=== PATIENT | female | born 1985 | race Caucasian/White ===

== ENCOUNTER 2020-10-16 11:25 | Emergency (ER) | payer SELFPAY ==
[2020-10-16 11:37] VITALS: BP 108/71; BP 92/76; PULSE 75; RESP 16; TEMP 36.1; O2SAT 99; BMI 52.4
--- NOTE | 2020-10-16 11:55 | ED_ITS ---
HPI - General Adult General Chief complaint: General Medical Stated complaint: ?DEHYDRATION Time Seen by Provider: 10/16/20 11:49 Source: patient, EMS and RN notes reviewed Mode of arrival: ambulatory Limitations: no limitations History of Present Illness HPI narrative: 34-year-old female with history of insulin-dependent diabetes here today after sustaining syncopal episode when doing her laundry. Patient reports that she was doing laundry with her mother and her son, while she started feeling very hot. Patient was going to get some water because she was thirsty and she reports that she passed out. Patient reports that she has not been drinking much fluids and has been very hot. She does not have a central air were she lives. Patient also reports that she took her insulin this morning and did not have anything to eat. Patient denies CP, PND, SOB with or without exertion. Reports to be feeling little lightheaded at this moment. 1 L of normal saline given by EMS. Blood sugar was checked by EMS and was 130. Related Data Allergies Allergy/AdvReac Type Severity Reaction Status Date / Time No Known Allergies Allergy Unverified 02/11/20 16:00 [No Known Allergies*] Review of Systems Review of Systems: Constitutional : No Weight loss, No Fever, No Chills, No Night Sweats, No Fatigue, No Malaise ENT/Mouth : No Hearing loss, No Ear Pain, No Nasal Congestion, No Sinus Pain, No Hoarseness, No sore throat, No Rhinorrhea, No Swallowing Difficulty Eyes: No Eye Pain, No Swelling, No Redness, No Foreign Body, No Discharge, No Vision Changes Cardiovascular : No Chest Pain, No SOB, No Dyspnea on Exertion, No Orthopnea, No Edema, No Palpitations Respiratory : No Cough, No Sputum, No Wheezing, No Smoke Exposure, No Dyspnea Gastrointestinal : No Nausea, No Vomiting, No Diarrhea, No Constipation, No abdominal Pain, No Hematochezia, No Melena Genitourinary : no irregular bleeding, No Dysuria, No Urinary Frequency, No Hematuria, No Urinary Incontinence, No Urgency, No Flank Pain, No Urinary Flow Changes, No Hesitancy Musculoskeletal : No joint pain, No Myalgias, No Joint Swelling Skin : No Skin Lesions, No rash Neuro : Weakness, No Numbness, No Paresthesias, No Loss of Consciousness, No Dizziness, No Headache Psych : No Anxiety/Panic, No Depression, No SI/HI/AH/VH, No Social Issues, Heme/Lymph: No Bruising, No Bleeding,No Lymphadenopathy Endocrine : No Polyuria, No Polydipsia, No Temperature Intolerance Yes all other systems are reviewed and are negative PMFSH Social History Social History Advance Directives: No Advance Directives Information Provided: Yes Patient : No Physical Exam Vital Signs: Vital Signs: Last Vital Signs Temp 96.9 F 10/16/20 11:37 Pulse 81 10/16/20 16:52 Resp 18 10/16/20 14:07 BP 101/72 10/16/20 16:52 Pulse Ox 99 10/16/20 14:07 Body Mass Index 52.4 Const: General: healthy appearing, no acute distress and well developed Nutritional Appearance: well nourished Orientation/consciousness: patient oriented x3 Neck: Neck: Yes normal visual inspection, Yes full ROM and Yes trachea midline Thyroid: Thyroid normal Resp: Auscultation: clear to auscultation bilaterally Cardio: Rate: regular rate Rhythm: regular rhythm GI: Inspection: Yes normal to inspection and No distended Palpation (GI): No hepatosplenomegaly present Auscultation: normal bowel sounds Skin: General skin exam: elasticity normal, turgor normal and dry skin Neuro: General: patient oriented x3 Course Course Course Narrative: 34-year-old female here today after syncopal episode at the [facility]. Patient was there with her mother and son. States that she has not been drinking fluids in the last couple days. Patient is diabetic. Took her insulin this morning and did not eat anything get. While doing laundry patient of thirsty and was try to go and get some water however she had a syncopal ep isode. Denies hitting head. Feeling lightheaded, blood sugar done by EMS and was 130. Will repeat POC here. I will order BMP, CBC to make sure that she is not anemic, EKG, orthostatics. Reevaluation(s) Reevaluation #1: Patient's blood sugar 28, dextrose 50 grams ordered IV. Spoke with an RN for patient to receive lunch. Patient is feeling better. Will continue to monitor for another couple hours and recheck her blood sugar. Reevaluation #2: Patient's blood sugar 171. Patient reports that she is feeling much better. I will discharge her home with instructions to monitor her blood sugar fair fluid home. Avoid administering insulin without eating her food. Follow-up with her PCP and possibly Endocrinology. Patient needs to drink plenty fluids and spoke to patient about keeping her apartment cool. She verbalizes understanding of instruction is agreeable to plan of care. She was given the opportunity to ask questions and all questions answered Time: 15:58 Medical Decision Making Lab Data Result diagrams: 10/16/20 13:22 10/16/20 13:22 Labs: Lab Results 10/16/20 10/16/20 10/16/20 Range/Units 13:09 13:22 13:22 WBC 6.9 (4.8-10.8) X10*3/uL RBC 3.94 L (4.20-5.50) X10*6/uL Hgb 11.6 L (12.0-16.0) g/dl Hct 34.2 L (37-47) % MCV 86.8 (80-98) fL MCH 29.4 (27.0-33.0) pg MCHC 33.9 (31.0-35.0) g/dl RDW 11.5 (11.0-16.0) % Plt Count 250 (160-400) X10*3/uL MPV 10.6 (9.4-12.3) fL Immature Gran % (Auto) 0.1 (0.0-0.4) % Neut % (Auto) 49.8 (45-73) % Lymph % (Auto) 41.6 H (20-40) % [place] % (Auto) 6.0 (2-11) % Eos % (Auto) 1.9 (0-4) % Baso % (Auto) 0.6 (0-2) % Lymph # (Auto) 2.9 (1.2-4.9) X10*3/uL [place] # (Auto) 0.4 (0.1-1.2) X10*3/uL Eos # (Auto) 0.1 (0.0-0.4) X10*3/uL Baso # (Auto) 0.0 (0.0-0.2) X10*3/uL Abs Immat Gran (auto) 0.01 (0.00-0.03) X10*3/uL Absolute Neuts (auto) 3.4 (2.0-8.3) X10*3/uL Absolute Nucleated RBC 0.000 (0.0-0.012) X10*3/uL Nucleated RBC % (auto) 0.0 (0.0-0.2) /100WBC Sodium 139 (135-145) mmol/L Potassium 3.2 L (3.3-5.1) mmol/L Chloride 104 (96-108) mmol/L Carbon Dioxide 27 (22-29) mmol/L Anion Gap 11 L (12-20) BUN 12 (9-16) mg/dL Creatinine 0.76 (0.5-1.4) mg/dL Estim Creat Clear Calc 136.3 Estimated GFR > 60 POC Glucose 28 L* (60-115) mg/dL Random Glucose 214 H (60-115) mg/dL Calcium 9.0 (8.4-10.2) mg/dL Urine Color Urine Appearance Urine pH (5.0-8.0) Ur Specific [place] (1.005-1.025) Urine Protein (NEG-TRACE) MG/DL Urine Glucose (UA) (NEG) MG/DL Urine Ketones (NEG) MG/DL Urine Blood (NEG) Urine Nitrite (NEG) Ur Leukocyte Esterase (NEG) Urine RBC (0) /HPF Urine WBC (0-4) /HPF Ur Squamous Epith Cells /LPF Urine Bacteria /LPF Urine Test (NEGATIVE) 10/16/20 10/16/20 10/16/20 Range/Units 13:35 14:04 14:04 WBC (4.8-10.8) X10*3/uL RBC (4.20-5.50) X10*6/uL Hgb (12.0-16.0) g/dl Hct (37-47) % MCV (80-98) fL MCH (27.0-33.0) pg MCHC (31.0-35.0) g/dl RDW (11.0-16.0) % Plt Count (160-400) X10*3/uL MPV (9.4-12.3) fL Immature Gran % (Auto) (0.0-0.4) % Neut % (Auto) (45-73) % Lymph % (Auto) (20-40) % [place] % (Auto) (2-11) % Eos % (Auto) (0-4) % Baso % (Auto) (0-2) % Lymph # (Auto) (1.2-4.9) X10*3/uL [place] # (Auto) (0.1-1.2) X10*3/uL Eos # (Auto) (0.0-0.4) X10*3/uL Baso # (Auto) (0.0-0.2) X10*3/uL Abs Immat Gran (auto) (0.00-0.03) X10*3/uL Absolute Neuts (auto) (2.0-8.3) X10*3/uL Absolute Nucleated RBC (0.0-0.012) X10*3/uL Nucleated RBC % (auto) (0.0-0.2) /100WBC Sodium (135-145) mmol/L Potassium (3.3-5.1) mmol/L Chloride (96-108) mmol/L Carbon Dioxide (22-29) mmol/L Anion Gap (12-20) BUN (9-16) mg/dL Creatinine (0.5-1.4) mg/dL Estim Creat Clear Calc Estimated GFR POC Glucose 163 H (60-115) mg/dL Random Glucose (60-115) mg/dL Calcium (8.4-10.2) mg/dL Urine Color YELLOW Urine Appearance HAZY Urine pH 6.0 (5.0-8.0) Ur Specific [place] 1.025 (1.005-1.025) Urine Protein NEG (NEG-TRACE) MG/DL Urine Glucose (UA) >=1000 H (NEG) MG/DL Urine Ketones 5 (NEG) MG/DL Urine Blood NEG (NEG) Urine Nitrite NEG (NEG) Ur Leukocyte Esterase NEG (NEG) Urine RBC 0 (0) /HPF Urine WBC 0-2 (0-4) /HPF Ur Squamous Epith Cells 3+ /LPF Urine Bacteria TRACE /LPF Urine Test NEGATIVE (NEGATIVE) 10/16/20 Range/Units 15:48 WBC (4.8-10.8) X10*3/uL RBC (4.20-5.50) X10*6/uL Hgb (12.0-16.0) g/dl Hct (37-47) % MCV (80-98) fL MCH (27.0-33.0) pg MCHC (31.0-35.0) g/dl RDW (11.0-16.0) % Plt Count (160-400) X10*3/uL MPV (9.4-12.3) fL Immature Gran % (Auto) (0.0-0.4) % Neut % (Auto) (45-73) % Lymph % (Auto) (20-40) % [place] % (Auto) (2-11) % Eos % (Auto) (0-4) % Baso % (Auto) (0-2) % Lymph # (Auto) (1.2-4.9) X10*3/uL [place] # (Auto) (0.1-1.2) X10*3/uL Eos # (Auto) (0.0-0.4) X10*3/uL Baso # (Auto) (0.0-0.2) X10*3/uL Abs Immat Gran (auto) (0.00-0.03) X10*3/uL Absolute Neuts (auto) (2.0-8.3) X10*3/uL Absolute Nucleated RBC (0.0-0.012) X10*3/uL Nucleated RBC % (auto) (0.0-0.2) /100WBC Sodium (135-145) mmol/L Potassium (3.3-5.1) mmol/L Chloride (96-108) mmol/L Carbon Dioxide (22-29) mmol/L Anion Gap (12-20) BUN (9-16) mg/dL Creatinine (0.5-1.4) mg/dL Estim Creat Clear Calc Estimated GFR POC Glucose 171 H (60-115) mg/dL Random Glucose (60-115) mg/dL Calcium (8.4-10.2) mg/dL Urine Color Urine Appearance Urine pH (5.0-8.0) Ur Specific [place] (1.005-1.025) Urine Protein (NEG-TRACE) MG/DL Urine Glucose (UA) (NEG) MG/DL Urine Ketones (NEG) MG/DL Urine Blood (NEG) Urine Nitrite (NEG) Ur Leukocyte Esterase (NEG) Urine RBC (0) /HPF Urine WBC (0-4) /HPF Ur Squamous Epith Cells /LPF Urine Bacteria /LPF Urine Test (NEGATIVE) Discharge Plan Discharge Clinical Impression: Hypoglycemia Patient Disposition: Home, Self-Care Instructions: Heat Exhaustion (ED), Hypoglycemia in a Person with Diabetes (ED), What to Do if Your Blood Sugar is Low (ED) Additional Instructions: You were seen here today after passing out. Your blood sugar was normal when you came to the emergency department however your blood sugar dropped as you administer insulin this morning without having any breakfast. Please make sure that when you take insulin you eat breakfast with that. Make sure that you drink plenty fluids and stay hydrated. Make sure that your apartment is cooled, avoid heat exhaustion. Please follow-up with your PCP in 2-3 days. Please return to emergency department if your symptoms get worse or if you will experience any other concerning symptoms. Stand Alone Forms: Work/School Release Interventions: ED Discharge Assessment Last Done: 10/16/20 16:51 Discharge Date/Time: 10/16/20 16:53
--- NOTE | 2020-10-16 12:08 | ECG_ITS ---
Test Reason : DIZZYNESS Blood Pressure : / mmHG Vent. Rate : 072 BPM Atrial Rate : 072 BPM P-R Int : 136 ms QRS Dur : 090 ms QT Int : 420 ms P-R-T Axes : 021 040 032 degrees QTc Int : 459 ms Normal sinus rhythm Nonspecific ST and T wave abnormality Abnormal ECG When compared with ECG of 04-DEC-2019 07:12, No significant changes seen Referred By: Justina Bolden Electronically Signed By:MILTON MCKEE
[2020-10-16] MEDS: Dextrose 25 % 2.5 GM/10 ML SYRINGE IV (13:20)
[2020-10-16 13:27] LABS: MANUAL DIFF FLAG NO
[2020-10-16] MEDS: 0.9 % Sodium Chloride 1,000 ML 999 ML IV (13:27)
--- NOTE | 2020-10-16 13:27 | PC.NURSE ---
POC 28. Pt given amp of D50. Meal tray ordered and pt is currently eating. Low BP. IVF infusing. Pt feeling much better after the D50%
[2020-10-16 13:30] VITALS: BP 94/56; PULSE 87; RESP 17; O2SAT 100
[2020-10-16 13:37] LABS: Basophils Percent Auto 0.6 % (0-2); Eosinophils Absolute Auto 0.1 X10*3/uL (0.0-0.4); Eosinophils Percent Auto 1.9 % (0-4); Hematocrit 34.2 % (37-47); Hemoglobin 11.6 g/dl (12.0-16.0); Imm Gran Abs Auto 0.01 X10*3/uL (0.00-0.03); Imm Gran Pct Auto 0.1 % (0.0-0.4); Lymphocytes Absolute Auto 2.9 X10*3/uL (1.2-4.9); Lymphocytes Percent Auto 41.6 % (20-40); Mean Corpuscular HGB Conc 33.9 g/dl (31.0-35.0); Mean Corpuscular Hemoglobin 29.4 pg (27.0-33.0); Mean Corpuscular Volume 86.8 fL (80-98); Mean Platelet Volume 10.6 fL (9.4-12.3); Monocytes Absolute Auto 0.4 X10*3/uL (0.1-1.2); Neutrophils Absolute Auto 3.4 X10*3/uL (2.0-8.3); Neutrophils Percent Auto 49.8 % (45-73); Platelet Count 250 X10*3/uL (160-400); Red Blood Count 3.94 X10*6/uL (4.20-5.50); Red Cell Distribution Width 11.5 % (11.0-16.0); White Blood Count 6.9 X10*3/uL (4.8-10.8)
[2020-10-16 13:40] LABS: Glucose, Whole Blood 163 mg/dL (60-115)
[2020-10-16 13:40] LABS: Glucose, Whole Blood 28 mg/dL (60-115)
[2020-10-16 13:53] LABS: Anion Gap 11 (12-20); Blood Urea Nitrogen 12 mg/dL (9-16); Carbon Dioxide 27 mmol/L (22-29); Chloride 104 mmol/L (96-108); Creatinine Clr Calc Pharmacy 136.3; Estimated Glomerular Filt Rate > 60; Glucose Random 214 mg/dL (60-115); Potassium 3.2 mmol/L (3.3-5.1); Sodium 139 mmol/L (135-145)
[2020-10-16 14:05] VITALS: BP 102/70; BP 104/76; PULSE 73; PULSE 78
[2020-10-16 14:06] VITALS: BP 101/69; PULSE 76
[2020-10-16 14:07] VITALS: BP 104/76; PULSE 85; RESP 18; O2SAT 99
[2020-10-16 14:16] LABS: Glucose Urine UA >=1000 MG/DL (NEG); Leukocyte Esterase Urine NEG (NEG); Nitrite Urine NEG (NEG); Specific Gravity - Urine 1.025 (1.005-1.025); Urine Blood NEG (NEG); Urine Ketones 5 MG/DL (NEG); Urine Protein NEG (NEG-TRACE)
[2020-10-16 14:21] LABS: Appearance Urine HAZY; Color Urine YELLOW; UPreg QC Valid YES; Urine Pregnancy NEGATIVE (NEGATIVE)
[2020-10-16 14:26] LABS: Bacteria Urine TRACE /LPF; RBC Urine 0 /HPF (0); Squamous Epithelial Cell Urine 3+ /LPF; WBC Urine 0-2 /HPF (0-4)
[2020-10-16 15:53] LABS: Glucose, Whole Blood 171 mg/dL (60-115)
[2020-10-16 16:52] VITALS: BP 101/72; PULSE 81
== END 2020-10-16 16:53 | disposition home or self-care (01) ==
PROVIDERS: Nurse Practitioner Family; Emergency Provider Emergency Medicine
DX: R55 Syncope and collapse (principal); E86.0 Dehydration; E11.649 Type 2 diabetes mellitus with hypoglycemia without coma; Z79.4 Long term (current) use of insulin; Z79.899 Other long term (current) drug therapy
CPT/HCPCS: 36415; 80048; 81001; 81025; 82947; 85025; 93005; 96365; 99284

== ENCOUNTER 2021-03-01 12:12 | Emergency (ER) | payer MEDICAID, SELFPAY ==
--- NOTE | 2021-03-01 | ECG_ITS ---
Test Reason : TACHYCARDIA Blood Pressure : / mmHG Vent. Rate : 105 BPM Atrial Rate : 105 BPM P-R Int : 132 ms QRS Dur : 074 ms QT Int : 320 ms P-R-T Axes : 066 039 027 degrees QTc Int : 422 ms Sinus tachycardia Nonspecific ST and T wave abnormality Abnormal ECG When compared with ECG of 16-OCT-2020 13:11, Heart rate has increased Referred By: Generic ED Physician Electronically Signed By:PAUL CORDOVA
[2021-03-01 13:16] LABS: MANUAL DIFF FLAG NO
[2021-03-01 13:20] LABS: Basophils Percent Auto 0.4 % (0-2); Eosinophils Percent Auto 0.4 % (0-4); Hematocrit 42.2 % (37-47); Hemoglobin 14.5 g/dl (12.0-16.0); Imm Gran Abs Auto 0.03 X10*3/uL (0.00-0.03); Imm Gran Pct Auto 0.4 % (0.0-0.4); Lymphocytes Absolute Auto 1.6 X10*3/uL (1.2-4.9); Lymphocytes Percent Auto 20.7 % (20-40); Mean Corpuscular HGB Conc 34.4 g/dl (31.0-35.0); Mean Corpuscular Hemoglobin 29.2 pg (27.0-33.0); Mean Corpuscular Volume 84.9 fL (80-98); Mean Platelet Volume 10.9 fL (9.4-12.3); Monocytes Absolute Auto 0.3 X10*3/uL (0.1-1.2); Monocytes Percent Auto 3.8 % (2-11); Neutrophils Absolute Auto 5.7 X10*3/uL (2.0-8.3); Neutrophils Percent Auto 74.3 % (45-73); Platelet Count 378 X10*3/uL (160-400); Red Blood Count 4.97 X10*6/uL (4.20-5.50); Red Cell Distribution Width 11.9 % (11.0-16.0); White Blood Count 7.7 X10*3/uL (4.8-10.8)
[2021-03-01 13:36] LABS: Anion Gap 26 (12-20); Blood Urea Nitrogen 17 mg/dL (9-16); Calcium 10.7 mg/dL (8.4-10.2); Carbon Dioxide 15 mmol/L (22-29); Chloride 99 mmol/L (96-108); Estimated Glomerular Filt Rate 38; Glucose Random 176 mg/dL (60-115); Potassium 4.2 mmol/L (3.3-5.1); Sodium 136 mmol/L (135-145); Troponin-I High Sensitivity < 3.5 ng/L (<3.5-17.0)
[2021-03-01 14:59] VITALS: BP 115/82; PULSE 112; RESP 18; TEMP 36.3; O2SAT 100; BMI 24.8
[2021-03-01 17:15] VITALS: BP 101/67; PULSE 80; RESP 17
--- NOTE | 2021-03-01 17:15 | ED_ITS ---
HPI - Chest Pain General Chief Complaint: Chest Pain Stated Complaint: rapid heartbeat Time Seen by Provider: 03/01/21 17:15 Source: patient Mode of arrival: ambulatory Limitations: no limitations History of Present Illness HPI narrative: Patient with history of diabetes type 1 on insulin 10 units daily with history of DKA in the past since today morning was not feeling good nausea is nauseated and vomiting for 5 times blood sugar last night was 120 patient did not check her blood sugar today patient started feeling palpitation also feeling weak and tired Related Data Previous Rx's Medication Instructions Recorded ondansetron 4 mg disintegrating 4 mg PO Q6-8H PRN #7 tab 03/01/21 tablet Allergies Allergy/AdvReac Type Severity Reaction Status Date / Time No Known Allergies Allergy Unverified 02/11/20 16:00 [No Known Allergies*] Review of Systems Review of Systems: Yes all other systems are reviewed and are negative [facility] Past Medical History Medical History (Updated 03/02/21 @ 00:03 by Background Daemon) Diabetes Social History Social History Smoked in Last 30 Days: No Use of substances other than those prescribed or required for medical reasons: No Advance Directives: No Advance Directives Information Provided: No Physical Exam Vital Signs: Vital Signs: Last Vital Signs Temp 98.3 F 03/01/21 19:42 Pulse 83 03/01/21 19:42 Resp 16 03/01/21 19:42 BP 95/63 03/01/21 19:42 Pulse Ox 100 03/01/21 19:42 Body Mass Index 24.8 Appearance: Alert. Oriented X3. No acute distress. Eyes: No pallor or icterus ENT: Pharynx normal. Oral Mucosa moist Neck: Normal inspection. Neck supple. CVS: Normal heart rate and rhythm. Pulses normal. Respiratory: No respiratory distress. Equal air entry bilateral, no wheezing/rales/rhonchi Abdomen: Soft and nontender. Bowel sounds are present, no mass palpable, no CVA tenderness Skin: Skin warm and dry. Normal skin color. Normal skin turgor. Extremities: No lower extremity edema. No calf tenderness Neuro: Oriented X 3. MDM - Chest Pain MDM Narrative Medical decision making narrative: Patient's metabolic acidosis without ketones secondary to vomiting and dehydration improved after IV fluids 2 L given and gap closed patient feeling much better now will discharge patient home Lab Data Attestation: I reviewed the patient's lab results. Result diagrams: 03/01/21 13:10 03/01/21 20:16 Labs: Lab Results 03/01/21 03/01/21 03/01/21 Range/Units 13:10 13:10 13:10 WBC 7.7 (4.8-10.8) X10*3/uL RBC 4.97 D (4.20-5.50) X10*6/uL Hgb 14.5 D (12.0-16.0) g/dl Hct 42.2 D (37-47) % MCV 84.9 (80-98) fL MCH 29.2 (27.0-33.0) pg MCHC 34.4 (31.0-35.0) g/dl RDW 11.9 (11.0-16.0) % Plt Count 378 D (160-400) X10*3/uL MPV 10.9 (9.4-12.3) fL Immature Gran % (Auto) 0.4 (0.0-0.4) % Neut % (Auto) 74.3 H (45-73) % Lymph % (Auto) 20.7 (20-40) % [place] % (Auto) 3.8 (2-11) % Eos % (Auto) 0.4 (0-4) % Baso % (Auto) 0.4 (0-2) % Lymph # (Auto) 1.6 (1.2-4.9) X10*3/uL [place] # (Auto) 0.3 (0.1-1.2) X10*3/uL Eos # (Auto) 0.0 (0.0-0.4) X10*3/uL Baso # (Auto) 0.0 (0.0-0.2) X10*3/uL Abs Immat Gran (auto) 0.03 (0.00-0.03) X10*3/uL Absolute Neuts (auto) 5.7 (2.0-8.3) X10*3/uL Absolute Nucleated RBC 0.000 (0.0-0.012) X10*3/uL Nucleated RBC % (auto) 0.0 (0.0-0.2) /100WBC VBG pH (7.32-7.43) VBG pCO2 mmHg VBG pO2 mmHg VBG HCO3 (22-26) mmol/L VBG O2 Saturation % VBG Base Excess mmol/L Sodium 136 (135-145) mmol/L Potassium 4.2 D (3.3-5.1) mmol/L Chloride 99 (96-108) mmol/L Carbon Dioxide 15 L (22-29) mmol/L Anion Gap 26 H (12-20) BUN 17 H (9-16) mg/dL Creatinine 1.55 H (0.5-1.4) mg/dL Estim Creat Clear Calc TNP Estimated GFR 38 Random Glucose 176 H (60-115) mg/dL Calcium 10.7 H D (8.4-10.2) mg/dL Troponin I High Sens < 3.5 (<3.5-17.0) ng/L Urine Color Urine Appearance Urine pH (5.0-8.0) Ur Specific [place] (1.005-1.025) Urine Protein (NEG-TRACE) MG/DL Urine Glucose (UA) (NEG) MG/DL Urine Ketones (NEG) MG/DL Urine Blood (NEG) Urine Nitrite (NEG) Ur Leukocyte Esterase (NEG) Urine RBC (0) /HPF Urine WBC (0-4) /HPF Ur Squamous Epith Cells /LPF Urine Bacteria /LPF Hyaline Casts /LPF Urine Mucus /LPF Acetone, Qual (Negative) 03/01/21 03/01/21 03/01/21 Range/Units 17:35 17:39 19:36 WBC (4.8-10.8) X10*3/uL RBC (4.20-5.50) X10*6/uL Hgb (12.0-16.0) g/dl Hct (37-47) % MCV (80-98) fL MCH (27.0-33.0) pg MCHC (31.0-35.0) g/dl RDW (11.0-16.0) % Plt Count (160-400) X10*3/uL MPV (9.4-12.3) fL Immature Gran % (Auto) (0.0-0.4) % Neut % (Auto) (45-73) % Lymph % (Auto) (20-40) % [place] % (Auto) (2-11) % Eos % (Auto) (0-4) % Baso % (Auto) (0-2) % Lymph # (Auto) (1.2-4.9) X10*3/uL [place] # (Auto) (0.1-1.2) X10*3/uL Eos # (Auto) (0.0-0.4) X10*3/uL Baso # (Auto) (0.0-0.2) X10*3/uL Abs Immat Gran (auto) (0.00-0.03) X10*3/uL Absolute Neuts (auto) (2.0-8.3) X10*3/uL Absolute Nucleated RBC (0.0-0.012) X10*3/uL Nucleated RBC % (auto) (0.0-0.2) /100WBC VBG pH 7.35 (7.32-7.43) VBG pCO2 33 mmHg VBG pO2 44 mmHg VBG HCO3 19 L (22-26) mmol/L VBG O2 Saturation 70.0 % VBG Base Excess -5.2 mmol/L Sodium (135-145) mmol/L Potassium (3.3-5.1) mmol/L Chloride (96-108) mmol/L Carbon Dioxide (22-29) mmol/L Anion Gap (12-20) BUN (9-16) mg/dL Creatinine (0.5-1.4) mg/dL Estim Creat Clear Calc Estimated GFR Random Glucose (60-115) mg/dL Calcium (8.4-10.2) mg/dL Troponin I High Sens (<3.5-17.0) ng/L Urine Color YELLOW Urine Appearance HAZY Urine pH 6.0 (5.0-8.0) Ur Specific [place] >= 1.030 H (1.005-1.025) Urine Protein 2+ H (NEG-TRACE) MG/DL Urine Glucose (UA) NEG (NEG) MG/DL Urine Ketones >=80 (NEG) MG/DL Urine Blood NEG (NEG) Urine Nitrite NEG (NEG) Ur Leukocyte Esterase NEG (NEG) Urine RBC 0 (0) /HPF Urine WBC 0 (0-4) /HPF Ur Squamous Epith Cells 3+ /LPF Urine Bacteria TRACE /LPF Hyaline Casts 0-2 /LPF Urine Mucus 2+ /LPF Acetone, Qual Negative (Negative) 03/01/21 Range/Units 20:16 WBC (4.8-10.8) X10*3/uL RBC (4.20-5.50) X10*6/uL Hgb (12.0-16.0) g/dl Hct (37-47) % MCV (80-98) fL MCH (27.0-33.0) pg MCHC (31.0-35.0) g/dl RDW (11.0-16.0) % Plt Count (160-400) X10*3/uL MPV (9.4-12.3) fL Immature Gran % (Auto) (0.0-0.4) % Neut % (Auto) (45-73) % Lymph % (Auto) (20-40) % [place] % (Auto) (2-11) % Eos % (Auto) (0-4) % Baso % (Auto) (0-2) % Lymph # (Auto) (1.2-4.9) X10*3/uL [place] # (Auto) (0.1-1.2) X10*3/uL Eos # (Auto) (0.0-0.4) X10*3/uL Baso # (Auto) (0.0-0.2) X10*3/uL Abs Immat Gran (auto) (0.00-0.03) X10*3/uL Absolute Neuts (auto) (2.0-8.3) X10*3/uL Absolute Nucleated RBC (0.0-0.012) X10*3/uL Nucleated RBC % (auto) (0.0-0.2) /100WBC VBG pH (7.32-7.43) VBG pCO2 mmHg VBG pO2 mmHg VBG HCO3 (22-26) mmol/L VBG O2 Saturation % VBG Base Excess mmol/L Sodium 139 (135-145) mmol/L Potassium 3.6 (3.3-5.1) mmol/L Chloride 109 H (96-108) mmol/L Carbon Dioxide 24 (22-29) mmol/L Anion Gap 10 L (12-20) BUN 14 (9-16) mg/dL Creatinine 0.86 (0.5-1.4) mg/dL Estim Creat Clear Calc 79.6 Estimated GFR > 60 Random Glucose 84 (60-115) mg/dL Calcium 8.4 D (8.4-10.2) mg/dL Troponin I High Sens (<3.5-17.0) ng/L Urine Color Urine Appearance Urine pH (5.0-8.0) Ur Specific [place] (1.005-1.025) Urine Protein (NEG-TRACE) MG/DL Urine Glucose (UA) (NEG) MG/DL Urine Ketones (NEG) MG/DL Urine Blood (NEG) Urine Nitrite (NEG) Ur Leukocyte Esterase (NEG) Urine RBC (0) /HPF Urine WBC (0-4) /HPF Ur Squamous Epith Cells /LPF Urine Bacteria /LPF Hyaline Casts /LPF Urine Mucus /LPF Acetone, Qual (Negative) Discharge Plan Discharge Clinical Impression: Acute gastroenteritis Patient Disposition: Home, Self-Care Instructions: Acute Nausea and Vomiting (ED) Additional Instructions: Drink plenty of fluids Medication for nausea as advised Take your insulin on time Prescriptions: New ondansetron 4 mg tablet,disintegrating 4 mg PO Q6-8H PRN (Reason: nausea and vomiting) Qty: 7 RF: 0 Interventions: ED Discharge Assessment Last Done: 03/01/21 21:15 Discharge Date/Time: 03/01/21 21:16
[2021-03-01] MEDS: ondansetron HCL 4 MG/2 ML VIAL IVPUSH (17:37)
[2021-03-01] MEDS: 0.9 % Sodium Chloride 1,000 ML 999 ML IVCONT ×2 (17:37)
[2021-03-01 17:47] LABS: VBG Base Excess -5.2 mmol/L; VBG HCO3 19 mmol/L (22-26); VBG pCO2 33 mmHg; VBG pH 7.35 (7.32-7.43); VBG pO2 44 mmHg
[2021-03-01 17:49] LABS: Venous Blood Gas Refer to POC result
[2021-03-01 17:49] LABS: Acetone, serum QL Negative (Negative)
[2021-03-01 19:33] VITALS: BP 102/70; PULSE 89; RESP 19; O2SAT 98
[2021-03-01 19:41] LABS: Appearance Urine HAZY; Color Urine YELLOW; Glucose Urine UA NEG (NEG); Leukocyte Esterase Urine NEG (NEG); Nitrite Urine NEG (NEG); Specific Gravity - Urine >= 1.030 (1.005-1.025); UACC Culture Trigger NO; Urine Blood NEG (NEG); Urine Ketones >=80 MG/DL (NEG); Urine Protein 2+ MG/DL (NEG-TRACE)
[2021-03-01 19:42] VITALS: BP 95/63; PULSE 83; RESP 16; TEMP 36.8; O2SAT 100
[2021-03-01 19:49] LABS: Bacteria Urine TRACE /LPF; Hyaline Casts Urine 0-2 /LPF; Mucus Urine 2+ /LPF; Squamous Epithelial Cell Urine 3+ /LPF
[2021-03-01 19:50] LABS: RBC Urine 0 /HPF (0); WBC Urine 0 /HPF (0-4)
[2021-03-01 20:40] LABS: Anion Gap 10 (12-20); Blood Urea Nitrogen 14 mg/dL (9-16); Calcium 8.4 mg/dL (8.4-10.2); Carbon Dioxide 24 mmol/L (22-29); Chloride 109 mmol/L (96-108); Creatinine Clr Calc Pharmacy 79.6; Estimated Glomerular Filt Rate > 60; Glucose Random 84 mg/dL (60-115); Potassium 3.6 mmol/L (3.3-5.1); Sodium 139 mmol/L (135-145)
== END 2021-03-01 21:16 | disposition home or self-care (01) ==
PROVIDERS: Emergency Medicine; Emergency Provider Internal Medicine
DX: K52.9 Noninfective gastroenteritis and colitis, unspecified (principal); E10.9 Type 1 diabetes mellitus without complications
CPT/HCPCS: 36415; 80048; 81001; 82009; 82803; 84484; 85025; 93005; 96361; 96374; 99284; 99285; J2405

== ENCOUNTER 2021-06-17 14:28 | Emergency (ER) | payer MEDICAID, SELFPAY ==
--- NOTE | 2021-06-17 | ECG_ITS ---
Test Reason : CHEST PAIN Blood Pressure : / mmHG Vent. Rate : 073 BPM Atrial Rate : 073 BPM P-R Int : 128 ms QRS Dur : 074 ms QT Int : 384 ms P-R-T Axes : 049 042 036 degrees QTc Int : 423 ms Normal sinus rhythm with sinus arrhythmia Normal ECG When compared with ECG of 01-MAR-2021 13:06, Nonspecific T wave abnormality no longer evident in Lateral leads Referred By: Generic ED Physician Electronically Signed By:Quan Rajan
--- NOTE | ~2021-06-17 | CT_ITS ---
EXAMINATION: CT ABDOMEN AND PELVIS WITH CONTRAST CLINICAL INFORMATION: Umbilical and right lower quadrant pain. Evaluate for appendicitis. COMPARISON: No similar priors. TECHNIQUE: Multidetector volumetric images were obtained from the superior aspect of the liver through the pubic symphysis following administration 85 mL of Omnipaque 350 intravenous contrast. Sagittal and coronal reformatted images were obtained on the technologist's workstation. Oral contrast: No This CT examination was performed using dose optimization techniques as appropriate, variously including the following: *Automated exposure control *Adjustment of mA and/or kV according to patient size (this includes techniques or standardized protocols for targeted exams where dose is matched to indication/reason for exam; i.e. extremities or head) *Use of iterative reconstruction technique DLP: 520 mGy-cm FINDINGS: LUNG BASES: No focal airspace opacities or pleural effusions. LIVER, GALLBLADDER, AND BILIARY TREE: The liver measures up to 17.5 cm in maximum craniocaudal dimension. Otherwise, it is normal in shape and density without focal abnormalities. There is no biliary duct dilatation. The gallbladder is unremarkable with no evidence of radiopaque gallstones, gallbladder wall thickening, or obvious pericholecystic inflammatory changes. PANCREAS: Unremarkable. SPLEEN: The spleen measures up to 12.2 cm in maximum craniocaudal dimension without focal abnormalities. ADRENAL GLANDS: Unremarkable. KIDNEYS AND URETERS: The kidneys are normal in size, shape, and attenuation. No hydronephrosis, hydroureter, or calculi seen. No perinephric stranding. BLADDER: Unremarkable. GASTROINTESTINAL TRACT: The stomach and the small bowel are nondilated. No pericolic inflammatory changes. Normal appendix. ABDOMINAL WALL: Indeterminate fat stranding of the umbilicus (7:53) without evidence of hernia. LYMPH NODES: No lymphadenopathy by size criteria. VASCULAR: Unremarkable. PELVIC VISCERA: Small volume of free fluid which is likely physiologic. Normal CT appearance of the uterus and adnexa. OSSEOUS STRUCTURES: No acute or aggressive osseous abnormalities. CT/CT abdomen pelvis w con IMPRESSION: Mild indeterminate fat stranding in the umbilicus. Correlate clinically for infection. Indeterminate mild hepatosplenomegaly. Otherwise, unremarkable examination.
[2021-06-17 15:16] VITALS: BP 122/72; PULSE 89; RESP 18; TEMP 36.9; O2SAT 100; BMI 27.3
[2021-06-17 15:46] LABS: MANUAL DIFF FLAG NO
[2021-06-17 15:51] LABS: Basophils Percent Auto 0.5 % (0-2); Eosinophils Absolute Auto 0.1 X10*3/uL (0.0-0.4); Eosinophils Percent Auto 1.2 % (0-4); Hematocrit 35.3 % (37.0-47.0); Hemoglobin 11.6 g/dl (12.0-16.0); Imm Gran Abs Auto 0.01 X10*3/uL (0.00-0.03); Imm Gran Pct Auto 0.2 % (0.0-0.4); Lymphocytes Absolute Auto 1.6 X10*3/uL (1.2-4.9); Mean Corpuscular HGB Conc 32.9 g/dl (31.0-35.0); Mean Corpuscular Hemoglobin 29.1 pg (27.0-33.0); Mean Corpuscular Volume 88.7 fL (80.0-98.0); Mean Platelet Volume 11.2 fL (9.4-12.3); Monocytes Absolute Auto 0.2 X10*3/uL (0.1-1.2); Monocytes Percent Auto 3.5 % (2-11); Neutrophils Absolute Auto 3.9 x10*3/uL (2.0-8.3); Neutrophils Percent Auto 67.6 % (45-73); Platelet Count 212 X10*3/uL (160-400); Red Blood Count 3.98 X10*6/uL (4.20-5.50); Red Cell Distribution Width 11.7 % (11.0-16.0); White Blood Count 5.8 X10*3/uL (4.8-10.8)
[2021-06-17 16:07] LABS: Anion Gap 17 (12-20); Blood Urea Nitrogen 12 mg/dL (9-16); Calcium 9.6 mg/dL (8.4-10.2); Carbon Dioxide 23 mmol/L (22-29); Chloride 98 mmol/L (96-108); Creatinine Clr Calc Pharmacy 72.3; Estimated Glomerular Filt Rate > 60; Glucose Random 592 mg/dL (60-115); Lipase 16 U/L (8-78); Potassium 5.1 mmol/L (3.3-5.1); Sodium 133 mmol/L (135-145); Troponin-I High Sensitivity < 3.5 ng/L (<3.5-17.0)
[2021-06-17 17:03] VITALS: BP 118/67; PULSE 72; RESP 16; TEMP 36.8; O2SAT 100
[2021-06-17] MEDS: 0.9 % Sodium Chloride 1,000 ML 999 ML IV ×2 (17:53→21:02)
[2021-06-17 17:57] LABS: Acetone, serum QL Negative (Negative)
[2021-06-17] MEDS: Insulin Regular, Human 100 UNIT/ML 3 ML VIAL 10 UNIT IVPUSH (18:00)
[2021-06-17 18:02] LABS: HCG Quantitative < 2 mIU/mL
[2021-06-17] MEDS: iohexoL 350 MG/ML 100 ML INFUS..BTL IV (18:27)
--- NOTE | 2021-06-17 18:37 | ED.ABDPAIN ---
HPI - Abdominal Pain General Chief Complaint: Abdominal Pain Stated Complaint: abd pain Time Seen by Provider: 06/17/21 17:34 Source: patient Mode of arrival: ambulatory Limitations: no limitations History of Present Illness HPI narrative: 35-year-old female presents to ED for umbilical that came on suddenly. Patient denies any dysuria, hematuria, flank pain, nausea, vomiting. Patient states no fever or chills. Patient denies any vaginal discharge or vaginal bleeding. Patient states she is a type 1 diabetic has been compliant with her meds. Related Data Previous Rx's Medication Instructions Recorded ondansetron 4 mg disintegrating 4 mg PO Q6-8H PRN #7 tab 03/01/21 tablet cephalexin 500 mg capsule 500 mg PO QID 7 Days #28 cap 06/17/21 naproxen 500 mg tablet 500 mg PO BID PRN 10 Days #20 tab 06/17/21 Allergies Allergy/AdvReac Type Severity Reaction Status Date / Time No Known Allergies Allergy Verified 06/17/21 15:22 [No Known Allergies*] Review of Systems Review of Systems Umbilical pain. Yes all other systems are reviewed and are negative Physical Exam Vital Signs: Vital Signs: Last Vital Signs Temp 97.8 F 06/17/21 22:13 Pulse 69 06/17/21 22:13 Resp 18 06/17/21 22:13 BP 104/74 06/17/21 22:13 Pulse Ox 98 06/17/21 22:13 BMI result Body Mass Index 27.3 Const: General: in distress mild Orientation/consciousness: patient oriented x3 HENMT: Head: Yes normal to inspection, Yes No palpable skull fracture present, Yes normocephalic, Yes atraumatic and No abrasion Eyes: General: appearance normal, both eyes and all related structures Neck: Neck: Yes normal visual inspection, Yes full ROM, Yes no lymphadenopathy, Yes no meningeal signs, Yes trachea midline, Yes supple, No anterior neck swelling and No tender Chest: Chest palpation & inspection: normal inspection of the chest and normal palpation of entire chest wall Resp: Effort & Inspection: normal respiratory effort and able to speak in complete sentences Auscultation: clear to auscultation bilaterally Cardio: Jugular venous distension: no JVD Heart sounds: S1 normal heart sound present and S2 normal heart sound present GI: Inspection: Yes normal to inspection and No abdominal wall ecchymosis Palpation (GI): Soft to palpation, not firm, Tenderness to palpation present (GI) (umbilical) in the RLQ, no guarding and not rigid : General: No CVA tenderness and Yes no CVA tenderness Back/Spine/Pelvis: Back: no CVA tenderness, No CVA tenderness and No back tenderness Skin: General skin exam: no rashes or lesions noted and elasticity normal Neuro: General: patient oriented x3, gait normal, no meningeal signs and CN's II-XI intact bilaterally Cranial nerves: Yes CN's II-XII intact bilaterally Extrem: General: Yes normal to inspection and Yes full ROM Psych: Appearance: grossly normal, well kempt and not disheveled Course Course Course Narrative: Patient had a rapid medical screening done by nurse which includes labs. Reevaluation(s) Reevaluation #1: Patient fingerstick 592 but not in DKA. Will give IV insulin and fluids. Patient will have CT scan of abdomen drawn due to significant tenderness of right lower quadrant and umbilical area. negative. Toradol ordered Time: 18:48 Reevaluation #2: Patient labs negative for elevated white blood cell count. Fingerstick improved. CT scan negative for appendicitis, hernia obstruction, or any other medical/surgical emergency. CT scan shows fat stranding in umblicus but no hernia or abscess. Due to patient being diabetic will just discharged with antibiotics to prevent infection. Dr. Muse agree with plan. UA negative for UTI. Fingerstick improved Time: 22:26 MDM - Abdominal Pain MDM Narrative Medical decision making narrative: Umbilical abdominal pain Lab Data Result diagrams: 06/17/21 15:41 06/17/21 15:41 Labs: Lab Results 06/17/21 06/17/21 06/17/21 Range/Units 15:41 15:41 15:41 WBC 5.8 (4.8-10.8) X10*3/uL RBC 3.98 L (4.20-5.50) X10*6/uL Hgb 11.6 L (12.0-16.0) g/dl Hct 35.3 L (37.0-47.0) % MCV 88.7 (80.0-98.0) fL MCH 29.1 (27.0-33.0) pg MCHC 32.9 (31.0-35.0) g/dl RDW 11.7 (11.0-16.0) % Plt Count 212 (160-400) X10*3/uL MPV 11.2 (9.4-12.3) fL Immature Gran % (Auto) 0.2 (0.0-0.4) % Neut % (Auto) 67.6 (45-73) % Lymph % (Auto) 27.0 (20-40) % [place] % (Auto) 3.5 (2-11) % Eos % (Auto) 1.2 (0-4) % Baso % (Auto) 0.5 (0-2) % Lymph # (Auto) 1.6 (1.2-4.9) X10*3/uL [place] # (Auto) 0.2 (0.1-1.2) X10*3/uL Eos # (Auto) 0.1 (0.0-0.4) X10*3/uL Baso # (Auto) 0.0 (0.0-0.2) X10*3/uL Abs Immat Gran (auto) 0.01 (0.00-0.03) X10*3/uL Absolute Neuts (auto) 3.9 (2.0-8.3) x10*3/uL Absolute Nucleated RBC 0.000 (0.0-0.012) X10*3/uL Nucleated RBC % (auto) 0.0 (0.0-0.2) /100WBC Sodium 133 L (135-145) mmol/L Potassium 5.1 D (3.3-5.1) mmol/L Chloride 98 (96-108) mmol/L Carbon Dioxide 23 (22-29) mmol/L Anion Gap 17 (12-20) BUN 12 (9-16) mg/dL Creatinine 0.99 (0.5-1.4) mg/dL Estim Creat Clear Calc 72.3 Estimated GFR > 60 POC Glucose (60-115) mg/dL Random Glucose 592 H* D (60-115) mg/dL Calcium 9.6 D (8.4-10.2) mg/dL Troponin I High Sens < 3.5 (<3.5-17.0) ng/L Lipase 16 (8-78) U/L Beta HCG, Quant < 2 mIU/mL Urine Color Urine Appearance Urine pH (5.0-8.0) Ur Specific [place] (1.005-1.025) Urine Protein (NEG-TRACE) MG/DL Urine Glucose (UA) (NEG) MG/DL Urine Ketones (NEG) MG/DL Urine Blood (NEG) Urine Nitrite (NEG) Ur Leukocyte Esterase (NEG) Urine RBC (0) /HPF Urine WBC (0-4) /HPF Ur Squamous Epith Cells /LPF Urine Bacteria /LPF Urine Mucus /LPF Acetone, Qual Negative (Negative) 06/17/21 06/17/21 06/17/21 Range/Units 19:38 19:44 21:48 WBC (4.8-10.8) X10*3/uL RBC (4.20-5.50) X10*6/uL Hgb (12.0-16.0) g/dl Hct (37.0-47.0) % MCV (80.0-98.0) fL MCH (27.0-33.0) pg MCHC (31.0-35.0) g/dl RDW (11.0-16.0) % Plt Count (160-400) X10*3/uL MPV (9.4-12.3) fL Immature Gran % (Auto) (0.0-0.4) % Neut % (Auto) (45-73) % Lymph % (Auto) (20-40) % [place] % (Auto) (2-11) % Eos % (Auto) (0-4) % Baso % (Auto) (0-2) % Lymph # (Auto) (1.2-4.9) X10*3/uL [place] # (Auto) (0.1-1.2) X10*3/uL Eos # (Auto) (0.0-0.4) X10*3/uL Baso # (Auto) (0.0-0.2) X10*3/uL Abs Immat Gran (auto) (0.00-0.03) X10*3/uL Absolute Neuts (auto) (2.0-8.3) x10*3/uL Absolute Nucleated RBC (0.0-0.012) X10*3/uL Nucleated RBC % (auto) (0.0-0.2) /100WBC Sodium (135-145) mmol/L Potassium (3.3-5.1) mmol/L Chloride (96-108) mmol/L Carbon Dioxide (22-29) mmol/L Anion Gap (12-20) BUN (9-16) mg/dL Creatinine (0.5-1.4) mg/dL Estim Creat Clear Calc Estimated GFR POC Glucose 339 H 307 H (60-115) mg/dL Random Glucose (60-115) mg/dL Calcium (8.4-10.2) mg/dL Troponin I High Sens (<3.5-17.0) ng/L Lipase (8-78) U/L Beta HCG, Quant mIU/mL Urine Color STRAW Urine Appearance HAZY Urine pH 5.5 (5.0-8.0) Ur Specific [place] <= 1.005 (1.005-1.025) Urine Protein NEG (NEG-TRACE) MG/DL Urine Glucose (UA) >=1000 H (NEG) MG/DL Urine Ketones 40 (NEG) MG/DL Urine Blood TRACE (NEG) Urine Nitrite NEG (NEG) Ur Leukocyte Esterase NEG (NEG) Urine RBC 0-2 (0) /HPF Urine WBC 1-4 (0-4) /HPF Ur Squamous Epith Cells 1+ /LPF Urine Bacteria 1+ /LPF Urine Mucus TRACE /LPF Acetone, Qual (Negative) Discharge Plan Discharge Clinical Impression: Abdominal pain Patient Disposition: Home, Self-Care Instructions: Abdominal Pain (ED) Additional Instructions: Your blood work in urine came back normal. Your abdominal CT scan did not show any medical/surgical emergency. CT scan shows fat stranding at the umbilicus which presently is not infected. Due to history of diabetes will discharge with antibiotics to prevent any infection. Return to the ED immediately for any redness, pus discharge, foul odor, fever, chills, or any other concerning symptoms. Please follow-up with primary care provider Prescriptions: New naproxen 500 mg tablet 500 mg PO BID PRN (Reason: pain) 10 Days Qty: 20 RF: 0 cephalexin 500 mg capsule 500 mg PO QID 7 Days Qty: 28 RF: 0 No Action ondansetron 4 mg tablet,disintegrating 4 mg PO Q6-8H PRN (Reason: nausea and vomiting) Qty: 7 RF: 0 Stand Alone Forms: Work/School Release Interventions: ED Discharge Assessment Last Done: 06/17/21 22:43 Discharge Date/Time: 06/17/21 22:46 Print Language: [place] [facility], [facility] Past Medical History Medical History (Updated 06/18/21 @ 00:00 by Background Daemon) Diabetes Social History Social History Advance Directives: No Advance Directives Information Provided: No Patient : No
[2021-06-17] MEDS: Ketorolac Tromethamine 30 MG/ML VIAL IVPUSH (19:32)
[2021-06-17 19:45] LABS: Appearance Urine HAZY; Color Urine STRAW; Glucose Urine UA >=1000 MG/DL (NEG); Leukocyte Esterase Urine NEG (NEG); Nitrite Urine NEG (NEG); PH 5.5 (5.0-8.0); Specific Gravity - Urine <= 1.005 (1.005-1.025); UACC Culture Trigger NO; Urine Blood TRACE (NEG); Urine Ketones 40 MG/DL (NEG); Urine Protein NEG (NEG-TRACE)
[2021-06-17 19:47] LABS: Glucose, Whole Blood 339 mg/dL (60-115)
[2021-06-17 19:52] LABS: Bacteria Urine 1+ /LPF; Mucus Urine TRACE /LPF; RBC Urine 0-2 /HPF (0); Squamous Epithelial Cell Urine 1+ /LPF
[2021-06-17 20:25] VITALS: BP 110/52; PULSE 67; RESP 18; TEMP 36.7; O2SAT 99
[2021-06-17 21:57] LABS: Glucose, Whole Blood 307 mg/dL (60-115)
[2021-06-17 22:13] VITALS: BP 104/74; PULSE 69; RESP 18; TEMP 36.6; O2SAT 98
== END 2021-06-17 22:46 | disposition home or self-care (01) ==
PROVIDERS: Physician Assistant; Emergency Provider Emergency Medicine Emergency Medical Services
DX: R10.9 Unspecified abdominal pain (principal); E10.9 Type 1 diabetes mellitus without complications; Z79.4 Long term (current) use of insulin
CPT/HCPCS: 36415; 74177; 80048; 81001; 82009; 82947; 83690; 84484; 84702; 85025; 93005; 96361; 96374; 96375; 99284; J1885; Q9967

== ENCOUNTER 2021-07-05 06:24 | Emergency (ER) | payer MEDICAID, SELFPAY ==
[2021-07-05 06:34] VITALS: BP 119/87; PULSE 80; RESP 16; O2SAT 100; BMI 23.1
[2021-07-05 06:46] LABS: Glucose, Whole Blood 108 mg/dL (60-115)
--- NOTE | 2021-07-05 07:56 | ED.GENADULT ---
HPI - General Adult General Chief complaint: General Medical Stated complaint: LOW BS 59,DRANK OJ 84 PER EMS Time Seen by Provider: 07/05/21 07:55 Source: patient Mode of arrival: EMS Limitations: no limitations History of Present Illness HPI narrative: Patient is a 35-year-old female with a past medical history of insulin-dependent diabetes. Reports that she had gestational diabetes and has been taking insulin since then. Currently she is only taking a long-acting insulin in the evening, Levimir 25 units. She is here with her mother today he reports that the patient has a long was going off for hours this morning. When she entered the patient's room she seemed ?out of it? she was responding to questions appropriately she was concerned that she felt cool to touch. She called EMS and on arrival patient was found to have a low blood sugar at 59. She was provided orange juice in her blood sugar improved to 84. She states that she last ate around 730 yesterday evening at which time she had a single hot dog. She does not check her blood sugar levels at home, though she does report that she have a meter, lancets, and test strips and is aware of how to use it. She has no primary care provider nor is she following with any fisheries technician. She states that she was 1st prescribed insulin while ?in the hospital before? and since then she has been purchasing it from [employer]. Mother currently reports that she appears to be acting her normal self, and patient has no current complaints. She denies fevers, chills, cold-like symptoms, dizziness, lightheadedness, chest pain, palpitations, shortness of breath, dyspnea on exertion, edema abdominal pain, nausea, vomiting, diarrhea. Related Data Previous Rx's Medication Instructions Recorded ondansetron 4 mg disintegrating 4 mg PO Q6-8H PRN #7 tab 03/01/21 tablet cephalexin 500 mg capsule 500 mg PO QID 7 Days #28 cap 06/17/21 naproxen 500 mg tablet 500 mg PO BID PRN 10 Days #20 tab 06/17/21 Allergies Allergy/AdvReac Type Severity Reaction Status Date / Time No Known Allergies Allergy Verified 06/17/21 15:22 [No Known Allergies*] Review of Systems Review of Systems: Constitutional: No weight loss, fever, chills, weakness or fatigue. HEENT: No visual loss, blurred vision, double vision or yellow sclera. No hearing loss, sneezing, congestion, runny nose or sore throat. Skin: No rash or itching. Cardiovascular: No chest pain, chest pressure or chest discomfort. No palpitations or pedal edema. Respiratory: No shortness of breath, cough or sputum production. Gastrointestinal: No anorexia, nausea, vomiting or diarrhea. No abdominal pain or blood in stool. Genitourinary: No burning micturition. No urinary frequency or incontinence. Neurologic: No headache, dizziness, syncope, unilateral weakness, ataxia, numbness or tingling in the extremities. Musculoskeletal: No muscle pain, back pain, joint pain or stiffness. Hematologic: No bleeding or bruising. Lymphatics: No enlarged lymph nodes. Psychiatric:No depression or anxiety. Endocrine: No reports of sweating. No cold or heat intolerance. No polyuria or polydipsia. [facility] Past Medical History Attestation statement: The following information was validated with the patient. Source: old records reviewed Medical History Diabetes Social History Social History Advance Directives: Yes Advance Directives Information Provided: Yes Advance Directives on File: No Patient : No Physical Exam Vital Signs: Vital Signs: Last Vital Signs Temp 98.7 F 07/05/21 10:20 Pulse 80 07/05/21 06:34 Resp 16 07/05/21 06:34 BP 119/87 07/05/21 06:34 Pulse Ox 100 07/05/21 06:34 BMI result Body Mass Index 23.1 Vital signs have been reviewed as normal and appeared to be correct. Blood pressure normal.? Heart rate normal.? Respiration rate normal. Temperature normal.? Oxygen saturation normal. Appearance: Alert.?Oriented to person, place and time. No acute distress.?Normal affect. Eyes: Pupils equal, round and reactive to light.? ENT: Pharynx normal.?? Neck: Normal inspection.? Neck supple.?? CVS: Heart sounds normal. Normal heart rate and rhythm.? Pulses normal.?? Respiratory: No respiratory distress.? Lung sounds clear to auscultation bilaterally?? Abdomen: Soft and non-tender. Normoactive bowel sounds. ? Skin: Skin warm and dry.? Normal skin color.? Normal skin turgor.?? Extremities: No lower extremity edema.? Neuro: Moves all extremities spontaneously. Sensation intact bilaterally. No focal neuro deficits. Ambulates with normal steady gait. Course Course Course Narrative: Patient is 35-year-old female with past medical history of diabetes who presents to emergency department for evaluation of hypoglycemia. Patient is insulin-dependent diabetic, who does not check her blood sugar levels. She is not following primary care provider nor an fisheries technician to be managing her diabetes. Upon arrival to emergency department her blood sugar was 108 with follow up 2 hours later at 266. Based on her history, it is not clear that any provider is prescribing her insulin, and is not available on her external medication history, but she is adamant that she is taking it nightly. She has no symptoms concerning for infection, denies any alcohol consumption that may be contributing to hypoglycemia. Her history and symptoms are consistent with her episode of hypoglycemia. Discussed management of hypoglycemia to include 3 glucose tablets, 15 g glucose gel, or 4-8 oz of fruit juice followed by a snack/ meal. Advised that she should be checked, her blood glucose levels 4 times daily; this includes before meals and before bedtime, discussed the importance of having a snack with insulin administration at night. Reviewed signs and symptoms of hypoglycemia and hyperglycemia. We discussed the complications of diabetes over time. Reviewed the importance of establishing care with a new primary care provider and following up with endocrinology. She and her mother both report feeling confident in using the glucose meter that she has at home and advises that she has also supplies to do so. Patient will be discharged home, we reviewed reasons to return to the emergency department, answered all questions, patient is agreeable with plan of care. Medical Decision Making Lab Data Labs: Lab Results 07/05/21 07/05/21 Range/Units 06:40 08:33 POC Glucose 108 266 H (60-115) mg/dL Discharge Plan Discharge Clinical Impression: Hypoglycemia, Diabetes Patient Disposition: Home, Self-Care Additional Instructions: As we discussed, it is important that you are checking your blood sugars 4 times daily, before breakfast lunch and dinner and before bed. It is important that you establish care with a primary care provider, as we discussed diabetes can cause complications with all parts of your body if not well managed. In addition, your insulin requirements can blade changer time. You should be having a snack in the evening when you are taking your long-acting insulin. Your having symptoms of your blood sugar being low your level should be checked and can drink orange juice or have candies followed by a meal/snack. Additionally, glucose gel or tablets can be purchased over the counter at the pharmacy. We have also given you contact information to establish care with an fisheries technician: This is a industrial safety and health specialist. Please return to the emergency department with any new or worsening symptoms or concerns. Prescriptions: No Action ondansetron 4 mg tablet,disintegrating 4 mg PO Q6-8H PRN (Reason: nausea and vomiting) Qty: 7 0RF naproxen 500 mg tablet 500 mg PO BID PRN (Reason: pain) 10 Days Qty: 20 0RF cephalexin 500 mg capsule 500 mg PO QID 7 Days Qty: 28 0RF Referrals: Dunia Fuentes DO [Physician] - 1 day (diabetes on insulin with recurrent hypoglycemia) Interventions: ED Discharge Assessment Last Done: 07/05/21 09:15 Discharge Date/Time: 07/05/21 09:16
[2021-07-05 08:36] LABS: Glucose, Whole Blood 266 mg/dL (60-115)
[2021-07-05 10:20] VITALS: TEMP 37.1
== END 2021-07-05 09:16 | disposition home or self-care (01) ==
PROVIDERS: Emergency Provider Emergency Medicine
DX: E11.649 Type 2 diabetes mellitus with hypoglycemia without coma (principal); Z79.4 Long term (current) use of insulin
CPT/HCPCS: 82947; 99283

== ENCOUNTER 2022-07-14 03:49 | Inpatient (IN) | payer MEDICAID, SELFPAY ==
[2022-07-14] VITALS (20 sets, daily range): BP systolic 90–136; BP diastolic 57–80; PULSE 84–122; RESP 16–30; TEMP 36.3–37.1; O2SAT 97–100; BMI 31.1; BMI 30.6; BMI 30.2
--- NOTE | 2022-07-14 03:53 | ECG_ITS ---
Test Reason : epi gastric pain Blood Pressure : / mmHG Vent. Rate : 120 BPM Atrial Rate : 120 BPM P-R Int : 132 ms QRS Dur : 076 ms QT Int : 316 ms P-R-T Axes : 069 040 048 degrees QTc Int : 446 ms Sinus tachycardia Otherwise normal ECG When compared with ECG of 17-JUN-2021 15:25, Vent. rate has increased BY 47 BPM Referred By: Generic ED Physician Electronically Signed By:Quan Rajan
--- NOTE | 2022-07-14 04:19 | MHC.EDTECH ---
PATIENT POC WAS TAKEN TWICE ,BOTH TIMES IT READ HI ,QC WAS TAKEN POC REPEATED .
[2022-07-14 04:26] LABS: Glucose, Whole Blood > 600 mg/dL (60-115)
[2022-07-14 04:26] LABS: Glucose, Whole Blood > 600 mg/dL (60-115)
--- NOTE | 2022-07-14 04:32 | ED.GENADULT ---
HPI - General Adult General Chief complaint: General Medical Stated complaint: Diabetic Time Seen by Provider: 07/14/22 04:32 Source: patient Mode of arrival: ambulatory Limitations: no limitations History of Present Illness HPI narrative: Patient diabetic type 1 on Lantus insulin no sliding scale used to be on 10 units every night for last 1 week decreased to 5 units every night as patient was getting hypoglycemic episodes since the dose was decreased patient blood sugar been in 400 range patient increased her story since last night patient been vomiting not feeling good and feeling weak blood sugar reading high on arrival patient POC was more than 600 no abdominal pain no fever no chills no urinary complaints patient feeling is thirsty and urinating a lot for last 1 week patient does take only Lantus insulin no sliding scale of insulin Related Data Allergies Allergy/AdvReac Type Severity Reaction Status Date / Time No Known Allergies Allergy Verified 06/17/21 15:22 [No Known Allergies*] Review of Systems Review of Systems: Yes all other systems are reviewed and are negative [facility] Past Medical History Medical History Diabetes Social History Social History Patient Tobacco Use Status: Never used Tobacco Smoked in Last 30 Days: No Use of substances other than those prescribed or required for medical reasons: No Advance Directives: No Nutrition Risks: No Nutritional Risk and Diabetes new onset/Uncontrolled Patient : No Physical Exam ED Vital Signs: Vital Signs - 24 hr 07/14/22 04:10 07/14/22 05:45 Temperature 97.4 F 97.9 F Pulse Rate 122 H 105 H Respiratory Rate 16 22 H Blood Pressure 125/73 118/73 Pulse Oximetry 98 99 Oxygen Delivery Method Room Air Room Air BMI result Body Mass Index 31.1 Appearance: Alert. Oriented X3. Sick looking Eyes: No pallor/icterus ENT: Pharynx normal. Oral Mucosa dry Neck: Normal inspection. Neck supple. CVS: Normal heart rate and rhythm. Pulses normal. Respiratory: No respiratory distress. Equal air entry bilateral, no wheezing/rales/rhonchi Abdomen: Soft and nontender. Bowel sounds are present, no mass palpable, no CVA tenderness Skin: Skin warm and dry. Normal skin color. Normal skin turgor. Extremities: No lower extremity edema. No calf tenderness Neuro: Oriented X 3. No motor deficit. No sensory deficit.No cerebellar signs , cranial nerves II-XII intact Medications Administered Generic Name Dose Route Start Last Admin Trade Name Freq PRN Reason Stop Dose Admin Insulin Human Regular 100 unit in 100 mls @ 0 mls/hr 07/14/22 05:00 07/14/22 06:27 Myxredlin IVCONT 4 unit/hr .Q0M SHANNAN 4 mls/hr Titration Protocol Per Protocol Lactated Ringer's 1,000 mls @ 150 mls/hr 07/14/22 06:00 07/14/22 06:59 Lr IVCONT 150 mls/hr .Q6H40M SHANNAN Administration Discontinued Medications Generic Name Dose Route Start Last Admin Trade Name Freq PRN Reason Stop Dose Admin Sodium Chloride 1,000 mls @ 999 mls/hr 07/14/22 04:39 07/14/22 06:40 Ns IV 07/14/22 05:39 Infused .Q1H1M ONE Infusion Sodium Chloride 1,000 mls @ 999 mls/hr 07/14/22 04:58 07/14/22 06:40 Ns IV 07/14/22 05:58 Infused .Q1H1M ONE Infusion Insulin Human Regular 10 unit 07/14/22 04:39 07/14/22 04:51 Insulin Regular, Human 100 Unit/Ml 3 Ml Vial IVPUSH 07/14/22 04:40 10 unit ONCE ONE Administration Medical Decision Making Medical Decision Making [facility] Narrative: 510 am Patient with POC of 809 ketones positive pH 7.18 and bicarb 9 with anion gap of 34 IV fluids started start insulin drip admit to ICU case discussed with Dr. Awan Differential Diagnosis DKA Consult Healthcare Provider Management of the patient was discussed with: Hospitalist Lab Data [facility] Lab Attestation statement: I reviewed the patient's lab results. 07/14/22 04:33 07/14/22 04:33 Labs: Lab Results 07/14/22 07/14/22 07/14/22 Range/Units 04:01 04:12 04:33 WBC 7.6 (4.8-10.8) X10*3/uL RBC 4.86 D (4.20-5.50) X10*6/uL Hgb 13.1 (12.0-16.0) g/dl Hct 43.0 D (37.0-47.0) % MCV 88.5 (80.0-98.0) fL MCH 27.0 (27.0-33.0) pg MCHC 30.5 L (31.0-35.0) g/dl RDW 12.9 (11.0-16.0) % Plt Count 344 D (160-400) X10*3/uL MPV 11.1 (9.4-12.3) fL Immature Gran % (Auto) 0.3 (0.0-0.4) % Neut % (Auto) 73.2 H (45-73) % Lymph % (Auto) 22.0 (20-40) % [place] % (Auto) 3.6 (2-11) % Eos % (Auto) 0.4 (0-4) % Baso % (Auto) 0.5 (0-2) % Lymph # (Auto) 1.7 (1.2-4.9) X10*3/uL [place] # (Auto) 0.3 (0.1-1.2) X10*3/uL Eos # (Auto) 0.0 (0.0-0.4) X10*3/uL Baso # (Auto) 0.0 (0.0-0.2) X10*3/uL Abs Immat Gran (auto) 0.02 (0.00-0.03) X10*3/uL Absolute Neuts (auto) 5.5 (2.0-8.3) x10*3/uL Absolute Nucleated RBC 0.000 (0.0-0.012) X10*3/uL Nucleated RBC % (auto) 0.0 (0.0-0.2) /100WBC VBG pH (7.32-7.43) VBG pCO2 mmHg VBG pO2 mmHg VBG HCO3 (22-26) mmol/L VBG O2 Saturation % VBG Base Excess mmol/L Sodium (135-145) mmol/L Potassium (3.3-5.1) mmol/L Chloride (96-108) mmol/L Carbon Dioxide (22-29) mmol/L Anion Gap (12-20) BUN (9-16) mg/dL Creatinine (0.5-1.4) mg/dL Estim Creat Clear Calc Estimated GFR POC Glucose > 600 H* > 600 H* (60-115) mg/dL Random Glucose (60-115) mg/dL Calcium (8.4-10.2) mg/dL Total Bilirubin (0.0-1.0) mg/dL AST (5-31) U/L ALT (0-31) U/L Alkaline Phosphatase (39-117) U/L Ammonia (13-55) umol/L Total Protein (6.5-8.0) g/dL Albumin (3.5-5.0) g/dL Urine Color Urine Appearance Urine pH (5.0-9.0) Ur Specific [place] (1.005-1.025) Urine Protein (Neg-Trace) mg/dL Urine Glucose (UA) (Negative) mg/dL Urine Ketones (Negative) mg/dL Urine Blood (Negative) Urine Nitrite (Negative) Ur Leukocyte Esterase (Negative) Urine RBC (0-2) /HPF Urine WBC (0-5) /HPF Ur Squamous Epith Cells (0-2) /HPF Urine Bacteria (None Seen) Hyaline Casts (0-2) /LPF Acetone, Qual (Negative) COVID-19 (JAREN) (Negative) COVID-19 Clin Com 07/14/22 07/14/22 07/14/22 Range/Units 04:33 04:33 04:33 WBC (4.8-10.8) X10*3/uL RBC (4.20-5.50) X10*6/uL Hgb (12.0-16.0) g/dl Hct (37.0-47.0) % MCV (80.0-98.0) fL MCH (27.0-33.0) pg MCHC (31.0-35.0) g/dl RDW (11.0-16.0) % Plt Count (160-400) X10*3/uL MPV (9.4-12.3) fL Immature Gran % (Auto) (0.0-0.4) % Neut % (Auto) (45-73) % Lymph % (Auto) (20-40) % [place] % (Auto) (2-11) % Eos % (Auto) (0-4) % Baso % (Auto) (0-2) % Lymph # (Auto) (1.2-4.9) X10*3/uL [place] # (Auto) (0.1-1.2) X10*3/uL Eos # (Auto) (0.0-0.4) X10*3/uL Baso # (Auto) (0.0-0.2) X10*3/uL Abs Immat Gran (auto) (0.00-0.03) X10*3/uL Absolute Neuts (auto) (2.0-8.3) x10*3/uL Absolute Nucleated RBC (0.0-0.012) X10*3/uL Nucleated RBC % (auto) (0.0-0.2) /100WBC VBG pH (7.32-7.43) VBG pCO2 mmHg VBG pO2 mmHg VBG HCO3 (22-26) mmol/L VBG O2 Saturation % VBG Base Excess mmol/L Sodium 131 L (135-145) mmol/L Potassium 5.3 H (3.3-5.1) mmol/L Chloride 95 L (96-108) mmol/L Carbon Dioxide 9 L* D (22-29) mmol/L Anion Gap 32 H (12-20) BUN 21 H (9-16) mg/dL Creatinine 1.57 H (0.5-1.4) mg/dL Estim Creat Clear Calc 48.0 Estimated GFR 37 POC Glucose (60-115) mg/dL Random Glucose 809 H* (60-115) mg/dL Calcium 9.8 (8.4-10.2) mg/dL Total Bilirubin 0.9 (0.0-1.0) mg/dL AST 16 (5-31) U/L ALT 24 (0-31) U/L Alkaline Phosphatase 133 H (39-117) U/L Ammonia 25 (13-55) umol/L Total Protein 8.5 H (6.5-8.0) g/dL Albumin 4.4 (3.5-5.0) g/dL Urine Color Urine Appearance Urine pH (5.0-9.0) Ur Specific [place] (1.005-1.025) Urine Protein (Neg-Trace) mg/dL Urine Glucose (UA) (Negative) mg/dL Urine Ketones (Negative) mg/dL Urine Blood (Negative) Urine Nitrite (Negative) Ur Leukocyte Esterase (Negative) Urine RBC (0-2) /HPF Urine WBC (0-5) /HPF Ur Squamous Epith Cells (0-2) /HPF Urine Bacteria (None Seen) Hyaline Casts (0-2) /LPF Acetone, Qual Small H (Negative) COVID-19 (JAREN) (Negative) COVID-19 Clin Com 07/14/22 07/14/22 07/14/22 Range/Units 04:51 04:54 05:32 WBC (4.8-10.8) X10*3/uL RBC (4.20-5.50) X10*6/uL Hgb (12.0-16.0) g/dl Hct (37.0-47.0) % MCV (80.0-98.0) fL MCH (27.0-33.0) pg MCHC (31.0-35.0) g/dl RDW (11.0-16.0) % Plt Count (160-400) X10*3/uL MPV (9.4-12.3) fL Immature Gran % (Auto) (0.0-0.4) % Neut % (Auto) (45-73) % Lymph % (Auto) (20-40) % [place] % (Auto) (2-11) % Eos % (Auto) (0-4) % Baso % (Auto) (0-2) % Lymph # (Auto) (1.2-4.9) X10*3/uL [place] # (Auto) (0.1-1.2) X10*3/uL Eos # (Auto) (0.0-0.4) X10*3/uL Baso # (Auto) (0.0-0.2) X10*3/uL Abs Immat Gran (auto) (0.00-0.03) X10*3/uL Absolute Neuts (auto) (2.0-8.3) x10*3/uL Absolute Nucleated RBC (0.0-0.012) X10*3/uL Nucleated RBC % (auto) (0.0-0.2) /100WBC VBG pH 7.13 L* (7.32-7.43) VBG pCO2 30 mmHg VBG pO2 44 mmHg VBG HCO3 10 L (22-26) mmol/L VBG O2 Saturation 53.0 % VBG Base Excess -17.4 mmol/L Sodium (135-145) mmol/L Potassium (3.3-5.1) mmol/L Chloride (96-108) mmol/L Carbon Dioxide (22-29) mmol/L Anion Gap (12-20) BUN (9-16) mg/dL Creatinine (0.5-1.4) mg/dL Estim Creat Clear Calc Estimated GFR POC Glucose (60-115) mg/dL Random Glucose (60-115) mg/dL Calcium (8.4-10.2) mg/dL Total Bilirubin (0.0-1.0) mg/dL AST (5-31) U/L ALT (0-31) U/L Alkaline Phosphatase (39-117) U/L Ammonia (13-55) umol/L Total Protein (6.5-8.0) g/dL Albumin (3.5-5.0) g/dL Urine Color Yellow Urine Appearance Clear Urine pH 5.0 (5.0-9.0) Ur Specific [place] >= 1.030 H (1.005-1.025) Urine Protein Trace (Neg-Trace) mg/dL Urine Glucose (UA) >=1000 H (Negative) mg/dL Urine Ketones >=160 (Negative) mg/dL Urine Blood Large (3+) H (Negative) Urine Nitrite Negative (Negative) Ur Leukocyte Esterase Negative (Negative) Urine RBC >20 H (0-2) /HPF Urine WBC 0-5 (0-5) /HPF Ur Squamous Epith Cells 0-2 (0-2) /HPF Urine Bacteria None Seen (None Seen) Hyaline Casts 0-2 (0-2) /LPF Acetone, Qual (Negative) COVID-19 (JAREN) Negative (Negative) COVID-19 Clin Com See Note Critical Care Time Critical Care Time Critical Care Time: Yes Total Critical Care Time: 45 Attestation: The patient was critically ill with a high probability of imminent or life threatening deterioration. I spent greater than 50 minutes of discontinuous time evaluating the patient,delivering critical care at the bedside, discussing and evaluating pertinent data with consultants. Critical care time does not include time spent performing separately billable procedures or teaching. Total time spent performing critical care was 45 minutes. Discharge Plan Discharge Clinical Impression: Diabetic ketoacidosis Patient Disposition: Admitted As Inpatient
[2022-07-14 04:38] LABS: MANUAL DIFF FLAG NO
[2022-07-14 04:40] LABS: Basophils Percent Auto 0.5 % (0-2); Eosinophils Percent Auto 0.4 % (0-4); Hemoglobin 13.1 g/dl (12.0-16.0); Imm Gran Abs Auto 0.02 X10*3/uL (0.00-0.03); Imm Gran Pct Auto 0.3 % (0.0-0.4); Lymphocytes Absolute Auto 1.7 X10*3/uL (1.2-4.9); Mean Corpuscular HGB Conc 30.5 g/dl (31.0-35.0); Mean Corpuscular Volume 88.5 fL (80.0-98.0); Mean Platelet Volume 11.1 fL (9.4-12.3); Monocytes Absolute Auto 0.3 X10*3/uL (0.1-1.2); Monocytes Percent Auto 3.6 % (2-11); Neutrophils Absolute Auto 5.5 x10*3/uL (2.0-8.3); Neutrophils Percent Auto 73.2 % (45-73); Platelet Count 344 X10*3/uL (160-400); Red Blood Count 4.86 X10*6/uL (4.20-5.50); Red Cell Distribution Width 12.9 % (11.0-16.0); White Blood Count 7.6 X10*3/uL (4.8-10.8)
[2022-07-14] MEDS: 0.9 % Sodium Chloride 1,000 ML 999 ML IV ×2 (04:43→05:10)
[2022-07-14 04:44] LABS: Ammonia 25 umol/L (13-55)
[2022-07-14 04:46] LABS: Acetone, serum QL Small (Negative)
[2022-07-14] MEDS: Insulin Regular, Human 100 UNIT/ML 3 ML VIAL 10 UNIT IVPUSH (04:51)
--- NOTE | 2022-07-14 04:57 | PC.NURSE ---
Pt aox3. Reports unable to obtain insulin at the pharmacy and beliefs BS levels are elevated. BS levels >600. 20G IV line established on R AC. Insulin administered as ordered. 1L fluids started. Labs drawn and sent. at bedside.
[2022-07-14 04:58] LABS: Appearance Urine Clear; Color Urine Yellow; Glucose Urine UA >=1000 mg/dL (Negative); Leukocyte Esterase Urine Negative (Negative); Nitrite Urine Negative (Negative); Specific Gravity - Urine >= 1.030 (1.005-1.025); UMIC TRIGGER UACC YES; Urine Blood Large (3+) (Negative); Urine Ketones >=160 mg/dL (Negative); Urine Protein Trace mg/dL (Neg-Trace)
[2022-07-14 04:59] LABS: Alanine Aminotransferase 24 U/L (0-31); Albumin Level 4.4 g/dL (3.5-5.0); Alkaline Phosphatase 133 U/L (39-117); Anion Gap 32 (12-20); Aspartate Amino Transferase 16 U/L (5-31); Bilirubin Total 0.9 mg/dL (0.0-1.0); Blood Urea Nitrogen 21 mg/dL (9-16); Calcium 9.8 mg/dL (8.4-10.2); Carbon Dioxide 9 mmol/L (22-29); Chloride 95 mmol/L (96-108); Estimated Glomerular Filt Rate 37; Glucose Random 809 mg/dL (60-115); Potassium 5.3 mmol/L (3.3-5.1); Sodium 131 mmol/L (135-145); Total Protein 8.5 g/dL (6.5-8.0)
[2022-07-14 05:02] LABS: Venous Blood Gas Refer to POC result
[2022-07-14 05:03] LABS: VBG Base Excess -17.4 mmol/L; VBG HCO3 10 mmol/L (22-26); VBG pCO2 30 mmHg; VBG pH 7.13 (7.32-7.43); VBG pO2 44 mmHg
[2022-07-14] MEDS: Insulin Regular/NS 100 UNIT/100 ML PLAST..BAG IVCONT (05:19)
--- NOTE | 2022-07-14 05:22 | PC.NURSE ---
20G IV line established on L AC with Insulin drip started @ 5u/hr per protocol @ 0520. BS checks to be done hourly. Pt aware of plan of care.
[2022-07-14 05:49] LABS: Bacteria Urine None Seen (None Seen); Hyaline Casts Urine 0-2 /LPF (0-2); RBC Urine >20 /HPF (0-2); Squamous Epithelial Cell Urine 0-2 /HPF (0-2); WBC Urine 0-5 /HPF (0-5)
[2022-07-14 05:54] LABS: COVID-19 Test Negative (Negative); IDNOW Serial# BCCEAD1C
--- NOTE | 2022-07-14 06:17 | MHC.EDTECH ---
PT given pericare. Pt setup on [employer] system. Pt given warm blankets/ call so in reach
[2022-07-14 06:25] LABS: Glucose, Whole Blood 418 mg/dL (60-115)
--- NOTE | 2022-07-14 06:26 | PC.NURSE ---
POC BG 418. Insulin drip reduced to 4u/hr as per protocol. Will recheck POC @ 0730. Pt aware of plan of care.
[2022-07-14] MEDS: Lactated Ringers 1,000 ML 150 ML IVCONT (06:59)
--- NOTE | 2022-07-14 07:10 | PC.NURSE ---
report taken from rachana foley pt here for s/s r/t dka, pt has not been taking sliding scale insulin d/t insurance issues. pt was hyperglycemic >600 on arrival w poc glucose >800 on whole blood labs. pt started on insulin drip, titration to glucose readings reflected in emar. maintanence fluids infusing at this time, pt has patent bl 20g ivs in ac. pt is in no pain on first contact, denies any physical complaints at this time. awaiting inpt bed assignment.
[2022-07-14 07:28] LABS: Glucose, Whole Blood 257 mg/dL (60-115)
[2022-07-14] MEDS: ondansetron HCL 4 MG/2 ML VIAL IVPUSH (07:32)
--- NOTE | 2022-07-14 08:30 | PHA.MEDREC ---
Pharmacy Consult ? Medication Reconciliation Pharmacy has completed the medication reconciliation. Patient purchases insulin otc from [email or web address] due to lack of insurance.
[2022-07-14 08:33] LABS: Glucose, Whole Blood 189 mg/dL (60-115)
[2022-07-14 09:10] LABS: Venous Blood Gas Refer to POC result
[2022-07-14 09:10] LABS: VBG HCO3 14 mmol/L (22-26); VBG pCO2 27 mmHg; VBG pH 7.32 (7.32-7.43); VBG pO2 115 mmHg
--- NOTE | 2022-07-14 09:20 | PC.NURSE ---
given verbal order from admitting air cargo specialist supervisor to provide pt with po intake to offset administered insulin. insulin gtt titrated per emar. pt experiencing some esophageal pressure, ?gastropoeresis, verbal order via telephone for iv pepcid one time dose. pt continues to tolerate po w/o n/v. has pending recheck on blood labs. nad.
[2022-07-14] MEDS: Famotidine/PF 20 MG/2 ML VIAL IVPUSH (09:26)
[2022-07-14 09:30] LABS: Anion Gap 20 (12-20); Blood Urea Nitrogen 15 mg/dL (9-16); Calcium 8.6 mg/dL (8.4-10.2); Carbon Dioxide 14 mmol/L (22-29); Chloride 112 mmol/L (96-108); Creatinine Clr Calc Pharmacy 89.2; Estimated Glomerular Filt Rate > 60; Glucose Random 204 mg/dL (60-115); Potassium 4.6 mmol/L (3.3-5.1); Sodium 141 mmol/L (135-145)
[2022-07-14 09:40] LABS: Glucose, Whole Blood 219 mg/dL (60-115)
[2022-07-14 10:49] LABS: Glucose, Whole Blood 265 mg/dL (60-115)
[2022-07-14] MEDS: KCl 20 mEq in 0.45% Sod 20 MEQ/1,000 ML IV.SOLN 125 MEQ IVCONT ×2 (10:50→18:23)
[2022-07-14 11:11] LABS: Glucose, Whole Blood 304 mg/dL (60-115)
[2022-07-14 12:06] LABS: Glucose, Whole Blood 308 mg/dL (60-115)
[2022-07-14 12:09] LABS: Venous Blood Gas Refer to POC result
[2022-07-14 12:11] LABS: VBG Base Excess -10.8 mmol/L; VBG HCO3 14 mmol/L (22-26); VBG pCO2 29 mmHg; VBG pH 7.28 (7.32-7.43); VBG pO2 64 mmHg
[2022-07-14 12:23] LABS: Anion Gap 20 (12-20); Blood Urea Nitrogen 12 mg/dL (9-16); Calcium 8.6 mg/dL (8.4-10.2); Carbon Dioxide 15 mmol/L (22-29); Chloride 109 mmol/L (96-108); Creatinine Clr Calc Pharmacy 81.9; Estimated Glomerular Filt Rate > 60; Glucose Random 324 mg/dL (60-115); Magnesium 1.9 mg/dL (1.6-2.6); Phosphorus 2.8 mg/dL (2.7-4.5); Potassium 4.9 mmol/L (3.3-5.1); Sodium 139 mmol/L (135-145)
[2022-07-14 13:14] LABS: Glucose, Whole Blood 333 mg/dL (60-115)
--- NOTE | 2022-07-14 13:28 | P.HPCC_ITS ---
History of Present Illness Date of Service: 07/14/22 Attending physician on admission: Belinda Mitchell Chief Complaint: Nausea and vomiting and weakness and increased thirst 36-year-old female developed type 1 diabetes mellitus supposedly on Lantus only but has taken it on reliably presented with increased thirst and urinary frequency weakness with nausea and vomiting presumably based on history of gastroparesis found to be hyperglycemic greater than 800 glucose significant ketonuria and a positive anion gap metabolic acidosis with pH of 7.17 and afebrile with no other specific complaints on review of systems Normal EKG Review of Systems Review of Systems: Yes all other systems are reviewed and are negative PMFSH Past Medical History Medical History Diabetes Social History Social History Household Members: Family and Children Housing: Apartment Do you presently have visiting nurse or other home services: No Patient Tobacco Use Status: Never used Tobacco Smoked in Last 30 Days: No e-Cigarette/Vaping Use: Never Used Patient Interested in Nicotine Replacement: No (N/A) Use of substances other than those prescribed or required for medical reasons: No Currently Displaying Signs/Symptoms of Drug Intoxication Withdrawal: No Any prior treatment program specific to substance use: No Have you been hit, kicked, punched, or otherwise hurt by someone within the past year? If so, by whom?: No Do you feel safe in your current relationship?: Yes Is there a partner from a previous relationship who is making you feel unsafe now?: No Are you made to feel afraid or neglected: No Y[employer] Healthcare Practices: none Advance Directives: No Advance Directives Information Provided: Yes (declined) Advance Directives on File: No Do you have thoughts of harming others: None Do you have a plan to hurt others: No Plan Recently lost weight without trying: Yes How much weight loss: Unsure Nutrition Risks: Difficulty swallowing Patient : No : No Poor oral hygiene: No Meds Allergies Allergy/AdvReac Type Severity Reaction Status Date / Time No Known Allergies Allergy Verified 06/17/21 15:22 [No Known Allergies*] Active Medications: Current Medications Insulin Human Regular (Myxredlin) 100 unit in 100 mls @ 0 mls/hr IVCONT .Q0M SHANNAN; Protocol Last Titration: 07/14/22 12:20 Dose: 1.5 unit/hr, 1.5 mls/hr Potassium Chloride/Sodium Chloride (Kcl 20 Meq In 0.45% Sod) 20 meq in 1,000 mls @ 125 mls/hr IVCONT .Q8H [facility] Last Admin: 07/14/22 10:50 Dose: 125 mls/hr Home Medications Medication Instructions Recorded Confirmed Last Taken Type insulin regular human 100 unit/mL 5 unit subcut DAILY 07/14/22 07/14/22 07/12/22 History injection solution (Novolin R Regular U-100 Insulin) Physical Exam Vital Signs: Vital Signs: Last Vital Signs Temp 98.5 F 07/14/22 11:00 Pulse 91 07/14/22 13:00 Resp 23 H 07/14/22 13:00 BP 108/72 07/14/22 13:00 Pulse Ox 99 07/14/22 13:00 O2 Del Method 07/14/22 13:00 BMI result Body Mass Index 30.2 Awake alert and nonfocal neurologically Good bilateral carotid upstrokes and neck veins flat no gallops no murmurs Chest with no adventitious sounds no accessory muscle or diaphragmatic effort Abdomen soft with no organomegaly positive bowel sounds Results Labs 07/14/22 04:33 07/14/22 12:03 Labs: Laboratory Results - last 24 hr 07/14/22 07/14/22 07/14/22 04:01 04:12 04:33 MCV 88.5 MCH 27.0 MCHC 30.5 L RDW 12.9 Plt Count 344 D MPV 11.1 Immature Gran % (Auto) 0.3 Neut % (Auto) 73.2 H Lymph % (Auto) 22.0 [place] % (Auto) 3.6 Eos % (Auto) 0.4 Baso % (Auto) 0.5 Lymph # (Auto) 1.7 [place] # (Auto) 0.3 Eos # (Auto) 0.0 Baso # (Auto) 0.0 Abs Immat Gran (auto) 0.02 Absolute Neuts (auto) 5.5 Absolute Nucleated RBC 0.000 Nucleated RBC % (auto) 0.0 VBG pH VBG pCO2 VBG pO2 VBG HCO3 VBG O2 Saturation VBG Base Excess Anion Gap Estim Creat Clear Calc Estimated GFR POC Glucose > 600 H* > 600 H* Random Glucose Calcium Phosphorus Magnesium Total Bilirubin AST ALT Alkaline Phosphatase Ammonia Total Protein Albumin Urine Color Urine Appearance Urine pH Ur Specific [place] Urine Protein Urine Glucose (UA) Urine Ketones Urine Blood Urine Nitrite Ur Leukocyte Esterase Urine RBC Urine WBC Ur Squamous Epith Cells Urine Bacteria Hyaline Casts Acetone, Qual COVID-19 (JAREN) COVID-19 Clin Com 07/14/22 07/14/22 07/14/22 04:33 04:33 04:33 MCV MCH MCHC RDW Plt Count MPV Immature Gran % (Auto) Neut % (Auto) Lymph % (Auto) [place] % (Auto) Eos % (Auto) Baso % (Auto) Lymph # (Auto) [place] # (Auto) Eos # (Auto) Baso # (Auto) Abs Immat Gran (auto) Absolute Neuts (auto) Absolute Nucleated RBC Nucleated RBC % (auto) VBG pH VBG pCO2 VBG pO2 VBG HCO3 VBG O2 Saturation VBG Base Excess Anion Gap 32 H Estim Creat Clear Calc 48.0 Estimated GFR 37 POC Glucose Random Glucose 809 H* Calcium 9.8 Phosphorus Magnesium Total Bilirubin 0.9 AST 16 ALT 24 Alkaline Phosphatase 133 H Ammonia 25 Total Protein 8.5 H Albumin 4.4 Urine Color Urine Appearance Urine pH Ur Specific [place] Urine Protein Urine Glucose (UA) Urine Ketones Urine Blood Urine Nitrite Ur Leukocyte Esterase Urine RBC Urine WBC Ur Squamous Epith Cells Urine Bacteria Hyaline Casts Acetone, Qual Small H COVID-19 (JAREN) COVID-19 Clin Com 07/14/22 07/14/22 07/14/22 04:51 04:54 05:32 MCV MCH MCHC RDW Plt Count MPV Immature Gran % (Auto) Neut % (Auto) Lymph % (Auto) [place] % (Auto) Eos % (Auto) Baso % (Auto) Lymph # (Auto) [place] # (Auto) Eos # (Auto) Baso # (Auto) Abs Immat Gran (auto) Absolute Neuts (auto) Absolute Nucleated RBC Nucleated RBC % (auto) VBG pH 7.13 L* VBG pCO2 30 VBG pO2 44 VBG HCO3 10 L VBG O2 Saturation 53.0 VBG Base Excess -17.4 Anion Gap Estim Creat Clear Calc Estimated GFR POC Glucose Random Glucose Calcium Phosphorus Magnesium Total Bilirubin AST ALT Alkaline Phosphatase Ammonia Total Protein Albumin Urine Color Yellow Urine Appearance Clear Urine pH 5.0 Ur Specific [place] >= 1.030 H Urine Protein Trace Urine Glucose (UA) >=1000 H Urine Ketones >=160 Urine Blood Large (3+) H Urine Nitrite Negative Ur Leukocyte Esterase Negative Urine RBC >20 H Urine WBC 0-5 Ur Squamous Epith Cells 0-2 Urine Bacteria None Seen Hyaline Casts 0-2 Acetone, Qual COVID-19 (JAREN) Negative COVID-19 Clin Com See Note 07/14/22 07/14/22 07/14/22 06:20 07:24 08:29 MCV MCH MCHC RDW Plt Count MPV Immature Gran % (Auto) Neut % (Auto) Lymph % (Auto) [place] % (Auto) Eos % (Auto) Baso % (Auto) Lymph # (Auto) [place] # (Auto) Eos # (Auto) Baso # (Auto) Abs Immat Gran (auto) Absolute Neuts (auto) Absolute Nucleated RBC Nucleated RBC % (auto) VBG pH VBG pCO2 VBG pO2 VBG HCO3 VBG O2 Saturation VBG Base Excess Anion Gap Estim Creat Clear Calc Estimated GFR POC Glucose 418 H* 257 H 189 H Random Glucose Calcium Phosphorus Magnesium Total Bilirubin AST ALT Alkaline Phosphatase Ammonia Total Protein Albumin Urine Color Urine Appearance Urine pH Ur Specific [place] Urine Protein Urine Glucose (UA) Urine Ketones Urine Blood Urine Nitrite Ur Leukocyte Esterase Urine RBC Urine WBC Ur Squamous Epith Cells Urine Bacteria Hyaline Casts Acetone, Qual COVID-19 (JAREN) COVID-19 Clin Com 07/14/22 07/14/22 07/14/22 09:03 09:04 09:34 MCV MCH MCHC RDW Plt Count MPV Immature Gran % (Auto) Neut % (Auto) Lymph % (Auto) [place] % (Auto) Eos % (Auto) Baso % (Auto) Lymph # (Auto) [place] # (Auto) Eos # (Auto) Baso # (Auto) Abs Immat Gran (auto) Absolute Neuts (auto) Absolute Nucleated RBC Nucleated RBC % (auto) VBG pH 7.32 VBG pCO2 27 VBG pO2 115 VBG HCO3 14 L VBG O2 Saturation 99.0 VBG Base Excess -10.0 Anion Gap 20 Estim Creat Clear Calc 89.2 Estimated GFR > 60 POC Glucose 219 H Random Glucose 204 H Calcium 8.6 D Phosphorus Magnesium Total Bilirubin AST ALT Alkaline Phosphatase Ammonia Total Protein Albumin Urine Color Urine Appearance Urine pH Ur Specific [place] Urine Protein Urine Glucose (UA) Urine Ketones Urine Blood Urine Nitrite Ur Leukocyte Esterase Urine RBC Urine WBC Ur Squamous Epith Cells Urine Bacteria Hyaline Casts Acetone, Qual COVID-19 (JAREN) COVID-19 [facility] 07/14/22 07/14/22 07/14/22 10:41 11:08 12:02 MCV MCH MCHC RDW Plt Count MPV Immature Gran % (Auto) Neut % (Auto) Lymph % (Auto) [place] % (Auto) Eos % (Auto) Baso % (Auto) Lymph # (Auto) [place] # (Auto) Eos # (Auto) Baso # (Auto) Abs Immat Gran (auto) Absolute Neuts (auto) Absolute Nucleated RBC Nucleated RBC % (auto) VBG pH VBG pCO2 VBG pO2 VBG HCO3 VBG O2 Saturation VBG Base Excess Anion Gap Estim Creat Clear Calc Estimated GFR POC Glucose 265 H 304 H 308 H Random Glucose Calcium Phosphorus Magnesium Total Bilirubin AST ALT Alkaline Phosphatase Ammonia Total Protein Albumin Urine Color Urine Appearance Urine pH Ur Specific [place] Urine Protein Urine Glucose (UA) Urine Ketones Urine Blood Urine Nitrite Ur Leukocyte Esterase Urine RBC Urine WBC Ur Squamous Epith Cells Urine Bacteria Hyaline Casts Acetone, Qual COVID-19 (JAREN) [email or web address] 07/14/22 07/14/22 07/14/22 12:03 12:06 13:10 MCV MCH MCHC RDW Plt Count MPV Immature Gran % (Auto) Neut % (Auto) Lymph % (Auto) [place] % (Auto) Eos % (Auto) Baso % (Auto) Lymph # (Auto) [place] # (Auto) Eos # (Auto) Baso # (Auto) Abs Immat Gran (auto) Absolute Neuts (auto) Absolute Nucleated RBC Nucleated RBC % (auto) VBG pH 7.28 L VBG pCO2 29 VBG pO2 64 VBG HCO3 14 L VBG O2 Saturation 90.0 VBG Base Excess -10.8 Anion Gap 20 Estim Creat Clear Calc 81.9 Estimated GFR > 60 POC Glucose 333 H Random Glucose 324 H Calcium 8.6 Phosphorus 2.8 Magnesium 1.9 Total Bilirubin AST ALT Alkaline Phosphatase Ammonia Total Protein Albumin Urine Color Urine Appearance Urine pH Ur Specific [place] Urine Protein Urine Glucose (UA) Urine Ketones Urine Blood Urine Nitrite Ur Leukocyte Esterase Urine RBC Urine WBC Ur Squamous Epith Cells Urine Bacteria Hyaline Casts Acetone, Qual COVID-19 (JAREN) [email or web address]-[email or web address] Clin Com Assessment and Plan (1) Diabetic ketoacidosis: Status: Acute (2) Dehydration with hyponatremia: Status: Acute Plan IV insulin drip and initially in normal saline and will start to decrease the chloride concentration as she becomes hyperchloremic and at this point again introduce a diet Time Spent With Patient Time: Total time managing care of this patient today 45____ minutes.
--- NOTE | 2022-07-14 13:46 | MHC.CM.PN ---
Addendum entered by Rach Funk 07/15/22 13:18: PT WILL BE DISCHARGED HOME TODAY WITH NO SERVICES PT WILL BE DISCHARGED ON LANTUS AND METFORMIN CM CALLED [id number]MIN IS READY FOR FRUIT I [employer]ARM[employer] LANTUS WILL BE READY TOMORROW PTS COPAY WILL BE $1 PHARMACIST ALSO CONFIRMED PT HAS THE RIGHT TO WAIVE COPAYS IF SHE CANNOT AFFORD HER MEDS PT INFORMED MOTHER WILL TRANSPORT Original Note: PATIENT LIVES WITH HER MOTHER AND 8-YEAR-OLD SON. SHE IS FULLY INDEPENDENT WITH HER ADLS. NO DME OR VNA SERVICES IN THE HOME. SHE DOES NOT HAVE A PCP AND IS EXPERIENCING DIFFICULT SECURING ONE THAT TAKES HER INSURANCE. SHE IS ALSO CONCERNED OVER THE COST OF HER INSULIN, SHE CURRENTLY PAYS $25/DAY OUT OF POCKET FOR IT. CONTACT INFORMATION FOR [facility] TO BE PLACED IN PATIENT DC INSTRUCTIONS. PATIENT HOPES TO DC TOMORROW, SHE NEEDS TO BE WITH HER SON ON SATURDAY (HOLIDAY FROM SCHOOL) CASE MANAGEMENT FOLLOWING FOR ANY DC NEEDS.
[2022-07-14 14:12] LABS: Glucose, Whole Blood 303 mg/dL (60-115)
[2022-07-14 15:10] LABS: VBG Base Excess -4.8 mmol/L; VBG HCO3 19 mmol/L (22-26); VBG pCO2 32 mmHg; VBG pH 7.37 (7.32-7.43); VBG pO2 49 mmHg
[2022-07-14 15:18] LABS: Glucose, Whole Blood 211 mg/dL (60-115)
[2022-07-14 15:22] LABS: Anion Gap 14 (12-20); Blood Urea Nitrogen 11 mg/dL (9-16); Calcium 8.8 mg/dL (8.4-10.2); Carbon Dioxide 18 mmol/L (22-29); Chloride 110 mmol/L (96-108); Creatinine Clr Calc Pharmacy 82.7; Estimated Glomerular Filt Rate > 60; Glucose Random 238 mg/dL (60-115); Potassium 4.4 mmol/L (3.3-5.1); Sodium 138 mmol/L (135-145)
[2022-07-14 16:04] LABS: Glucose, Whole Blood 202 mg/dL (60-115)
[2022-07-14 17:14] LABS: Glucose, Whole Blood 178 mg/dL (60-115)
[2022-07-14 18:21] LABS: Glucose, Whole Blood 205 mg/dL (60-115)
[2022-07-14 19:26] LABS: Glucose, Whole Blood 187 mg/dL (60-115)
[2022-07-14 20:10] LABS: VBG Base Excess -3.2 mmol/L; VBG HCO3 20 mmol/L (22-26); VBG pCO2 32 mmHg; VBG pO2 48 mmHg
[2022-07-14 20:11] LABS: Glucose, Whole Blood 123 mg/dL (60-115)
[2022-07-14 20:12] LABS: Venous Blood Gas Refer to POC result
[2022-07-14 20:27] LABS: Anion Gap 14 (12-20); Blood Urea Nitrogen 12 mg/dL (9-16); Calcium 8.7 mg/dL (8.4-10.2); Carbon Dioxide 20 mmol/L (22-29); Chloride 109 mmol/L (96-108); Creatinine Clr Calc Pharmacy 85.6; Estimated Glomerular Filt Rate > 60; Glucose Random 136 mg/dL (60-115); Potassium 4.1 mmol/L (3.3-5.1); Sodium 139 mmol/L (135-145)
[2022-07-14] MEDS: KCl 20 mEq in 5% Dex/0.45% Sod 20 MEQ/1,000 ML IV.SOLN 125 MEQ IVCONT (20:44)
[2022-07-14 21:06] LABS: Glucose, Whole Blood 130 mg/dL (60-115)
[2022-07-14 22:13] LABS: Glucose, Whole Blood 210 mg/dL (60-115)
[2022-07-14 23:17] LABS: Glucose, Whole Blood 189 mg/dL (60-115)
[2022-07-15] VITALS (9 sets, daily range): BP systolic 93–126; BP diastolic 51–76; PULSE 72–87; RESP 15–18; TEMP 36.6; O2SAT 97–100
[2022-07-15 00:13] LABS: Glucose, Whole Blood 168 mg/dL (60-115)
[2022-07-15 00:19] LABS: VBG Base Excess -3.6 mmol/L; VBG HCO3 20 mmol/L (22-26); VBG pCO2 33 mmHg; VBG pH 7.38 (7.32-7.43); VBG pO2 61 mmHg
[2022-07-15 00:36] LABS: Anion Gap 14 (12-20); Blood Urea Nitrogen 13 mg/dL (9-16); Calcium 8.3 mg/dL (8.4-10.2); Carbon Dioxide 18 mmol/L (22-29); Chloride 110 mmol/L (96-108); Creatinine Clr Calc Pharmacy 95.5; Estimated Glomerular Filt Rate > 60; Glucose Random 167 mg/dL (60-115); Potassium 3.8 mmol/L (3.3-5.1); Sodium 138 mmol/L (135-145)
[2022-07-15 00:50] LABS: Venous Blood Gas Refer to POC result
[2022-07-15 02:27] LABS: Glucose, Whole Blood 187 mg/dL (60-115)
[2022-07-15] MEDS: Sodium Bicarbonate 8.4% 50 MEQ/50 ML VIAL IVPUSH (02:37)
[2022-07-15] MEDS: Insulin Regular/NS 100 UNIT/100 ML PLAST..BAG IVCONT (03:12)
[2022-07-15 03:17] LABS: Glucose, Whole Blood 178 mg/dL (60-115)
[2022-07-15] MEDS: KCl 20 mEq in 5% Dex/0.45% Sod 20 MEQ/1,000 ML IV.SOLN 125 MEQ IVCONT (03:44)
[2022-07-15 04:22] LABS: Glucose, Whole Blood 224 mg/dL (60-115)
[2022-07-15 04:46] LABS: VBG Base Excess -0.2 mmol/L; VBG HCO3 24 mmol/L (22-26); VBG pCO2 37 mmHg; VBG pH 7.41 (7.32-7.43); VBG pO2 54 mmHg
[2022-07-15 04:48] LABS: Venous Blood Gas Refer to POC result
[2022-07-15 05:06] LABS: MANUAL DIFF FLAG NO
[2022-07-15 05:10] LABS: Basophils Percent Auto 0.2 % (0-2); Eosinophils Absolute Auto 0.1 X10*3/uL (0.0-0.4); Eosinophils Percent Auto 1.9 % (0-4); Hematocrit 33.2 % (37.0-47.0); Hemoglobin 10.5 g/dl (12.0-16.0); Imm Gran Abs Auto 0.01 X10*3/uL (0.00-0.03); Imm Gran Pct Auto 0.2 % (0.0-0.4); Lymphocytes Absolute Auto 2.1 X10*3/uL (1.2-4.9); Lymphocytes Percent Auto 41.3 % (20-40); Mean Corpuscular HGB Conc 31.6 g/dl (31.0-35.0); Mean Corpuscular Hemoglobin 26.8 pg (27.0-33.0); Mean Corpuscular Volume 84.7 fL (80.0-98.0); Mean Platelet Volume 10.8 fL (9.4-12.3); Monocytes Absolute Auto 0.2 X10*3/uL (0.1-1.2); Monocytes Percent Auto 4.2 % (2-11); Neutrophils Absolute Auto 2.7 x10*3/uL (2.0-8.3); Neutrophils Percent Auto 52.2 % (45-73); Platelet Count 247 X10*3/uL (160-400); Red Blood Count 3.92 X10*6/uL (4.20-5.50); Red Cell Distribution Width 13.2 % (11.0-16.0); White Blood Count 5.2 X10*3/uL (4.8-10.8)
[2022-07-15 05:42] LABS: Anion Gap 14 (12-20); Blood Urea Nitrogen 11 mg/dL (9-16); Calcium 8.2 mg/dL (8.4-10.2); Carbon Dioxide 21 mmol/L (22-29); Chloride 109 mmol/L (96-108); Creatinine Clr Calc Pharmacy 104.9; Estimated Glomerular Filt Rate > 60; Glucose Random 230 mg/dL (60-115); Magnesium 1.7 mg/dL (1.6-2.6); Phosphorus 2.2 mg/dL (2.7-4.5); Sodium 140 mmol/L (135-145)
[2022-07-15] MEDS: Insulin Glargine,Hum.rec.anlog 100 UNIT/ML 10 ML VIAL SUBCUT ×2 (06:26→08:10)
[2022-07-15] MEDS: Lactated Ringers 500 ML 50 ML IV (06:26)
[2022-07-15 07:36] LABS: Glucose, Whole Blood 249 mg/dL (60-115)
[2022-07-15] MEDS: Insulin Lispro 100 UNIT/ML 3 ML VIAL SUBCUT ×2 (08:11→12:11)
[2022-07-15 08:18] LABS: Estimated Average Glucose 252 mg/dL; Hemoglobin A1c % 10.4 %
[2022-07-15 11:10] LABS: Glucose, Whole Blood 308 mg/dL (60-115)
[2022-07-15] MEDS: metFORMIN HCl 500 MG TABLET PO ×2 (12:10→16:07)
--- NOTE | 2022-07-15 13:01 | P.DS_ITS ---
DS: Providers Provider Date of Service: 07/15/22 Date of admission: 07/14/22 05:51 Primary care physician: Unknown Physician Attending physician on discharge: Omar Tirado Discharging clinician: Yokasta Forrest DS: Diagnosis Discharge Diagnosis (1) Diabetic ketoacidosis: Status: Acute (2) Dehydration with hyponatremia: Status: Acute DS: Summary Hospital Course Hospital Course: History and physical as per admitting provider 36-year-old female developed type 1 diabetes mellitus supposedly on Lantus only but has taken it on reliably presented with increased thirst and urinary frequency weakness with nausea and vomiting presumably based on history of gastroparesis found to be hyperglycemic greater than 800 glucose significant ketonuria and a positive anion gap metabolic acidosis with pH of 7.17 and afebrile with no other specific complaints on review of systems Normal EKG . Treated with IV insulin drip and normal saline in the ICU successfully. Started on diet. Transfer to medical floor. Patient reports that she was diagnosed with gestational diabetes. She has been having issues with Acquiring her insulin due to her insurance and she reported she does not have a primary care provider. she was given a coupon for good Rx and encouraged to find a primary care provider. She was started on metformin 500 mg twice daily and Lantus 5 units at bedtime. Her regular insulin was stopped she was only on 5 units daily. She is encouraged to check her blood sugars before meals and at bedtime and log them to share with her primary care provider. Time Spent with Patient Time attestation: Total time managing care of this patient today ____ minutes. Discharge coordination time: Greater than 30 minutes Quality: Safe Use of Opioids Does Pt have an Active Cancer Diagnosis on the Problem List?: No Quality: Stroke Does the patient have a stroke diagnosis?: No Physical Exam Vital Signs: Vital Signs: Last Vital Signs Temp 97.9 F 07/15/22 12:00 Pulse 73 07/15/22 12:00 Resp 18 07/15/22 12:00 BP 126/74 07/15/22 12:00 Pulse Ox 99 07/15/22 12:00 O2 Del Method 07/15/22 06:00 BMI result Body Mass Index 30.2 Appearing in no acute distress head is normocephalic atraumatic eyes pupils are PERRLA sclera is anicteric mouth throat mucous membranes are intact and moist neck is supple no lymphadenopathy, no JVD noted lung sounds are clear to auscultation heart regular rate rhythm, clear S1, S2 positive bowel sounds, abdomen is soft, nontender neuro patient is alert x3, no focal deficits DS: Data Data Completed and Pending Labs on day of discharge: Laboratory Results - last 24 hr 07/14/22 07/14/22 07/14/22 13:10 14:09 15:02 WBC RBC Hgb Hct MCV MCH MCHC RDW Plt Count MPV Immature Gran % (Auto) Neut % (Auto) Lymph % (Auto) [place] % (Auto) Eos % (Auto) Baso % (Auto) Lymph # (Auto) [place] # (Auto) Eos # (Auto) Baso # (Auto) Abs Immat Gran (auto) Absolute Neuts (auto) Absolute Nucleated RBC Nucleated RBC % (auto) VBG pH VBG pCO2 VBG pO2 VBG HCO3 VBG O2 Saturation VBG Base Excess Sodium 138 Potassium 4.4 Chloride 110 H Carbon Dioxide 18 L Anion Gap 14 BUN 11 Creatinine 0.90 Estim Creat Clear Calc 82.7 Estimated GFR > 60 POC Glucose 333 H 303 H Random Glucose 238 H Estimat Average Glucose Hemoglobin A1c % Calcium 8.8 Phosphorus Magnesium Albumin 07/14/22 07/14/22 07/14/22 15:03 15:13 16:01 WBC RBC Hgb Hct MCV MCH MCHC RDW Plt Count MPV Immature Gran % (Auto) Neut % (Auto) Lymph % (Auto) [place] % (Auto) Eos % (Auto) Baso % (Auto) Lymph # (Auto) [place] # (Auto) Eos # (Auto) Baso # (Auto) Abs Immat Gran (auto) Absolute Neuts (auto) Absolute Nucleated RBC Nucleated RBC % (auto) VBG pH 7.37 VBG pCO2 32 VBG pO2 49 VBG HCO3 19 L VBG O2 Saturation 76.0 VBG Base Excess -4.8 Sodium Potassium Chloride Carbon Dioxide Anion Gap BUN Creatinine Estim Creat Clear Calc Estimated GFR POC Glucose 211 H 202 H Random Glucose Estimat Average Glucose Hemoglobin A1c % Calcium Phosphorus Magnesium Albumin 07/14/22 07/14/22 07/14/22 17:11 18:12 19:22 WBC RBC Hgb Hct MCV MCH MCHC RDW Plt Count MPV Immature Gran % (Auto) Neut % (Auto) Lymph % (Auto) [place] % (Auto) Eos % (Auto) Baso % (Auto) Lymph # (Auto) [place] # (Auto) Eos # (Auto) Baso # (Auto) Abs Immat Gran (auto) Absolute Neuts (auto) Absolute Nucleated RBC Nucleated RBC % (auto) VBG pH VBG pCO2 VBG pO2 VBG HCO3 VBG O2 Saturation VBG Base Excess Sodium Potassium Chloride Carbon Dioxide Anion Gap BUN Creatinine Estim Creat Clear Calc Estimated GFR POC Glucose 178 H 205 H 187 H Random Glucose Estimat Average Glucose Hemoglobin A1c % Calcium Phosphorus Magnesium Albumin 07/14/22 07/14/22 07/14/22 19:57 20:04 20:08 WBC RBC Hgb Hct MCV MCH MCHC RDW Plt Count MPV Immature Gran % (Auto) Neut % (Auto) Lymph % (Auto) [place] % (Auto) Eos % (Auto) Baso % (Auto) Lymph # (Auto) [place] # (Auto) Eos # (Auto) Baso # (Auto) Abs Immat Gran (auto) Absolute Neuts (auto) Absolute Nucleated RBC Nucleated RBC % (auto) VBG pH 7.40 VBG pCO2 32 VBG pO2 48 VBG HCO3 20 L VBG O2 Saturation 79.0 VBG Base Excess -3.2 Sodium 139 Potassium 4.1 Chloride 109 H Carbon Dioxide 20 L Anion Gap 14 BUN 12 Creatinine 0.87 Estim Creat Clear Calc 85.6 Estimated GFR > 60 POC Glucose 123 H Random Glucose 136 H Estimat Average Glucose Hemoglobin A1c % Calcium 8.7 Phosphorus Magnesium Albumin 07/14/22 07/14/22 07/14/22 21:01 22:10 23:11 WBC RBC Hgb Hct MCV MCH MCHC RDW Plt Count MPV Immature Gran % (Auto) Neut % (Auto) Lymph % (Auto) [place] % (Auto) Eos % (Auto) Baso % (Auto) Lymph # (Auto) [place] # (Auto) Eos # (Auto) Baso # (Auto) Abs Immat Gran (auto) Absolute Neuts (auto) Absolute Nucleated RBC Nucleated RBC % (auto) VBG pH VBG pCO2 VBG pO2 VBG HCO3 VBG O2 Saturation VBG Base Excess Sodium Potassium Chloride Carbon Dioxide Anion Gap BUN Creatinine Estim Creat Clear Calc Estimated GFR POC Glucose 130 H 210 H 189 H Random Glucose Estimat Average Glucose Hemoglobin A1c % Calcium Phosphorus Magnesium Albumin 07/15/22 07/15/22 07/15/22 00:10 00:11 00:13 WBC RBC Hgb Hct MCV MCH MCHC RDW Plt Count MPV Immature Gran % (Auto) Neut % (Auto) Lymph % (Auto) [place] % (Auto) Eos % (Auto) Baso % (Auto) Lymph # (Auto) [place] # (Auto) Eos # (Auto) Baso # (Auto) Abs Immat Gran (auto) Absolute Neuts (auto) Absolute Nucleated RBC Nucleated RBC % (auto) VBG pH 7.38 VBG pCO2 33 VBG pO2 61 VBG HCO3 20 L VBG O2 Saturation 87.0 VBG Base Excess -3.6 Sodium 138 Potassium 3.8 Chloride 110 H Carbon Dioxide 18 L Anion Gap 14 BUN 13 Creatinine 0.78 Estim Creat Clear Calc 95.5 Estimated GFR > 60 POC Glucose 168 H Random Glucose 167 H Estimat Average Glucose Hemoglobin A1c % Calcium 8.3 L Phosphorus Magnesium Albumin 07/15/22 07/15/22 07/15/22 02:24 03:11 04:18 WBC RBC Hgb Hct MCV MCH MCHC RDW Plt Count MPV Immature Gran % (Auto) Neut % (Auto) Lymph % (Auto) [place] % (Auto) Eos % (Auto) Baso % (Auto) Lymph # (Auto) [place] # (Auto) Eos # (Auto) Baso # (Auto) Abs Immat Gran (auto) Absolute Neuts (auto) Absolute Nucleated RBC Nucleated RBC % (auto) VBG pH VBG pCO2 VBG pO2 VBG HCO3 VBG O2 Saturation VBG Base Excess Sodium Potassium Chloride Carbon Dioxide Anion Gap BUN Creatinine Estim Creat Clear Calc Estimated GFR POC Glucose 187 H 178 H 224 H Random Glucose Estimat Average Glucose Hemoglobin A1c % Calcium Phosphorus Magnesium Albumin 07/15/22 07/15/22 07/15/22 04:36 04:36 04:39 WBC 5.2 RBC 3.92 L Hgb 10.5 L Hct 33.2 L D MCV 84.7 MCH 26.8 L MCHC 31.6 RDW 13.2 Plt Count 247 D MPV 10.8 Immature Gran % (Auto) 0.2 Neut % (Auto) 52.2 Lymph % (Auto) 41.3 H [place] % (Auto) 4.2 Eos % (Auto) 1.9 Baso % (Auto) 0.2 Lymph # (Auto) 2.1 [place] # (Auto) 0.2 Eos # (Auto) 0.1 Baso # (Auto) 0.0 Abs Immat Gran (auto) 0.01 Absolute Neuts (auto) 2.7 Absolute Nucleated RBC 0.000 Nucleated RBC % (auto) 0.0 VBG pH 7.41 VBG pCO2 37 VBG pO2 54 VBG HCO3 24 VBG O2 Saturation 82.0 VBG Base Excess -0.2 Sodium 140 Potassium 4.0 Chloride 109 H Carbon Dioxide 21 L Anion Gap 14 BUN 11 Creatinine 0.71 Estim Creat Clear Calc 104.9 Estimated GFR > 60 POC Glucose Random Glucose 230 H Estimat Average Glucose Hemoglobin A1c % Calcium 8.2 L Phosphorus 2.2 L Magnesium 1.7 Albumin 3.0 L 07/15/22 07/15/22 07/15/22 04:39 07:29 11:06 WBC RBC Hgb Hct MCV MCH MCHC RDW Plt Count MPV Immature Gran % (Auto) Neut % (Auto) Lymph % (Auto) [place] % (Auto) Eos % (Auto) Baso % (Auto) Lymph # (Auto) [place] # (Auto) Eos # (Auto) Baso # (Auto) Abs Immat Gran (auto) Absolute Neuts (auto) Absolute Nucleated RBC Nucleated RBC % (auto) VBG pH VBG pCO2 VBG pO2 VBG HCO3 VBG O2 Saturation VBG Base Excess Sodium Potassium Chloride Carbon Dioxide Anion Gap BUN Creatinine Estim Creat Clear Calc Estimated GFR POC Glucose 249 H 308 H Random Glucose Estimat Average Glucose 252 Hemoglobin A1c % 10.4 Calcium Phosphorus Magnesium Albumin Discharge Plan Discharge Anticipated Discharge Date/Time: 07/15/22 12:39 Patient Disposition: Home, Self-Care Discharge Diagnosis: DKA Referrals: [facility] [Other] - 1 Week [facility] [Provider Group] - 1 Week ([phone] PLEASE CALL THE ABOVE PHONE NUMBER TO ASK ABOUT BECOMING A NEW PATIENT AT THIS LOCATION. ) Discharge Medications: New metformin 500 mg Tablet 500 mg PO BIDWM Qty: 60 0RF insulin glargine [Lantus U-100 Insulin] 100 unit/mL Solution 5 unit subcut DAILY Qty: 10 0RF Discontinued Novolin R Regular U-100 Insuln 100 unit/mL Solution 5 unit SUBCUT DAILY Discharge Orders: Discharge Order (Routine); Ordered 07/15/22 Ordered By: Yokasta Forrest Diet: Advance to usual diet Activity on Discharge: As tolerated Stand Alone Forms: Patient Portal Discharge page Care Plan Goals: Monitor blood sugars closely, monitor diet and increased protein, increase exercise Health Concerns: DKA Plan of Treatment: Follow-up to schedule an appointment with primary care provider Take all medications as prescribed. You have been started on metformin 500 mg twice daily and Lantus 5 units at bedtime Your insulin regular has been stopped Check blood sugars before taking any medications to avoid low blood sugars May use [facility] for medication coupons and [facility] Assessment: See discharge summary Patient Instructions: Basic Carbohydrate Counting (DC)
== END 2022-07-15 16:05 | disposition home or self-care (01) | DRG 420 ==
LOC: HO.ED 05:24 → HO.EDOVER 05:57 → HO.ICU 10:23 → HO.IMC 07-15 06:14
PROVIDERS: Internal Medicine Cardiovascular Disease; Admitting Provider Nurse Practitioner Family; Emergency Provider Internal Medicine; Visit Provider Nurse Practitioner Acute Care
DX: E10.10 Type 1 diabetes mellitus with ketoacidosis without coma (principal); E10.43 Type 1 diabetes mellitus with diabetic autonomic (poly)neuropathy; K31.84 Gastroparesis; E87.1 Hypo-osmolality and hyponatremia; E86.0 Dehydration; Z20.822 Contact with and (suspected) exposure to COVID-19; Z88.8 Allergy status to other drugs, medicaments and biological substances; Z79.84 Long term (current) use of oral hypoglycemic drugs
CPT/HCPCS: 36415; 80048; 80053; 81001; 81003; 82009; 82040; 82140; 82803; 82947; 83036; 83735; 84100; 85025; 87635; 93005; 99285; J2405

== ENCOUNTER 2022-07-17 15:48 | Inpatient (IN) | payer MEDICAID, SELFPAY ==
--- NOTE | ~2022-07-17 | XR_ITS ---
EXAMINATION: XR CHEST CLINICAL INFORMATION: Diabetic ketoacidosis COMPARISON: 12/04/2019 TECHNIQUE: Frontal view of the chest was obtained. FINDINGS: Lungs are hypoinflated. Allowing for this, no Significant abnormality is noted involving the heart, lungs, mediastinum, bony thorax or soft tissues. XR/XR chest 1V IMPRESSION: No acute intrathoracic disease.
[2022-07-17 08:00] VITALS: BMI 29.7
[2022-07-17 16:00] VITALS: BP 143/80; PULSE 120; RESP 18; TEMP 36.7; O2SAT 100; BMI 27.2
--- NOTE | 2022-07-17 16:00 | ED.ABDPAIN ---
HPI - Abdominal Pain General Chief Complaint: Nausea/Vomiting/Diarrhea <FAZAL Malloy - Last Filed: 07/17/22 16:07> Stated Complaint: Dry mouth/Nausea <FAZAL Malloy - Last Filed: 07/17/22 16:07> Time Seen by Provider: 07/17/22 18:38 <FAZAL Malloy - Last Filed: 07/17/22 16:07> Source: patient <Gamal Galvez MD - Last Filed: 07/17/22 20:22> Mode of arrival: ambulatory <Gaaml Galvez MD - Last Filed: 07/17/22 20:22> Limitations: no limitations <Gamal Galvez MD - Last Filed: 07/17/22 20:22> History of Present Illness HPI narrative: 36-year-old female developed type 1 diabetes mellitus supposedly on Lantus only only 5 units at night time and metformin 500 mg in the morning came in for complain of urinary frequency and feeling thirsty and fast breathing, patient had similar presentation in the past with DKA and ICU admission. Patient confirmed taking her medication home. <Gamal Galvez MD - Last Filed: 07/17/22 20:22> Related Data Home Medications: Previous Rx's Medication Instructions Recorded insulin glargine 100 unit/mL 5 unit (0.05 mL) subcut DAILY #10 07/15/22 subcutaneous solution (Lantus mL U-100 Insulin) metformin 500 mg tablet 500 mg PO BIDWM #60 tabs 07/15/22 <FAZAL Malloy - Last Filed: 07/17/22 16:07> Allergies/Adverse Reactions: Allergies Allergy/AdvReac Type Severity Reaction Status Date / Time No Known Allergies Allergy Verified 06/17/21 15:22 [No Known Allergies*] <FAZAL Malloy - Last Filed: 07/17/22 16:07> Review of Systems Review of Systems All other systems are reviewed and are negative Constitutional: Reports as per HPI and Reports no additional constitutional complaints Eyes: Reports as per HPI and Reports no additional eye complaints Reports system reviewed and no additional complaints, except as documented Cardiovascular: Reports as per HPI and Reports no additional cardiovascular complaints Respiratory: Reports as per HPI and Reports no additional respiratory complaints Gastrointestinal: Reports as per HPI and Reports no additional gastrointestinal complaints Genitourinary: Reports no additional female genitourinary complaints Musculoskeletal: Reports no additional musculoskeletal complaints Skin/Breast: Reports system reviewed and no additional complaints, except as docu Psychiatric: Reports no additional psychiatric complaints Endocrine: Reports no additional endocrine complaints Hematologic/Lymphatic: Reports no additional hematologic/lymphatic complaints Allergic/Immunologic: Reports no additional allergic/immunologic complaints Reports system reviewed and no additional complaints, except as documented and Reports Abnormal speech present <Gamal Galvez MD - Last Filed: 07/17/22 20:22> [facility] Past Medical History Medical History: Medical History Diabetes <FAZAL Malloy - Last Filed: 07/17/22 16:07> Social History Social History: Social History Household Members: Family and Children Housing: Apartment Do you presently have visiting nurse or other home services: No Patient Tobacco Use Status: Never used Tobacco Smoked in Last 30 Days: No e-Cigarette/Vaping Use: Never Used Use of substances other than those prescribed or required for medical reasons: No Advance Directives: No Advance Directives Information Provided: No Patient : No service: No Current occupational status: employed <FAZAL Malloy - Last Filed: 07/17/22 16:07> Physical Exam ED Vital Signs: Vital Signs - 24 hr 07/17/22 16:00 07/17/22 19:04 07/17/22 19:48 Temperature 98.0 F 98.2 F Pulse Rate 120 H 121 H Respiratory Rate 18 16 28 H Blood Pressure 143/80 H 127/73 Pulse Oximetry 100 98 Oxygen Delivery Method Room Air Room Air BMI result Body Mass Index 27.2 <FAZAL Malloy - Last Filed: 07/17/22 16:07> Vital Signs - 24 hr 07/17/22 16:00 07/17/22 19:04 07/17/22 19:48 Temperature 98.0 F 98.2 F Pulse Rate 120 H 121 H Respiratory Rate 18 16 28 H Blood Pressure 143/80 H 127/73 Pulse Oximetry 100 98 Oxygen Delivery Method Room Air Room Air BMI result Body Mass Index 27.2 Vital signs have been reviewed as appeared to be correct. Blood pressure normal. Heart rate elevated. Respiration rate elevated. Temperature normal. Oxygen saturation normal. <Gamal Galvez MD - Last Filed: 07/17/22 20:22> Appearance: Alert. Oriented X3. No acute distress. Head: Normal external exam. Normocephalic. Atraumatic. No Shaw signs noted. No raccoon eyes noted Eyes: PERRLA. EOMI. Conjunctiva and sclera normal. Eyelids normal. ENT: TM's Normal. Pharynx normal. Uvula midline. Dry mucous membranes. No trismus noted. No drooling noted. No muffled voice noted. Neck: Normal inspection. Neck supple. FROM. No adenopathy. Thyroid Normal. No meningeal signs. No neck mass noted. CVS: Normal heart rate and rhythm. Heart sound normal. No murmurs noted. Pulses normal throughout. Respiratory: Kussmaul breathing with tachypnea, No respiratory distress. Painless inspiration. Breath sounds normal. No wheezes/rales/rhonchi noted. Chest nontender. No accessory muscle usage noted or decreased air movement noted. Abdomen: Soft and nontender. Bowel sounds normal in all 4 quadrants. No distention noted. No organomegaly noted. No visible injury noted. Back: No CVA tenderness. Full range of motion noted. Skin: Skin warm and dry. Normal skin color. Normal skin turgor. No rashes/lesions/lacerations noted. Extremities: No lower extremity edema. Extremities exhibit normal range of motion. Extremities nontender. Neuro: Oriented X 3. Cranial nerve exam: II-XII are grossly intact No motor deficit. No sensory deficit. Reflexes normal. <Gamal Galvez MD - Last Filed: 07/17/22 20:22> Course Course Course Narrative: RME--36yo F w/PMHx DM on Lantus and Metformin, recently d/c from our facility on 07/15/22 for DKA/dehydration c/o recurrent polyuria, polydipsia, dry mouth, nausea/vomiting, and decreased PO intake x today. Reports unable to tolerate PO. Admits to taking metformin today, not Lantus. Tachycardic in triage likely from dehydration. POC 462 in triage Low suspicion for severe sepsis at this time Labs including VBG/acetone, 1L LR and UA ordered <FAZAL Malloy - Last Filed: 07/17/22 16:07> Reevaluation(s) Reevaluation #1: A 36-year-old female with history of DM and DKA patient had a recent ICU admission for DKA and was discharged patient return and having DKA patient is receiving IV fluid and insulin at 5 units/hour, will readmit to ICU with DKA protocol. <Gamal Galvez MD - Last Filed: 07/17/22 20:22> Time: 20:20 <Gamal Galvez MD - Last Filed: 07/17/22 20:22> Medical Decision Making Differential Diagnosis Differential Diagnoses: The differential diagnosis associated with the presentation includes (DKA, severe dehydration, electrolyte disturbance, underlying infection.) <Gamal Galvez MD - Last Filed: 07/17/22 20:22> Admission/Observation Consideration of admission/observation: Escalation of care including admission/observation considered <Gamal Galvez MD - Last Filed: 07/17/22 20:22> Consult Healthcare Provider Management of the patient was discussed with: Contract Consultant (Health Nurse Dr. Bernal.) <Gamal Galvez MD - Last Filed: 07/17/22 20:22> Lab Data MDM Lab Attestation statement: I reviewed the patient's lab results. <Gamal Galvez MD - Last Filed: 07/17/22 20:22> Result Diagrams: 07/17/22 17:54 07/17/22 17:54 <FAZAL Malloy - Last Filed: 07/17/22 16:07> Labs: Lab Results 07/17/22 07/17/22 07/17/22 Range/Units 16:03 17:54 17:54 WBC 8.4 (4.8-10.8) X10*3/uL RBC 5.20 D (4.20-5.50) X10*6/uL Hgb 14.2 D (12.0-16.0) g/dl Hct 45.1 D (37.0-47.0) % MCV 86.7 (80.0-98.0) fL MCH 27.3 (27.0-33.0) pg MCHC 31.5 (31.0-35.0) g/dl RDW 13.0 (11.0-16.0) % Plt Count 352 D (160-400) X10*3/uL MPV 11.1 (9.4-12.3) fL Immature Gran % (Auto) 0.5 H (0.0-0.4) % Neut % (Auto) 82.0 H (45-73) % Lymph % (Auto) 15.1 L (20-40) % [place] % (Auto) 2.0 (2-11) % Eos % (Auto) 0.0 (0-4) % Baso % (Auto) 0.4 (0-2) % Lymph # (Auto) 1.3 (1.2-4.9) X10*3/uL [place] # (Auto) 0.2 (0.1-1.2) X10*3/uL Eos # (Auto) 0.0 (0.0-0.4) X10*3/uL Baso # (Auto) 0.0 (0.0-0.2) X10*3/uL Abs Immat Gran (auto) 0.04 H (0.00-0.03) X10*3/uL Absolute Neuts (auto) 6.9 (2.0-8.3) x10*3/uL Absolute Nucleated RBC 0.000 (0.0-0.012) X10*3/uL Nucleated RBC % (auto) 0.0 (0.0-0.2) /100WBC VBG pH (7.32-7.43) VBG pCO2 mmHg VBG pO2 mmHg VBG HCO3 (22-26) mmol/L VBG O2 Saturation % VBG Base Excess mmol/L Sodium 134 L (135-145) mmol/L Potassium 5.4 H D (3.3-5.1) mmol/L Chloride 98 (96-108) mmol/L Carbon Dioxide 8 L* D (22-29) mmol/L Anion Gap 33 H (12-20) BUN 16 (9-16) mg/dL Creatinine 1.37 (0.5-1.4) mg/dL Estim Creat Clear Calc 51.6 Estimated GFR 44 POC Glucose 462 H* (60-115) mg/dL Random Glucose 508 H* (60-115) mg/dL Calcium 9.8 D (8.4-10.2) mg/dL Magnesium 2.2 (1.6-2.6) mg/dL Total Bilirubin 0.7 (0.0-1.0) mg/dL Direct Bilirubin 0.2 (0.0-0.5) mg/dL AST 20 (5-31) U/L ALT 25 (0-31) U/L Alkaline Phosphatase 126 H (39-117) U/L Total Protein 9.4 H (6.5-8.0) g/dL Albumin 4.8 (3.5-5.0) g/dL Lipase 9 (8-78) U/L Urine Color Urine Appearance Urine pH (5.0-9.0) Ur Specific [place] (1.005-1.025) Urine Protein (Neg-Trace) mg/dL Urine Glucose (UA) (Negative) mg/dL Urine Ketones (Negative) mg/dL Urine Blood (Negative) Urine Nitrite (Negative) Ur Leukocyte Esterase (Negative) Urine RBC (0-2) /HPF Urine WBC (0-5) /HPF Ur Squamous Epith Cells (0-2) /HPF Urine Bacteria (None Seen) Hyaline Casts (0-2) /LPF Urine Test (NEGATIVE) Acetone, Qual Small H (Negative) 07/17/22 07/17/22 07/17/22 Range/Units 18:04 19:02 19:13 WBC (4.8-10.8) X10*3/uL RBC (4.20-5.50) X10*6/uL Hgb (12.0-16.0) g/dl Hct (37.0-47.0) % MCV (80.0-98.0) fL MCH (27.0-33.0) pg MCHC (31.0-35.0) g/dl RDW (11.0-16.0) % Plt Count (160-400) X10*3/uL MPV (9.4-12.3) fL Immature Gran % (Auto) (0.0-0.4) % Neut % (Auto) (45-73) % Lymph % (Auto) (20-40) % [place] % (Auto) (2-11) % Eos % (Auto) (0-4) % Baso % (Auto) (0-2) % Lymph # (Auto) (1.2-4.9) X10*3/uL [place] # (Auto) (0.1-1.2) X10*3/uL Eos # (Auto) (0.0-0.4) X10*3/uL Baso # (Auto) (0.0-0.2) X10*3/uL Abs Immat Gran (auto) (0.00-0.03) X10*3/uL Absolute Neuts (auto) (2.0-8.3) x10*3/uL Absolute Nucleated RBC (0.0-0.012) X10*3/uL Nucleated RBC % (auto) (0.0-0.2) /100WBC VBG pH 7.11 L* (7.32-7.43) VBG pCO2 20 mmHg VBG pO2 53 mmHg VBG HCO3 7 L (22-26) mmol/L VBG O2 Saturation 72.0 % VBG Base Excess -20.4 mmol/L Sodium 138 (135-145) mmol/L Potassium 5.2 H (3.3-5.1) mmol/L Chloride 104 (96-108) mmol/L Carbon Dioxide 7 L* (22-29) mmol/L Anion Gap 32 H (12-20) BUN (9-16) mg/dL Creatinine (0.5-1.4) mg/dL Estim Creat Clear Calc Estimated GFR POC Glucose 424 H* (60-115) mg/dL Random Glucose (60-115) mg/dL Calcium (8.4-10.2) mg/dL Magnesium (1.6-2.6) mg/dL Total Bilirubin (0.0-1.0) mg/dL Direct Bilirubin (0.0-0.5) mg/dL AST (5-31) U/L ALT (0-31) U/L Alkaline Phosphatase (39-117) U/L Total Protein (6.5-8.0) g/dL Albumin (3.5-5.0) g/dL Lipase (8-78) U/L Urine Color Urine Appearance Urine pH (5.0-9.0) Ur Specific [place] (1.005-1.025) Urine Protein (Neg-Trace) mg/dL Urine Glucose (UA) (Negative) mg/dL Urine Ketones (Negative) mg/dL Urine Blood (Negative) Urine Nitrite (Negative) Ur Leukocyte Esterase (Negative) Urine RBC (0-2) /HPF Urine WBC (0-5) /HPF Ur Squamous Epith Cells (0-2) /HPF Urine Bacteria (None Seen) Hyaline Casts (0-2) /LPF Urine Test (NEGATIVE) Acetone, Qual (Negative) 07/17/22 07/17/22 Range/Units 19:45 19:45 WBC (4.8-10.8) X10*3/uL RBC (4.20-5.50) X10*6/uL Hgb (12.0-16.0) g/dl Hct (37.0-47.0) % MCV (80.0-98.0) fL MCH (27.0-33.0) pg MCHC (31.0-35.0) g/dl RDW (11.0-16.0) % Plt Count (160-400) X10*3/uL MPV (9.4-12.3) fL Immature Gran % (Auto) (0.0-0.4) % Neut % (Auto) (45-73) % Lymph % (Auto) (20-40) % [place] % (Auto) (2-11) % Eos % (Auto) (0-4) % Baso % (Auto) (0-2) % Lymph # (Auto) (1.2-4.9) X10*3/uL [place] # (Auto) (0.1-1.2) X10*3/uL Eos # (Auto) (0.0-0.4) X10*3/uL Baso # (Auto) (0.0-0.2) X10*3/uL Abs Immat Gran (auto) (0.00-0.03) X10*3/uL Absolute Neuts (auto) (2.0-8.3) x10*3/uL Absolute Nucleated RBC (0.0-0.012) X10*3/uL Nucleated RBC % (auto) (0.0-0.2) /100WBC VBG pH (7.32-7.43) VBG pCO2 mmHg VBG pO2 mmHg VBG HCO3 (22-26) mmol/L VBG O2 Saturation % VBG Base Excess mmol/L Sodium (135-145) mmol/L Potassium (3.3-5.1) mmol/L Chloride (96-108) mmol/L Carbon Dioxide (22-29) mmol/L Anion Gap (12-20) BUN (9-16) mg/dL Creatinine (0.5-1.4) mg/dL Estim Creat Clear Calc Estimated GFR POC Glucose (60-115) mg/dL Random Glucose (60-115) mg/dL Calcium (8.4-10.2) mg/dL Magnesium (1.6-2.6) mg/dL Total Bilirubin (0.0-1.0) mg/dL Direct Bilirubin (0.0-0.5) mg/dL AST (5-31) U/L ALT (0-31) U/L Alkaline Phosphatase (39-117) U/L Total Protein (6.5-8.0) g/dL Albumin (3.5-5.0) g/dL Lipase (8-78) U/L Urine Color Yellow Urine Appearance Clear Urine pH 5.0 (5.0-9.0) Ur Specific [place] 1.025 (1.005-1.025) Urine Protein 30 (1+) H (Neg-Trace) mg/dL Urine Glucose (UA) >=1000 H (Negative) mg/dL Urine Ketones >=160 (Negative) mg/dL Urine Blood Small (1+) H (Negative) Urine Nitrite Negative (Negative) Ur Leukocyte Esterase Negative (Negative) Urine RBC 0-2 (0-2) /HPF Urine WBC 0-5 (0-5) /HPF Ur Squamous Epith Cells 0-2 (0-2) /HPF Urine Bacteria Trace (None Seen) Hyaline Casts 0-2 (0-2) /LPF Urine Test NEGATIVE (NEGATIVE) Acetone, Qual (Negative) <FAZAL Malloy - Last Filed: 07/17/22 16:07> Lab Results 07/17/22 07/17/22 07/17/22 Range/Units 16:03 17:54 17:54 WBC 8.4 (4.8-10.8) X10*3/uL RBC 5.20 D (4.20-5.50) X10*6/uL Hgb 14.2 D (12.0-16.0) g/dl Hct 45.1 D (37.0-47.0) % MCV 86.7 (80.0-98.0) fL MCH 27.3 (27.0-33.0) pg MCHC 31.5 (31.0-35.0) g/dl RDW 13.0 (11.0-16.0) % Plt Count 352 D (160-400) X10*3/uL MPV 11.1 (9.4-12.3) fL Immature Gran % (Auto) 0.5 H (0.0-0.4) % Neut % (Auto) 82.0 H (45-73) % Lymph % (Auto) 15.1 L (20-40) % [place] % (Auto) 2.0 (2-11) % Eos % (Auto) 0.0 (0-4) % Baso % (Auto) 0.4 (0-2) % Lymph # (Auto) 1.3 (1.2-4.9) X10*3/uL [place] # (Auto) 0.2 (0.1-1.2) X10*3/uL Eos # (Auto) 0.0 (0.0-0.4) X10*3/uL Baso # (Auto) 0.0 (0.0-0.2) X10*3/uL Abs Immat Gran (auto) 0.04 H (0.00-0.03) X10*3/uL Absolute Neuts (auto) 6.9 (2.0-8.3) x10*3/uL Absolute Nucleated RBC 0.000 (0.0-0.012) X10*3/uL Nucleated RBC % (auto) 0.0 (0.0-0.2) /100WBC VBG pH (7.32-7.43) VBG pCO2 mmHg VBG pO2 mmHg VBG HCO3 (22-26) mmol/L VBG O2 Saturation % VBG Base Excess mmol/L Sodium 134 L (135-145) mmol/L Potassium 5.4 H D (3.3-5.1) mmol/L Chloride 98 (96-108) mmol/L Carbon Dioxide 8 L* D (22-29) mmol/L Anion Gap 33 H (12-20) BUN 16 (9-16) mg/dL Creatinine 1.37 (0.5-1.4) mg/dL Estim Creat Clear Calc 51.6 Estimated GFR 44 POC Glucose 462 H* (60-115) mg/dL Random Glucose 508 H* (60-115) mg/dL Calcium 9.8 D (8.4-10.2) mg/dL Magnesium 2.2 (1.6-2.6) mg/dL Total Bilirubin 0.7 (0.0-1.0) mg/dL Direct Bilirubin 0.2 (0.0-0.5) mg/dL AST 20 (5-31) U/L ALT 25 (0-31) U/L Alkaline Phosphatase 126 H (39-117) U/L Total Protein 9.4 H (6.5-8.0) g/dL Albumin 4.8 (3.5-5.0) g/dL Lipase 9 (8-78) U/L Urine Color Urine Appearance Urine pH (5.0-9.0) Ur Specific [place] (1.005-1.025) Urine Protein (Neg-Trace) mg/dL Urine Glucose (UA) (Negative) mg/dL Urine Ketones (Negative) mg/dL Urine Blood (Negative) Urine Nitrite (Negative) Ur Leukocyte Esterase (Negative) Urine RBC (0-2) /HPF Urine WBC (0-5) /HPF Ur Squamous Epith Cells (0-2) /HPF Urine Bacteria (None Seen) Hyaline Casts (0-2) /LPF Urine Test (NEGATIVE) Acetone, Qual Small H (Negative) 07/17/22 07/17/22 07/17/22 Range/Units 18:04 19:02 19:13 WBC (4.8-10.8) X10*3/uL RBC (4.20-5.50) X10*6/uL Hgb (12.0-16.0) g/dl Hct (37.0-47.0) % MCV (80.0-98.0) fL MCH (27.0-33.0) pg MCHC (31.0-35.0) g/dl RDW (11.0-16.0) % Plt Count (160-400) X10*3/uL MPV (9.4-12.3) fL Immature Gran % (Auto) (0.0-0.4) % Neut % (Auto) (45-73) % Lymph % (Auto) (20-40) % [place] % (Auto) (2-11) % Eos % (Auto) (0-4) % Baso % (Auto) (0-2) % Lymph # (Auto) (1.2-4.9) X10*3/uL [place] # (Auto) (0.1-1.2) X10*3/uL Eos # (Auto) (0.0-0.4) X10*3/uL Baso # (Auto) (0.0-0.2) X10*3/uL Abs Immat Gran (auto) (0.00-0.03) X10*3/uL Absolute Neuts (auto) (2.0-8.3) x10*3/uL Absolute Nucleated RBC (0.0-0.012) X10*3/uL Nucleated RBC % (auto) (0.0-0.2) /100WBC VBG pH 7.11 L* (7.32-7.43) VBG pCO2 20 mmHg VBG pO2 53 mmHg VBG HCO3 7 L (22-26) mmol/L VBG O2 Saturation 72.0 % VBG Base Excess -20.4 mmol/L Sodium 138 (135-145) mmol/L Potassium 5.2 H (3.3-5.1) mmol/L Chloride 104 (96-108) mmol/L Carbon Dioxide 7 L* (22-29) mmol/L Anion Gap 32 H (12-20) BUN (9-16) mg/dL Creatinine (0.5-1.4) mg/dL Estim Creat Clear Calc Estimated GFR POC Glucose 424 H* (60-115) mg/dL Random Glucose (60-115) mg/dL Calcium (8.4-10.2) mg/dL Magnesium (1.6-2.6) mg/dL Total Bilirubin (0.0-1.0) mg/dL Direct Bilirubin (0.0-0.5) mg/dL AST (5-31) U/L ALT (0-31) U/L Alkaline Phosphatase (39-117) U/L Total Protein (6.5-8.0) g/dL Albumin (3.5-5.0) g/dL Lipase (8-78) U/L Urine Color Urine Appearance Urine pH (5.0-9.0) Ur Specific [place] (1.005-1.025) Urine Protein (Neg-Trace) mg/dL Urine Glucose (UA) (Negative) mg/dL Urine Ketones (Negative) mg/dL Urine Blood (Negative) Urine Nitrite (Negative) Ur Leukocyte Esterase (Negative) Urine RBC (0-2) /HPF Urine WBC (0-5) /HPF Ur Squamous Epith Cells (0-2) /HPF Urine Bacteria (None Seen) Hyaline Casts (0-2) /LPF Urine Test (NEGATIVE) Acetone, Qual (Negative) 07/17/22 07/17/22 Range/Units 19:45 19:45 WBC (4.8-10.8) X10*3/uL RBC (4.20-5.50) X10*6/uL Hgb (12.0-16.0) g/dl Hct (37.0-47.0) % MCV (80.0-98.0) fL MCH (27.0-33.0) pg MCHC (31.0-35.0) g/dl RDW (11.0-16.0) % Plt Count (160-400) X10*3/uL MPV (9.4-12.3) fL Immature Gran % (Auto) (0.0-0.4) % Neut % (Auto) (45-73) % Lymph % (Auto) (20-40) % [place] % (Auto) (2-11) % Eos % (Auto) (0-4) % Baso % (Auto) (0-2) % Lymph # (Auto) (1.2-4.9) X10*3/uL [place] # (Auto) (0.1-1.2) X10*3/uL Eos # (Auto) (0.0-0.4) X10*3/uL Baso # (Auto) (0.0-0.2) X10*3/uL Abs Immat Gran (auto) (0.00-0.03) X10*3/uL Absolute Neuts (auto) (2.0-8.3) x10*3/uL Absolute Nucleated RBC (0.0-0.012) X10*3/uL Nucleated RBC % (auto) (0.0-0.2) /100WBC VBG pH (7.32-7.43) VBG pCO2 mmHg VBG pO2 mmHg VBG HCO3 (22-26) mmol/L VBG O2 Saturation % VBG Base Excess mmol/L Sodium (135-145) mmol/L Potassium (3.3-5.1) mmol/L Chloride (96-108) mmol/L Carbon Dioxide (22-29) mmol/L Anion Gap (12-20) BUN (9-16) mg/dL Creatinine (0.5-1.4) mg/dL Estim Creat Clear Calc Estimated GFR POC Glucose (60-115) mg/dL Random Glucose (60-115) mg/dL Calcium (8.4-10.2) mg/dL Magnesium (1.6-2.6) mg/dL Total Bilirubin (0.0-1.0) mg/dL Direct Bilirubin (0.0-0.5) mg/dL AST (5-31) U/L ALT (0-31) U/L Alkaline Phosphatase (39-117) U/L Total Protein (6.5-8.0) g/dL Albumin (3.5-5.0) g/dL Lipase (8-78) U/L Urine Color Yellow Urine Appearance Clear Urine pH 5.0 (5.0-9.0) Ur Specific [place] 1.025 (1.005-1.025) Urine Protein 30 (1+) H (Neg-Trace) mg/dL Urine Glucose (UA) >=1000 H (Negative) mg/dL Urine Ketones >=160 (Negative) mg/dL Urine Blood Small (1+) H (Negative) Urine Nitrite Negative (Negative) Ur Leukocyte Esterase Negative (Negative) Urine RBC 0-2 (0-2) /HPF Urine WBC 0-5 (0-5) /HPF Ur Squamous Epith Cells 0-2 (0-2) /HPF Urine Bacteria Trace (None Seen) Hyaline Casts 0-2 (0-2) /LPF Urine Test NEGATIVE (NEGATIVE) Acetone, Qual (Negative) <Gamal Galvez MD - Last Filed: 07/17/22 20:22> Independent Interpretation I performed an independent interpretation of an: Plain X-Ray (Chest: No acute intrathoracic pathology.) <Gamal Galvez MD - Last Filed: 07/17/22 20:22> Radiology Impression Discussion of test interpretation with radiology: I have reviewed the radiologist's reading. <Gamal Galvez MD - Last Filed: 07/17/22 20:22> Chronic Conditions Patient?s care impacted by: Diabetes <Gamal Galvez MD - Last Filed: 07/17/22 20:22> Medications Administered Generic Name Dose Route Start Last Admin Trade Name Freq PRN Reason Stop Dose Admin Insulin Human Regular 100 unit in 100 mls @ 0 mls/hr 07/17/22 19:00 07/17/22 19:40 Myxredlin IVCONT 100 unit/hr .Q0M SHANNAN 100 mls/hr Administration Protocol Per Protocol Discontinued Medications Generic Name Dose Route Start Last Admin Trade Name Freq PRN Reason Stop Dose Admin Lactated Ringer's 1,000 mls @ 999 mls/hr 07/17/22 16:15 07/17/22 18:42 Lr IV 07/17/22 17:15 999 mls/hr .Q1H1M SHANNAN Administration Sodium Chloride 1,000 mls @ 999 mls/hr 07/17/22 18:38 07/17/22 19:42 Ns IV 07/17/22 19:38 999 mls/hr .Q1H1M ONE Administration Insulin Human Regular 10 unit 07/17/22 18:38 07/17/22 18:43 Insulin Regular, Human 100 Unit/Ml 3 Ml Vial IVPUSH 07/17/22 18:39 10 unit ONCE ONE Administration <FAZAL Malloy - Last Filed: 07/17/22 16:07> Medications Administered Generic Name Dose Route Start Last Admin Trade Name Freq PRN Reason Stop Dose Admin Insulin Human Regular 100 unit in 100 mls @ 0 mls/hr 07/17/22 19:00 07/17/22 19:40 Myxredlin IVCONT 100 unit/hr .Q0M SHANNAN 100 mls/hr Administration Protocol Per Protocol Discontinued Medications Generic Name Dose Route Start Last Admin Trade Name Freq PRN Reason Stop Dose Admin Lactated Ringer's 1,000 mls @ 999 mls/hr 07/17/22 16:15 07/17/22 18:42 Lr IV 07/17/22 17:15 999 mls/hr .Q1H1M SHANNAN Administration Sodium Chloride 1,000 mls @ 999 mls/hr 07/17/22 18:38 07/17/22 19:42 Ns IV 07/17/22 19:38 999 mls/hr .Q1H1M ONE Administration Insulin Human Regular 10 unit 07/17/22 18:38 07/17/22 18:43 Insulin Regular, Human 100 Unit/Ml 3 Ml Vial IVPUSH 07/17/22 18:39 10 unit ONCE ONE Administration <Gamal Galvez MD - Last Filed: 07/17/22 20:22> Critical Care Time Critical Care Time Critical Care Time: Yes <Gamal Galvez MD - Last Filed: 07/17/22 20:22> Total Critical Care Time: 60 <Gamal Galvez MD - Last Filed: 07/17/22 20:22> Attestation: I spent 60 minutes providing critical care service to the patient, this including time spent at the bedside to evaluate the patient, reassess the patient, monitoring vital signs, review labs, and radiographic studies, counseling the patient/family, discussing the case with consultants, disposition the patient. <Gamal Galvez MD - Last Filed: 07/17/22 20:22> Discharge Plan Discharge Clinical Impression: Diabetic ketoacidosis <FAZAL Malloy - Last Filed: 07/17/22 16:07> Patient Disposition: Admitted As Inpatient <FAZAL Malloy - Last Filed: 07/17/22 16:07> Prescriptions: No Action metformin 500 mg Tablet 500 mg PO BIDWM Qty: 60 0RF insulin glargine [Lantus U-100 Insulin] 100 unit/mL Solution 5 unit subcut DAILY Qty: 10 0RF <FAZAL Malloy - Last Filed: 07/17/22 16:07>
[2022-07-17 16:09] LABS: Glucose, Whole Blood 462 mg/dL (60-115)
[2022-07-17 18:07] LABS: Venous Blood Gas Refer to POC result
[2022-07-17 18:20] LABS: VBG Base Excess -20.4 mmol/L; VBG HCO3 7 mmol/L (22-26); VBG pCO2 20 mmHg; VBG pH 7.11 (7.32-7.43); VBG pO2 53 mmHg
[2022-07-17 18:24] LABS: Basophils Percent Auto 0.4 % (0-2); Imm Gran Abs Auto 0.04 X10*3/uL (0.00-0.03); Imm Gran Pct Auto 0.5 % (0.0-0.4); Mean Corpuscular Volume 86.7 fL (80.0-98.0); PLT CLUMP 1; SCAN SMEAR FLAG 1
[2022-07-17 18:26] LABS: Hematocrit 45.1 % (37.0-47.0); Hemoglobin 14.2 g/dl (12.0-16.0); Lymphocytes Absolute Auto 1.3 X10*3/uL (1.2-4.9); Lymphocytes Percent Auto 15.1 % (20-40); Mean Corpuscular HGB Conc 31.5 g/dl (31.0-35.0); Mean Corpuscular Hemoglobin 27.3 pg (27.0-33.0); Mean Platelet Volume 11.1 fL (9.4-12.3); Monocytes Absolute Auto 0.2 X10*3/uL (0.1-1.2); Neutrophils Absolute Auto 6.9 x10*3/uL (2.0-8.3)
[2022-07-17 18:29] LABS: Platelet Count 352 X10*3/uL (160-400); White Blood Count 8.4 X10*3/uL (4.8-10.8)
[2022-07-17 18:30] LABS: MANUAL DIFF FLAG NO
[2022-07-17] MEDS: Lactated Ringers 1,000 ML 999 ML IV (18:42)
[2022-07-17] MEDS: Insulin Regular, Human 100 UNIT/ML 3 ML VIAL 10 UNIT IVPUSH (18:43)
[2022-07-17 18:55] LABS: Alanine Aminotransferase 25 U/L (0-31); Albumin Level 4.8 g/dL (3.5-5.0); Alkaline Phosphatase 126 U/L (39-117); Anion Gap 33 (12-20); Aspartate Amino Transferase 20 U/L (5-31); Bilirubin Direct 0.2 mg/dL (0.0-0.5); Bilirubin Total 0.7 mg/dL (0.0-1.0); Blood Urea Nitrogen 16 mg/dL (9-16); Calcium 9.8 mg/dL (8.4-10.2); Carbon Dioxide 8 mmol/L (22-29); Chloride 98 mmol/L (96-108); Creatinine Clr Calc Pharmacy 51.6; Estimated Glomerular Filt Rate 44; Glucose Random 508 mg/dL (60-115); Lipase 9 U/L (8-78); Magnesium 2.2 mg/dL (1.6-2.6); Potassium 5.4 mmol/L (3.3-5.1); Sodium 134 mmol/L (135-145); Total Protein 9.4 g/dL (6.5-8.0)
[2022-07-17 19:04] VITALS: BP 127/73; PULSE 121; RESP 16; TEMP 36.8; O2SAT 98
[2022-07-17 19:22] LABS: Glucose, Whole Blood 424 mg/dL (60-115)
[2022-07-17 19:38] LABS: Acetone, serum QL Small (Negative)
[2022-07-17] MEDS: Insulin Regular/NS 100 UNIT/100 ML PLAST..BAG IVCONT (19:40)
[2022-07-17] MEDS: 0.9 % Sodium Chloride 1,000 ML 999 ML IV (19:42)
[2022-07-17 19:48] VITALS: RESP 28
[2022-07-17 19:56] LABS: Anion Gap 32 (12-20); Carbon Dioxide 7 mmol/L (22-29); Chloride 104 mmol/L (96-108); Potassium 5.2 mmol/L (3.3-5.1); Sodium 138 mmol/L (135-145)
--- NOTE | 2022-07-17 19:58 | PC.NURSE ---
This nurse took over at 17:00: Pt's is a/o x4, pt is experiencing excessive thirst, SOB, fatigue, frequent urinations, chills and hyperglycemia. Pt denies any other symptoms. Pt's lung sound are clear throughout bilaterally. Pt is connected to the ekg monitor and it shoes sinus tachy, BP is stable, but hyperventilating with labor breathing. Pt's has IVF running and Insulin Human 5 u/hr as the protocol on the JUL. Pt POC will be monitoring [id number] for one hour then Q2H per protocol.
[2022-07-17 20:01] LABS: Appearance Urine Clear; Color Urine Yellow; Glucose Urine UA >=1000 mg/dL (Negative); Leukocyte Esterase Urine Negative (Negative); Nitrite Urine Negative (Negative); Specific Gravity - Urine 1.025 (1.005-1.025); UMIC TRIGGER UACC YES; Urine Blood Small (1+) (Negative); Urine Ketones >=160 mg/dL (Negative); Urine Protein 30 (1+) mg/dL (Neg-Trace)
[2022-07-17 20:04] LABS: UPreg QC Valid YES; Urine Pregnancy NEGATIVE (NEGATIVE)
[2022-07-17 20:14] LABS: Bacteria Urine Trace (None Seen); Hyaline Casts Urine 0-2 /LPF (0-2); RBC Urine 0-2 /HPF (0-2); Squamous Epithelial Cell Urine 0-2 /HPF (0-2); WBC Urine 0-5 /HPF (0-5)
--- NOTE | 2022-07-17 20:25 | PC.NURSE ---
Preliminary med rec completed.
[2022-07-17 21:00] VITALS: BP 116/69; PULSE 106; RESP 16; TEMP 37.1; O2SAT 98
--- NOTE | 2022-07-17 21:03 | PM.CCHP ---
History of Present Illness Date of Service: 07/17/22 Attending physician on admission: Joshua Bernal Chief Complaint: nausea and vomiting 36-year-old with a past medical history of diabetes mellitus? who recently was admitted? for DKA 07/14/22-07/15/22? presented to the emergency room with nausea and vomiting.? Patient reports? unable to take metformin? this morning to severe nausea.? She also reports urinary frequency,? fast breathing? and increased thirst. Laboratory data was significant for? VBG 7.///7.? Serum sodium 134, potassium 5.4, serum bicarb 8, and anion gap 33, random glucose 508.? ED course:? ?Patient received 2 L of fluids, 10 units IV push insulin and started on insulin drip.? ?Patient will be admitted for further management of? DKA requiring insulin drip Review of Systems Constitutional: Constitutional: Denies chills, Denies fatigue, Denies fever(s), Denies headache(s) and Reports poor appetite Eyes: Eyes: Denies loss of vision ENT: Denies dizziness and Denies headache(s) Cardiovascular: Cardiovascular: Denies chest pain, Denies syncope, Denies lightheadedness and Denies dyspnea Respiratory: Respiratory: Denies cough, Denies dyspnea and Denies wheezing Gastrointestinal: Gastrointestinal: Reports abdominal pain, Denies diarrhea, Reports nausea and Reports vomiting Genitourinary: Genitourinary: Reports urinary urgency Musculoskeletal: Musculoskeletal: Denies muscle weakness Integumentary/Breasts: Skin/Breast: Reports dry skin Neurologic: Denies dizziness, Denies syncope, Denies headache(s) and Denies loss of vision Endocrine: Endocrine: Denies fatigue Allergic/Immunologic: Allergic/Immunologic: Denies wheezing [facility] Past Medical History Medical History (Updated 07/17/22 @ 21:24 by Do Davalos NP) Diabetes Social History Social History Household Members: Family and Children Housing: Apartment Do you presently have visiting nurse or other home services: No Patient Tobacco Use Status: Never used Tobacco Smoked in Last 30 Days: No e-Cigarette/Vaping Use: Never Used Use of substances other than those prescribed or required for medical reasons: No Advance Directives: No Advance Directives Information Provided: No Patient : No service: No Current occupational status: employed Meds Allergies Allergy/AdvReac Type Severity Reaction Status Date / Time No Known Allergies Allergy Verified 06/17/21 15:22 [No Known Allergies*] Active Medications: Current Medications Dextrose (Dextrose 50 % 25 Gm/50 Ml Syringe) 25 gm IVPUSH Q30M PRN PRN Reason: Nursing Actions in Insulin Infusion Protocol Enoxaparin Sodium (Enoxaparin Sodium 40 Mg/0.4 Ml Syringe) 40 mg SUBCUT Q24H SHANNAN Insulin Human Regular (Myxredlin) 100 unit in 100 mls @ 0 mls/hr IVCONT .Q0M SHANNAN; Protocol Last Admin: 07/17/22 19:40 Dose: 100 unit/hr, 100 mls/hr Lactated Ringer's (Lr) 1,000 mls @ 150 mls/hr IVCONT .Q6H40M SHANNAN Ondansetron HCl (Ondansetron Hcl 4 Mg/2 Ml Vial) 4 mg IVPUSH Q8H PRN PRN Reason: Nausea Physical Exam Vital Signs: Vital Signs: Last Vital Signs Temp 98.2 F 07/17/22 19:04 Pulse 121 H 07/17/22 19:04 Resp 28 H 07/17/22 19:48 BP 127/73 07/17/22 19:04 Pulse Ox 98 07/17/22 19:04 O2 Del Method 07/17/22 19:04 BMI result Body Mass Index 27.2 ?General:? Alert oriented x3 no acute distress.? Speaking full sentences.? Speech is well articulated, thought process is coherent.? Following all commands. ?HEENT:? Head is normocephalic, atraumatic, pupils equal round reactive to light accommodation bilaterally.? Extraocular movements appear intact.? Buccal mucosa is very dry, Neck is supple without lymphadenopathy. ?Cardiac:? Clear S1-S2, no murmurs rubs or gallops. ?Pulmonary:? Clear to auscultation, no wheezes, rales or rhonchi. ?Abdomen:? ?Abdomen soft, diffuse tenderness, non-distended. Normal bowel sounds. No pulsatile mass. No hepatosplenomegaly. ?Musculoskeletal:? Moving all 4 extremities upon request a major joints, there is no crepitus or tenderness.? The strength is 5/5 bilaterally and throughout all 4 extremities.? Gait not assessed at this point. ?Neurologic:? cranial nerves 2-12 are grossly intact.? No focal deficits noted.Motor strength as above.?? ?Skin:? Intact, no lesions, edema, erythema, clubbing or cyanosis.? No ulcers. Vascular:? 2+ pulses upper and lower extremities distally.? Results Labs 07/17/22 17:54 07/17/22 19:13 Labs: Laboratory Results - last 24 hr 07/17/22 07/17/22 07/17/22 16:03 17:54 17:54 MCV 86.7 MCH 27.3 MCHC 31.5 RDW 13.0 Plt Count 352 D MPV 11.1 Immature Gran % (Auto) 0.5 H Neut % (Auto) 82.0 H Lymph % (Auto) 15.1 L [place] % (Auto) 2.0 Eos % (Auto) 0.0 Baso % (Auto) 0.4 Lymph # (Auto) 1.3 [place] # (Auto) 0.2 Eos # (Auto) 0.0 Baso # (Auto) 0.0 Abs Immat Gran (auto) 0.04 H Absolute Neuts (auto) 6.9 Absolute Nucleated RBC 0.000 Nucleated RBC % (auto) 0.0 VBG pH VBG pCO2 VBG pO2 VBG HCO3 VBG O2 Saturation VBG Base Excess Anion Gap 33 H Estim Creat Clear Calc 51.6 Estimated GFR 44 POC Glucose 462 H* Random Glucose 508 H* Calcium 9.8 D Magnesium 2.2 Total Bilirubin 0.7 Direct Bilirubin 0.2 AST 20 ALT 25 Alkaline Phosphatase 126 H Total Protein 9.4 H Albumin 4.8 Lipase 9 Urine Color Urine Appearance Urine pH Ur Specific [place] Urine Protein Urine Glucose (UA) Urine Ketones Urine Blood Urine Nitrite Ur Leukocyte Esterase Urine RBC Urine WBC Ur Squamous Epith Cells Urine Bacteria Hyaline Casts Urine Test Acetone, Qual Small H 07/17/22 07/17/22 07/17/22 18:04 19:02 19:13 MCV MCH MCHC RDW Plt Count MPV Immature Gran % (Auto) Neut % (Auto) Lymph % (Auto) [place] % (Auto) Eos % (Auto) Baso % (Auto) Lymph # (Auto) [place] # (Auto) Eos # (Auto) Baso # (Auto) Abs Immat Gran (auto) Absolute Neuts (auto) Absolute Nucleated RBC Nucleated RBC % (auto) VBG pH 7.11 L* VBG pCO2 20 VBG pO2 53 VBG HCO3 7 L VBG O2 Saturation 72.0 VBG Base Excess -20.4 Anion Gap 32 H Estim Creat Clear Calc Estimated GFR POC Glucose 424 H* Random Glucose Calcium Magnesium Total Bilirubin Direct Bilirubin AST ALT Alkaline Phosphatase Total Protein Albumin Lipase Urine Color Urine Appearance Urine pH Ur Specific [place] Urine Protein Urine Glucose (UA) Urine Ketones Urine Blood Urine Nitrite Ur Leukocyte Esterase Urine RBC Urine WBC Ur Squamous Epith Cells Urine Bacteria Hyaline Casts Urine Test Acetone, Qual 07/17/22 07/17/22 19:45 19:45 MCV MCH MCHC RDW Plt Count MPV Immature Gran % (Auto) Neut % (Auto) Lymph % (Auto) [place] % (Auto) Eos % (Auto) Baso % (Auto) Lymph # (Auto) [place] # (Auto) Eos # (Auto) Baso # (Auto) Abs Immat Gran (auto) Absolute Neuts (auto) Absolute Nucleated RBC Nucleated RBC % (auto) VBG pH VBG pCO2 VBG pO2 VBG HCO3 VBG O2 Saturation VBG Base Excess Anion Gap Estim Creat Clear Calc Estimated GFR POC Glucose Random Glucose Calcium Magnesium Total Bilirubin Direct Bilirubin AST ALT Alkaline Phosphatase Total Protein Albumin Lipase Urine Color Yellow Urine Appearance Clear Urine pH 5.0 Ur Specific [place] 1.025 Urine Protein 30 (1+) H Urine Glucose (UA) >=1000 H Urine Ketones >=160 Urine Blood Small (1+) H Urine Nitrite Negative Ur Leukocyte Esterase Negative Urine RBC 0-2 Urine WBC 0-5 Ur Squamous Epith Cells 0-2 Urine Bacteria Trace Hyaline Casts 0-2 Urine Test NEGATIVE Acetone, Qual Imaging Radiologist's Impressions: Impressions Chest X-Ray 07/17/22 20:30 IMPRESSION: No acute intrathoracic disease. Assessment and Plan (1) Diabetic ketoacidosis: Status: Acute (2) MATTHEW (acute kidney injury): Status: Acute (3) Hyperkalemia: Status: Acute (4) Gastroparesis: Status: Acute Plan Plan: Neuro:? no acute issues?? Cardiac:? no acute issues Pulmonary:? no acute issues?? Renal:? MATTHEW- ? most likely related to hypoperfusion, nonoliguric.? Continue IV fluid.? Continue to check renal induces and urine output Hyperkalemia-? most likely related to DKA.? Closely monitor electrolytes GI:?? nausea and vomiting from? gastroparesis. ? Continue Zofran p.r.n.,? Endo:??? Diabetes /diabetic ketoacidosis-? continue insulin drip until her gap is close. Follow DKA protocol? ID: ? no acute issues? Heme/Onc:? No acute issues. Psych:? No acute issues. Miscellaneous:? No acute issues. Prophylaxis: Lovenox? Diet: ? NPO? with sips of water ice chips Critical care time: does not qualify for critical care? 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 Critical Care Time Does not qualify for critical care time
[2022-07-17] MEDS: Enoxaparin Sodium 40 MG/0.4 ML SYRINGE SUBCUT (21:08)
[2022-07-17] MEDS: ondansetron HCL 4 MG/2 ML VIAL IVPUSH (21:08)
--- NOTE | 2022-07-17 21:08 | PC.NURSE ---
ICU notified of POC 219- Per ICU REVENUE SPECIALIST, decrease insulin gtt from 5u/hr to 2.5u/hr. Verbal confimation x 2 via phone. Primary RN at bedside to titrate gtt at this time.
--- NOTE | 2022-07-17 21:09 | PC.NURSE ---
Pt's POC 290, RN called ICU and it was told to decrease the units to 2.5u/hr. Meds were given as order by the provider.
[2022-07-17 21:11] LABS: Glucose, Whole Blood 219 mg/dL (60-115)
--- NOTE | 2022-07-17 21:15 | PC.NURSE ---
This nurse has called ICU for report to RN.
[2022-07-17 21:57] VITALS: BP 117/72; PULSE 111; RESP 23; O2SAT 100
[2022-07-17 22:18] LABS: Glucose, Whole Blood 141 mg/dL (60-115)
[2022-07-17] MEDS: Dextrose 5 % and Lactated Ring 1,000 ML 125 ML IVCONT (22:27)
[2022-07-17 23:00] VITALS: PULSE 114; RESP 24; O2SAT 99
[2022-07-17 23:29] LABS: Glucose, Whole Blood 121 mg/dL (60-115)
[2022-07-18] VITALS (18 sets, daily range): BP systolic 93–118; BP diastolic 52–76; PULSE 72–105; RESP 13–23; TEMP 36.1–37.2; O2SAT 96–100; BMI 29.4
[2022-07-18 00:26] LABS: Glucose, Whole Blood 143 mg/dL (60-115)
[2022-07-18 00:54] LABS: Anion Gap 22 (12-20); Blood Urea Nitrogen 11 mg/dL (9-16); Calcium 8.6 mg/dL (8.4-10.2); Carbon Dioxide 11 mmol/L (22-29); Chloride 113 mmol/L (96-108); Creatinine Clr Calc Pharmacy 72.2; Estimated Glomerular Filt Rate > 60; Glucose Random 158 mg/dL (60-115); Potassium 4.5 mmol/L (3.3-5.1); Sodium 141 mmol/L (135-145)
[2022-07-18 02:15] LABS: Glucose, Whole Blood 161 mg/dL (60-115)
[2022-07-18 04:48] LABS: Glucose, Whole Blood 185 mg/dL (60-115)
[2022-07-18 06:00] LABS: VBG Base Excess -3.9 mmol/L; VBG HCO3 19 mmol/L (22-26); VBG pCO2 32 mmHg; VBG pH 7.39 (7.32-7.43); VBG pO2 84 mmHg
[2022-07-18 06:03] LABS: MANUAL DIFF FLAG NO
[2022-07-18] MEDS: Dextrose 5 % and Lactated Ring 1,000 ML 125 ML IVCONT (06:12)
[2022-07-18 06:18] LABS: Glucose, Whole Blood 193 mg/dL (60-115)
[2022-07-18 06:27] LABS: Albumin Level 3.5 g/dL (3.5-5.0); Anion Gap 13 (12-20); Blood Urea Nitrogen 9 mg/dL (9-16); Calcium 8.5 mg/dL (8.4-10.2); Carbon Dioxide 18 mmol/L (22-29); Chloride 113 mmol/L (96-108); Creatinine Clr Calc Pharmacy 76.1; Estimated Glomerular Filt Rate > 60; Glucose Random 204 mg/dL (60-115); Magnesium 1.8 mg/dL (1.6-2.6); Phosphorus 2.1 mg/dL (2.7-4.5); Potassium 3.7 mmol/L (3.3-5.1); Sodium 140 mmol/L (135-145)
[2022-07-18 06:49] LABS: Basophils Percent Auto 0.6 % (0-2); Eosinophils Absolute Auto 0.1 X10*3/uL (0.0-0.4); Eosinophils Percent Auto 0.7 % (0-4); Hematocrit 33.8 % (37.0-47.0); Imm Gran Abs Auto 0.02 X10*3/uL (0.00-0.03); Imm Gran Pct Auto 0.3 % (0.0-0.4); Lymphocytes Absolute Auto 2.4 X10*3/uL (1.2-4.9); Mean Corpuscular HGB Conc 32.5 g/dl (31.0-35.0); Mean Corpuscular Hemoglobin 27.5 pg (27.0-33.0); Mean Corpuscular Volume 84.5 fL (80.0-98.0); Mean Platelet Volume 10.9 fL (9.4-12.3); Monocytes Absolute Auto 0.5 X10*3/uL (0.1-1.2); Monocytes Percent Auto 6.7 % (2-11); Neutrophils Absolute Auto 3.8 x10*3/uL (2.0-8.3); Neutrophils Percent Auto 55.7 % (45-73); Platelet Count 305 X10*3/uL (160-400); Red Cell Distribution Width 13.1 % (11.0-16.0); White Blood Count 6.7 X10*3/uL (4.8-10.8)
[2022-07-18] MEDS: Potassium Phosphate/NS 15 MMOL/250 ML PLAST..BAG 62.5 MMOL IV (06:55)
[2022-07-18 08:12] LABS: Glucose, Whole Blood 152 mg/dL (60-115)
[2022-07-18 08:49] LABS: Venous Blood Gas Refer to POC result
[2022-07-18 09:20] LABS: Glucose, Whole Blood 141 mg/dL (60-115)
[2022-07-18 10:11] LABS: Glucose, Whole Blood 166 mg/dL (60-115)
--- NOTE | 2022-07-18 10:38 | MHC.CM.PN ---
Addendum entered by Gudelia Dhillon 07/18/22 12:14: NO COVID VAX Original Note: FEMALE 36 DX DKA LIVES W HER MOTHER AND SON. SHE IS INDEPENDENT WITH ALL FUNCTIONAL MOBILITY. A HCP HAS BEEN DOCUMENTED. pATIENT HAS CONTACTED [facility] FOR A NEW PCP. A HCP HAS BEEN DOCUMENTED [facility] SELF CARE MOTHER WILL TRANSPORT HOME.
[2022-07-18 11:09] LABS: Glucose, Whole Blood 205 mg/dL (60-115)
[2022-07-18 12:09] LABS: Glucose, Whole Blood 212 mg/dL (60-115)
[2022-07-18 12:51] LABS: Anion Gap 13 (12-20); Blood Urea Nitrogen 9 mg/dL (9-16); Calcium 8.5 mg/dL (8.4-10.2); Carbon Dioxide 20 mmol/L (22-29); Chloride 111 mmol/L (96-108); Creatinine Clr Calc Pharmacy 83.5; Estimated Glomerular Filt Rate > 60; Glucose Random 229 mg/dL (60-115); Potassium 3.8 mmol/L (3.3-5.1); Sodium 140 mmol/L (135-145)
[2022-07-18 13:05] LABS: Glucose, Whole Blood 204 mg/dL (60-115)
[2022-07-18] MEDS: Insulin Glargine,Hum.rec.anlog 100 UNIT/ML 10 ML VIAL 10 UNIT SUBCUT (13:14)
--- NOTE | 2022-07-18 14:01 | PM.CCPN ---
Subjective Subjective Date of Service: 07/18/22 Interval History: 36-year-old lady with underlying type 2 diabetes mellitus admitted on 07/17/2022 with diabetic ketoacidosis requiring insulin drip. Overnight titrated off insulin drip to subcutaneous insulin. Critical Care Time (minutes): 0 Physical Exam Vital Signs: Vital Signs: Last Vital Signs Temp 97.8 F 07/18/22 13:00 Pulse 104 H 07/18/22 13:00 Resp 16 07/18/22 13:00 BP 93/69 07/18/22 13:00 Pulse Ox 99 07/18/22 13:00 O2 Del Method 07/18/22 13:00 O2 Flow Rate 2 07/18/22 08:00 BMI result Body Mass Index 29.4 Const: General: no acute distress, alert and awake Eyes: Sclerae: sclerae normal EOM: EOMs intact bilaterally Neck: Neck: Yes no lymphadenopathy, Yes trachea midline and Yes supple Resp: Effort & Inspection: normal respiratory effort and no respiratory distress Auscultation: clear to auscultation bilaterally Cardio: Rate: regular rate Rhythm: regular rhythm Heart sounds: no gallops, no murmurs and no rubs GI: Palpation (GI): Soft to palpation and Other GI palpation findings present ( Nontender) Auscultation: normal bowel sounds Extrem: General: Yes no pedal edema, No clubbing and No cyanosis Objective Data Labs 07/18/22 05:54 07/18/22 11:55 Labs: Laboratory Results - last 24 hr 07/17/22 07/17/22 07/17/22 16:03 17:54 17:54 WBC 8.4 RBC 5.20 D Hgb 14.2 D Hct 45.1 D MCV 86.7 MCH 27.3 MCHC 31.5 RDW 13.0 Plt Count 352 D MPV 11.1 Immature Gran % (Auto) 0.5 H Neut % (Auto) 82.0 H Lymph % (Auto) 15.1 L [place] % (Auto) 2.0 Eos % (Auto) 0.0 Baso % (Auto) 0.4 Lymph # (Auto) 1.3 [place] # (Auto) 0.2 Eos # (Auto) 0.0 Baso # (Auto) 0.0 Abs Immat Gran (auto) 0.04 H Absolute Neuts (auto) 6.9 Absolute Nucleated RBC 0.000 Nucleated RBC % (auto) 0.0 VBG pH VBG pCO2 VBG pO2 VBG HCO3 VBG O2 Saturation VBG Base Excess Sodium 134 L Potassium 5.4 H D Chloride 98 Carbon Dioxide 8 L* D Anion Gap 33 H BUN 16 Creatinine 1.37 Estim Creat Clear Calc 51.6 Estimated GFR 44 POC Glucose 462 H* Random Glucose 508 H* Calcium 9.8 D Phosphorus Magnesium 2.2 Total Bilirubin 0.7 Direct Bilirubin 0.2 AST 20 ALT 25 Alkaline Phosphatase 126 H Total Protein 9.4 H Albumin 4.8 Lipase 9 Urine Color Urine Appearance Urine pH Ur Specific [place] Urine Protein Urine Glucose (UA) Urine Ketones Urine Blood Urine Nitrite Ur Leukocyte Esterase Urine RBC Urine WBC Ur Squamous Epith Cells Urine Bacteria Hyaline Casts Urine Test Acetone, Qual Small H 07/17/22 07/17/22 07/17/22 18:04 19:02 19:13 WBC RBC Hgb Hct MCV MCH MCHC RDW Plt Count MPV Immature Gran % (Auto) Neut % (Auto) Lymph % (Auto) [place] % (Auto) Eos % (Auto) Baso % (Auto) Lymph # (Auto) [place] # (Auto) Eos # (Auto) Baso # (Auto) Abs Immat Gran (auto) Absolute Neuts (auto) Absolute Nucleated RBC Nucleated RBC % (auto) VBG pH 7.11 L* VBG pCO2 20 VBG pO2 53 VBG HCO3 7 L VBG O2 Saturation 72.0 VBG Base Excess -20.4 Sodium 138 Potassium 5.2 H Chloride 104 Carbon Dioxide 7 L* Anion Gap 32 H BUN Creatinine Estim Creat Clear Calc Estimated GFR POC Glucose 424 H* Random Glucose Calcium Phosphorus Magnesium Total Bilirubin Direct Bilirubin AST ALT Alkaline Phosphatase Total Protein Albumin Lipase Urine Color Urine Appearance Urine pH Ur Specific [place] Urine Protein Urine Glucose (UA) Urine Ketones Urine Blood Urine Nitrite Ur Leukocyte Esterase Urine RBC Urine WBC Ur Squamous Epith Cells Urine Bacteria Hyaline Casts Urine Test Acetone, Qual 07/17/22 07/17/22 07/17/22 19:45 19:45 21:03 WBC RBC Hgb Hct MCV MCH MCHC RDW Plt Count MPV Immature Gran % (Auto) Neut % (Auto) Lymph % (Auto) [place] % (Auto) Eos % (Auto) Baso % (Auto) Lymph # (Auto) [place] # (Auto) Eos # (Auto) Baso # (Auto) Abs Immat Gran (auto) Absolute Neuts (auto) Absolute Nucleated RBC Nucleated RBC % (auto) VBG pH VBG pCO2 VBG pO2 VBG HCO3 VBG O2 Saturation VBG Base Excess Sodium Potassium Chloride Carbon Dioxide Anion Gap BUN Creatinine Estim Creat Clear Calc Estimated GFR POC Glucose 219 H Random Glucose Calcium Phosphorus Magnesium Total Bilirubin Direct Bilirubin AST ALT Alkaline Phosphatase Total Protein Albumin Lipase Urine Color Yellow Urine Appearance Clear Urine pH 5.0 Ur Specific [place] 1.025 Urine Protein 30 (1+) H Urine Glucose (UA) >=1000 H Urine Ketones >=160 Urine Blood Small (1+) H Urine Nitrite Negative Ur Leukocyte Esterase Negative Urine RBC 0-2 Urine WBC 0-5 Ur Squamous Epith Cells 0-2 Urine Bacteria Trace Hyaline Casts 0-2 Urine Test NEGATIVE Acetone, Qual 07/17/22 07/17/22 07/18/22 22:14 23:21 00:22 WBC RBC Hgb Hct MCV MCH MCHC RDW Plt Count MPV Immature Gran % (Auto) Neut % (Auto) Lymph % (Auto) [place] % (Auto) Eos % (Auto) Baso % (Auto) Lymph # (Auto) [place] # (Auto) Eos # (Auto) Baso # (Auto) Abs Immat Gran (auto) Absolute Neuts (auto) Absolute Nucleated RBC Nucleated RBC % (auto) VBG pH VBG pCO2 VBG pO2 VBG HCO3 VBG O2 Saturation VBG Base Excess Sodium Potassium Chloride Carbon Dioxide Anion Gap BUN Creatinine Estim Creat Clear Calc Estimated GFR POC Glucose 141 H 121 H 143 H Random Glucose Calcium Phosphorus Magnesium Total Bilirubin Direct Bilirubin AST ALT Alkaline Phosphatase Total Protein Albumin Lipase Urine Color Urine Appearance Urine pH Ur Specific [place] Urine Protein Urine Glucose (UA) Urine Ketones Urine Blood Urine Nitrite Ur Leukocyte Esterase Urine RBC Urine WBC Ur Squamous Epith Cells Urine Bacteria Hyaline Casts Urine Test Acetone, Qual 07/18/22 07/18/22 07/18/22 00:27 02:11 04:44 WBC RBC Hgb Hct MCV MCH MCHC RDW Plt Count MPV Immature Gran % (Auto) Neut % (Auto) Lymph % (Auto) [place] % (Auto) Eos % (Auto) Baso % (Auto) Lymph # (Auto) [place] # (Auto) Eos # (Auto) Baso # (Auto) Abs Immat Gran (auto) Absolute Neuts (auto) Absolute Nucleated RBC Nucleated RBC % (auto) VBG pH VBG pCO2 VBG pO2 VBG HCO3 VBG O2 Saturation VBG Base Excess Sodium 141 Potassium 4.5 Chloride 113 H Carbon Dioxide 11 L Anion Gap 22 H BUN 11 Creatinine 0.98 Estim Creat Clear Calc 72.2 Estimated GFR > 60 POC Glucose 161 H 185 H Random Glucose 158 H Calcium 8.6 D Phosphorus Magnesium Total Bilirubin Direct Bilirubin AST ALT Alkaline Phosphatase Total Protein Albumin Lipase Urine Color Urine Appearance Urine pH Ur Specific [place] Urine Protein Urine Glucose (UA) Urine Ketones Urine Blood Urine Nitrite Ur Leukocyte Esterase Urine RBC Urine WBC Ur Squamous Epith Cells Urine Bacteria Hyaline Casts Urine Test Acetone, Qual 07/18/22 07/18/22 07/18/22 05:52 05:54 05:54 WBC 6.7 RBC 4.00 L D Hgb 11.0 L D Hct 33.8 L D MCV 84.5 MCH 27.5 MCHC 32.5 RDW 13.1 Plt Count 305 MPV 10.9 Immature Gran % (Auto) 0.3 Neut % (Auto) 55.7 Lymph % (Auto) 36.0 [place] % (Auto) 6.7 Eos % (Auto) 0.7 Baso % (Auto) 0.6 Lymph # (Auto) 2.4 [place] # (Auto) 0.5 Eos # (Auto) 0.1 Baso # (Auto) 0.0 Abs Immat Gran (auto) 0.02 Absolute Neuts (auto) 3.8 Absolute Nucleated RBC 0.000 Nucleated RBC % (auto) 0.0 VBG pH 7.39 VBG pCO2 32 VBG pO2 84 VBG HCO3 19 L VBG O2 Saturation 97.0 VBG Base Excess -3.9 Sodium 140 Potassium 3.7 Chloride 113 H Carbon Dioxide 18 L Anion Gap 13 BUN 9 Creatinine 0.93 Estim Creat Clear Calc 76.1 Estimated GFR > 60 POC Glucose Random Glucose 204 H Calcium 8.5 Phosphorus 2.1 L Magnesium 1.8 Total Bilirubin Direct Bilirubin AST ALT Alkaline Phosphatase Total Protein Albumin 3.5 Lipase Urine Color Urine Appearance Urine pH Ur Specific [place] Urine Protein Urine Glucose (UA) Urine Ketones Urine Blood Urine Nitrite Ur Leukocyte Esterase Urine RBC Urine WBC Ur Squamous Epith Cells Urine Bacteria Hyaline Casts Urine Test Acetone, Qual 07/18/22 07/18/22 07/18/22 06:15 08:08 09:16 WBC RBC Hgb Hct MCV MCH MCHC RDW Plt Count MPV Immature Gran % (Auto) Neut % (Auto) Lymph % (Auto) [place] % (Auto) Eos % (Auto) Baso % (Auto) Lymph # (Auto) [place] # (Auto) Eos # (Auto) Baso # (Auto) Abs Immat Gran (auto) Absolute Neuts (auto) Absolute Nucleated RBC Nucleated RBC % (auto) VBG pH VBG pCO2 VBG pO2 VBG HCO3 VBG O2 Saturation VBG Base Excess Sodium Potassium Chloride Carbon Dioxide Anion Gap BUN Creatinine Estim Creat Clear Calc Estimated GFR POC Glucose 193 H 152 H 141 H Random Glucose Calcium Phosphorus Magnesium Total Bilirubin Direct Bilirubin AST ALT Alkaline Phosphatase Total Protein Albumin Lipase Urine Color Urine Appearance Urine pH Ur Specific [place] Urine Protein Urine Glucose (UA) Urine Ketones Urine Blood Urine Nitrite Ur Leukocyte Esterase Urine RBC Urine WBC Ur Squamous Epith Cells Urine Bacteria Hyaline Casts Urine Test Acetone, Qual 07/18/22 07/18/22 07/18/22 10:08 11:07 11:55 WBC RBC Hgb Hct MCV MCH MCHC RDW Plt Count MPV Immature Gran % (Auto) Neut % (Auto) Lymph % (Auto) [place] % (Auto) Eos % (Auto) Baso % (Auto) Lymph # (Auto) [place] # (Auto) Eos # (Auto) Baso # (Auto) Abs Immat Gran (auto) Absolute Neuts (auto) Absolute Nucleated RBC Nucleated RBC % (auto) VBG pH VBG pCO2 VBG pO2 VBG HCO3 VBG O2 Saturation VBG Base Excess Sodium 140 Potassium 3.8 Chloride 111 H Carbon Dioxide 20 L Anion Gap 13 BUN 9 Creatinine 0.88 Estim Creat Clear Calc 83.5 Estimated GFR > 60 POC Glucose 166 H 205 H Random Glucose 229 H Calcium 8.5 Phosphorus Magnesium Total Bilirubin Direct Bilirubin AST ALT Alkaline Phosphatase Total Protein Albumin Lipase Urine Color Urine Appearance Urine pH Ur Specific [place] Urine Protein Urine Glucose (UA) Urine Ketones Urine Blood Urine Nitrite Ur Leukocyte Esterase Urine RBC Urine WBC Ur Squamous Epith Cells Urine Bacteria Hyaline Casts Urine Test Acetone, Qual 07/18/22 07/18/22 12:06 13:01 WBC RBC Hgb Hct MCV MCH MCHC RDW Plt Count MPV Immature Gran % (Auto) Neut % (Auto) Lymph % (Auto) [place] % (Auto) Eos % (Auto) Baso % (Auto) Lymph # (Auto) [place] # (Auto) Eos # (Auto) Baso # (Auto) Abs Immat Gran (auto) Absolute Neuts (auto) Absolute Nucleated RBC Nucleated RBC % (auto) VBG pH VBG pCO2 VBG pO2 VBG HCO3 VBG O2 Saturation VBG Base Excess Sodium Potassium Chloride Carbon Dioxide Anion Gap BUN Creatinine Estim Creat Clear Calc Estimated GFR POC Glucose 212 H 204 H Random Glucose Calcium Phosphorus Magnesium Total Bilirubin Direct Bilirubin AST ALT Alkaline Phosphatase Total Protein Albumin Lipase Urine Color Urine Appearance Urine pH Ur Specific [place] Urine Protein Urine Glucose (UA) Urine Ketones Urine Blood Urine Nitrite Ur Leukocyte Esterase Urine RBC Urine WBC Ur Squamous Epith Cells Urine Bacteria Hyaline Casts Urine Test Acetone, Qual Progress Note: A&P Assessment and plan (1) MATTHEW (acute kidney injury): Status: Acute (2) Diabetic ketoacidosis: Status: Acute Plan Assessment: 36-year-old lady admitted with diabetic ketoacidosis requiring insulin drip. Plan: Neuro: No acute issues. Cardiac: No acute issues. Pulmonary: No acute issues. Renal: Acute renal failure secondary to diabetic ketoacidosis, resolved. Non oliguric. Continue to monitor renal indices and urine output. Endo: Diabetic ketoacidosis, titrated off insulin drip. Continue subcutaneous insulin protocol. GI: No acute issues. ID: No acute issues Heme/Onc: No acute issues. Psych: No acute issues. Miscellaneous: No acute issues. Prophylaxis: Lovenox Diet: Diabetic Quality Stroke Does the patient have a stroke diagnosis?: No VTE Prior VTE?: No VTE Risk Level:: Medical - low VTE Device Contraindication: Treatment Not Indicated VTE Drug Contraindication: N/A - Med Ordered
[2022-07-18] MEDS: ondansetron HCL 4 MG/2 ML VIAL IVPUSH (16:03)
[2022-07-18 16:35] LABS: Glucose, Whole Blood 272 mg/dL (60-115)
[2022-07-18] MEDS: Insulin Lispro 100 UNIT/ML 3 ML VIAL SUBCUT ×2 (16:39→19:58)
[2022-07-18 19:50] LABS: Glucose, Whole Blood 303 mg/dL (60-115)
[2022-07-18] MEDS: Enoxaparin Sodium 40 MG/0.4 ML SYRINGE SUBCUT (19:59)
[2022-07-19 04:00] VITALS: BP 94/54; PULSE 75; RESP 20; TEMP 36.2; O2SAT 92
[2022-07-19 07:28] LABS: MANUAL DIFF FLAG NO
[2022-07-19 07:32] LABS: Basophils Percent Auto 0.4 % (0-2); Eosinophils Absolute Auto 0.1 X10*3/uL (0.0-0.4); Eosinophils Percent Auto 1.6 % (0-4); Hematocrit 34.1 % (37.0-47.0); Hemoglobin 11.2 g/dl (12.0-16.0); Imm Gran Abs Auto 0.01 X10*3/uL (0.00-0.03); Imm Gran Pct Auto 0.2 % (0.0-0.4); Lymphocytes Absolute Auto 1.8 X10*3/uL (1.2-4.9); Lymphocytes Percent Auto 41.3 % (20-40); Mean Corpuscular HGB Conc 32.8 g/dl (31.0-35.0); Mean Corpuscular Hemoglobin 27.5 pg (27.0-33.0); Mean Corpuscular Volume 83.6 fL (80.0-98.0); Monocytes Absolute Auto 0.2 X10*3/uL (0.1-1.2); Monocytes Percent Auto 4.5 % (2-11); Neutrophils Absolute Auto 2.3 x10*3/uL (2.0-8.3); Platelet Count 234 X10*3/uL (160-400); Red Blood Count 4.08 X10*6/uL (4.20-5.50); Red Cell Distribution Width 13.2 % (11.0-16.0); White Blood Count 4.5 X10*3/uL (4.8-10.8)
[2022-07-19 07:55] VITALS: BP 105/67; PULSE 76; RESP 19; TEMP 36.5; O2SAT 99
[2022-07-19 07:58] LABS: Albumin Level 3.2 g/dL (3.5-5.0); Anion Gap 13 (12-20); Blood Urea Nitrogen 9 mg/dL (9-16); Calcium 8.9 mg/dL (8.4-10.2); Carbon Dioxide 23 mmol/L (22-29); Chloride 107 mmol/L (96-108); Creatinine Clr Calc Pharmacy 88.5; Estimated Glomerular Filt Rate > 60; Glucose Random 313 mg/dL (60-115); Magnesium 1.7 mg/dL (1.6-2.6); Phosphorus 3.2 mg/dL (2.7-4.5); Potassium 4.1 mmol/L (3.3-5.1); Sodium 139 mmol/L (135-145)
[2022-07-19 08:03] LABS: Glucose, Whole Blood 375 mg/dL (60-115)
[2022-07-19] MEDS: Insulin Glargine,Hum.rec.anlog 100 UNIT/ML 10 ML VIAL 10 UNIT SUBCUT (08:27)
[2022-07-19] MEDS: Insulin Lispro 100 UNIT/ML 3 ML VIAL SUBCUT ×4 (08:27→21:30)
[2022-07-19] MEDS: metFORMIN HCl 500 MG TABLET PO ×2 (10:58→16:52)
[2022-07-19 11:28] LABS: Glucose, Whole Blood 228 mg/dL (60-115)
[2022-07-19 11:35] VITALS: BP 111/72; PULSE 75; RESP 18; TEMP 36.4; O2SAT 100
[2022-07-19 15:36] VITALS: BP 126/75; PULSE 86; RESP 14; TEMP 36.1; O2SAT 100
[2022-07-19 16:31] LABS: Glucose, Whole Blood 281 mg/dL (60-115)
--- NOTE | 2022-07-19 16:54 | P.PNIM_ITS ---
Subjective Subjective Date of Service: 07/19/22 Interval History: states feels better since admission. Tolerating therapies Review of Systems denies chest pain Denies shortness of breath Denies nausea vomiting diarrhea Denies fev Physical Exam Vital Signs: Vital Signs: Last Vital Signs Temp 96.9 F 07/19/22 15:36 Pulse 86 07/19/22 15:36 Resp 14 07/19/22 15:36 BP 126/75 07/19/22 15:36 Pulse Ox 100 07/19/22 15:36 O2 Del Method 07/19/22 15:36 O2 Flow Rate 2 07/18/22 08:00 BMI result Body Mass Index 29.4 Const: Other: awake alert no acute distress Resp: Other: clear to auscultation bilaterally no rales rhonchi wheezes Cardio: Other: no S4; po GI: Other: soft nontende Extrem: Other: no edema bilaterally Objective Data Active Medications Dextrose (Dextrose 50 % 25 Gm/50 Ml Syringe) 25 gm IVPUSH Q30M PRN PRN Reason: Nursing Actions in Insulin Infusion Protocol Enoxaparin Sodium (Enoxaparin Sodium 40 Mg/0.4 Ml Syringe) 40 mg SUBCUT Q24H [facility] Last Admin: 07/18/22 19:59 Dose: 40 mg Documented By: BING Insulin Glargine (Insulin Glargine,Hum.Rec.Anlog 100 Unit/Ml 10 Ml Vial) 10 unit SUBCUT BEDTIME [facility] Insulin Human Lispro (Insulin Lispro 100 Unit/Ml 3 Ml Vial) 0 unit SUBCUT QID [facility]; Protocol Last Admin: 07/19/22 16:52 Dose: 6 unit Documented By: DEMETRIS Metformin HCl (Metformin Hcl 500 Mg Tablet) 500 mg PO BIDWM [facility] Last Admin: 07/19/22 16:52 Dose: 500 mg Documented By: DEMETRIS Ondansetron HCl (Ondansetron Hcl 4 Mg/2 Ml Vial) 4 mg IVPUSH Q8H PRN PRN Reason: Nausea Last Admin: 07/18/22 16:03 Dose: 4 mg Documented By: ELLEN-RIVLA Labs 07/19/22 06:47 07/19/22 06:47 Labs: Laboratory Results - last 24 hr 07/18/22 07/19/22 07/19/22 19:46 06:47 06:47 MCV 83.6 MCH 27.5 MCHC 32.8 RDW 13.2 Plt Count 234 MPV 11.0 Immature Gran % (Auto) 0.2 Neut % (Auto) 52.0 Lymph % (Auto) 41.3 H [place] % (Auto) 4.5 Eos % (Auto) 1.6 Baso % (Auto) 0.4 Lymph # (Auto) 1.8 [place] # (Auto) 0.2 Eos # (Auto) 0.1 Baso # (Auto) 0.0 Abs Immat Gran (auto) 0.01 Absolute Neuts (auto) 2.3 Absolute Nucleated RBC 0.000 Nucleated RBC % (auto) 0.0 Anion Gap 13 Estim Creat Clear Calc 88.5 Estimated GFR > 60 POC Glucose 303 H Random Glucose 313 H Calcium 8.9 Phosphorus 3.2 Magnesium 1.7 Albumin 3.2 L 07/19/22 07/19/22 07/19/22 07:59 11:18 16:16 MCV MCH MCHC RDW Plt Count MPV Immature Gran % (Auto) Neut % (Auto) Lymph % (Auto) [place] % (Auto) Eos % (Auto) Baso % (Auto) Lymph # (Auto) [place] # (Auto) Eos # (Auto) Baso # (Auto) Abs Immat Gran (auto) Absolute Neuts (auto) Absolute Nucleated RBC Nucleated RBC % (auto) Anion Gap Estim Creat Clear Calc Estimated GFR POC Glucose 375 H* 228 H 281 H Random Glucose Calcium Phosphorus Magnesium Albumin Assessment and Plan (1) Diabetic ketoacidosis: Status: Acute (2) MATTHEW (acute kidney injury): Status: Acute (3) Hyperkalemia: Status: Acute (4) Gastroparesis: Status: Acute Plan 36-year-old female with history of diabetes admitted for DKA 218 through 07/15/2022 and sent home on metformin. States she was unable to take metformin secondary to nausea and vomiting. She takes no other med secondary to lack of insurance. She presented to the ER on day of admission with a sugar of 5 await requiring IV fluids and insulin drip. She was transferred to ICU; her gap closed and she was transferred out to the floor. Sugars have been elevated but moderately control 1.DMII - continue metformin 500 b.i.d. and advance as tolerated - 20 units of Lantus at bedtime - follow-up 0.8 POCs -follow renals/divalents ambulating full code requires ongoing hospitalization to stabilize blood sugars Time Spent With Patient Time: Total time managing care of this patient today ____ minutes. Quality Stroke Does the patient have a stroke diagnosis?: No VTE Prior VTE?: No VTE Risk Level:: Medical - low VTE Device Contraindication: Treatment Not Indicated VTE Drug Contraindication: N/A - Med Ordered
[2022-07-19 19:47] VITALS: BP 114/69; PULSE 80; RESP 14; TEMP 36.5; O2SAT 99
[2022-07-19 20:43] LABS: Glucose, Whole Blood 317 mg/dL (60-115)
[2022-07-19] MEDS: Insulin Glargine,Hum.rec.anlog 100 UNIT/ML 10 ML VIAL 20 UNIT SUBCUT (21:28)
[2022-07-19 23:54] VITALS: BP 113/73; PULSE 86; RESP 14; TEMP 37.1; O2SAT 96
[2022-07-20 04:00] VITALS: BP 95/59; PULSE 72; RESP 14; TEMP 36.6; O2SAT 98
[2022-07-20 08:00] VITALS: BP 103/63; PULSE 77; RESP 18; TEMP 36.6; O2SAT 100
[2022-07-20 08:21] LABS: Glucose, Whole Blood 241 mg/dL (60-115)
[2022-07-20 08:45] LABS: MANUAL DIFF FLAG NO
[2022-07-20 08:47] LABS: Basophils Percent Auto 0.5 % (0-2); Eosinophils Absolute Auto 0.1 X10*3/uL (0.0-0.4); Eosinophils Percent Auto 1.5 % (0-4); Hematocrit 36.2 % (37.0-47.0); Hemoglobin 11.7 g/dl (12.0-16.0); Lymphocytes Absolute Auto 1.6 X10*3/uL (1.2-4.9); Mean Corpuscular HGB Conc 32.3 g/dl (31.0-35.0); Mean Corpuscular Hemoglobin 26.9 pg (27.0-33.0); Mean Corpuscular Volume 83.2 fL (80.0-98.0); Mean Platelet Volume 10.6 fL (9.4-12.3); Monocytes Absolute Auto 0.2 X10*3/uL (0.1-1.2); Monocytes Percent Auto 5.6 % (2-11); Neutrophils Percent Auto 51.4 % (45-73); Platelet Count 247 X10*3/uL (160-400); Red Blood Count 4.35 X10*6/uL (4.20-5.50); Red Cell Distribution Width 13.2 % (11.0-16.0); White Blood Count 3.9 X10*3/uL (4.8-10.8)
[2022-07-20] MEDS: Insulin Lispro 100 UNIT/ML 3 ML VIAL SUBCUT ×4 (09:09→21:21)
[2022-07-20] MEDS: metFORMIN HCl 500 MG TABLET PO ×2 (09:09→16:40)
[2022-07-20 09:18] LABS: Alanine Aminotransferase 15 U/L (0-31); Albumin Level 3.4 g/dL (3.5-5.0); Alkaline Phosphatase 98 U/L (39-117); Aspartate Amino Transferase 11 U/L (5-31); Bilirubin Total 0.8 mg/dL (0.0-1.0); Blood Urea Nitrogen 11 mg/dL (9-16); Calcium 9.2 mg/dL (8.4-10.2); Estimated Glomerular Filt Rate > 60; Glucose Fasting 241 mg/dL (60-99); Total Protein 6.8 g/dL (6.5-8.0)
[2022-07-20 09:30] LABS: Anion Gap 16 (12-20); Carbon Dioxide 26 mmol/L (22-29); Chloride 102 mmol/L (96-108); Potassium 3.7 mmol/L (3.3-5.1); Sodium 140 mmol/L (135-145)
[2022-07-20 11:32] LABS: Glucose, Whole Blood 243 mg/dL (60-115)
[2022-07-20 11:58] VITALS: BP 96/68; PULSE 78; RESP 18; TEMP 36.3; O2SAT 100
--- NOTE | 2022-07-20 14:12 | P.PNIM_ITS ---
Subjective Subjective Date of Service: 07/20/22 Interval History: feels better overall. Sugars remain labile Review of Systems denies chest pain Denies shortness of breath Denies nausea vomiting diarrhea Denies fev Physical Exam Vital Signs: Vital Signs: Last Vital Signs Temp 97.4 F 07/20/22 11:58 Pulse 78 07/20/22 11:58 Resp 18 07/20/22 11:58 BP 96/68 07/20/22 11:58 Pulse Ox 100 07/20/22 11:58 O2 Del Method 07/20/22 11:58 O2 Flow Rate 2 07/18/22 08:00 BMI result Body Mass Index 29.4 Const: Other: awake alert no acute distress Resp: Other: clear to auscultation bilaterally no rales rhonchi wheezes Cardio: Other: no S4; po GI: Other: soft nontende Extrem: Other: no edema bilaterally Objective Data Active Medications Dextrose (Dextrose 50 % 25 Gm/50 Ml Syringe) 25 gm IVPUSH Q30M PRN PRN Reason: Nursing Actions in Insulin Infusion Protocol Enoxaparin Sodium (Enoxaparin Sodium 40 Mg/0.4 Ml Syringe) 40 mg SUBCUT Q24H [facility] Last Admin: 07/19/22 21:30 Dose: Not Given Documented By: VIBHA Non-Admin Reason: Patient Refused Insulin Glargine (Insulin Glargine,Hum.Rec.Anlog 100 Unit/Ml 10 Ml Vial) 20 unit SUBCUT BEDTIME [facility] Last Admin: 07/19/22 21:28 Dose: 20 unit Documented By: VIBHA Insulin Glargine (Insulin Glargine,Hum.Rec.Anlog 100 Unit/Ml 10 Ml Vial) 20 unit SUBCUT DAILY [facility] Insulin Human Lispro (Insulin Lispro 100 Unit/Ml 3 Ml Vial) 0 unit SUBCUT QIDAC HS [facility]; Protocol Last Admin: 07/20/22 11:41 Dose: 4 unit Documented By: ELLEN-SOFFA Metformin HCl (Metformin Hcl 500 Mg Tablet) 500 mg PO BIDWM [facility] Last Admin: 07/20/22 09:09 Dose: 500 mg Documented By: ELLEN-SOFFA Ondansetron HCl (Ondansetron Hcl 4 Mg/2 Ml Vial) 4 mg IVPUSH Q8H PRN PRN Reason: Nausea Last Admin: 07/18/22 16:03 Dose: 4 mg Documented By: MERLYN Labs 07/20/22 08:30 07/20/22 08:30 Labs: Laboratory Results - last 24 hr 07/19/22 07/19/22 07/20/22 16:16 20:33 08:09 MCV MCH MCHC RDW Plt Count MPV Immature Gran % (Auto) Neut % (Auto) Lymph % (Auto) [place] % (Auto) Eos % (Auto) Baso % (Auto) Lymph # (Auto) [place] # (Auto) Eos # (Auto) Baso # (Auto) Abs Immat Gran (auto) Absolute Neuts (auto) Absolute Nucleated RBC Nucleated RBC % (auto) Anion Gap Estim Creat Clear Calc Estimated GFR POC Glucose 281 H 317 H 241 H Fasting Glucose Calcium Total Bilirubin AST ALT Alkaline Phosphatase Total Protein Albumin 07/20/22 07/20/22 07/20/22 08:30 08:30 11:19 MCV 83.2 MCH 26.9 L MCHC 32.3 RDW 13.2 Plt Count 247 MPV 10.6 Immature Gran % (Auto) 0.0 Neut % (Auto) 51.4 Lymph % (Auto) 41.0 H [place] % (Auto) 5.6 Eos % (Auto) 1.5 Baso % (Auto) 0.5 Lymph # (Auto) 1.6 [place] # (Auto) 0.2 Eos # (Auto) 0.1 Baso # (Auto) 0.0 Abs Immat Gran (auto) 0.00 Absolute Neuts (auto) 2.0 Absolute Nucleated RBC 0.000 Nucleated RBC % (auto) 0.0 Anion Gap 16 Estim Creat Clear Calc 102.0 Estimated GFR > 60 POC Glucose 243 H Fasting Glucose 241 H Calcium 9.2 Total Bilirubin 0.8 AST 11 ALT 15 Alkaline Phosphatase 98 Total Protein 6.8 Albumin 3.4 L Assessment and Plan (1) Diabetes: Status: Acute Plan 36-year-old female with history of diabetes admitted for DKA 218 through 07/15/2022 and sent home on metformin. States she was unable to take metformin secondary to nausea and vomiting. She takes no other med secondary to lack of insurance. She presented to the ER on day of admission with a sugar of 5 await requiring IV fluids and insulin drip. She was transferred to ICU; her gap closed and she was transferred out to the floor. Sugars have been elevated but moderately control 1.DMII -continue metformin 500 b.i.d. and advance as tolerated -20 units of Lantus twice daily -follow renals/divalents ambulating full code requires ongoing hospitalization to stabilize blood sugars Time Spent With Patient Time: Total time managing care of this patient today ____ minutes. Quality Stroke Does the patient have a stroke diagnosis?: No VTE Prior VTE?: No VTE Risk Level:: Medical - low VTE Device Contraindication: Treatment Not Indicated VTE Drug Contraindication: N/A - Med Ordered
[2022-07-20 15:30] VITALS: BP 108/70; PULSE 77; RESP 18; TEMP 36.3; O2SAT 100
--- NOTE | 2022-07-20 15:50 | MHC.CM.PN ---
per rounds no dc date at this time pt has no pcp
[2022-07-20 16:34] LABS: Glucose, Whole Blood 221 mg/dL (60-115)
[2022-07-20 19:57] VITALS: BP 114/69; PULSE 87; RESP 16; TEMP 36.4; O2SAT 99
[2022-07-20 20:55] LABS: Glucose, Whole Blood 236 mg/dL (60-115)
[2022-07-20] MEDS: Insulin Glargine,Hum.rec.anlog 100 UNIT/ML 10 ML VIAL 20 UNIT SUBCUT (21:21)
[2022-07-21] VITALS: BP 126/75; PULSE 97; RESP 18; TEMP 36.6; O2SAT 98
[2022-07-21 04:00] VITALS: BP 98/60; PULSE 80; RESP 16; TEMP 36.1; O2SAT 98
[2022-07-21 06:01] LABS: MANUAL DIFF FLAG NO
[2022-07-21 06:34] LABS: Basophils Percent Auto 0.2 % (0-2); Eosinophils Absolute Auto 0.1 X10*3/uL (0.0-0.4); Eosinophils Percent Auto 1.8 % (0-4); Hematocrit 34.8 % (37.0-47.0); Hemoglobin 11.3 g/dl (12.0-16.0); Lymphocytes Absolute Auto 1.8 X10*3/uL (1.2-4.9); Lymphocytes Percent Auto 39.7 % (20-40); Mean Corpuscular HGB Conc 32.5 g/dl (31.0-35.0); Mean Corpuscular Hemoglobin 27.4 pg (27.0-33.0); Mean Corpuscular Volume 84.3 fL (80.0-98.0); Mean Platelet Volume 11.3 fL (9.4-12.3); Monocytes Absolute Auto 0.3 X10*3/uL (0.1-1.2); Monocytes Percent Auto 6.8 % (2-11); Neutrophils Absolute Auto 2.4 x10*3/uL (2.0-8.3); Neutrophils Percent Auto 51.5 % (45-73); Platelet Count 245 X10*3/uL (160-400); Red Blood Count 4.13 X10*6/uL (4.20-5.50); Red Cell Distribution Width 13.2 % (11.0-16.0); White Blood Count 4.6 X10*3/uL (4.8-10.8)
[2022-07-21 06:39] LABS: Alanine Aminotransferase 14 U/L (0-31); Albumin Level 3.1 g/dL (3.5-5.0); Alkaline Phosphatase 85 U/L (39-117); Anion Gap 15 (12-20); Aspartate Amino Transferase 12 U/L (5-31); Bilirubin Total 0.4 mg/dL (0.0-1.0); Blood Urea Nitrogen 10 mg/dL (9-16); Calcium 8.7 mg/dL (8.4-10.2); Carbon Dioxide 26 mmol/L (22-29); Chloride 102 mmol/L (96-108); Creatinine Clr Calc Pharmacy 104.9; Estimated Glomerular Filt Rate > 60; Glucose Fasting 239 mg/dL (60-99); Potassium 3.5 mmol/L (3.3-5.1); Sodium 139 mmol/L (135-145); Total Protein 6.2 g/dL (6.5-8.0)
[2022-07-21 07:36] LABS: Glucose, Whole Blood 227 mg/dL (60-115)
[2022-07-21 08:00] VITALS: BP 96/69; PULSE 84; RESP 18; TEMP 35.7; O2SAT 100
[2022-07-21] MEDS: metFORMIN HCl 500 MG TABLET PO (08:01)
[2022-07-21] MEDS: Insulin Glargine,Hum.rec.anlog 100 UNIT/ML 10 ML VIAL 20 UNIT SUBCUT (08:01)
[2022-07-21] MEDS: Insulin Lispro 100 UNIT/ML 3 ML VIAL SUBCUT ×2 (08:01→11:58)
--- NOTE | 2022-07-21 11:22 | P.DS_ITS ---
DS: Providers Provider Date of Service: 07/21/22 Date of admission: 07/17/22 20:24 Date of discharge: 07/21/22 Primary care physician: Unknown Physician DS: Diagnosis Discharge Diagnosis (1) Diabetic ketoacidosis: Status: Acute (2) MATTHEW (acute kidney injury): Status: Acute DS: Summary Hospital Course Hospital Course: 36-year-old with a past medical history of diabetes mellitus? who recently was admitted? for DKA 07/14/22-07/15/22? presented to the emergency room with nausea and vomiting.? Patient reports? unable to take metformin? this morning to severe nausea.? She also reports urinary frequency,? fast breathing? and increased thirst. ultimately admitted to ICU on insulin drip. Subsequently gap closed and she was transitioned to general medical floor. Her sugars remain difficult to control however with 20 Lantus Q12h along with metformin and sliding scale her sugars were under 250. Main issue for this patient is lack of insurance; her [facility] Card is due in the next 24-48 hours. She will be issued a discount card to get 1 month worth of Lantus and I have increased her metformin to 1000 twice a day. She will need to follow up with new PCP and endocrinology as soon as possible. Time Spent with Patient Time attestation: Total time managing care of this patient today ____ minutes. Discharge coordination time: Greater than 30 minutes Quality: Safe Use of Opioids Does Pt have an Active Cancer Diagnosis on the Problem List?: No Quality: Stroke Does the patient have a stroke diagnosis?: No Physical Exam Vital Signs: Vital Signs: Last Vital Signs Temp 96.2 F L 07/21/22 08:00 Pulse 84 07/21/22 08:00 Resp 18 07/21/22 08:00 BP 96/69 07/21/22 08:00 Pulse Ox 100 07/21/22 08:00 O2 Del Method 07/21/22 08:00 O2 Flow Rate 2 07/18/22 08:00 BMI result Body Mass Index 29.4 Const: Other: awake alert no acute distress Resp: Other: clear to auscultation bilaterally no rales rhonchi wheezes Cardio: Other: no S4; po GI: Other: soft nontende Extrem: Other: no edema bilaterally DS: Data Data Completed and Pending Labs on day of discharge: Laboratory Results - last 24 hr 07/20/22 07/20/22 07/20/22 11:19 16:24 20:00 WBC RBC Hgb Hct MCV MCH MCHC RDW Plt Count MPV Immature Gran % (Auto) Neut % (Auto) Lymph % (Auto) [place] % (Auto) Eos % (Auto) Baso % (Auto) Lymph # (Auto) [place] # (Auto) Eos # (Auto) Baso # (Auto) Abs Immat Gran (auto) Absolute Neuts (auto) Absolute Nucleated RBC Nucleated RBC % (auto) Sodium Potassium Chloride Carbon Dioxide Anion Gap BUN Creatinine Estim Creat Clear Calc Estimated GFR POC Glucose 243 H 221 H 236 H Fasting Glucose Calcium Total Bilirubin AST ALT Alkaline Phosphatase Total Protein Albumin 07/21/22 07/21/22 07/21/22 05:39 05:39 07:23 WBC 4.6 L RBC 4.13 L Hgb 11.3 L Hct 34.8 L MCV 84.3 MCH 27.4 MCHC 32.5 RDW 13.2 Plt Count 245 MPV 11.3 Immature Gran % (Auto) 0.0 Neut % (Auto) 51.5 Lymph % (Auto) 39.7 [place] % (Auto) 6.8 Eos % (Auto) 1.8 Baso % (Auto) 0.2 Lymph # (Auto) 1.8 [place] # (Auto) 0.3 Eos # (Auto) 0.1 Baso # (Auto) 0.0 Abs Immat Gran (auto) 0.00 Absolute Neuts (auto) 2.4 Absolute Nucleated RBC 0.000 Nucleated RBC % (auto) 0.0 Sodium 139 Potassium 3.5 Chloride 102 Carbon Dioxide 26 Anion Gap 15 BUN 10 Creatinine 0.70 Estim Creat Clear Calc 104.9 Estimated GFR > 60 POC Glucose 227 H Fasting Glucose 239 H Calcium 8.7 Total Bilirubin 0.4 AST 12 ALT 14 Alkaline Phosphatase 85 Total Protein 6.2 L Albumin 3.1 L Discharge Plan Discharge Anticipated Discharge Date/Time: 07/21/22 11:03 Patient Disposition: Home, Self-Care Discharge Diagnosis: diabetic ketoacidosis Referrals: Physician,Unknown J [Primary Care Provider] - 1 Week Discharge Medications: New insulin lispro [Humalog U-100 Insulin] 100 unit/mL Solution See Protocol subcut QIDACHS Qty: 10 0RF Protocol: Insulin Correction Scale Less than or equal to 110 ---- Give (units): 0 111 to 150 Give (units): 0 151 to 200 Give (units): 2 201 to 250 Give (units): 4 251 to 300 Give (units): 6 301 to 350 Give (units): 8 Greater than 350 Give (units): 10 Call MD if Blood Glucose > : 350 insulin glargine [Lantus U-100 Insulin] 100 unit/mL solution 20 unit subcut BID 30 Days Qty: 12 2RF metformin 1,000 mg tablet 1,000 mg PO BID Qty: 60 2RF Discontinued metformin 500 mg Tablet 500 mg PO BIDWM Qty: 60 0RF insulin glargine [Lantus U-100 Insulin] 100 unit/mL Solution 5 unit subcut DAILY Qty: 10 0RF Discharge Orders: Discharge Order (Routine); Ordered 07/21/22 Ordered By: Eros Celeste Diet: Advance to usual diet Activity on Discharge: As tolerated Stand Alone Forms: Patient Portal Discharge page Care Plan Goals: As soon as you receive your [facility] Card to book an appointment for a new PCP as soon as possible. Health Concerns: Utilize Lantus at 20 mg twice daily along with metformin 1000 mg twice daily. Record your sugars at least 2 times a day; once before each Lantus dose. Plan of Treatment: ultimate plan is PCP and complaint investigator Assessment: see discharge summary
[2022-07-21 11:27] LABS: Glucose, Whole Blood 156 mg/dL (60-115)
--- NOTE | 2022-07-21 11:27 | MHC.CM.PN ---
Patient has been medically cleared for dc to home today, self care.
--- NOTE | 2022-07-21 14:14 | MHC.CM.PN ---
PT WAS DISCHARGED TODAY WITH THREE SCRIPTS SHE EXPRESSED CONCERN THAT SHE MAY NOT BE ABLE TO GET THEM BECAUSE SHE IS IN THE PROCESS OF CHANGING INS CARRIERS FROM [facility] TO A MANAGED PRODUCT SCRIPTS WERE SENT TO [facility] [phone] CM CALLED AND CONFIRMED THEY WERE COVERED BY INSURANCE THEY DID INDICATE THEY WERE UNABLE TO FILL THE LANTUS HOWEVER SO IT WAS SENT TO A SISTER PHARMACY IN [place] CM CALLED PHARMACY AGAIN AND CONFIRMED THE MEDS HAD BEEN PICKED UP
== END 2022-07-21 13:35 | disposition home or self-care (01) | DRG 420 ==
LOC: HO.ED 20:22 → HO.EDOVER 20:29 → HO.ICU 20:31 → HO.IMC 07-18 15:26
PROVIDERS: Internal Medicine Pulmonary Disease; Physician Assistant; Admitting Provider Registered Nurse Community Health; Emergency Provider Emergency Medicine; Visit Provider Hospitalist
DX: E11.10 Type 2 diabetes mellitus with ketoacidosis without coma (principal); N17.9 Acute kidney failure, unspecified; K31.84 Gastroparesis; E86.0 Dehydration; E11.43 Type 2 diabetes mellitus with diabetic autonomic (poly)neuropathy; E87.5 Hyperkalemia; O94 Sequelae of complication of pregnancy, childbirth, and the puerperium; Z79.4 Long term (current) use of insulin; Z79.84 Long term (current) use of oral hypoglycemic drugs
CPT/HCPCS: 36415; 71045; 80048; 80051; 80053; 80076; 81001; 81003; 81025; 82009; 82040; 82803; 82947; 83690; 83735; 84100; 85025; 99285; J1650; J2405

== ENCOUNTER 2022-07-30 13:21 | Emergency (ER) | payer OTHER, SELFPAY ==
--- NOTE | ~2022-07-30 | CT_ITS ---
EXAMINATION: CT ABDOMEN AND PELVIS WITHOUT CONTRAST CLINICAL INFORMATION: Left-sided flank pain. COMPARISON: CT scan of the abdomen and pelvis dated 06/17/2021 TECHNIQUE: Multidetector volumetric imaging was performed from the superior aspect of the liver through the pubic symphysis. Sagittal and coronal reformatted images were obtained on the technologist's workstation. Lack of intravenous and oral contrast limits visceral evaluation. This CT examination was performed using dose optimization techniques as appropriate, variously including the following: *Automated exposure control *Adjustment of mA and/or kV according to patient size (this includes techniques or standardized protocols for targeted exams where dose is matched to indication/reason for exam; i.e. extremities or head) *Use of iterative reconstruction technique DLP: 578 mGy-cm FINDINGS: LUNG BASES: The visualized lung bases are unremarkable. LIVER, GALLBLADDER, AND BILIARY TREE: Unremarkable. PANCREAS: Unremarkable. SPLEEN: Unremarkable. ADRENAL GLANDS: Unremarkable. KIDNEYS AND URETERS: The right kidney is mildly rotated without associated abnormality. No nephrolithiasis or hydroureteronephrosis. BLADDER: Unremarkable. GASTROINTESTINAL TRACT: The stomach, small bowel and appendix are unremarkable. The colon and rectum are unremarkable. ABDOMINAL WALL: No significant hernia is appreciated. LYMPH NODES: No lymphadenopathy. VASCULAR: Unremarkable. PELVIC VISCERA: Mildly retroflexed uterus with mild free fluid in the cul-de-sac. No adnexal abnormality. OSSEOUS STRUCTURES: Unremarkable. CT/CT abdomen pelvis wo IV con IMPRESSION: 1. No acute intra-abdominal/pelvic abnormality to explain the patient's pain. No nephrolithiasis or hydroureteronephrosis. 2. Mild free fluid in the cul-de-sac is likely physiologic.
--- NOTE | 2022-07-30 13:24 | ED_ITS ---
HPI - Abdominal Pain General Chief Complaint: Back Pain/Injury <FAZAL Julian - Last Filed: 07/30/22 13:28> Stated Complaint: L flank pain <FAZAL Julian - Last Filed: 07/30/22 13:28> Time Seen by Provider: 07/30/22 19:17 <FAZAL Julian - Last Filed: 07/30/22 13:28> Source: patient <Stephen Park MD - Last Filed: 07/30/22 19:58> Mode of arrival: ambulatory <Stephen Park MD - Last Filed: 07/30/22 19:58> Limitations: no limitations <Stephen Park MD - Last Filed: 07/30/22 19:58> History of Present Illness HPI narrative: Patient diabetic with significant back problems noticed in the left flank area for last 24 hours without any significant injury no urinary symptoms no fever no chills pain get worse on movements no radiation pain to the abdomen no nausea no vomiting <Stephen Park MD - Last Filed: 07/30/22 19:58> Related Data Home Medications: Previous Rx's Medication Instructions Recorded insulin glargine 100 unit/mL 20 unit (0.2 mL) subcut BID 30 07/21/22 subcutaneous solution (Lantus days #12 mL U-100 Insulin) insulin lispro 100 unit/mL See Protocol subcut QIDACHS #10 mL 07/21/22 subcutaneous solution (Humalog U-100 Insulin) metformin 1,000 mg tablet 1,000 mg PO BID #60 tabs 07/21/22 cefuroxime axetil 250 mg tablet 250 mg PO BID 5 days #10 tabs 07/30/22 cyclobenzaprine 10 mg tablet 10 mg PO Q8H #20 tabs 07/30/22 tramadol 50 mg tablet 50 mg PO Q6H PRN pain #20 tabs 07/30/22 <FAZAL Julian - Last Filed: 07/30/22 13:28> Allergies/Adverse Reactions: Allergies Allergy/AdvReac Type Severity Reaction Status Date / Time No Known Allergies Allergy Verified 06/17/21 15:22 [No Known Allergies*] <FAZAL Julian - Last Filed: 07/30/22 13:28> Review of Systems Review of Systems Yes all other systems are reviewed and are negative <Stephen Park MD - Last Filed: 07/30/22 19:58> [facility] Past Medical History Medical History: Medical History Diabetes <FAZAL Julian - Last Filed: 07/30/22 13:28> Social History Social History: Social History Household Members: Family Housing: Apartment Do you presently have visiting nurse or other home services: No Patient Tobacco Use Status: Never used Tobacco e-Cigarette/Vaping Use: Never Used Advance Directives: No Advance Directives Information Provided: No service: No Current occupational status: employed <FAZAL Julian - Last Filed: 07/30/22 13:28> Physical Exam ED Vital Signs: Vital Signs - 24 hr 07/30/22 13:25 07/30/22 16:27 07/30/22 19:00 Temperature 98.4 F 97.6 F 97.4 F Pulse Rate 98 78 76 Respiratory Rate 20 16 16 Blood Pressure 144/80 H 111/73 114/67 Pulse Oximetry 100 98 100 Oxygen Delivery Method Room Air Room Air BMI result Body Mass Index 31.1 <FAZAL Julian - Last Filed: 07/30/22 13:28> Vital Signs - 24 hr 07/30/22 13:25 07/30/22 16:27 07/30/22 19:00 Temperature 98.4 F 97.6 F 97.4 F Pulse Rate 98 78 76 Respiratory Rate 20 16 16 Blood Pressure 144/80 H 111/73 114/67 Pulse Oximetry 100 98 100 Oxygen Delivery Method Room Air Room Air BMI result Body Mass Index 31.1 <Stephen Park MD - Last Filed: 07/30/22 19:58> Appearance: Alert. Oriented X3. No acute distress. ENT: Pharynx normal. Oral Mucosa moist Neck: Normal inspection. Neck supple. CVS: Normal heart rate and rhythm. Pulses normal. Respiratory: No respiratory distress. Equal air entry bilateral, no wheezing/rales/rhonchi Abdomen: Soft and nontender. Bowel sounds are present, no mass palpable, mild left CVA tenderness Skin: Skin warm and dry. Normal skin color. Normal skin turgor. Extremities: No lower extremity edema. No calf tenderness Neuro: Oriented X 3. No motor deficit. No sensory deficit.No cerebellar signs , cranial nerves II-XII intact <Stephen Park MD - Last Filed: 07/30/22 19:58> Course Course Course Narrative: RME - 36 y/o female with history of DM, history of recurrent (and recent DKA) who presents to the ER for evaluation of worsening left sided flank pain that started yesterday and got acutely worse today when she was at work. No other symptoms - no N/V/D, urinary symptoms or fevers. Plan: labs and CT scan for further evaluation. <FAZAL Julian - Last Filed: 07/30/22 13:28> Medical Decision Making Medical Decision Making [facility] Narrative: Patient left flank pain likely musculoskeletal CT scan negative for kidney stone with initially WBCs 1+ bacteria patient denies any urinary symptoms but as she is diabetic will give a course of antibiotics pain medication muscle relaxer advised to follow-up with PCP <Stephen Park MD - Last Filed: 07/30/22 19:58> Differential Diagnosis Kidney stone/UTI/pyelonephritis/musculoskeletal <Stephen Park MD - Last Filed: 07/30/22 19:58> Lab Data [facility] Lab Attestation statement: I reviewed the patient's lab results. <Stephen Park MD - Last Filed: 07/30/22 19:58> Result Diagrams: 07/30/22 16:24 07/30/22 16:24 <FAZAL Julian - Last Filed: 07/30/22 13:28> Labs: Lab Results 07/30/22 07/30/22 07/30/22 Range/Units 16:24 16:24 16:24 WBC 6.6 (4.8-10.8) X10*3/uL RBC 4.32 (4.20-5.50) X10*6/uL Hgb 11.7 L (12.0-16.0) g/dl Hct 37.2 (37.0-47.0) % MCV 86.1 (80.0-98.0) fL MCH 27.1 (27.0-33.0) pg MCHC 31.5 (31.0-35.0) g/dl RDW 13.3 (11.0-16.0) % Plt Count 266 (160-400) X10*3/uL MPV 11.0 (9.4-12.3) fL Immature Gran % (Auto) 0.3 (0.0-0.4) % Neut % (Auto) 57.7 (45-73) % Lymph % (Auto) 34.5 (20-40) % [place] % (Auto) 5.9 (2-11) % Eos % (Auto) 1.1 (0-4) % Baso % (Auto) 0.5 (0-2) % Lymph # (Auto) 2.3 (1.2-4.9) X10*3/uL [place] # (Auto) 0.4 (0.1-1.2) X10*3/uL Eos # (Auto) 0.1 (0.0-0.4) X10*3/uL Baso # (Auto) 0.0 (0.0-0.2) X10*3/uL Abs Immat Gran (auto) 0.02 (0.00-0.03) X10*3/uL Absolute Neuts (auto) 3.8 (2.0-8.3) x10*3/uL Absolute Nucleated RBC 0.000 (0.0-0.012) X10*3/uL Nucleated RBC % (auto) 0.0 (0.0-0.2) /100WBC Sodium 141 (135-145) mmol/L Potassium 4.1 (3.3-5.1) mmol/L Chloride 107 (96-108) mmol/L Carbon Dioxide 25 (22-29) mmol/L Anion Gap 13 (12-20) BUN 15 (9-16) mg/dL Creatinine 0.63 (0.5-1.4) mg/dL Estim Creat Clear Calc 119.8 Estimated GFR > 60 Random Glucose 70 (60-115) mg/dL Calcium 9.2 (8.4-10.2) mg/dL Magnesium 1.9 (1.6-2.6) mg/dL Total Bilirubin 0.3 (0.0-1.0) mg/dL Direct Bilirubin < 0.2 (0.0-0.5) mg/dL AST 14 (5-31) U/L ALT 14 (0-31) U/L Alkaline Phosphatase 74 (39-117) U/L Total Protein 6.9 (6.5-8.0) g/dL Albumin 3.6 (3.5-5.0) g/dL Beta HCG, Quant < 2 mIU/mL Urine Color Urine Appearance Urine pH (5.0-9.0) Ur Specific Victor (1.005-1.025) Urine Protein (Neg-Trace) mg/dL Urine Glucose (UA) (Negative) mg/dL Urine Ketones (Negative) mg/dL Urine Blood (Negative) Urine Nitrite (Negative) Ur Leukocyte Esterase (Negative) Urine RBC (0-2) /HPF Urine WBC (0-5) /HPF Ur Squamous Epith Cells (0-2) /HPF Urine Bacteria (None Seen) Hyaline Casts (0-2) /LPF 07/30/22 Range/Units 16:24 WBC (4.8-10.8) X10*3/uL RBC (4.20-5.50) X10*6/uL Hgb (12.0-16.0) g/dl Hct (37.0-47.0) % MCV (80.0-98.0) fL MCH (27.0-33.0) pg MCHC (31.0-35.0) g/dl RDW (11.0-16.0) % Plt Count (160-400) X10*3/uL MPV (9.4-12.3) fL Immature Gran % (Auto) (0.0-0.4) % Neut % (Auto) (45-73) % Lymph % (Auto) (20-40) % [place] % (Auto) (2-11) % Eos % (Auto) (0-4) % Baso % (Auto) (0-2) % Lymph # (Auto) (1.2-4.9) X10*3/uL [place] # (Auto) (0.1-1.2) X10*3/uL Eos # (Auto) (0.0-0.4) X10*3/uL Baso # (Auto) (0.0-0.2) X10*3/uL Abs Immat Gran (auto) (0.00-0.03) X10*3/uL Absolute Neuts (auto) (2.0-8.3) x10*3/uL Absolute Nucleated RBC (0.0-0.012) X10*3/uL Nucleated RBC % (auto) (0.0-0.2) /100WBC Sodium (135-145) mmol/L Potassium (3.3-5.1) mmol/L Chloride (96-108) mmol/L Carbon Dioxide (22-29) mmol/L Anion Gap (12-20) BUN (9-16) mg/dL Creatinine (0.5-1.4) mg/dL Estim Creat Clear Calc Estimated GFR Random Glucose (60-115) mg/dL Calcium (8.4-10.2) mg/dL Magnesium (1.6-2.6) mg/dL Total Bilirubin (0.0-1.0) mg/dL Direct Bilirubin (0.0-0.5) mg/dL AST (5-31) U/L ALT (0-31) U/L Alkaline Phosphatase (39-117) U/L Total Protein (6.5-8.0) g/dL Albumin (3.5-5.0) g/dL Beta HCG, Quant mIU/mL Urine Color Yellow Urine Appearance Clear Urine pH >= 9.0 (5.0-9.0) Ur Specific Victor >= 1.030 H (1.005-1.025) Urine Protein 30 (1+) H (Neg-Trace) mg/dL Urine Glucose (UA) 100 H (Negative) mg/dL Urine Ketones Trace (Negative) mg/dL Urine Blood Negative (Negative) Urine Nitrite Negative (Negative) Ur Leukocyte Esterase Trace H (Negative) Urine RBC 0-2 (0-2) /HPF Urine WBC 6-10 H (0-5) /HPF Ur Squamous Epith Cells 6-10 (0-2) /HPF Urine Bacteria 1+ (None Seen) Hyaline Casts 0-2 (0-2) /LPF <FAZAL Julian - Last Filed: 07/30/22 13:28> Lab Results 07/30/22 07/30/22 07/30/22 Range/Units 16:24 16:24 16:24 WBC 6.6 (4.8-10.8) X10*3/uL RBC 4.32 (4.20-5.50) X10*6/uL Hgb 11.7 L (12.0-16.0) g/dl Hct 37.2 (37.0-47.0) % MCV 86.1 (80.0-98.0) fL MCH 27.1 (27.0-33.0) pg MCHC 31.5 (31.0-35.0) g/dl RDW 13.3 (11.0-16.0) % Plt Count 266 (160-400) X10*3/uL MPV 11.0 (9.4-12.3) fL Immature Gran % (Auto) 0.3 (0.0-0.4) % Neut % (Auto) 57.7 (45-73) % Lymph % (Auto) 34.5 (20-40) % [place] % (Auto) 5.9 (2-11) % Eos % (Auto) 1.1 (0-4) % Baso % (Auto) 0.5 (0-2) % Lymph # (Auto) 2.3 (1.2-4.9) X10*3/uL [place] # (Auto) 0.4 (0.1-1.2) X10*3/uL Eos # (Auto) 0.1 (0.0-0.4) X10*3/uL Baso # (Auto) 0.0 (0.0-0.2) X10*3/uL Abs Immat Gran (auto) 0.02 (0.00-0.03) X10*3/uL Absolute Neuts (auto) 3.8 (2.0-8.3) x10*3/uL Absolute Nucleated RBC 0.000 (0.0-0.012) X10*3/uL Nucleated RBC % (auto) 0.0 (0.0-0.2) /100WBC Sodium 141 (135-145) mmol/L Potassium 4.1 (3.3-5.1) mmol/L Chloride 107 (96-108) mmol/L Carbon Dioxide 25 (22-29) mmol/L Anion Gap 13 (12-20) BUN 15 (9-16) mg/dL Creatinine 0.63 (0.5-1.4) mg/dL Estim Creat Clear Calc 119.8 Estimated GFR > 60 Random Glucose 70 (60-115) mg/dL Calcium 9.2 (8.4-10.2) mg/dL Magnesium 1.9 (1.6-2.6) mg/dL Total Bilirubin 0.3 (0.0-1.0) mg/dL Direct Bilirubin < 0.2 (0.0-0.5) mg/dL AST 14 (5-31) U/L ALT 14 (0-31) U/L Alkaline Phosphatase 74 (39-117) U/L Total Protein 6.9 (6.5-8.0) g/dL Albumin 3.6 (3.5-5.0) g/dL Beta HCG, Quant < 2 mIU/mL Urine Color Urine Appearance Urine pH (5.0-9.0) Ur Specific Victor (1.005-1.025) Urine Protein (Neg-Trace) mg/dL Urine Glucose (UA) (Negative) mg/dL Urine Ketones (Negative) mg/dL Urine Blood (Negative) Urine Nitrite (Negative) Ur Leukocyte Esterase (Negative) Urine RBC (0-2) /HPF Urine WBC (0-5) /HPF Ur Squamous Epith Cells (0-2) /HPF Urine Bacteria (None Seen) Hyaline Casts (0-2) /LPF 07/30/22 Range/Units 16:24 WBC (4.8-10.8) X10*3/uL RBC (4.20-5.50) X10*6/uL Hgb (12.0-16.0) g/dl Hct (37.0-47.0) % MCV (80.0-98.0) fL MCH (27.0-33.0) pg MCHC (31.0-35.0) g/dl RDW (11.0-16.0) % Plt Count (160-400) X10*3/uL MPV (9.4-12.3) fL Immature Gran % (Auto) (0.0-0.4) % Neut % (Auto) (45-73) % Lymph % (Auto) (20-40) % [place] % (Auto) (2-11) % Eos % (Auto) (0-4) % Baso % (Auto) (0-2) % Lymph # (Auto) (1.2-4.9) X10*3/uL [place] # (Auto) (0.1-1.2) X10*3/uL Eos # (Auto) (0.0-0.4) X10*3/uL Baso # (Auto) (0.0-0.2) X10*3/uL Abs Immat Gran (auto) (0.00-0.03) X10*3/uL Absolute Neuts (auto) (2.0-8.3) x10*3/uL Absolute Nucleated RBC (0.0-0.012) X10*3/uL Nucleated RBC % (auto) (0.0-0.2) /100WBC Sodium (135-145) mmol/L Potassium (3.3-5.1) mmol/L Chloride (96-108) mmol/L Carbon Dioxide (22-29) mmol/L Anion Gap (12-20) BUN (9-16) mg/dL Creatinine (0.5-1.4) mg/dL Estim Creat Clear Calc Estimated GFR Random Glucose (60-115) mg/dL Calcium (8.4-10.2) mg/dL Magnesium (1.6-2.6) mg/dL Total Bilirubin (0.0-1.0) mg/dL Direct Bilirubin (0.0-0.5) mg/dL AST (5-31) U/L ALT (0-31) U/L Alkaline Phosphatase (39-117) U/L Total Protein (6.5-8.0) g/dL Albumin (3.5-5.0) g/dL Beta HCG, Quant mIU/mL Urine Color Yellow Urine Appearance Clear Urine pH >= 9.0 (5.0-9.0) Ur Specific Victor >= 1.030 H (1.005-1.025) Urine Protein 30 (1+) H (Neg-Trace) mg/dL Urine Glucose (UA) 100 H (Negative) mg/dL Urine Ketones Trace (Negative) mg/dL Urine Blood Negative (Negative) Urine Nitrite Negative (Negative) Ur Leukocyte Esterase Trace H (Negative) Urine RBC 0-2 (0-2) /HPF Urine WBC 6-10 H (0-5) /HPF Ur Squamous Epith Cells 6-10 (0-2) /HPF Urine Bacteria 1+ (None Seen) Hyaline Casts 0-2 (0-2) /LPF <Stephen Park MD - Last Filed: 07/30/22 19:58> Discharge Plan Discharge Clinical Impression: Strain of lumbar region, UTI (urinary tract infection) <FAZAL Julian - Last Filed: 07/30/22 13:28> Patient Disposition: Home, Self-Care <FAZAL Julian - Last Filed: 07/30/22 13:28> Instructions: Urinary Tract Infection in Women (ED), Low Back Strain (ED) <FAZAL Julian - Last Filed: 07/30/22 13:28> Additional Instructions: Drink plenty of fluids Pain medication and antibiotic as prescribed Follow with PCP if not better <FAZAL Julian - Last Filed: 07/30/22 13:28> Prescriptions: New tramadol 50 mg tablet 50 mg PO Q6H PRN (Reason: pain) Qty: 20 0RF cefuroxime axetil 250 mg tablet 250 mg PO BID 5 Days Qty: 10 0RF cyclobenzaprine 10 mg tablet 10 mg PO Q8H Qty: 20 0RF No Action insulin lispro [Humalog U-100 Insulin] 100 unit/mL Solution See Protocol subcut QIDACHS Qty: 10 0RF Protocol: Insulin Correction Scale Less than or equal to 110 ---- Give (units): 0 111 to 150 Give (units): 0 151 to 200 Give (units): 2 201 to 250 Give (units): 4 251 to 300 Give (units): 6 301 to 350 Give (units): 8 Greater than 350 Give (units): 10 Call if Blood Glucose > : 350 insulin glargine [Lantus U-100 Insulin] 100 unit/mL solution 20 unit subcut BID 30 Days Qty: 12 2RF metformin 1,000 mg tablet 1,000 mg PO BID Qty: 60 2RF <FAZAL Julian - Last Filed: 07/30/22 13:28> Stand Alone Forms: Work/School Release <FAZAL Julian - Last Filed: 07/30/22 13:28>
[2022-07-30 13:25] VITALS: BP 144/80; PULSE 98; RESP 20; TEMP 36.9; O2SAT 100; BMI 31.1
[2022-07-30 16:27] VITALS: BP 111/73; PULSE 78; RESP 16; TEMP 36.4; O2SAT 98
[2022-07-30 16:28] LABS: MANUAL DIFF FLAG NO
--- NOTE | 2022-07-30 16:28 | MHC.EDTECH ---
pt was called by to triage to draw labs and collect urine sample ,also vitals sign taken .
[2022-07-30 16:29] LABS: Basophils Percent Auto 0.5 % (0-2); Eosinophils Absolute Auto 0.1 X10*3/uL (0.0-0.4); Eosinophils Percent Auto 1.1 % (0-4); Hematocrit 37.2 % (37.0-47.0); Hemoglobin 11.7 g/dl (12.0-16.0); Imm Gran Abs Auto 0.02 X10*3/uL (0.00-0.03); Imm Gran Pct Auto 0.3 % (0.0-0.4); Lymphocytes Absolute Auto 2.3 X10*3/uL (1.2-4.9); Lymphocytes Percent Auto 34.5 % (20-40); Mean Corpuscular HGB Conc 31.5 g/dl (31.0-35.0); Mean Corpuscular Hemoglobin 27.1 pg (27.0-33.0); Mean Corpuscular Volume 86.1 fL (80.0-98.0); Monocytes Absolute Auto 0.4 X10*3/uL (0.1-1.2); Monocytes Percent Auto 5.9 % (2-11); Neutrophils Absolute Auto 3.8 x10*3/uL (2.0-8.3); Neutrophils Percent Auto 57.7 % (45-73); Platelet Count 266 X10*3/uL (160-400); Red Blood Count 4.32 X10*6/uL (4.20-5.50); Red Cell Distribution Width 13.3 % (11.0-16.0); White Blood Count 6.6 X10*3/uL (4.8-10.8)
[2022-07-30 16:38] LABS: Appearance Urine Clear; Color Urine Yellow; Glucose Urine UA 100 mg/dL (Negative); Leukocyte Esterase Urine Trace (Negative); Nitrite Urine Negative (Negative); PH >= 9.0 (5.0-9.0); Specific Gravity - Urine >= 1.030 (1.005-1.025); UMIC TRIGGER UACC YES; Urine Blood Negative (Negative); Urine Ketones Trace mg/dL (Negative); Urine Protein 30 (1+) mg/dL (Neg-Trace)
[2022-07-30 16:43] LABS: Bacteria Urine 1+ (None Seen); Hyaline Casts Urine 0-2 /LPF (0-2); RBC Urine 0-2 /HPF (0-2); UACC Culture Trigger YES
[2022-07-30 16:45] LABS: Alanine Aminotransferase 14 U/L (0-31); Albumin Level 3.6 g/dL (3.5-5.0); Alkaline Phosphatase 74 U/L (39-117); Anion Gap 13 (12-20); Aspartate Amino Transferase 14 U/L (5-31); Bilirubin Direct < 0.2 mg/dL (0.0-0.5); Bilirubin Total 0.3 mg/dL (0.0-1.0); Blood Urea Nitrogen 15 mg/dL (9-16); Calcium 9.2 mg/dL (8.4-10.2); Carbon Dioxide 25 mmol/L (22-29); Chloride 107 mmol/L (96-108); Creatinine Clr Calc Pharmacy 119.8; Estimated Glomerular Filt Rate > 60; Glucose Random 70 mg/dL (60-115); Magnesium 1.9 mg/dL (1.6-2.6); Potassium 4.1 mmol/L (3.3-5.1); Sodium 141 mmol/L (135-145); Total Protein 6.9 g/dL (6.5-8.0)
[2022-07-30 16:51] LABS: HCG Quantitative < 2 mIU/mL
[2022-07-30 19:00] VITALS: BP 114/67; PULSE 76; RESP 16; TEMP 36.3; O2SAT 100
[2022-07-30] MEDS: traMADoL HCL 50 MG TABLET PO (19:57)
[2022-07-30] MEDS: Cyclobenzaprine HCl 10 MG TABLET PO (19:58)
== END 2022-07-30 20:02 | disposition home or self-care (01) ==
PROVIDERS: Physician Assistant; Emergency Provider Internal Medicine; PCP Internal Medicine
DX: N39.0 Urinary tract infection, site not specified (principal); S39.012A Strain of muscle, fascia and tendon of lower back, initial encounter; X58.XXXA Exposure to other specified factors, initial encounter; E11.9 Type 2 diabetes mellitus without complications; Z79.4 Long term (current) use of insulin; Y93.9 Activity, unspecified; Y92.9 Unspecified place or not applicable; Y99.9 Unspecified external cause status
CPT/HCPCS: 36415; 74176; 80048; 80076; 81001; 83735; 84702; 85025; 87086; 99283; 99284

== ENCOUNTER 2022-10-06 08:20 | Outpatient (REF) | payer OTHER, SELFPAY ==
[2022-10-06 08:55] LABS: MANUAL DIFF FLAG NO
[2022-10-06 10:34] LABS: Basophils Percent Auto 0.4 % (0-2); Eosinophils Percent Auto 0.7 % (0-4); Hemoglobin 11.7 g/dl (12.0-16.0); Imm Gran Abs Auto 0.01 X10*3/uL (0.00-0.03); Imm Gran Pct Auto 0.2 % (0.0-0.4); Lymphocytes Absolute Auto 1.1 X10*3/uL (1.2-4.9); Mean Corpuscular HGB Conc 31.6 g/dl (31.0-35.0); Mean Corpuscular Hemoglobin 26.4 pg (27.0-33.0); Mean Corpuscular Volume 83.5 fL (80.0-98.0); Mean Platelet Volume 11.3 fL (9.4-12.3); Monocytes Absolute Auto 0.2 X10*3/uL (0.1-1.2); Monocytes Percent Auto 3.7 % (2-11); Neutrophils Absolute Auto 3.3 x10*3/uL (2.0-8.3); Platelet Count 275 X10*3/uL (160-400); Red Blood Count 4.43 X10*6/uL (4.20-5.50); Red Cell Distribution Width 12.5 % (11.0-16.0); White Blood Count 4.6 X10*3/uL (4.8-10.8)
[2022-10-06 10:40] LABS: Estimated Average Glucose 260 mg/dL; Hemoglobin A1c % 10.7 %
[2022-10-06 11:11] LABS: Alanine Aminotransferase 14 U/L (0-31); Albumin Level 3.5 g/dL (3.5-5.0); Alkaline Phosphatase 76 U/L (39-117); Anion Gap 13 (12-20); Aspartate Amino Transferase 15 U/L (5-31); Bilirubin Total 0.3 mg/dL (0.0-1.0); Blood Urea Nitrogen 9 mg/dL (9-16); Calcium 8.9 mg/dL (8.4-10.2); Carbon Dioxide 26 mmol/L (22-29); Chloride 107 mmol/L (96-108); Cholesterol 231 mg/dL; Estimated Glomerular Filt Rate > 60; Glucose Fasting 119 mg/dL (60-99); HDL Cholesterol 64 mg/dL; LDL Cholesterol Calculated 152 mg/dl; Potassium 3.8 mmol/L (3.3-5.1); Sodium 142 mmol/L (135-145); Total Protein 6.7 g/dL (6.5-8.0); Triglycerides 76 mg/dL
[2022-10-06 11:43] LABS: Folate 13.6 ng/mL (> or = 4.0); TSH reflex Free T4 1.44 uIU/mL (0.32-4.0); Vitamin B12 394 pg/mL (200-900); Vitamin D 25-OH Total 17.2 ng/mL (>30)
== END 2022-10-06 08:21 | disposition home or self-care (01) ==
LOC: HO.LAB 08:20
PROVIDERS: PCP Nurse Practitioner Family; Visit Provider Nurse Practitioner Family
DX: E11.9 Type 2 diabetes mellitus without complications (principal); Z76.89 Persons encountering health services in other specified circumstances
CPT/HCPCS: 36415; 80053; 80061; 82306; 82607; 82746; 83036; 84443; 85025

== ENCOUNTER 2022-10-09 15:48 | Outpatient (REF) | payer OTHER, SELFPAY ==
[2022-10-09 18:58] LABS: Creatinine Urine 72.04 mg/dL; Microalbumin Urine < 5.0 mg/L
== END 2022-10-09 15:49 | disposition home or self-care (01) ==
LOC: HO.LAB 15:48
PROVIDERS: PCP Nurse Practitioner Family; Visit Provider Nurse Practitioner Family
DX: E11.9 Type 2 diabetes mellitus without complications (principal)
CPT/HCPCS: 82043

== ENCOUNTER 2022-12-14 15:46 | Outpatient (AMB) | payer OTHER, SELFPAY ==
[2022-12-14 15:48] VITALS: BP 110/70; PULSE 62; O2SAT 99; BMI 28.9
--- NOTE | 2022-12-14 15:48 | A.OFFPC_ITS ---
Vital Signs 12/14/22 15:48 Height 5 ft 2 in Weight 158 lb BMI 28.9 BP 110/70 Blood Pressure Location Lt brachial Position Sitting Pulse 62 Pulse Source Pulse Oximeter Temp Source Skin Pulse Oximetry (%) 99 Oxygen Delivery Method Room Air Intake Visit Reasons: Vaginal Swab Allergies No Known Allergies [No Known Allergies*] Allergy (Verified 12/14/22 15:59) Medication List - Last Reconciled 12/14/22 by ANGIE Acosta cholecalciferol (vitamin D3) 50 mcg PO DAILY fluconazole (Diflucan) 150 mg PO Q3D 2 doses insulin glargine (Lantus U-100 Insulin) 20 units (0.2 mL) subcut BID 30 days insulin lispro (Humalog U-100 Insulin) See Protocol units subcut QIDACHS metformin 1,000 mg PO BID Tobacco use date assessed: 12/14/22 HPI Vaginal Swab HPI Details Patient is a 37-year-old female who presents today for a vaginal swab. Medical history significant for diabetes, hyperlipidemia, low vitamin-D level. Patient reports white vaginal discharge with fishy odor and intermittent itching for the past 2 months since being diagnosed with diabetes. Patient denies STI exposure, no UTI symptoms. She has an upcoming appointment with gynecology in January of 2023. Patient did use Diflucan PO and [id number] yeast vaginal suppositories with no improvement. [facility] Medical History MATTHEW (acute kidney injury) Diabetes Diabetic ketoacidosis Encounter to establish care Gastroparesis Surgical History No pertinent past surgical history Family History Mother No known problems Father Diabetes Social History Household Members: Family Housing: Apartment Do you presently have visiting nurse or other home services: No Patient Tobacco Use Status: Never used Tobacco e-Cigarette/Vaping Use: Never Used service: No Current occupational status: employed Cognitive needs: No Hearing needs: No Vision needs: No Questionnaire Thrive Questionnaire Date Thrive assessed: 11/29/22 AUDIT C Alcohol Use Questionnaire (AUDIT-C) 1. How often do you have a drink containing alcohol?: Never 3. How often do you have six or more drinks on one occasion?: Never Total Score: 0 Score Reviewed/Action Taken: No AROLDO-7 AMB Questionnaire AROLDO-7 Date AROLDO - 7 assessed: 11/29/22 Source: Developed by Drs. Yoav Cali, Claudine Ley, Anoop Ca and colleagues, with an educational sung from [employer]. Review of Systems Const Denies body aches, Denies chills, Denies fever(s) and Denies headache(s) ENT Denies dizziness, Denies otalgia, Denies headache(s), Denies nasal discharge, Denies sinus pain and Denies sore throat Card Denies chest pain, Denies edema, Denies lightheadedness and Denies dyspnea Resp Denies cough and Denies dyspnea GI Denies constipation, Denies diarrhea, Denies nausea and Denies vomiting Reports as per HPI and Denies dysuria Musc Denies myalgias Skin/Breast Denies lesions and Denies rash Neuro Denies dizziness and Denies headache(s) Physical exam (Primary Care) Vital Signs: Last Vital Signs Pulse 62 12/14/22 15:48 BP 110/70 12/14/22 15:48 Pulse Ox 99 12/14/22 15:48 Oxygen Delivery Method Room Air 12/14/22 15:48 BMI result Body Mass Index 28.9 Tobacco/Smoking Status: Tobacco use Status Tobacco use date assessed 12/14/22 12/14/22 15:49 Patient Tobacco Use Status Never used Tobacco 12/14/22 15:49 e-Cigarette/Vaping Use Never Used 12/14/22 15:49 Thrive Assessment: Date of Thrive Assessment Date Thrive assessed 11/29/22 12/14/22 15:49 Const General: cooperative and no acute distress Orientation/consciousness: patient oriented x3 HENMT Head: Yes normocephalic and Yes atraumatic Mouth: oropharynx normal and moist mucous membranes Throat: Yes posterior oropharynx normal Eyes General: appearance normal, both eyes and all related structures Neck Neck: Yes normal visual inspection and Yes full ROM Resp Effort & Inspection: normal respiratory effort and able to speak in complete sentences Auscultation: clear to auscultation bilaterally, no crackles, no rales, no rhonchi and no wheezes Cardio Rate: regular rate Rhythm: regular rhythm Heart sounds: S1 normal heart sound present and S2 normal heart sound present GI Auscultation: normal bowel sounds External Female Exam: normal external appearance and other (Scant vaginal white discharge noted) Skin General skin exam: no rashes or lesions noted Neuro General: patient oriented x3 Gait exam (Neuro): Normal gait present Extrem General: Yes full ROM Assessment and Plan Assessment & Plan (1) Vaginal discharge: Code(s): N89.8 - Other specified noninflammatory disorders of vagina Plan: Vaginal swab obtained for BV panel, will notify of the results. Patient agreed with the plan. Orders: Orders Bacterial Vaginosis Panel Today N89.8 - Other specified noninflammatory disorders of vagina Coding Level of Care Code Est Pt Level 3 (27494) Diagnoses Vaginal discharge N89.8
== END 2022-12-14 16:09 | disposition home or self-care (01) ==
PROVIDERS: PCP Nurse Practitioner Family; Visit Provider Nurse Practitioner Family
DX: N89.8 Other specified noninflammatory disorders of vagina (principal)
CPT/HCPCS: 99213

== ENCOUNTER 2022-12-14 16:09 | Outpatient (REF) | payer OTHER, SELFPAY ==
[2022-12-15 11:49] LABS: BV Int Neg Control Negative (Negative); BV Int Pos Control Positive (Positive)
== END 2022-12-14 16:10 | disposition home or self-care (01) ==
LOC: HO.LNP 16:09
PROVIDERS: Visit Provider Nurse Practitioner Family
DX: N89.8 Other specified noninflammatory disorders of vagina (principal)
CPT/HCPCS: 87480; 87510; 87660

== ENCOUNTER 2023-01-11 13:20 | Outpatient (AMB) | payer OTHER, SELFPAY ==
[2023-01-11 13:21] VITALS: BP 110/72; PULSE 58; O2SAT 100; BMI 29.3
--- NOTE | 2023-01-11 13:21 | MHC.PC.OV ---
Vital Signs 01/11/23 13:21 Height 5 ft 2 in Weight 160 lb 4 oz BMI 29.3 BP 110/72 Blood Pressure Location Lt brachial Position Sitting Pulse 58 Pulse Source Pulse Oximeter Pulse Oximetry (%) 100 Oxygen Delivery Method Room Air Intake Visit Reasons: R eye cataract surgery-01/15 Allergies No Known Allergies [No Known Allergies*] Allergy (Verified 01/11/23 13:26) Tobacco use date assessed: 12/14/22 Dental Screening Dental Screen Date: 01/11/23 Did you have a dental visit in the last 12 months?: Yes Did you have a dental problem in the last 6 months where you did not have access to dental care?: No Was dental information given to patient?: Patient has dentist HPI HPI Comments History of Present Illness Details 37-year-old female past medical history significant for hyperlipidemia and type 1 diabetes. Patient of [facility], presents today for preop appointment cataract surgery. Patient undergoing right eye cataract surgery with [facility] on 01/15/23 right eye and 02/12/23 left eye. Patient reports under local anesthesia. Patient denies CP, palpitations, SOb and syncope. Pre-op labs ordered, patient states she will go get labs done following this appointment. Laboratory Tests 01/11/23 01/11/23 14:10 14:10 WBC 6.9 RBC 4.56 Hgb 12.3 Hct 38.0 MCV 83.3 MCH 27.0 MCHC 32.4 RDW 13.0 Plt Count 242 MPV 11.8 Immature Gran % (A uto) 0.3 Neut % (Auto) 57.5 Lymph % (Auto) 36.7 Park % (Auto) 4.6 Eos % (Auto) 0.6 Baso % (Auto) 0.3 Lymph # (Auto) 2.5 Park # (Auto) 0.3 Eos # (Auto) 0.0 Baso # (Auto) 0.0 Abs Immat Gran (au to) 0.02 Absolute Neuts (au to) 4.0 Absolute Nucleated RBC 0.000 Nucleated RBC % (a uto) 0.0 Sodium 140 Potassium 3.5 Chloride 107 Carbon Dioxide 27 Anion Gap 10 L BUN 11 Creatinine 0.69 Estimated GFR > 60 Random Glucose 69 Calcium 9.8 D Total Bilirubin 0.4 AST 14 ALT 14 Alkaline Phosphata se 52 Total Protein 7.8 Albumin 3.8 TSH 1.07 [facility] Medical History MATTHEW (acute kidney injury) Diabetes Diabetic ketoacidosis Encounter to establish care Gastroparesis Surgical History No pertinent past surgical history Family History Mother No known problems Father Diabetes Social History Household Members: Family Housing: Apartment Do you presently have visiting nurse or other home services: No Patient Tobacco Use Status: Never used Tobacco e-Cigarette/Vaping Use: Never Used service: No Current occupational status: employed Cognitive needs: No Hearing needs: No Vision needs: No Questionnaire PHQ-9 Over the last 2 weeks, how often have you been bothered by any of the following problems? 1. Little interest or pleasure in doing things: not at all 2. Feeling down, depressed, or hopeless: not at all 3. Trouble falling or staying asleep, or sleeping too much: not at all 4. Feeling tired or having little energy: not at all 5. Poor appetite or overeating: not at all 6. Feeling bad about yourself - or that you are a failure or have let yourself or your family down: not at all 7. Trouble concentrating on things, such as reading the newspaper or watching television: not at all 8. Moving or speaking so slowly that other people could have noticed. Or the opposite - being so fidgety or restless that you have been moving around a lot more than usual: not at all 9. Thoughts that you would be better off or of hurting yourself in some way: not at all Total score: 0 Depression Screening Interpretation: Negative 60091 - PHQ-9 Billing: Yes Source: Developed by Drs. Yoav Cali, Claudine Ley, Anoop Ca and colleagues, with an educational sung from [employer]. Thrive Questionnaire Date Thrive assessed: 11/29/22 I am a: Patient What is your living situation today?: I have a steady place to live Within the past 12 months, did the food you bought not last and you didn't have the money to get more?: Never true Within the past 12 months, did you worry whether your food would run out before you got money to buy more?: Never true Currently or been in a relationship where the following occur: no concerns reported AUDIT C Alcohol Use Questionnaire (AUDIT-C) 1. How often do you have a drink containing alcohol?: Never 3. How often do you have six or more drinks on one occasion?: Never Total Score: 0 Score Reviewed/Action Taken: No AROLDO-7 AMB Questionnaire AROLDO-7 Date AROLDO - 7 assessed: 11/29/22 Feeling nervous, anxious, or on edge: 0 = Not at all Not being able to stop or control worryin = Not at all Worrying too much about different things: 0 = Not at all Trouble relaxin = Not at all Being so restless that it is hard to sit still: 0 = Not at all Becoming easily annoyed or irritable: 0 = Not at all Feeling afraid as if something awful might happen: 0 = Not at all Total AROLDO-7 score (0-4 normal; 5-9 mild; 10-14 moderate; 15-21 severe): 0 Source: Developed by Drs. Yoav Cali, Claudine Ley, Anoop Ca and colleagues, with an educational sung from [employer]. AROLDO-7 Assessment Billing AROLDO-7 Assessment Tool: AROLDO-7 Assessment 90135 Review of Systems Const Denies chills, Denies fatigue, Denies fever(s) and Denies poor appetite Eyes Denies no additional complaints ENT Reports Normal hearing present Card Denies chest pain, Denies syncope, Denies rapid heart rate and Denies dyspnea Resp Denies cough and Denies dyspnea GI Denies change in stool character, Denies constipation, Denies diarrhea, Denies nausea and Denies vomiting Denies urinary frequency, Denies dysuria and Denies urinary urgency Neuro Reports Normal hearing present, Denies confusion and Denies syncope Psych Denies confusion Endo Denies fatigue Physical exam (Primary Care) Vital Signs: Last Vital Signs Pulse 58 01/11/23 13:21 BP 110/72 01/11/23 13:21 Pulse Ox 100 01/11/23 13:21 Oxygen Delivery Method Room Air 01/11/23 13:21 BMI result Body Mass Index 29.3 Tobacco/Smoking Status: Tobacco use Status Tobacco use date assessed 12/14/22 01/11/23 13:28 Patient Tobacco Use Status Never used Tobacco 01/11/23 13:28 e-Cigarette/Vaping Use Never Used 01/11/23 13:28 PHQ-9: PHQ-9 Score PHQ-9: Total score 0 01/11/23 15:12 Depression Screening Interpretation: Negative Thrive Assessment: Date of Thrive Assessment Date Thrive assessed 11/29/22 01/11/23 13:28 Currently or been in a relationship where the following occur: no concerns reported Const General: No confusion Orientation/consciousness: No confusion HENMT Head: Yes normocephalic and Yes atraumatic Eyes Conjunctivae: conjunctivae normal Chest Chest palpation & inspection: normal inspection of the chest Resp Effort & Inspection: normal respiratory effort Auscultation: clear to auscultation bilaterally, no crackles, no rhonchi and no wheezes Cardio Rate: regular rate Rhythm: regular rhythm Heart sounds: S1 normal heart sound present and S2 normal heart sound present GI Inspection: Yes normal to inspection Neuro General: No confusion Cranial nerves: Yes Normal hearing present Extrem General: No edema Results AMB Hemoglobin A1c AMB Hemoglobin A1c 11.9 % Last Edit by Rosario Talavera MA on 01/11/23 13:31 Results Reviewed Results Reviewed: Laboratory Last Values Hgb A1c (Clinic) 11.9 % (4.0-6.0) H 01/11/23 13:28 Assessment and Plan Assessment & Plan (1) Preop examination: Code(s): Z01.818 - Encounter for other preprocedural examination Plan: Based on above examination and preop lab work patient is above average risk to undergo scheduled cataract surgery. No further workup needed at this time and patient can proceed with scheduled surgery. Patient advised to hold am metformin, morning lantus and insulin lispro while NPO and resume follow procedure. Plan Keep scheduled follow up with pcp. Orders: Orders Complete Blood Count Auto Diff 01/11/23 Z01.812 - Encounter for preprocedural laboratory examination Comprehensive Met. Panel 01/11/23 Z01.812 - Encounter for preprocedural laboratory examination TSH reflex Free T4 01/11/23 Z01.812 - Encounter for preprocedural laboratory examination Prothrombin Time INR 01/11/23 Z01.812 - Encounter for preprocedural laboratory examination AMB Hemoglobin A1c 01/11/23 E11.9 - Type 2 diabetes mellitus without complications Coding Level of Care Code Est Pt Level 3 (31922) Diagnoses Preop examination Z01.818 Additional Codes AROLDO-7 Assessment Billing - AROLDO-7 Assessment Tool: AROLDO-7 Assessment 13279 ([id number])
== END 2023-01-11 14:26 | disposition home or self-care (01) ==
PROVIDERS: PCP Nurse Practitioner Family; Visit Provider Nurse Practitioner Family
DX: Z01.818 Encounter for other preprocedural examination (principal)
CPT/HCPCS: 83036; 99213

== ENCOUNTER 2023-01-11 13:54 | Outpatient (REF) | payer OTHER, SELFPAY ==
[2023-01-11 14:11] LABS: MANUAL DIFF FLAG NO
[2023-01-11 15:25] LABS: Basophils Percent Auto 0.3 % (0-2); Eosinophils Percent Auto 0.6 % (0-4); Hemoglobin 12.3 g/dl (12.0-16.0); Imm Gran Abs Auto 0.02 X10*3/uL (0.00-0.03); Imm Gran Pct Auto 0.3 % (0.0-0.4); Lymphocytes Absolute Auto 2.5 X10*3/uL (1.2-4.9); Lymphocytes Percent Auto 36.7 % (20-40); Mean Corpuscular HGB Conc 32.4 g/dl (31.0-35.0); Mean Corpuscular Volume 83.3 fL (80.0-98.0); Mean Platelet Volume 11.8 fL (9.4-12.3); Monocytes Absolute Auto 0.3 X10*3/uL (0.1-1.2); Monocytes Percent Auto 4.6 % (2-11); Neutrophils Percent Auto 57.5 % (45-73); Platelet Count 242 X10*3/uL (160-400); Red Blood Count 4.56 X10*6/uL (4.20-5.50); White Blood Count 6.9 X10*3/uL (4.8-10.8)
[2023-01-11 15:31] LABS: INTERNATIONAL NORM RATIO 0.9 (0.9-1.1); Prothrombin Time 11.1 SEC (11.1-13.3)
[2023-01-11 16:39] LABS: Alanine Aminotransferase 14 U/L (0-31); Albumin Level 3.8 g/dL (3.5-5.0); Alkaline Phosphatase 52 U/L (39-117); Anion Gap 10 (12-20); Aspartate Amino Transferase 14 U/L (5-31); Bilirubin Total 0.4 mg/dL (0.0-1.0); Blood Urea Nitrogen 11 mg/dL (9-16); Calcium 9.8 mg/dL (8.4-10.2); Carbon Dioxide 27 mmol/L (22-29); Chloride 107 mmol/L (96-108); Estimated Glomerular Filt Rate > 60; Glucose Random 69 mg/dL (60-115); Potassium 3.5 mmol/L (3.3-5.1); Sodium 140 mmol/L (135-145); Total Protein 7.8 g/dL (6.5-8.0)
[2023-01-11 16:44] LABS: TSH reflex Free T4 1.07 uIU/mL (0.32-4.0)
== END 2023-01-11 13:55 | disposition home or self-care (01) ==
LOC: HO.LAB 13:54
PROVIDERS: Nurse Practitioner Family; PCP Nurse Practitioner Family; Visit Provider Nurse Practitioner Family
DX: Z01.812 Encounter for preprocedural laboratory examination (principal)
CPT/HCPCS: 36415; 80053; 84443; 85025; 85610

== ENCOUNTER 2023-02-12 11:28 | Outpatient (REF) | payer OTHER, SELFPAY ==
[2023-02-13 11:26] LABS: CT PCR NOT DETECTED (Not Detect.); NG PCR NOT DETECTED (Not Detect.)
[2023-02-13 15:38] LABS: BV Int Neg Control Negative (Negative); BV Int Pos Control Positive (Positive)
[2023-02-15 02:59] LABS: HPV mRNA E6/E7 rflx Not Detected (Not Detected)
== END 2023-02-12 11:29 | disposition home or self-care (01) ==
LOC: HO.LNP 11:28
PROVIDERS: Visit Provider Advanced Practice Midwife
DX: Z01.419 Encounter for gynecological examination (general) (routine) without abnormal findings (principal); E11.9 Type 2 diabetes mellitus without complications; N89.8 Other specified noninflammatory disorders of vagina; R23.9 Unspecified skin changes; B37.31 Acute candidiasis of vulva and vagina; Z79.4 Long term (current) use of insulin; Z79.899 Other long term (current) drug therapy
CPT/HCPCS: 0353U; 82947; 87480; 87510; 87624; 87660; 88142; 99385

== ENCOUNTER 2023-02-12 11:28 | Outpatient (AMB) | payer OTHER, SELFPAY ==
--- NOTE | 2023-02-12 11:35 | MHC.OFFVIS ---
Intake Vital Signs 02/12/23 11:36 Height 5 ft 2 in Weight 162 lb BMI 29.6 BP 132/78 Intake Visit Reasons: New patient Annual Intake Note: has been having discharge odor and itchy. 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 Required: No Information Interpreted: non-clinical & clinical Dietitian: Dietitian Present (Aidyn) Allergies No Known Allergies [No Known Allergies*] Allergy (Verified 02/12/23 11:39) Medication List - Last Reconciled 02/12/23 by Taylor Avery CNM cholecalciferol (vitamin D3) 50 mcg PO DAILY insulin glargine (Lantus U-100 Insulin) 20 units (0.2 mL) subcut BID 30 days insulin lispro (Humalog U-100 Insulin) See Protocol units subcut QIDACHS ketorolac 0.5% drps ophthalmic (eye) metformin 500 mg PO BID metronidazole 500 mg PO Q12H 7 days miconazole nitrate (Miconazole-7) 100 mg vaginal BEDTIME 7 days Is last menstrual period known: Yes Last menstrual period: 01/20/23 Post menopausal: No HPI New patient Annual HPI Details 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 She had her baby's with the midwives and saw as at [facility]. She tells this CNM that I was with her at her . She developed diabetes after her . She went in in out of the hospital and was very sick with it and had lots of issues and has lost lots of weight. The partner that moved here from [facility] to be with her left her once he got his green card, and so she has raised her baby alone with her mother her son is 8 years old now. She had another partner who in a car accident last year shows she is alone for now. She lives with her mother and son. She has use condoms in the past. She is open to a relationship in the future but not at this time. She had complains of a discharge that itches and smells she went to her primary care provider and was given medicine but when she went to the pharmacy she was told that the medicine was not there or had . She went to [facility] and got something [id number] but it did not help at all. Later the patient clarified the pharmacy has been continually out of stock forum both of the medications both the metronidazole pills and the miconazole ointment. This is understandable because they are both heavily prescribed. Additionally she shared that sometimes her morning glucose levels are 200 and her later ones are 134 after using her insulin. She is waiting on an appointment to attend a class or something about diabetes. [facility] Medical History (Updated 02/12/23 @ 12:29 by Taylor Avery CNM) Encounter to establish care Diabetic ketoacidosis Gastroparesis MATTHEW (acute kidney injury) Diabetes Surgical History (Updated 02/12/23 @ 11:41 by KAVITA Orellana) Hx of cataract surgery No pertinent past surgical history Family History Mother No known problems Father Diabetes Social History Household Members: Family Housing: Apartment Do you presently have visiting nurse or other home services: No Patient Tobacco Use Status: Never used Tobacco e-Cigarette/Vaping Use: Never Used service: No Current occupational status: employed Cognitive needs: No Hearing needs: No Vision needs: No Female Reproductive History Menstrual Age of Menarche: 13 Duration of menses: 3-5 days Date of last menstrual period: 01/20/23 control method: none Total pregnancies: 1 Full term: 1 Number of Living Children: 1 Date of last pap smear: 09/11/13 (negative) History of abnormal pap smear: No Physical Exam Vital Signs: Last Vital Signs BP 132/78 02/12/23 11:36 BMI result Body Mass Index 29.6 Const General: healthy appearing, comfortable, no acute distress, well developed and alert Nutritional Appearance: average body habitus Orientation/consciousness: patient oriented x3 Limitations: no limitations HEENT Head: Yes normocephalic Neck Neck: Yes normal visual inspection Chest Chest palpation & inspection: normal inspection of the chest Breast/axilla inspection: normal inspection of the breasts and normal inspection of the axillae Breast/axilla palpation: normal palpation of the breasts and normal palpation of the axillae Resp Effort & Inspection: normal respiratory effort GI Inspection: Yes normal to inspection, No Abdominal wall edema and No distended Palpation (GI): Soft to palpation and nontender Other: Vulva -where the labia majora and labia minora meet is bright pink and there is a thin white discharge and there is a tiny mucosal split at fourchette consistent with mucosa that is chronically moist. General: Yes bladder normal to palpation External Female Exam: normal external appearance and normal appearance of the urethra Speculum Exam - Vagina: normal appearance of the vagina, normal palpation and normal vaginal discharge Speculum Exam - Cervix: normal appearance of the cervix, normal palpation and nontender Bimanual exam- vagina & uterus: normal bimanual exam, normal palpation, uterine size normal, bladder normal to palpation, consistency normal, normal palpation, uterine mobility normal, uterine shape normal, No Cervical tenderness present, non-tender and no cervical motion tenderness Bimanual Exam- Adnexa, other: normal adnexae, no masses, normal and No adnexal tenderness Female genitals images: 1. Bright pink area where mucosa approximates 2. Mucosal split also from moisture Neuro General: patient oriented x3 Assessment & Plan Assessment & Plan (1) Vaginal discharge: Code(s): N89.8 - Other specified noninflammatory disorders of vagina (2) Cervical cancer screening: Code(s): Z12.4 - Encounter for screening for malignant neoplasm of cervix (3) Well woman exam with routine gynecological exam: Code(s): Z01.419 - Encounter for gynecological examination (general) (routine) without abnormal findings (4) Diabetes: Code(s): E11.9 - Type 2 diabetes mellitus without complications (5) Alteration in skin integrity due to moisture: Code(s): R23.9 - Unspecified skin changes (6) Vulvovaginal candidiasis: Comment: Most likely exacerbated by elevated blood sugars... Code(s): B37.31 - Acute candidiasis of vulva and vagina Plan -----Discussed in this visit the following: healthy balanced diet, regular and consistent exercise, getting recommended health screens, doing the best she can for her particular health concerns, kegel exercises, pap smear screening and followup recommendations, mammography screening and SBE, normal changes in cycles in her life stage--- . Discussed options for control should she wanted in the future at the very minimum condoms would be a good thing. Discussed her vaginal discharge in symptoms. We could await results of the testing that is being done today, or consider treating empirically as well. We will await the results of testing but it does appear that she has some yeast which is probably aggravated by not up allowing air as much as could be to her vulva as well as her elevated blood sugars most mornings which are up to 200. She said she needs to make an appointment to have Education about her diabetes but she had to wait till her next appointment and I urged her to call and try to make the appointment sooner for that because she needs to gain some control over her diabetes discussed [id number] treatments for the yeast as well as allowing air to her vulva will at the very least prescribe Diflucan today and the issue at the pharmacy was that the pharmacy was out of stock for both the BV and yeast treatments, which is understandable because they being prescribed very frequently in [place]. Rx sent for Diflucan and I also wrote down for her what to look for in the pharmacy [id number] for yeast the if she finds miconazole 1 or 2% a 7 day treatment preferable in any other pharmacy for less than 10.99 it might be worth picking up. I reminded her that if she had ever did become sexually active condoms would be at least provided protection from STIs Medications: New fluconazole may repeat second dose 72 hrs after first dose if symptoms persist 150 mg PO Q3D 2 doses 2 tabs 2RF Coding Level of Care Code New Pt Prev Care 18-39yr([id number] Diagnoses Vaginal discharge N89.8 Cervical cancer screening Z12.4 Well woman exam with routine gynecological exam Z01.419 Diabetes E11.9 Alteration in skin integrity due to moisture R23.9 Vulvovaginal candidiasis B37.31
[2023-02-12 11:36] VITALS: BP 132/78; BMI 29.6
== END 2023-02-12 12:24 | disposition home or self-care (01) ==
PROVIDERS: Visit Provider Advanced Practice Midwife
DX: Z01.419 Encounter for gynecological examination (general) (routine) without abnormal findings (principal); N89.8 Other specified noninflammatory disorders of vagina; B37.31 Acute candidiasis of vulva and vagina; E11.9 Type 2 diabetes mellitus without complications; R23.9 Unspecified skin changes
CPT/HCPCS: 99385

== ENCOUNTER 2023-02-12 14:40 | Outpatient (AMB) | payer OTHER, SELFPAY ==
--- NOTE | 2023-02-12 14:43 | MHC.OFFVIS ---
Intake Vital Signs 02/12/23 14:44 Height 5 ft 2 in Weight 161 lb 9.581 oz BMI 29.6 BP 112/68 Blood Pressure Location Lt brachial Position Sitting Pulse 65 Pulse Source Pulse Oximeter Intake Visit Reasons: DM2/ Confirmed Intake Note: New patient referred by PCP for Type 2 Diabetes Mellitus. 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: No Accompanied by: Self / Same As Patient Allergies No Known Allergies [No Known Allergies*] Allergy (Verified 02/12/23 14:49) Medication List - Last Reconciled 02/12/23 by Yoav Anderson MD cholecalciferol (vitamin D3) 50 mcg PO DAILY fluconazole 150 mg PO Q3D 2 doses insulin glargine (Lantus U-100 Insulin) 20 units (0.2 mL) subcut BID 30 days insulin lispro (Humalog U-100 Insulin) See Protocol units subcut QIDACHS ketorolac 0.5% drps ophthalmic (eye) metformin 500 mg PO BID metronidazole 500 mg PO Q12H 7 days miconazole nitrate (Miconazole-7) 100 mg vaginal BEDTIME 7 days HPI HPI Comments History of Present Illness Details 37 YO F who is seen in consultation for DM at the request of PCP. Never saw endo before Initially diagnosed with T2DM in 2013 during . Was initially started on treatment with metformin . Current regimen Lantus 20 units Humalog 20 units premeals Meformin 500 mg BID . Unfortunately, patient did not bring log book or glucometer to visit Not Reports low sugars . . Most recent A1C [], [down] from prior [] on []. Family history of T2DM in father . Has eyes checked yearly, last eye exam Feb 05 2023 , denies retinopathy. Denies neuropathy, Not sees podiatry. Denies nephropathy, Not on RADHA/ARB. UAC [] as measured on []. Not Has HLD,Not on statin. . Denies CAD. Not Had diabetes education recently . [facility] Medical History (Updated 02/12/23 @ 12:29 by Taylor Avery CNM) Encounter to establish care Diabetic ketoacidosis Gastroparesis MATTHEW (acute kidney injury) Diabetes Surgical History Hx of cataract surgery No pertinent past surgical history Family History Mother No known problems Father Diabetes Social History Household Members: Family Housing: Apartment Do you presently have visiting nurse or other home services: No Patient Tobacco Use Status: Never used Tobacco e-Cigarette/Vaping Use: Never Used service: No Current occupational status: employed Cognitive needs: No Hearing needs: No Vision needs: No Female Reproductive History Menstrual Age of Menarche: 13 Physical Exam Vital Signs: Last Vital Signs Pulse 65 02/12/23 14:44 BP 112/68 02/12/23 14:44 BMI result Body Mass Index 29.6 Absence of Cushingoid features. Absence of acromegalic features. Neck exam reveals nl size thyroid about 15 gms. No thyroid nodules palpable. No carotid bruits present. Lungs CTA. Heart S1 S2, Reg R/R. No M/R/ G. Skin exam reveals absence of vitiligo or acanthosis nigricans. Abdominal exam reveals Soft NT/ND with NA BS. No organomegaly present. Neck Other: . Extrem Other: Visual exam of foot performed. No ulcerations or open lesions. No onchomycosis, no callouses.Pulses 2 + distally Sensation intact to monofilament exam. Vibratory sensation sensed is intact with 128 Hz tuning fork Results Reviewed Results Reviewed: 02/12/23 14:52 Glucose, Whole Blood Routine Laboratory Last Values Glucose (Clinic) 404 mg/dL (60-115) H* 02/12/23 14:52 Assessment & Plan Assessment & Plan (1) Diabetes: Code(s): E11.9 - Type 2 diabetes mellitus without complications Plan: This is a 37-year-old female with a history of diabetes being treated with metformin and basal-bolus insulin with poor glycemic control and no known microvascular or macrovascular complication. Plan is that the patient check her point cares pre and post meals and bring glucometer or sensor with a to follow-up visits. Will have patient meet with certified diabetes educator and product design engineer. Could not make any changes to regimen because of lack of data. Went over correlation of poor glycemic control to development and progression of complication Orders: Orders Glutamic acid decarboxylase Ab Today E11.9 - Type 2 diabetes mellitus without complications Referrals Nutrition/Dietitian Referral E11.9 - Type 2 diabetes mellitus without complications Diabetes Education Referral E11.9 - Type 2 diabetes mellitus without complications Medications: New blood-glucose sensor (FreeStyle Mari 3 Sensor device) As directed change every 14 days 2 ea 5RF Coding Level of Care Code New Pt Level 5 (16998) Diagnoses Diabetes E11.9 Time Spent (min) 60 Comment A total of 60 minutes was spent reviewing chart, seeing patient and dictating
[2023-02-12 14:44] VITALS: BP 112/68; PULSE 65; BMI 29.6
[2023-02-12 14:57] LABS: Glucose, Whole Blood 404 mg/dL (60-115)
--- NOTE | 2023-02-12 15:01 | AM.OFFVISNUR ---
Intake Vital Signs 02/12/23 14:44 Height 5 ft 2 in Weight 161 lb 9.581 oz BMI 29.6 BP 112/68 Blood Pressure Location Lt brachial Position Sitting Pulse 65 Pulse Source Pulse Oximeter Intake Visit Reasons: DM2/ Confirmed Allergies No Known Allergies [No Known Allergies*] Allergy (Verified 02/12/23 14:49) Medication List - Last Reconciled 02/12/23 by Yoav Anderson MD cholecalciferol (vitamin D3) 50 mcg PO DAILY fluconazole 150 mg PO Q3D 2 doses insulin glargine (Lantus U-100 Insulin) 20 units (0.2 mL) subcut BID 30 days insulin lispro (Humalog U-100 Insulin) See Protocol units subcut QIDACHS ketorolac 0.5% drps ophthalmic (eye) metformin 500 mg PO BID metronidazole 500 mg PO Q12H 7 days miconazole nitrate (Miconazole-7) 100 mg vaginal BEDTIME 7 days Nursing Note Patient had a POC of 404 upon arrival to the office. Dr. Anderson ordered 12 units of insulin lispro subcut injection. I administered 12 units Humalog subcut at 14:59. [facility] [id number] Coding Diagnoses Diabetes E11.9 Assessment & Plan Assessment & Plan (1) Diabetes: Code(s): E11.9 - Type 2 diabetes mellitus without complications Orders: Referrals Nutrition/Dietitian Referral E11.9 - Type 2 diabetes mellitus without complications Diabetes Education Referral E11.9 - Type 2 diabetes mellitus without complications
[2023-02-13 07:00] LABS: Glucose, Whole Blood 317 mg/dL (60-115)
== END 2023-02-12 15:56 | disposition home or self-care (01) ==
PROVIDERS: PCP Nurse Practitioner Family; Visit Provider Internal Medicine Endocrinology, Diabetes & Metabolism
DX: E11.9 Type 2 diabetes mellitus without complications (principal); Z79.4 Long term (current) use of insulin
CPT/HCPCS: 99205

== ENCOUNTER 2023-02-23 09:09 | Outpatient (REF) | payer OTHER, SELFPAY ==
[2023-02-23 10:26] LABS: Cholesterol 193 mg/dL (<200); HDL Cholesterol 58 mg/dL (>40); LDL Cholesterol Calculated 121 mg/dL (<100); Triglycerides 71 mg/dL (<150)
[2023-02-23 10:48] LABS: Vitamin D 25-OH Total 34.4 ng/mL (>30)
[2023-02-27 15:18] LABS: Glutamic acid decarboxylase Ab <5 IU/mL (<5)
== END 2023-02-23 09:10 | disposition home or self-care (01) ==
LOC: HO.LAB 09:09
PROVIDERS: Nurse Practitioner Family; Visit Provider Internal Medicine Endocrinology, Diabetes & Metabolism
DX: E11.9 Type 2 diabetes mellitus without complications (principal); R79.89 Other specified abnormal findings of blood chemistry; E78.5 Hyperlipidemia, unspecified
CPT/HCPCS: 36415; 80061; 82306; 86341

== ENCOUNTER 2023-09-27 17:09 | Inpatient (IN) | payer OTHER, SELFPAY ==
--- NOTE | 2023-09-27 17:15 | ED.GENADULT ---
HPI - General Adult General Chief complaint: Nausea/Vomiting/Diarrhea Stated complaint: diabetic, dry mouth w/ heartburn Time Seen by Provider: 09/27/23 17:54 History of Present Illness HPI narrative: 37-year-old female with a history of diabetes mellitus, type 1, diabetic ketoacidosis, gastroparesis, who presents emergency department for evaluation of nausea and vomiting. Patient states that she was at work and at around 13:30 hours she was feeling very weak and was unable to walk. She felt lightheaded and dizzy. She had nausea and vomited multiple times. She states that over the last 2 days for glucose was low in the 79 range. She states that her glucose normally runs 120. She states that her insurance would not cover Lantus and she was able to purchase Novolin R from [employer] and has been taking 25 units before lunch and at bedtime for the last 2 months. The patient states that she developed rhinorrhea today. She is also having heartburn and abdominal pain. Patient does complain of nausea and has vomited at least 6 times. She denied fever or chills. She denied dysuria but has had urinary frequency and increased thirst. Related Data Home Medications ?Medication ?Instructions ?Recorded ?Confirmed ketorolac 0.5 % eye drops drp ophthalmic (eye) 02/12/23 02/12/23 metformin 500 mg tablet 500 mg PO BID 02/12/23 02/12/23 Previous Rx's ?Medication ?Instructions ?Recorded insulin lispro 100 unit/mL See Protocol subcut QIDACHS #10 mL 09/27/22 subcutaneous solution (Humalog U-100 Insulin) metronidazole 500 mg tablet 500 mg PO Q12H 7 days #14 tabs 12/26/22 miconazole nitrate 100 mg vaginal 100 mg vaginal BEDTIME 7 days #7 ea 12/26/22 suppository (Miconazole-7) blood-glucose sensor (FreeStyle #2 ea 02/12/23 Mari 3 Sensor device) fluconazole 150 mg tablet 150 mg PO Q3D 2 doses #2 tabs 02/12/23 metronidazole 0.75 % (37.5 mg/5 1 appful vaginal BEDTIME 5 days 02/14/23 gram) vaginal gel #70 grams cholecalciferol (vitamin D3) 50 50 mcg PO DAILY #90 tabs 05/16/23 mcg (2,000 unit) tablet insulin glargine 100 unit/mL 20 unit (0.2 mL) subcut BID 30 08/02/23 subcutaneous solution (Lantus days #12 mL U-100 Insulin) Allergies Allergy/AdvReac Type Severity Reaction Status Date / Time No Known Allergies Allergy Verified 09/27/23 17:19 [No Known Allergies*] [facility] Past Medical History Medical History (Updated 09/27/23 @ 19:04 by Bryson Hinkle MD) Encounter to establish care Diabetic ketoacidosis Gastroparesis MATTHEW (acute kidney injury) Diabetes Surgical History Hx of cataract surgery No pertinent past surgical history Family History Family History Mother No known problems Father Diabetes Social History Social History Household Members: Family Housing: Apartment Do you presently have visiting nurse or other home services: No Patient Tobacco Use Status: Never used Tobacco Smoked in Last 30 Days: No e-Cigarette/Vaping Use: Never Used Use of substances other than those prescribed or required for medical reasons: No Advance Directives: No Advance Directives Information Provided: No Patient : No service: No Current occupational status: employed Cognitive needs: No Hearing needs: No Vision needs: No Physical Exam ED Vital Signs: Vital Signs - 24 hr 09/27/23 17:17 09/27/23 18:06 Temperature 97.9 F 98.1 F Pulse Rate 120 H 119 H Respiratory Rate 20 18 Blood Pressure 119/72 118/71 Pulse Oximetry 100 100 Oxygen Delivery Method Room Air Room Air BMI result Body Mass Index 28.3 Vital signs revealed an elevated respiratory rate and an elevated heart rate Exam: General: Awake, alert in no distress, strong ketotic odor to breath Head: Normocephalic, atraumatic EENT: PERRL, Lids normal, sclera normal, conjunctiva normal, nose normal , ears normal, throat without erythema or exudates Neck: Supple, no adenopathy Lung: breath sounds symmetric, no wheezing, rales or rhonchi Chest: symmetric movement, nontender Heart: regular rate and rhythm, normal S1, S2 no murmurs or rubs Abdomen: soft, mild to moderate epigastric tenderness, mild diffuse tenderness, normoactive bowel sounds, no rebound, no voluntary or involuntary guarding Back: no vertebral tenderness, no CVAT Extremities: no deformities, moves all extremities symmetrically Neuro: Awake, alert, oriented, normal speech, cranial nerves intact, moves all extremities symmetrically Psych: Pleasant, cooperative Course Course Course Narrative: This is a rapid medical exam performed by Rohan Pearce STATION MASTER: Additional HPI, ROS, PE not included below will be deferred to primary provider. Patient is a 37-year-old female with history of diabetes presenting to the emergency department with complaint feeling lightheaded, vomiting, frequent urination since this afternoon. States that she vomited at least 6 times while at work. States that she forgot her insulin at home today. Feels similar to previous episodes of DKA in the past. Point of care blood glucose in triage reading ?high.? Plan: labs, UA Medications Administered Generic Name Dose Route Start Last Admin Trade Name Freq PRN Reason Stop Dose Admin Lactated Ringer's 1,000 mls @ 999 mls/hr 09/27/23 18:15 09/27/23 18:34 Lr IV 09/27/23 19:15 999 mls/hr .Q1H1M SHANNAN Administration Lactated Ringer's 1,000 mls @ 999 mls/hr 09/27/23 18:15 09/27/23 18:34 Lr IV 09/27/23 19:15 999 mls/hr .Q1H1M SHANNAN Administration Discontinued Medications Generic Name Dose Route Start Last Admin Trade Name Freq PRN Reason Stop Dose Admin Insulin Human Regular 10 unit 09/27/23 18:10 09/27/23 18:38 Insulin Regular, Human 100 Unit/Ml 3 Ml Vial IVPUSH 09/27/23 18:11 10 unit ONCE ONE Administration Ondansetron HCl 4 mg 09/27/23 18:40 09/27/23 18:42 Ondansetron Hcl 4 Mg/2 Ml Vial IVPUSH 09/27/23 18:41 4 mg ONCE ONE Administration Medical Decision Making Medical Decision Making [facility] Narrative: 37-year-old female with a history of diabetes mellitus, type 1, diabetic ketoacidosis, gastroparesis, who presents emergency department for evaluation of weakness, lightheadedness, abdominal pain/heartburn symptoms, nausea and vomiting with symptoms starting today at 13:30 hours while she was at work. Patient states that [employer] no longer was pain for her Lantus and over the last 2 months she has been taking NovoLog R 25 units before lunch and at bedtime. She states that her glucose has been running in the 120 range but yesterday her glucose was lower in the 79 range, she continued to take her insulin. She did complain of increased thirst and increased urinary frequency, she had no fever, chills, chest pain, shortness of breath or dyspnea on exertion. Vital signs did reveal an elevated heart rate of 120, elevated respiratory rate of 20 otherwise unremarkable. Patient had a very strong ketotic odor to her breath and diffuse abdominal tenderness otherwise exam was unremarkable. Differential diagnosis: ?Includes but is not limited to diabetic ketoacidosis, hyperglycemia, viral syndrome, GERD, anemia, electrolyte abnormalities Following evaluation was ordered: CBC, CMP, magnesium, beta hydroxybutyrate, quantitative beta-hCG, lipase, VBG, point of care glucose, Patient was initially treated with the following: Lactated Ringer's x2 L IV, Regular insulin 10 units IV bolus, regular insulin drip starting at 7 units/hours Course: 18:52 My interpretation patient's laboratory evaluation is as follows: CBC was normal. VBG: revealed acidemia with a pH of 7.20 and a low bicarb of 12. CO2 was normal at 31. Urinalysis was positive for glucose and ketones. Microscopic was negative for WBCs, RBCs and bacteria. Quantitative beta-hCG was negative. COVID-19, RSV and influenza were negative. Sodium was low 131 this is most likely secondary to the high glucose of 749. Potassium elevated 5.4 secondary to acidosis. CO2 low 14. Anion gap high 29. BUN elevated 20 with a normal creatinine of 1.27. Bilirubin elevated 1.2. Alk-phos elevated 124. Lipase normal at 16. Beta hydroxybutyrate pending. Patient's presentation is consistent with diabetic ketoacidosis. Patient will be treated with lactated Ringer's, regular insulin bolus and insulin drip. I will discuss admission with the covering ict support and test engineers. 19:14 I discuss the patient's presentation over tiger text with our ict support and test engineers, Dr. Kaylee Nieves and the patient will be admitted to the intensive care unit for further management of her DKA. Admission/Observation Consideration of admission/observation: Escalation of care including admission/observation considered Lab Data MDM Lab Attestation statement: I reviewed the patient's lab results. 09/27/23 17:48 09/27/23 17:48 Labs: Lab Results 09/27/23 09/27/23 09/27/23 Range/Units 17:14 17:16 17:42 WBC (4.8-10.8) X10*3/uL RBC (4.20-5.50) X10*6/uL Hgb (12.0-16.0) g/dl Hct (37.0-47.0) % MCV (80.0-98.0) fL MCH (27.0-33.0) pg MCHC (31.0-35.0) g/dl RDW (11.0-16.0) % Plt Count (160-400) X10*3/uL MPV (9.4-12.3) fL Immature Gran % (Auto) (0.0-0.4) % Neut % (Auto) (45-73) % Lymph % (Auto) (20-40) % [place] % (Auto) (2-11) % Eos % (Auto) (0-4) % Baso % (Auto) (0-2) % Lymph # (Auto) (1.2-4.9) X10*3/uL [place] # (Auto) (0.1-1.2) X10*3/uL Eos # (Auto) (0.0-0.4) X10*3/uL Baso # (Auto) (0.0-0.2) X10*3/uL Abs Immat Gran (auto) (0.00-0.03) X10*3/uL Absolute Neuts (auto) (2.0-8.3) x10*3/uL Absolute Nucleated RBC (0.0-0.012) X10*3/uL Nucleated RBC % (auto) (0.0-0.2) /100WBC VBG pH (7.32-7.43) VBG pCO2 mmHg VBG pO2 mmHg VBG HCO3 (22-26) mmol/L VBG O2 Saturation % VBG Base Excess mmol/L Sodium (135-145) mmol/L Potassium (3.3-5.1) mmol/L Chloride (96-108) mmol/L Carbon Dioxide (22-29) mmol/L Anion Gap (12-20) BUN (9-16) mg/dL Creatinine (0.5-1.4) mg/dL Estim Creat Clear Calc Estimated GFR POC Glucose > 600 H* > 600 H* > 600 H* (60-115) mg/dL Random Glucose (60-115) mg/dL Calcium (8.4-10.2) mg/dL Magnesium (1.6-2.6) mg/dL Total Bilirubin (0.0-1.0) mg/dL AST (5-31) U/L ALT (0-31) U/L Alkaline Phosphatase (39-117) U/L Total Protein (6.5-8.0) g/dL Albumin (3.5-5.0) g/dL Lipase (8-78) U/L Beta HCG, Quant mIU/mL Urine Color Urine Appearance Urine pH (5.0-9.0) Ur Specific [place] (1.005-1.025) Urine Protein (Neg-Trace) mg/dL Urine Glucose (UA) (Negative) mg/dL Urine Ketones (Negative) mg/dL Urine Blood (Negative) Urine Nitrite (Negative) Ur Leukocyte Esterase (Negative) Urine RBC (0-2) /HPF Urine WBC (0-5) /HPF Ur Squamous Epith Cells (0-2) /HPF Urine Bacteria (None Seen) Hyaline Casts (0-2) /LPF Influenza Type A (PCR) (Negative) Influenza Type B (PCR) (Negative) RSV RNA Qual (PCR) (Negative) SARS-CoV-2 RNA (RT-PCR) (Negative) 09/27/23 09/27/23 09/27/23 Range/Units 17:48 18:11 18:31 WBC 8.7 (4.8-10.8) X10*3/uL RBC 4.19 L (4.20-5.50) X10*6/uL Hgb 11.8 L (12.0-16.0) g/dl Hct 37.2 (37.0-47.0) % MCV 88.8 (80.0-98.0) fL MCH 28.2 (27.0-33.0) pg MCHC 31.7 (31.0-35.0) g/dl RDW 12.9 (11.0-16.0) % Plt Count 280 (160-400) X10*3/uL MPV 11.1 (9.4-12.3) fL Immature Gran % (Auto) 0.3 (0.0-0.4) % Neut % (Auto) 88.1 H (45-73) % Lymph % (Auto) 9.6 L (20-40) % [place] % (Auto) 1.7 L (2-11) % Eos % (Auto) 0.0 (0-4) % Baso % (Auto) 0.3 (0-2) % Lymph # (Auto) 0.8 L (1.2-4.9) X10*3/uL [place] # (Auto) 0.2 (0.1-1.2) X10*3/uL Eos # (Auto) 0.0 (0.0-0.4) X10*3/uL Baso # (Auto) 0.0 (0.0-0.2) X10*3/uL Abs Immat Gran (auto) 0.03 (0.00-0.03) X10*3/uL Absolute Neuts (auto) 7.7 (2.0-8.3) x10*3/uL Absolute Nucleated RBC 0.000 (0.0-0.012) X10*3/uL Nucleated RBC % (auto) 0.0 (0.0-0.2) /100WBC VBG pH 7.20 L* (7.32-7.43) VBG pCO2 31 mmHg VBG pO2 53 mmHg VBG HCO3 12 L (22-26) mmol/L VBG O2 Saturation 75.0 % VBG Base Excess -14.2 mmol/L Sodium 131 L (135-145) mmol/L Potassium 5.4 H (3.3-5.1) mmol/L Chloride 93 L (96-108) mmol/L Carbon Dioxide 14 L (22-29) mmol/L Anion Gap 29 H (12-20) BUN 20 H (9-16) mg/dL Creatinine 1.27 (0.5-1.4) mg/dL Estim Creat Clear Calc 56.2 Estimated GFR 48 POC Glucose (60-115) mg/dL Random Glucose 749 H* (60-115) mg/dL Calcium 10.0 (8.4-10.2) mg/dL Magnesium 2.3 (1.6-2.6) mg/dL Total Bilirubin 1.2 H (0.0-1.0) mg/dL AST 25 (5-31) U/L ALT 30 (0-31) U/L Alkaline Phosphatase 124 H (39-117) U/L Total Protein 8.5 H (6.5-8.0) g/dL Albumin 4.1 (3.5-5.0) g/dL Lipase 16 (8-78) U/L Beta HCG, Quant < 2 mIU/mL Urine Color Yellow Urine Appearance Clear Urine pH 5.5 (5.0-9.0) Ur Specific [place] 1.025 (1.005-1.025) Urine Protein Negative (Neg-Trace) mg/dL Urine Glucose (UA) >=1000 H (Negative) mg/dL Urine Ketones >=160 (Negative) mg/dL Urine Blood Negative (Negative) Urine Nitrite Negative (Negative) Ur Leukocyte Esterase Negative (Negative) Urine RBC 0-2 (0-2) /HPF Urine WBC 0-5 (0-5) /HPF Ur Squamous Epith Cells 0-2 (0-2) /HPF Urine Bacteria None Seen (None Seen) Hyaline Casts 3-5 (0-2) /LPF Influenza Type A (PCR) NEGATIVE (Negative) Influenza Type B (PCR) NEGATIVE (Negative) RSV RNA Qual (PCR) NEGATIVE (Negative) SARS-CoV-2 RNA (RT-PCR) NEGATIVE (Negative) 09/27/23 Range/Units 18:57 WBC (4.8-10.8) X10*3/uL RBC (4.20-5.50) X10*6/uL Hgb (12.0-16.0) g/dl Hct (37.0-47.0) % MCV (80.0-98.0) fL MCH (27.0-33.0) pg MCHC (31.0-35.0) g/dl RDW (11.0-16.0) % Plt Count (160-400) X10*3/uL MPV (9.4-12.3) fL Immature Gran % (Auto) (0.0-0.4) % Neut % (Auto) (45-73) % Lymph % (Auto) (20-40) % [place] % (Auto) (2-11) % Eos % (Auto) (0-4) % Baso % (Auto) (0-2) % Lymph # (Auto) (1.2-4.9) X10*3/uL [place] # (Auto) (0.1-1.2) X10*3/uL Eos # (Auto) (0.0-0.4) X10*3/uL Baso # (Auto) (0.0-0.2) X10*3/uL Abs Immat Gran (auto) (0.00-0.03) X10*3/uL Absolute Neuts (auto) (2.0-8.3) x10*3/uL Absolute Nucleated RBC (0.0-0.012) X10*3/uL Nucleated RBC % (auto) (0.0-0.2) /100WBC VBG pH (7.32-7.43) VBG pCO2 mmHg VBG pO2 mmHg VBG HCO3 (22-26) mmol/L VBG O2 Saturation % VBG Base Excess mmol/L Sodium (135-145) mmol/L Potassium (3.3-5.1) mmol/L Chloride (96-108) mmol/L Carbon Dioxide (22-29) mmol/L Anion Gap (12-20) BUN (9-16) mg/dL Creatinine (0.5-1.4) mg/dL Estim Creat Clear Calc Estimated GFR POC Glucose > 600 H* (60-115) mg/dL Random Glucose (60-115) mg/dL Calcium (8.4-10.2) mg/dL Magnesium (1.6-2.6) mg/dL Total Bilirubin (0.0-1.0) mg/dL AST (5-31) U/L ALT (0-31) U/L Alkaline Phosphatase (39-117) U/L Total Protein (6.5-8.0) g/dL Albumin (3.5-5.0) g/dL Lipase (8-78) U/L Beta HCG, Quant mIU/mL Urine Color Urine Appearance Urine pH (5.0-9.0) Ur Specific [place] (1.005-1.025) Urine Protein (Neg-Trace) mg/dL Urine Glucose (UA) (Negative) mg/dL Urine Ketones (Negative) mg/dL Urine Blood (Negative) Urine Nitrite (Negative) Ur Leukocyte Esterase (Negative) Urine RBC (0-2) /HPF Urine WBC (0-5) /HPF Ur Squamous Epith Cells (0-2) /HPF Urine Bacteria (None Seen) Hyaline Casts (0-2) /LPF Influenza Type A (PCR) (Negative) Influenza Type B (PCR) (Negative) RSV RNA Qual (PCR) (Negative) SARS-CoV-2 RNA (RT-PCR) (Negative) Independent Interpretation I performed an independent interpretation of an: EKG Interpretation: My independent interpretation the patient's 12 EKG done at 17:35 hours is as follows: Sinus tachycardia with a rate of 119, normal [place] interval, QRS duration QTC interval, no ST segment elevation, no ST segment depression, no significant T-wave abnormalities, no PACs, no PVCs Independent Historian Clinical information obtained from an independent historian. History obtained from or confirmed by: Parent External Record Review External record reviewed: Inpatient record Chronic Conditions Patient?s care impacted by: Diabetes Critical Care Time Critical Care Time Critical Care Time: Yes Total Critical Care Time: 45 Attestation: Critical Care: The patient was critically ill with a high probability of imminent or life threatening deterioration. I spent greater than 30 minutes of discontinuous time evaluating the patient,delivering critical care at the bedside, discussing and evaluating pertinent data with consultants. Critical care time does not include time spent performing separately billable procedures or teaching. Total time spent performing critical care was 45 minutes. Discharge Plan Discharge Print Language: Lao
[2023-09-27 17:17] VITALS: BP 119/72; PULSE 120; RESP 20; TEMP 36.6; O2SAT 100; BMI 28.3
--- NOTE | 2023-09-27 17:17 | ECG_ITS ---
Test Reason : DIZZINESS Blood Pressure : / mmHG Vent. Rate : 119 BPM Atrial Rate : 119 BPM P-R Int : 138 ms QRS Dur : 076 ms QT Int : 328 ms P-R-T Axes : 053 019 011 degrees QTc Int : 461 ms Sinus tachycardia Possible Left atrial enlargement Borderline ECG When compared with ECG of 14-JUL-2022 03:55, T wave inversion now evident in Inferior leads T wave amplitude has decreased in Anterior leads Referred By: Andree Pearce Electronically Signed By:MILTON MCKEE
[2023-09-27 17:22] LABS: Glucose, Whole Blood > 600 mg/dL (60-115)
[2023-09-27 17:22] LABS: Glucose, Whole Blood > 600 mg/dL (60-115)
[2023-09-27 17:53] LABS: MANUAL DIFF FLAG NO
[2023-09-27 18:06] VITALS: BP 118/71; PULSE 119; RESP 18; TEMP 36.7; O2SAT 100
[2023-09-27 18:15] LABS: Glucose, Whole Blood > 600 mg/dL (60-115)
[2023-09-27 18:24] LABS: Appearance Urine Clear; Color Urine Yellow; Glucose Urine UA >=1000 mg/dL (Negative); Leukocyte Esterase Urine Negative (Negative); Nitrite Urine Negative (Negative); PH 5.5 (5.0-9.0); Specific Gravity - Urine 1.025 (1.005-1.025); UMIC TRIGGER UACC YES; Urine Blood Negative (Negative); Urine Ketones >=160 mg/dL (Negative); Urine Protein Negative (Neg-Trace)
[2023-09-27 18:27] LABS: Alanine Aminotransferase 30 U/L (0-31); Albumin Level 4.1 g/dL (3.5-5.0); Alkaline Phosphatase 124 U/L (39-117); Anion Gap 29 (12-20); Aspartate Amino Transferase 25 U/L (5-31); Bilirubin Total 1.2 mg/dL (0.0-1.0); Blood Urea Nitrogen 20 mg/dL (9-16); Carbon Dioxide 14 mmol/L (22-29); Chloride 93 mmol/L (96-108); Creatinine Clr Calc Pharmacy 56.2; Estimated Glomerular Filt Rate 48; Glucose Random 749 mg/dL (60-115); HCG Quantitative < 2 mIU/mL; Lipase 16 U/L (8-78); Magnesium 2.3 mg/dL (1.6-2.6); Potassium 5.4 mmol/L (3.3-5.1); Sodium 131 mmol/L (135-145); Total Protein 8.5 g/dL (6.5-8.0)
[2023-09-27 18:30] LABS: Influenza A PCR NEGATIVE (Negative); Influenza B PCR NEGATIVE (Negative); Resp Syncy Virus RNA Qual PCR NEGATIVE (Negative); SARS COV2 PCR INHOUSE NEGATIVE (Negative)
--- NOTE | 2023-09-27 18:30 | PC.NURSE ---
a&ox4. vss and up to date. pt presents to the ED w/ n/v x this am. pt verbalizes she is a diabetic and did not take her insulin this morning. high POC in triage. POC in stretcher displayed as 600mg/dL. two, 20gIV's placed in the AC's bilaterally. labs obtained/sent to lab. pt actively vomiting at this time - IVF/medication administered per provider order. effectiveness pending. pt seen by ED provider/aware of plan of care moving forward. family bedside for support. no sob/wob noted. respirations even and unlabored. plan of care ongoing. call so placed within reach.
[2023-09-27 18:33] LABS: Basophils Percent Auto 0.3 % (0-2); Hematocrit 37.2 % (37.0-47.0); Hemoglobin 11.8 g/dl (12.0-16.0); Imm Gran Abs Auto 0.03 X10*3/uL (0.00-0.03); Imm Gran Pct Auto 0.3 % (0.0-0.4); Lymphocytes Absolute Auto 0.8 X10*3/uL (1.2-4.9); Lymphocytes Percent Auto 9.6 % (20-40); Mean Corpuscular HGB Conc 31.7 g/dl (31.0-35.0); Mean Corpuscular Hemoglobin 28.2 pg (27.0-33.0); Mean Corpuscular Volume 88.8 fL (80.0-98.0); Mean Platelet Volume 11.1 fL (9.4-12.3); Monocytes Absolute Auto 0.2 X10*3/uL (0.1-1.2); Monocytes Percent Auto 1.7 % (2-11); Neutrophils Absolute Auto 7.7 x10*3/uL (2.0-8.3); Neutrophils Percent Auto 88.1 % (45-73); Platelet Count 280 X10*3/uL (160-400); Red Blood Count 4.19 X10*6/uL (4.20-5.50); Red Cell Distribution Width 12.9 % (11.0-16.0); White Blood Count 8.7 X10*3/uL (4.8-10.8)
[2023-09-27] MEDS: Lactated Ringers 1,000 ML 999 ML IV ×2 (18:34)
[2023-09-27] MEDS: Insulin Regular, Human 100 UNIT/ML 3 ML VIAL 10 UNIT IVPUSH (18:38)
[2023-09-27 18:40] LABS: Bacteria Urine None Seen (None Seen); RBC Urine 0-2 /HPF (0-2); Squamous Epithelial Cell Urine 0-2 /HPF (0-2); WBC Urine 0-5 /HPF (0-5)
[2023-09-27 18:41] LABS: VBG Base Excess -14.2 mmol/L; VBG HCO3 12 mmol/L (22-26); VBG pCO2 31 mmHg; VBG pO2 53 mmHg
[2023-09-27 18:42] LABS: Venous Blood Gas Refer to POC result
[2023-09-27] MEDS: ondansetron HCL 4 MG/2 ML VIAL IVPUSH (18:42)
--- NOTE | 2023-09-27 19:00 | PC.NURSE ---
repeat POC post IVP insulin administration displays as >600mg/dL. ED provider notified/aware.
[2023-09-27 19:01] LABS: Glucose, Whole Blood > 600 mg/dL (60-115)
--- NOTE | 2023-09-27 19:22 | PHA.MEDREC ---
Pharmacy Consult ? Medication Reconciliation Pharmacy has completed the medication reconciliation. Patient report on insulin. Report Lantus BID in the afternoon and bedtime. Reported 25 units of Humalog prior to meals if BG is high. Ledy Gilmore, PharmD
[2023-09-27] MEDS: Insulin Regular/NS 100 UNIT/100 ML PLAST..BAG 7 UNIT IVCONT (19:23)
--- NOTE | 2023-09-27 19:40 | PC.NURSE ---
verbal report given to Gisela JORGE in ICU
--- NOTE | 2023-09-27 19:56 | P.HPCC_ITS ---
History of Present Illness Date of Service: 09/27/23 Attending physician on admission: Kaylee Nieves Chief Complaint: Nausea & Vomiting Ms. Anderson is a 36-year-old female with a past medical history of diabetes mellitus type I, DKA, gastroparesis? who? presented to the emergency room with nausea and vomiting, weakness, lightheadedness and dizziness. Additionally, she developed rhinorrhea, heartburn and abdominal pain. The pt reported that her insurance would not cover Lantus. She has been taking Novolin R 25 units before lunch and at bedtime for the last 2 months.? Laboratory data was significant for? VBG 7.//53/12.? Serum sodium 131, potassium 5.4, chloride 93, serum bicarb 14, and anion gap 29, BUN 20, random glucose 749.? ED course: The patient received 2 L of crystalloids, 10 units IV push insulin, Zofran 4mg,? and was started on an insulin drip. The patient was admitted to ICU for further management of DKA requiring insulin drip. Review of Systems 2 Review of Systems: Yes all other systems are reviewed and are negative Constitutional: Constitutional: Denies body ache(s), Denies fever(s) and Reports weakness ENT: Reports nasal discharge Gastrointestinal: Gastrointestinal: Reports abdominal pain, Reports nausea and Reports vomiting Musculoskeletal: Musculoskeletal: Reports muscle weakness Neurologic: Reports weakness PMFSH Past Medical History Medical History (Updated 09/27/23 @ 19:04 by Brsyon Hinkle MD) Encounter to establish care Diabetic ketoacidosis Gastroparesis MATTHEW (acute kidney injury) Diabetes Family History Family History Mother No known problems Father Diabetes Surgical History Surgical History Hx of cataract surgery No pertinent past surgical history Social History Social History Household Members: Family Housing: House Do you presently have visiting nurse or other home services: No Patient Tobacco Use Status: Never used Tobacco Smoked in Last 30 Days: No e-Cigarette/Vaping Use: Never Used Use of substances other than those prescribed or required for medical reasons: No Currently Displaying Signs/Symptoms of Drug Intoxication Withdrawal: No Advance Directives: No Advance Directives Information Provided: No Do you have a plan to hurt others: No Plan Recently lost weight without trying: No Nutrition Risks: No Nutritional Risk Patient : No service: No Current occupational status: employed Cognitive needs: No Hearing needs: No Vision needs: No Meds Allergies Allergy/AdvReac Type Severity Reaction Status Date / Time No Known Allergies Allergy Verified 09/27/23 17:19 [No Known Allergies*] Active Medications: Current Medications Heparin Sodium (Porcine) (Heparin Sodium,Porcine 5,000 Unit/Ml Vial) 5,000 unit SUBCUT Q8H SHANNAN Insulin Human Regular (Myxredlin) 100 unit in 100 mls @ 7 mls/hr IVCONT .[id number] SHANNAN; Protocol Last Admin: 09/27/23 19:23 Dose: 7 unit/hr, 7 mls/hr Dextrose (D10) 250 mls @ 750 mls/hr IV Q30M PRN PRN Reason: BG <70 Dextrose (D10) 250 mls @ 750 mls/hr IV Q30M PRN PRN Reason: BG <70 Home Medications ?Medication ?Instructions ?Recorded ?Confirmed ?Last Taken ?Type insulin glargine 100 unit/mL 25 unit subcut BID@1300,2100 09/27/23 09/27/23 Unknown History subcutaneous solution (Lantus U-100 Insulin) insulin lispro 100 unit/mL 25 unit subcut TIDAC PRN 09/27/23 09/27/23 Unknown History subcutaneous solution (Humalog Hyperglycemia U-100 Insulin) Physical Exam 2 Vital Signs: Vital Signs: Last Vital Signs Temp 98.1 F 09/27/23 18:06 Pulse 119 H 09/27/23 18:06 Resp 18 09/27/23 18:06 BP 118/71 09/27/23 18:06 Pulse Ox 100 09/27/23 18:06 O2 Del Method Room Air 09/27/23 18:06 BMI result Body Mass Index 28.3 Const: General: no acute distress and alert Orientation/consciousness: p atient oriented x3 (answering appropriately.) HEENT: Head: Yes normocephalic and Yes atraumatic General nose exam: Normal external nose present (Nares patent, septum midline, sinuses nontender bilaterally.) Mouth: Normal oral and palatal mucosa present (No thrush, tongue in midline, mucosa moist.) Throat: Yes other (No erythema, no exudate.) Neck: Neck: Yes supple (no thyromegaly, trachea midline.) Carotids: normal carotid upstroke Resp: Auscultation: clear to auscultation bilaterally (normal work of breathing, no accessory muscle use) Cardio: Jugular venous distension: no JVD Rate: tachycardic Heart sounds: no gallops, no murmurs and no rubs Peripheral pulses: Peripheral pulses 2+ throughout GI: Palpation (GI): Soft to palpation (nondistended.) and Tenderness to palpation present (GI) Auscultation: normal bowel sounds Neuro: General: patient oriented x3 (answering appropriately.) Extrem: General: Yes full ROM, Yes capillary refill normal and Yes no clubbing, cyanosis or edema Psych: Appearance: grossly normal Mental Status: mental status grossly normal Speech and movement: Clear speech present Affect: normal affect Attitude: cooperative Results Labs 09/28/23 05:53 09/27/23 22:09 Labs: Laboratory Results - last 24 hr 09/27/23 09/27/23 09/27/23 17:14 17:16 17:42 MCV MCH MCHC RDW Plt Count MPV Immature Gran % (Auto) Neut % (Auto) Lymph % (Auto) [place] % (Auto) Eos % (Auto) Baso % (Auto) Lymph # (Auto) [place] # (Auto) Eos # (Auto) Baso # (Auto) Abs Immat Gran (auto) Absolute Neuts (auto) Absolute Nucleated RBC Nucleated RBC % (auto) VBG pH VBG pCO2 VBG pO2 VBG HCO3 VBG O2 Saturation VBG Base Excess Anion Gap Estim Creat Clear Calc Estimated GFR POC Glucose > 600 H* > 600 H* > 600 H* Random Glucose Calcium Magnesium Total Bilirubin AST ALT Alkaline Phosphatase Total Protein Albumin Lipase Beta HCG, Quant Urine Color Urine Appearance Urine pH Ur Specific [place] Urine Protein Urine Glucose (UA) Urine Ketones Urine Blood Urine Nitrite Ur Leukocyte Esterase Urine RBC Urine WBC Ur Squamous Epith Cells Urine Bacteria Hyaline Casts Influenza Type A (PCR) Influenza Type B (PCR) RSV RNA Qual (PCR) SARS-CoV-2 RNA (RT-PCR) 09/27/23 09/27/23 09/27/23 17:48 18:11 18:31 MCV 88.8 MCH 28.2 MCHC 31.7 RDW 12.9 Plt Count 280 MPV 11.1 Immature Gran % (Auto) 0.3 Neut % (Auto) 88.1 H Lymph % (Auto) 9.6 L [place] % (Auto) 1.7 L Eos % (Auto) 0.0 Baso % (Auto) 0.3 Lymph # (Auto) 0.8 L [place] # (Auto) 0.2 Eos # (Auto) 0.0 Baso # (Auto) 0.0 Abs Immat Gran (auto) 0.03 Absolute Neuts (auto) 7.7 Absolute Nucleated RBC 0.000 Nucleated RBC % (auto) 0.0 VBG pH 7.20 L* VBG pCO2 31 VBG pO2 53 VBG HCO3 12 L VBG O2 Saturation 75.0 VBG Base Excess -14.2 Anion Gap 29 H Estim Creat Clear Calc 56.2 Estimated GFR 48 POC Glucose Random Glucose 749 H* Calcium 10.0 Magnesium 2.3 Total Bilirubin 1.2 H AST 25 ALT 30 Alkaline Phosphatase 124 H Total Protein 8.5 H Albumin 4.1 Lipase 16 Beta HCG, Quant < 2 Urine Color Yellow Urine Appearance Clear Urine pH 5.5 Ur Specific [place] 1.025 Urine Protein Negative Urine Glucose (UA) >=1000 H Urine Ketones >=160 Urine Blood Negative Urine Nitrite Negative Ur Leukocyte Esterase Negative Urine RBC 0-2 Urine WBC 0-5 Ur Squamous Epith Cells 0-2 Urine Bacteria None Seen Hyaline Casts 3-5 Influenza Type A (PCR) NEGATIVE Influenza Type B (PCR) NEGATIVE RSV RNA Qual (PCR) NEGATIVE SARS-CoV-2 RNA (RT-PCR) NEGATIVE 09/27/23 18:57 MCV MCH MCHC RDW Plt Count MPV Immature Gran % (Auto) Neut % (Auto) Lymph % (Auto) [place] % (Auto) Eos % (Auto) Baso % (Auto) Lymph # (Auto) [place] # (Auto) Eos # (Auto) Baso # (Auto) Abs Immat Gran (auto) Absolute Neuts (auto) Absolute Nucleated RBC Nucleated RBC % (auto) VBG pH VBG pCO2 VBG pO2 VBG HCO3 VBG O2 Saturation VBG Base Excess Anion Gap Estim Creat Clear Calc Estimated GFR POC Glucose > 600 H* Random Glucose Calcium Magnesium Total Bilirubin AST ALT Alkaline Phosphatase Total Protein Albumin Lipase Beta HCG, Quant Urine Color Urine Appearance Urine pH Ur Specific [place] Urine Protein Urine Glucose (UA) Urine Ketones Urine Blood Urine Nitrite Ur Leukocyte Esterase Urine RBC Urine WBC Ur Squamous Epith Cells Urine Bacteria Hyaline Casts Influenza Type A (PCR) Influenza Type B (PCR) RSV RNA Qual (PCR) SARS-CoV-2 RNA (RT-PCR) Assessment and Plan (1) Diabetic keto-acidosis: Qualifiers: Diabetes mellitus complication detail: without coma Diabetes mellitus type: type 1 Qualified Code(s): E10.10 - Type 1 diabetes mellitus with ketoacidosis without coma Status: Acute (2) Acute hyperglycemia: Status: Acute Plan 36-year-old female with history of diabetes mellitus type I presented with diabetic ketoacidosis requiring admission to the ICU for management of DKA. Plan: Neuro:? No acute issues?? Cardiac: No acute issues. Pulmonary:? No acute issues?? Renal: ? MATTHEW (baseline BUN around 9) - most likely related to hypoperfusion, nonoliguric.? Continue IV fluid.? Continue to check renal induces and urine output. Closely monitor electrolytes. GI:? Vomiting from?gastroparesis. Zofran p.r.n.? Endo:? Diabetic ketoacidosis-? continue IVF. Follow DKA protocol? ID:? No acute issues. Heme/Onc:? No acute issues. Psych:? No acute issues. Miscellaneous:? No acute issues. Prophylaxis:? ? Heparin / bilateral pneumatic pumps Diet: NPO with sips of water, ice chips Critical care time: does not qualify for critical care?
[2023-09-27 20:00] VITALS: BP 117/69; PULSE 110; RESP 24; TEMP 36.8; O2SAT 100
[2023-09-27 20:01] VITALS: BMI 28.4
[2023-09-27 20:06] LABS: Glucose, Whole Blood 444 mg/dL (60-115)
[2023-09-27] MEDS: Heparin Sodium,Porcine 5,000 UNIT/ML VIAL 5000 UNIT SUBCUT (20:39)
[2023-09-27] MEDS: Lactated Ringers 1,000 ML 150 ML IVCONT (20:39)
[2023-09-27 20:59] LABS: Glucose, Whole Blood 284 mg/dL (60-115)
[2023-09-27 21:00] VITALS: BP 97/56; PULSE 106; RESP 21; O2SAT 99
[2023-09-27 22:00] VITALS: BP 107/54; PULSE 113; RESP 22; O2SAT 98
[2023-09-27 22:03] LABS: Glucose, Whole Blood 198 mg/dL (60-115)
[2023-09-27 22:19] LABS: VBG Base Excess -5.8 mmol/L; VBG HCO3 17 mmol/L (22-26); VBG pCO2 27 mmHg; VBG pO2 66 mmHg
[2023-09-27 22:28] LABS: Anion Gap 20 (12-20); Blood Urea Nitrogen 15 mg/dL (9-16); Calcium 9.8 mg/dL (8.4-10.2); Carbon Dioxide 16 mmol/L (22-29); Chloride 106 mmol/L (96-108); Creatinine Clr Calc Pharmacy 87.2; Estimated Glomerular Filt Rate > 60; Glucose Random 223 mg/dL (60-115); Potassium 4.2 mmol/L (3.3-5.1); Sodium 138 mmol/L (135-145)
[2023-09-27] MEDS: Calcium Carbonate 750 MG TAB.CHEW PO (22:30)
[2023-09-27 22:38] LABS: Venous Blood Gas Refer to POC result
[2023-09-27 22:57] LABS: Glucose, Whole Blood 197 mg/dL (60-115)
[2023-09-27 23:00] VITALS: BP 101/44; PULSE 109; RESP 24; TEMP 36.9; O2SAT 98
[2023-09-27 23:18] LABS: Beta-Hydroxybutyrate 8.28 mmol/L (0.02-0.27)
[2023-09-27] MEDS: Dextrose 5 % and Lactated Ring 1,000 ML 150 ML IVCONT (23:34)
[2023-09-28] VITALS (19 sets, daily range): BP systolic 81–120; BP diastolic 44–76; PULSE 86–111; RESP 16–25; TEMP 36.3–36.9; O2SAT 94–99
[2023-09-28 00:16] LABS: Glucose, Whole Blood 162 mg/dL (60-115)
[2023-09-28 01:04] LABS: Glucose, Whole Blood 150 mg/dL (60-115)
[2023-09-28 02:00] LABS: Glucose, Whole Blood 153 mg/dL (60-115)
[2023-09-28 03:05] LABS: Glucose, Whole Blood 109 mg/dL (60-115)
[2023-09-28 04:10] LABS: Glucose, Whole Blood 138 mg/dL (60-115)
[2023-09-28 05:04] LABS: Glucose, Whole Blood 162 mg/dL (60-115)
[2023-09-28 06:00] LABS: VBG Base Excess 1.7 mmol/L; VBG HCO3 25 mmol/L (22-26); VBG pCO2 35 mmHg; VBG pH 7.45 (7.32-7.43); VBG pO2 68 mmHg
[2023-09-28 06:01] LABS: Venous Blood Gas Refer to POC result
[2023-09-28] MEDS: Heparin Sodium,Porcine 5,000 UNIT/ML VIAL 5000 UNIT SUBCUT ×3 (06:02→20:26)
[2023-09-28] MEDS: Dextrose 5 % and Lactated Ring 1,000 ML 150 ML IVCONT (06:06)
[2023-09-28 06:07] LABS: MANUAL DIFF FLAG NO
[2023-09-28 06:08] LABS: Glucose, Whole Blood 152 mg/dL (60-115)
[2023-09-28 06:13] LABS: Basophils Percent Auto 0.6 % (0-2); Eosinophils Absolute Auto 0.1 X10*3/uL (0.0-0.4); Eosinophils Percent Auto 1.1 % (0-4); Hemoglobin 9.7 g/dl (12.0-16.0); Imm Gran Abs Auto 0.01 X10*3/uL (0.00-0.03); Imm Gran Pct Auto 0.2 % (0.0-0.4); Lymphocytes Absolute Auto 2.3 X10*3/uL (1.2-4.9); Lymphocytes Percent Auto 35.7 % (20-40); Mean Corpuscular HGB Conc 32.3 g/dl (31.0-35.0); Mean Corpuscular Hemoglobin 27.9 pg (27.0-33.0); Mean Corpuscular Volume 86.2 fL (80.0-98.0); Mean Platelet Volume 10.5 fL (9.4-12.3); Monocytes Absolute Auto 0.4 X10*3/uL (0.1-1.2); Monocytes Percent Auto 5.6 % (2-11); Neutrophils Absolute Auto 3.7 x10*3/uL (2.0-8.3); Neutrophils Percent Auto 56.8 % (45-73); Platelet Count 253 X10*3/uL (160-400); Red Blood Count 3.48 X10*6/uL (4.20-5.50); Red Cell Distribution Width 12.8 % (11.0-16.0); White Blood Count 6.4 X10*3/uL (4.8-10.8)
--- NOTE | 2023-09-28 06:13 | PC.NURSE ---
Pt admitted to ICU from ED at approx 1999. Upon initial assessment- pt A&Ox4, calm/cooperative, WHYTE. Afebrile. NSR/ST on tele, HR 90-100s. SpO2 > 92% on room air. Pt denies any s/s or complaints. Tolerating ice chips. Insulin gtt and IVF running and titrated per JUL. Skin intact. Pt aware of plan of care. Bed locked in lowest position, call so in reach.
[2023-09-28 06:28] LABS: Anion Gap 13 (12-20); Blood Urea Nitrogen 11 mg/dL (9-16); Calcium 9.3 mg/dL (8.4-10.2); Carbon Dioxide 22 mmol/L (22-29); Chloride 109 mmol/L (96-108); Creatinine Clr Calc Pharmacy 102.2; Estimated Glomerular Filt Rate > 60; Glucose Random 158 mg/dL (60-115); Magnesium 1.8 mg/dL (1.6-2.6); Potassium 3.8 mmol/L (3.3-5.1); Sodium 140 mmol/L (135-145)
[2023-09-28 07:18] LABS: Glucose, Whole Blood 134 mg/dL (60-115)
--- NOTE | 2023-09-28 07:41 | PM.CCPN ---
Subjective Subjective Date of Service: 09/28/23 Interval History: admitted for DKA 09/26 PM, started on DKA protocol, with interval clinical improvement; no significant overnight events Critical Care Time (minutes): 60 Physical Exam Vital Signs: Vital Signs: Last Vital Signs Temp 97.3 F 09/28/23 05:00 Pulse 95 09/28/23 06:00 Resp 16 09/28/23 06:00 BP 94/60 09/28/23 06:00 Pulse Ox 98 09/28/23 06:00 O2 Del Method Room Air 09/28/23 06:00 BMI result Body Mass Index 28.4 Const: General: cooperative, healthy appearing, comfortable, no acute distress, well developed, alert, awake and Physically active Orientation/consciousness: patient oriented x3 HEENT: Head: Yes normal to inspection, Yes normocephalic and Yes atraumatic Eyes: General: appearance normal, both eyes and all related structures Neck: Neck: Yes normal visual inspection, Yes full ROM, Yes no meningeal signs and Yes supple Chest: Chest palpation & inspection: normal inspection of the chest Resp: Other: no appreciable rales, rhonchi, wheezing Cardio: Rate: regular rate Rhythm: regular rhythm GI: Inspection: Yes normal to inspection, No Abdominal wall edema and No distended Palpation (GI): Soft to palpation, not firm, nontender, no guarding and not rigid Skin: General skin exam: no rashes or lesions noted Neuro: General: patient oriented x3, tone normal, moves all extremities, no meningeal signs and no focal motor deficits Extrem: General: Yes normal to inspection, Yes full ROM, Yes capillary refill normal and Yes no clubbing, cyanosis or edema Psych: Appearance: grossly normal Objective Data Labs 09/28/23 05:53 09/28/23 05:53 Labs: Laboratory Results - last 24 hr 09/27/23 09/27/23 09/27/23 17:14 17:16 17:42 WBC RBC Hgb Hct MCV MCH MCHC RDW Plt Count MPV Immature Gran % (Auto) Neut % (Auto) Lymph % (Auto) [place] % (Auto) Eos % (Auto) Baso % (Auto) Lymph # (Auto) [place] # (Auto) Eos # (Auto) Baso # (Auto) Abs Immat Gran (auto) Absolute Neuts (auto) Absolute Nucleated RBC Nucleated RBC % (auto) VBG pH VBG pCO2 VBG pO2 VBG HCO3 VBG O2 Saturation VBG Base Excess Sodium Potassium Chloride Carbon Dioxide Anion Gap BUN Creatinine Estim Creat Clear Calc Estimated GFR POC Glucose > 600 H* > 600 H* > 600 H* Random Glucose Calcium Phosphorus Magnesium Total Bilirubin AST ALT Alkaline Phosphatase Total Protein Albumin Lipase Beta-Hydroxybutyrate Beta HCG, Quant Urine Color Urine Appearance Urine pH Ur Specific [place] Urine Protein Urine Glucose (UA) Urine Ketones Urine Blood Urine Nitrite Ur Leukocyte Esterase Urine RBC Urine WBC Ur Squamous Epith Cells Urine Bacteria Hyaline Casts Influenza Type A (PCR) Influenza Type B (PCR) RSV RNA Qual (PCR) SARS-CoV-2 RNA (RT-PCR) 09/27/23 09/27/23 09/27/23 17:48 18:11 18:31 WBC 8.7 RBC 4.19 L Hgb 11.8 L Hct 37.2 MCV 88.8 MCH 28.2 MCHC 31.7 RDW 12.9 Plt Count 280 MPV 11.1 Immature Gran % (Auto) 0.3 Neut % (Auto) 88.1 H Lymph % (Auto) 9.6 L [place] % (Auto) 1.7 L Eos % (Auto) 0.0 Baso % (Auto) 0.3 Lymph # (Auto) 0.8 L [place] # (Auto) 0.2 Eos # (Auto) 0.0 Baso # (Auto) 0.0 Abs Immat Gran (auto) 0.03 Absolute Neuts (auto) 7.7 Absolute Nucleated RBC 0.000 Nucleated RBC % (auto) 0.0 VBG pH 7.20 L* VBG pCO2 31 VBG pO2 53 VBG HCO3 12 L VBG O2 Saturation 75.0 VBG Base Excess -14.2 Sodium 131 L Potassium 5.4 H Chloride 93 L Carbon Dioxide 14 L Anion Gap 29 H BUN 20 H Creatinine 1.27 Estim Creat Clear Calc 56.2 Estimated GFR 48 POC Glucose Random Glucose 749 H* Calcium 10.0 Phosphorus Magnesium 2.3 Total Bilirubin 1.2 H AST 25 ALT 30 Alkaline Phosphatase 124 H Total Protein 8.5 H Albumin 4.1 Lipase 16 Beta-Hydroxybutyrate 8.28 H Beta HCG, Quant < 2 Urine Color Yellow Urine Appearance Clear Urine pH 5.5 Ur Specific [place] 1.025 Urine Protein Negative Urine Glucose (UA) >=1000 H Urine Ketones >=160 Urine Blood Negative Urine Nitrite Negative Ur Leukocyte Esterase Negative Urine RBC 0-2 Urine WBC 0-5 Ur Squamous Epith Cells 0-2 Urine Bacteria None Seen Hyaline Casts 3-5 Influenza Type A (PCR) NEGATIVE Influenza Type B (PCR) NEGATIVE RSV RNA Qual (PCR) NEGATIVE SARS-CoV-2 RNA (RT-PCR) NEGATIVE 09/27/23 09/27/23 09/27/23 18:57 20:02 20:55 WBC RBC Hgb Hct MCV MCH MCHC RDW Plt Count MPV Immature Gran % (Auto) Neut % (Auto) Lymph % (Auto) [place] % (Auto) Eos % (Auto) Baso % (Auto) Lymph # (Auto) [place] # (Auto) Eos # (Auto) Baso # (Auto) Abs Immat Gran (auto) Absolute Neuts (auto) Absolute Nucleated RBC Nucleated RBC % (auto) VBG pH VBG pCO2 VBG pO2 VBG HCO3 VBG O2 Saturation VBG Base Excess Sodium Potassium Chloride Carbon Dioxide Anion Gap BUN Creatinine Estim Creat Clear Calc Estimated GFR POC Glucose > 600 H* 444 H* 284 H Random Glucose Calcium Phosphorus Magnesium Total Bilirubin AST ALT Alkaline Phosphatase Total Protein Albumin Lipase Beta-Hydroxybutyrate Beta HCG, Quant Urine Color Urine Appearance Urine pH Ur Specific [place] Urine Protein Urine Glucose (UA) Urine Ketones Urine Blood Urine Nitrite Ur Leukocyte Esterase Urine RBC Urine WBC Ur Squamous Epith Cells Urine Bacteria Hyaline Casts Influenza Type A (PCR) Influenza Type B (PCR) RSV RNA Qual (PCR) SARS-CoV-2 RNA (RT-PCR) 09/27/23 09/27/23 09/27/23 22:00 22:09 22:10 WBC RBC Hgb Hct MCV MCH MCHC RDW Plt Count MPV Immature Gran % (Auto) Neut % (Auto) Lymph % (Auto) [place] % (Auto) Eos % (Auto) Baso % (Auto) Lymph # (Auto) [place] # (Auto) Eos # (Auto) Baso # (Auto) Abs Immat Gran (auto) Absolute Neuts (auto) Absolute Nucleated RBC Nucleated RBC % (auto) VBG pH 7.40 VBG pCO2 27 VBG pO2 66 VBG HCO3 17 L VBG O2 Saturation 95.0 VBG Base Excess -5.8 Sodium 138 Potassium 4.2 D Chloride 106 Carbon Dioxide 16 L Anion Gap 20 BUN 15 Creatinine 0.82 Estim Creat Clear Calc 87.2 Estimated GFR > 60 POC Glucose 198 H Random Glucose 223 H Calcium 9.8 Phosphorus Magnesium Total Bilirubin AST ALT Alkaline Phosphatase Total Protein Albumin Lipase Beta-Hydroxybutyrate Beta HCG, Quant Urine Color Urine Appearance Urine pH Ur Specific [place] Urine Protein Urine Glucose (UA) Urine Ketones Urine Blood Urine Nitrite Ur Leukocyte Esterase Urine RBC Urine WBC Ur Squamous Epith Cells Urine Bacteria Hyaline Casts Influenza Type A (PCR) Influenza Type B (PCR) RSV RNA Qual (PCR) SARS-CoV-2 RNA (RT-PCR) 09/27/23 09/28/23 09/28/23 22:53 00:11 00:59 WBC RBC Hgb Hct MCV MCH MCHC RDW Plt Count MPV Immature Gran % (Auto) Neut % (Auto) Lymph % (Auto) [place] % (Auto) Eos % (Auto) Baso % (Auto) Lymph # (Auto) [place] # (Auto) Eos # (Auto) Baso # (Auto) Abs Immat Gran (auto) Absolute Neuts (auto) Absolute Nucleated RBC Nucleated RBC % (auto) VBG pH VBG pCO2 VBG pO2 VBG HCO3 VBG O2 Saturation VBG Base Excess Sodium Potassium Chloride Carbon Dioxide Anion Gap BUN Creatinine Estim Creat Clear Calc Estimated GFR POC Glucose 197 H 162 H 150 H Random Glucose Calcium Phosphorus Magnesium Total Bilirubin AST ALT Alkaline Phosphatase Total Protein Albumin Lipase Beta-Hydroxybutyrate Beta HCG, Quant Urine Color Urine Appearance Urine pH Ur Specific [place] Urine Protein Urine Glucose (UA) Urine Ketones Urine Blood Urine Nitrite Ur Leukocyte Esterase Urine RBC Urine WBC Ur Squamous Epith Cells Urine Bacteria Hyaline Casts Influenza Type A (PCR) Influenza Type B (PCR) RSV RNA Qual (PCR) SARS-CoV-2 RNA (RT-PCR) 09/28/23 09/28/23 09/28/23 01:55 03:01 04:03 WBC RBC Hgb Hct MCV MCH MCHC RDW Plt Count MPV Immature Gran % (Auto) Neut % (Auto) Lymph % (Auto) [place] % (Auto) Eos % (Auto) Baso % (Auto) Lymph # (Auto) [place] # (Auto) Eos # (Auto) Baso # (Auto) Abs Immat Gran (auto) Absolute Neuts (auto) Absolute Nucleated RBC Nucleated RBC % (auto) VBG pH VBG pCO2 VBG pO2 VBG HCO3 VBG O2 Saturation VBG Base Excess Sodium Potassium Chloride Carbon Dioxide Anion Gap BUN Creatinine Estim Creat Clear Calc Estimated GFR POC Glucose 153 H 109 138 H Random Glucose Calcium Phosphorus Magnesium Total Bilirubin AST ALT Alkaline Phosphatase Total Protein Albumin Lipase Beta-Hydroxybutyrate Beta HCG, Quant Urine Color Urine Appearance Urine pH Ur Specific [place] Urine Protein Urine Glucose (UA) Urine Ketones Urine Blood Urine Nitrite Ur Leukocyte Esterase Urine RBC Urine WBC Ur Squamous Epith Cells Urine Bacteria Hyaline Casts Influenza Type A (PCR) Influenza Type B (PCR) RSV RNA Qual (PCR) SARS-CoV-2 RNA (RT-PCR) 09/28/23 09/28/23 09/28/23 04:58 05:52 05:53 WBC 6.4 RBC 3.48 L Hgb 9.7 L Hct 30.0 L MCV 86.2 MCH 27.9 MCHC 32.3 RDW 12.8 Plt Count 253 MPV 10.5 Immature Gran % (Auto) 0.2 Neut % (Auto) 56.8 Lymph % (Auto) 35.7 [place] % (Auto) 5.6 Eos % (Auto) 1.1 Baso % (Auto) 0.6 Lymph # (Auto) 2.3 [place] # (Auto) 0.4 Eos # (Auto) 0.1 Baso # (Auto) 0.0 Abs Immat Gran (auto) 0.01 Absolute Neuts (auto) 3.7 Absolute Nucleated RBC 0.000 Nucleated RBC % (auto) 0.0 VBG pH 7.45 H VBG pCO2 35 VBG pO2 68 VBG HCO3 25 VBG O2 Saturation 95.0 VBG Base Excess 1.7 Sodium 140 Potassium 3.8 Chloride 109 H Carbon Dioxide 22 Anion Gap 13 BUN 11 Creatinine 0.70 Estim Creat Clear Calc 102.2 Estimated GFR > 60 POC Glucose 162 H Random Glucose 158 H Calcium 9.3 Phosphorus 3.0 Magnesium 1.8 Total Bilirubin AST ALT Alkaline Phosphatase Total Protein Albumin Lipase Beta-Hydroxybutyrate Beta HCG, Quant Urine Color Urine Appearance Urine pH Ur Specific [place] Urine Protein Urine Glucose (UA) Urine Ketones Urine Blood Urine Nitrite Ur Leukocyte Esterase Urine RBC Urine WBC Ur Squamous Epith Cells Urine Bacteria Hyaline Casts Influenza Type A (PCR) Influenza Type B (PCR) RSV RNA Qual (PCR) SARS-CoV-2 RNA (RT-PCR) 09/28/23 09/28/23 06:05 07:14 WBC RBC Hgb Hct MCV MCH MCHC RDW Plt Count MPV Immature Gran % (Auto) Neut % (Auto) Lymph % (Auto) [place] % (Auto) Eos % (Auto) Baso % (Auto) Lymph # (Auto) [place] # (Auto) Eos # (Auto) Baso # (Auto) Abs Immat Gran (auto) Absolute Neuts (auto) Absolute Nucleated RBC Nucleated RBC % (auto) VBG pH VBG pCO2 VBG pO2 VBG HCO3 VBG O2 Saturation VBG Base Excess Sodium Potassium Chloride Carbon Dioxide Anion Gap BUN Creatinine Estim Creat Clear Calc Estimated GFR POC Glucose 152 H 134 H Random Glucose Calcium Phosphorus Magnesium Total Bilirubin AST ALT Alkaline Phosphatase Total Protein Albumin Lipase Beta-Hydroxybutyrate Beta HCG, Quant Urine Color Urine Appearance Urine pH Ur Specific [place] Urine Protein Urine Glucose (UA) Urine Ketones Urine Blood Urine Nitrite Ur Leukocyte Esterase Urine RBC Urine WBC Ur Squamous Epith Cells Urine Bacteria Hyaline Casts Influenza Type A (PCR) Influenza Type B (PCR) RSV RNA Qual (PCR) SARS-CoV-2 RNA (RT-PCR) Progress Note: A&P Assessment and plan (1) Diabetic ketoacidosis: Status: Acute Plan Patient is a 36 Y F with insulin-dependent diabetes mellitus c/b prior diabetic ketoacidosis, unable to obtain long-acting insulin, presenting initially on 05 PM w/ diabetic ketoacidosis N: no acute issues CV: no acute issues R: no acute issues GI: to advance to diabetic diet as tolerated : acute renal insufficiency, improving H: no acute issues ID: infectious w/o grossly reassuring E: insulin-dependent diabetes mellitus; previously on DKA protocol; to start SQ insulin; will need case management to coordinate outpatient insulin P: no acute issues Quality Stroke Does the patient have a stroke diagnosis?: No VTE Prior VTE?: No VTE Risk Level:: Medical - moderate - high VTE Device Contraindication: N/A - Device Ordered VTE Drug Contraindication: N/A - Med Ordered
[2023-09-28] MEDS: Insulin Glargine,Hum.rec.anlog 100 UNIT/ML 10 ML VIAL 15 UNIT SUBCUT (07:55)
[2023-09-28 11:27] LABS: Glucose, Whole Blood 414 mg/dL (60-115)
[2023-09-28] MEDS: Insulin Regular, Human 100 UNIT/ML 3 ML VIAL 10 UNIT IVPUSH (11:38)
[2023-09-28 12:21] LABS: Glucose, Whole Blood 350 mg/dL (60-115)
[2023-09-28] MEDS: Insulin Lispro 100 UNIT/ML 3 ML VIAL SUBCUT ×6 (12:29→20:25)
[2023-09-28 13:45] LABS: Glucose, Whole Blood 279 mg/dL (60-115)
[2023-09-28 14:24] LABS: Glucose, Whole Blood 263 mg/dL (60-115)
--- NOTE | 2023-09-28 15:07 | MHC.CM.PN ---
EMR REVIEWED, PT ADMITTED W/DKA AND REPORTS THAT SHE WAS WITHOUT HER INSULIN SYRINGES AND THATS WHY HER BS'S WERE SO HIGH, PT REQUESTING REFERRAL TO [facility] TO SEE IF SHE CAN UPGRADE FROM [facility], PT DOES WORK AND HAS BEEN PREVIOUSLY BEEN TOLD SHE MAKES TOO MUCH MONEY HOWEVER DOES PAY FOR CHILDCARE FOR 9YO SON. REFERRAL FAXED ON 09/28/23. PT REPORTS SHE IS INDEP W/ALL CARE, GLUCOMETER/INSULIN SUPPLIES ARE ONLY DME, PT EDUCATED AND DECLINES HCP AND PCP ON FILE VERIFIED. PT REPORTS SHE HAS BEEN GETTING MEDS FROM [facility] AND WAS ALSO EDUCATED ON USING [facility] FOR SCRIPTS AND WALK IN CLINIC PT REPORTS SHE DOES NOT WANT TO PAY OOP FOR PCP VISITS. PT'S MOTHER STAYING W/PT'S SON.
[2023-09-28 15:45] LABS: Glucose, Whole Blood 243 mg/dL (60-115)
[2023-09-28 16:43] LABS: Glucose, Whole Blood 282 mg/dL (60-115)
[2023-09-28 17:41] LABS: Glucose, Whole Blood 274 mg/dL (60-115)
[2023-09-28 20:02] LABS: Glucose, Whole Blood 186 mg/dL (60-115)
[2023-09-29 03:13] VITALS: BP 106/59; PULSE 82; RESP 16; TEMP 36.6; O2SAT 96
[2023-09-29] MEDS: Heparin Sodium,Porcine 5,000 UNIT/ML VIAL 5000 UNIT SUBCUT (05:16)
[2023-09-29 07:18] LABS: Glucose, Whole Blood 373 mg/dL (60-115)
[2023-09-29 07:31] VITALS: BP 114/67; PULSE 89; RESP 18; TEMP 36.9; O2SAT 97
[2023-09-29] MEDS: Insulin Lispro 100 UNIT/ML 3 ML VIAL SUBCUT ×3 (07:49→11:53)
[2023-09-29] MEDS: Insulin Glargine,Hum.rec.anlog 100 UNIT/ML 10 ML VIAL 25 UNIT SUBCUT (09:01)
[2023-09-29 09:18] LABS: Anion Gap 18 (12-20); Blood Urea Nitrogen 10 mg/dL (9-16); Calcium 9.3 mg/dL (8.4-10.2); Carbon Dioxide 20 mmol/L (22-29); Chloride 101 mmol/L (96-108); Creatinine Clr Calc Pharmacy 94.1; Estimated Glomerular Filt Rate > 60; Glucose Random 402 mg/dL (60-115); Sodium 135 mmol/L (135-145)
[2023-09-29 10:55] LABS: Glucose, Whole Blood 144 mg/dL (60-115)
[2023-09-29 11:05] LABS: Estimated Average Glucose 260 mg/dL; Hemoglobin A1c % 10.7 % (<6.0)
--- NOTE | 2023-09-29 12:11 | P.DS_ITS ---
DS: Providers Provider Date of Service: 09/29/23 Date of admission: 09/27/23 19:20 Primary care physician: ANGIE Acosta DS: Diagnosis Discharge Diagnosis (1) Diabetic ketoacidosis: Status: Acute (2) Type 1 diabetes mellitus: Status: Acute DS: Summary Hospital Course Hospital Course: Admission note Ms. Anderson is a 36-year-old female with a past medical history of diabetes mellitus type I, DKA, gastroparesis? who? presented to the emergency room with nausea and vomiting, weakness, lightheadedness and dizziness. Additionally, she developed rhinorrhea, heartburn and abdominal pain. The pt reported that her insurance would not cover Lantus. She has been taking Novolin R 25 units before lunch and at bedtime for the last 2 months.? Laboratory data was significant for? VBG 7.//53/12.? Serum sodium 131, potassium 5.4, chloride 93, serum bicarb 14, and anion gap 29, BUN 20, random glucose 749.? ED course: The patient received 2 L of crystalloids, 10 units IV push insulin, Zofran 4mg,? and was started on an insulin drip. The patient was admitted to ICU for further management of DKA requiring insulin drip. Hospital course The patient was admitted to ICU for insulin drip , IV fluids with good response as anion gap closed and acidemia resolved. She was able to tolerate diet and her sugar levels controlled in 200s with no hypoglycemia. It is noted that she takes Novolin R at home and missed a dose or two as she privatly paying for it as insurance refused to cover her Lantus and Humalog. Will send her scripts for both prior to discharge and make sure she has insulin at home before she leaves. She will follow with her PCP after a week with recorded readings of sugar for further adjustment of her Insulin dosage. Discharge Plan Start Lantus 25 units daily Start Sliding scale insulin as explained recored your blood sugar readings 4 times daily for 1 week and discuss with PCP\health services information specialist for adjustment of dosages Zofran as needed for nausea Famotidine for heartburn Time Attestation Discharge Coordination Time (in mins): 47 Quality: Safe Use of Opioids Does Pt have an Active Cancer Diagnosis on the Problem List?: No Quality: Stroke Does the patient have a stroke diagnosis?: No Physical Exam Vital Signs: Vital Signs: Last Vital Signs Temp 98.4 F 09/29/23 07:31 Pulse 89 09/29/23 07:31 Resp 18 09/29/23 07:31 BP 114/67 09/29/23 07:31 Pulse Ox 97 09/29/23 07:31 O2 Del Method Room Air 09/29/23 07:31 BMI result Body Mass Index 28.4 Const: Other: Constitutional : Awake, interactive, not in distress Neck : Normal inspection, Supple Cardiovascular : RRR, no JVP, no lower extremity edema Respiratory : good bilateral air entry, no crackles, wheezes or rhonchi Gastrointestinal: soft, lax, Normal bowel sounds, Non tender Skin : Warm, Dry Neurological : Alert & oriented x3, No focal deficit DS: Data Data Completed and Pending Labs on day of discharge: Laboratory Results - last 24 hr 09/28/23 09/28/23 09/28/23 05:53 12:17 13:41 Sodium Potassium Chloride Carbon Dioxide Anion Gap BUN Creatinine Estim Creat Clear Calc Estimated GFR POC Glucose 350 H* 279 H Random Glucose Estimat Average Glucose 260 Hemoglobin A1c % 10.7 H Calcium 09/28/23 09/28/23 09/28/23 14:19 15:41 16:39 Sodium Potassium Chloride Carbon Dioxide Anion Gap BUN Creatinine Estim Creat Clear Calc Estimated GFR POC Glucose 263 H 243 H 282 H Random Glucose Estimat Average Glucose Hemoglobin A1c % Calcium 09/28/23 09/28/23 09/29/23 17:37 19:58 07:06 Sodium Potassium Chloride Carbon Dioxide Anion Gap BUN Creatinine Estim Creat Clear Calc Estimated GFR POC Glucose 274 H 186 H 373 H* Random Glucose Estimat Average Glucose Hemoglobin A1c % Calcium 09/29/23 09/29/23 08:11 10:46 Sodium 135 Potassium 4.0 Chloride 101 Carbon Dioxide 20 L Anion Gap 18 BUN 10 Creatinine 0.76 Estim Creat Clear Calc 94.1 Estimated GFR > 60 POC Glucose 144 H Random Glucose 402 H* Estimat Average Glucose Hemoglobin A1c % Calcium 9.3 Discharge Plan Discharge Anticipated Discharge Date/Time: 09/29/23 12:01 Patient Disposition: Home, Self-Care Discharge Diagnosis: Diabetic Ketoacidosis Referrals: Val Roberto FNP [Primary Care Provider] - 1 Week Discharge Medications: New insulin lispro [Humalog KwikPen Insulin] 100 unit/mL insulin pen 1 sliding scale dose subcut USEASDIRECTD Qty: 15 2RF insulin glargine [Lantus Solostar U-100 Insulin] 100 unit/mL (3 mL) insulin pen 25 unit subcut QAM Qty: 15 2RF famotidine 20 mg tablet 20 mg PO DAILY Qty: 90 0RF ondansetron 4 mg tablet,disintegrating 4 mg PO Q8H PRN (Reason: nausea and vomiting) Qty: 30 1RF Continued (DME) FreeStyle Mari 3 Sensor Device See Rx Instructions .Route Qty: 2 5RF Rx Instructions: As directed change every 14 days Discontinued insulin glargine [Lantus U-100 Insulin] 100 unit/mL solution 25 unit subcut BID@1300,2100 insulin lispro [Humalog U-100 Insulin] 100 unit/mL solution 25 unit subcut TIDAC PRN (Reason: Hyperglycemia) Protocol: Insulin Correction Scale Less than or equal to 110 ---- Give (units): 0 111 to 150 Give (units): 0 151 to 200 Give (units): 2 201 to 250 Give (units): 4 251 to 300 Give (units): 6 301 to 350 Give (units): 8 Greater than 350 Give (units): 10 Call MD if Blood Glucose > : 350 Discharge Orders: Discharge Order (Routine); Ordered 09/29/23 Ordered By: Tommy Villa Diet: Diabetic diet Activity on Discharge: As tolerated Stand Alone Forms: Patient Portal Discharge page Print Language: Slovenian Care Plan Goals: Read below Health Concerns: Read below Plan of Treatment: Read below Assessment: Start Lantus 25 units daily Start Sliding scale insulin as explained recored your blood sugar readings 4 times daily for 1 week and discuss with PCP\health services information specialist for adjustment of dosages Zofran as needed for nausea Famotidine for heartburn Discharge Date/Time: 09/29/23 14:30
[2023-10-22 11:22] LABS: Glucose, Whole Blood > 600 mg/dL (60-115)
== END 2023-09-29 14:30 | disposition home or self-care (01) | DRG 639 ==
LOC: HO.ED 19:04 → HO.EDOVER 19:29 → HO.ICU 19:30 → HO.IMC 09-28 11:06 → HO.ICU 09-28 11:11 → HO.S3 09-28 11:21 → HO.ICU 09-28 11:48 → HO.IMC 09-28 17:51
PROVIDERS: Internal Medicine Critical Care Medicine; Registered Nurse Emergency; Admitting Provider Nurse Practitioner Family; Emergency Provider Emergency Medicine Emergency Medical Services; PCP Nurse Practitioner Family; Visit Provider Student in an Organized Health Care Education/Training Program
DX: E10.10 Type 1 diabetes mellitus with ketoacidosis without coma (principal); K21.9 Gastro-esophageal reflux disease without esophagitis; Z20.822 Contact with and (suspected) exposure to COVID-19
CPT/HCPCS: 0241U; 36415; 80048; 80053; 81001; 82010; 82803; 82947; 83036; 83690; 83735; 84100; 84702; 85025; 93005; 99285; J1644; J2405; J7120

== ENCOUNTER → 2023-09-27 17:17 | Outpatient (BNV) | payer SELFPAY | PROVIDERS: Admitting Provider Nurse Practitioner Family; Emergency Provider Emergency Medicine Emergency Medical Services; PCP Nurse Practitioner Family; Visit Provider Internal Medicine | DX: R00.0 Tachycardia, unspecified (principal) | CPT/HCPCS: 93010 ==

== ENCOUNTER → 2023-09-27 19:20 | Outpatient (BNV) | payer SELFPAY | PROVIDERS: Admitting Provider Nurse Practitioner Family; Emergency Provider Emergency Medicine Emergency Medical Services; PCP Nurse Practitioner Family; Visit Provider Nurse Practitioner Family | DX: E10.10 Type 1 diabetes mellitus with ketoacidosis without coma (principal); E11.10 Type 2 diabetes mellitus with ketoacidosis without coma | CPT/HCPCS: 99222; 99291 ==

== ENCOUNTER → 2023-09-27 19:20 | Outpatient (BNV) | payer SELFPAY | PROVIDERS: Admitting Provider Nurse Practitioner Family; Emergency Provider Emergency Medicine Emergency Medical Services; PCP Nurse Practitioner Family; Visit Provider Student in an Organized Health Care Education/Training Program | DX: E10.10 Type 1 diabetes mellitus with ketoacidosis without coma (principal) | CPT/HCPCS: 99239 ==

== ENCOUNTER 2023-11-25 14:19 | Inpatient (IN) | payer SELFPAY ==
[2023-11-25] VITALS (7 sets, daily range): BP systolic 100–127; BP diastolic 60–71; PULSE 90–114; RESP 14–24; TEMP 36.7–37; O2SAT 98–100; BMI 27.4; BMI 29.2
--- NOTE | 2023-11-25 14:39 | ED.GENADULT ---
HPI - General Adult General Chief complaint: Chest Pain Stated complaint: dry mouth heartburn lump in head Time Seen by Provider: 11/25/23 16:59 Source: patient Mode of arrival: ambulatory Limitations: no limitations History of Present Illness HPI narrative: This is a 38-year-old woman with a past medical history type 1 diabetes mellitus, DKA, gastroparesis who presents for evaluation nausea/vomiting and chest pain. She states that she takes insulin twice daily once in the morning and at night. She reports taking her insulin last night. She reports going to work this morning forgetting to take her insulin. She reports noting increased urination and thirst over the last day. She states no dysuria or urinary urgency. She states no flank pain, fevers or chills. She states no abdominal pain. She reports sensation of ?heartburn ?with an episodes of nausea. She states no dyspnea. She states no headache, neck pain or paresthesias. She reports noting a ?bump ?to the top left side of her head, which she reports is tender to the touch. She states noticing this over the last 2-3 nights when lying on a pillow at night. She states no previous abscess or cellulitis. Related Data Previous Rx's ?Medication ?Instructions ?Recorded blood-glucose sensor (FreeStyle #2 ea 02/12/23 Amri 3 Sensor device) famotidine 20 mg tablet 20 mg PO DAILY #90 tabs 09/29/23 insulin glargine 100 unit/mL (3 25 unit (0.25 mL) subcut QAM #15 mL 09/29/23 mL) subcutaneous pen (Lantus Solostar U-100 Insulin) insulin lispro 100 unit/mL 1 sliding scale dose subcut 09/29/23 subcutaneous pen (Humalog KwikPen USEASDIRECTD #15 mL (U-100) Insulin) ondansetron 4 mg disintegrating 4 mg PO Q8H PRN nausea and 09/29/23 tablet vomiting #30 tabs Allergies Allergy/AdvReac Type Severity Reaction Status Date / Time No Known Allergies Allergy Verified 11/25/23 14:41 [No Known Allergies*] Review of Systems Review of Systems: ROS as per [facility] Past Medical History Medical History (Updated 11/25/23 @ 18:45 by Osman Bermudez MD) Encounter to establish care Diabetic ketoacidosis Gastroparesis MATTHEW (acute kidney injury) Diabetes Surgical History Hx of cataract surgery No pertinent past surgical history Family History Family History Mother No known problems Father Diabetes Social History Social History Household Members: Family Housing: House Do you presently have visiting nurse or other home services: No Patient Tobacco Use Status: Never used Tobacco Smoked in Last 30 Days: No e-Cigarette/Vaping Use: Never Used Use of substances other than those prescribed or required for medical reasons: No Advance Directives: No Do you have a plan to hurt others: No Plan service: No Current occupational status: employed Cognitive needs: No Hearing needs: No Vision needs: No Physical Exam ED Vital Signs: Vital Signs - 24 hr 11/25/23 14:37 11/25/23 17:24 Temperature 98.6 F 98.1 F Pulse Rate 113 H 111 H Respiratory Rate 14 24 H Blood Pressure 113/61 113/60 Pulse Oximetry 100 99 Oxygen Delivery Method Room Air Room Air BMI result Body Mass Index 27.4 Gen: NAD, AOx3 HEENT: NCAT, EOMI, normal conjunctiva, tacky oral mucosa Skin: Approximate 1-1/2 cm round erythematous lesion to left occipital parietal scalp with tenderness to palpation without circumferential or extending erythema without spontaneous purulence CV: Tachycardic rate, regular rhythm Pulm: CTAB, no increased work of breathing GI: Soft, NTND, no rebound, guarding or rigidity Neuro: Grossly non focal Course Course Course Narrative: RME performed by Apolonia Ruth PA-C. Patient is a 38 year old assigned female at presenting to the emergency department with a dry mouth and heartburn. Detailed physical exam and review of systems are deferred to the respiratory clinician. EKG, labs, imaging, and swabs ordered. Patient placed back in the waiting room pending room availability and results. Medications Administered Generic Name Dose Route Start Last Admin Trade Name Freq PRN Reason Stop Dose Admin Insulin Human Regular 100 unit in 100 mls @ 6 mls/hr 11/25/23 17:15 11/25/23 18:10 Myxredlin IVCONT 6 unit/hr .[id number] SHANNAN 6 mls/hr Administration Protocol 6 UNIT/HR Discontinued Medications Generic Name Dose Route Start Last Admin Trade Name Keisha PRN Reason Stop Dose Admin Lactated Ringer's 1,000 mls @ 999 mls/hr 11/25/23 17:02 11/25/23 17:21 Lr IV 11/25/23 18:02 999 mls/hr .Q1H1M ONE Administration Insulin Human Regular 7 unit 11/25/23 17:03 11/25/23 17:53 Insulin Regular, Human 100 Unit/Ml 3 Ml Vial 0.1 unit/kg (7 unit) 11/25/23 17:04 Not Given IVPUSH ONCE ONE Insulin Human Regular 7 unit 11/25/23 17:45 11/25/23 17:54 Insulin Regular, Human 100 Unit/Ml 10 Ml Vial 0.1 unit/kg (7 unit) 11/25/23 17:46 7 unit IVPUSH Administration ONCE ONE Ondansetron HCl 4 mg 11/25/23 17:21 11/25/23 17:40 Ondansetron Hcl 4 Mg/2 Ml Vial IVPUSH 11/25/23 17:22 4 mg ONCE ONE Administration Procedures Abscess I/D Site: scalp Side (if applicable): left Sedation/analgesia: none Local Anesthetic: lidocaine 1% Amount of anesthesia used (mL): 3 Technique: incised with blade Amount of fluid expressed (mL): 2 Sent for culture/gram staining?: No Irrigation: Yes Packing used?: none EJ/Peripheral Line Arm L: Skin Cleansed in Sterile Fashion: Yes Size (gauge): 20 IV Secured and Dressing Applied: Yes Patient Tolerated Procedure: well Additional Comments: Ultrasound guided 20G 2.5 inch peripheral IV Medical Decision Making Medical Decision Making [facility] Narrative: Differential diagnosis includes, but is not limited to diabetic ketoacidosis, cellulitis, abscess, acute coronary syndrome, acute kidney injury, electrolyte derangement. Patient is afebrile and hemodynamically stable on room air. Exam as above is notable for a scalp abscess, which is incised and drained with a purulent material expressed. I suspect that this infection contributing to the patient's development of diabetic ketoacidosis along with her missed dose of insulin this morning. Patient is provided a dose of vancomycin here given abscess associated with localized erythema purulence. I reviewed and interpreted labs, which are notable consistent with diabetic ketoacidosis with a serum glucose of 778 (and subsequent POC glucose 573) venous blood gas consistent with high anion gap metabolic acidosis with pH 7.17, pCO2 29 and HCO3 of 11. Of note, potassium is 5.3, but there are no electrocardiographic changes of hyperkalemia. Anion gap of 24, which is likely multifactorial and secondary to elevated BUN of 20 and largely beta hydroxybutyrate of 6.53. Otherwise labs including troponin are reassuring. I reviewed and interpreted EKG, which is unremarkable for any acute findings. Patient's case and management are discussed with the admitting doctor of nurse anesthesia practice, Dr. Bernal. Patient is admitted to the ICU for further workup and management. Critical Care Time: A total of 60 minutes spent in direct patient care with coordinating critical resuscitation, procedures, reviewing records, discussing with consultants, reviewing labs, and/or managing patient. Admission/Observation Consideration of admission/observation: Escalation of care including admission/observation considered Consult Healthcare Provider Patient's case and management are discussed with the admitting doctor of nurse anesthesia practice, Dr. Bernal. Lab Data MDM Lab Attestation statement: I reviewed the patient's lab results. 11/25/23 15:12 11/25/23 15:12 Labs: Lab Results 11/25/23 11/25/23 11/25/23 Range/Units 15:12 17:06 17:17 WBC 8.3 (4.8-10.8) X10*3/uL RBC 4.40 D (4.20-5.50) X10*6/uL Hgb 12.1 D (12.0-16.0) g/dl Hct 37.3 D (37.0-47.0) % MCV 84.8 (80.0-98.0) fL MCH 27.5 (27.0-33.0) pg MCHC 32.4 (31.0-35.0) g/dl RDW 12.5 (11.0-16.0) % Plt Count 205 (160-400) X10*3/uL MPV 11.7 (9.4-12.3) fL Immature Gran % (Auto) 0.1 (0.0-0.4) % Neut % (Auto) 84.1 H (45-73) % Lymph % (Auto) 12.7 L (20-40) % Loving % (Auto) 2.3 (2-11) % Eos % (Auto) 0.6 (0-4) % Baso % (Auto) 0.2 (0-2) % Lymph # (Auto) 1.1 L (1.2-4.9) X10*3/uL Loving # (Auto) 0.2 (0.1-1.2) X10*3/uL Eos # (Auto) 0.1 (0.0-0.4) X10*3/uL Baso # (Auto) 0.0 (0.0-0.2) X10*3/uL Abs Immat Gran (auto) 0.01 (0.00-0.03) X10*3/uL Absolute Neuts (auto) 7.0 (2.0-8.3) x10*3/uL Absolute Nucleated RBC 0.000 (0.0-0.012) X10*3/uL Nucleated RBC % (auto) 0.0 (0.0-0.2) /100WBC VBG pH (7.32-7.43) VBG pCO2 mmHg VBG pO2 mmHg VBG HCO3 (22-26) mmol/L VBG O2 Saturation % VBG Base Excess mmol/L Sodium 130 L (135-145) mmol/L Potassium 5.3 H D (3.3-5.1) mmol/L Chloride 95 L (96-108) mmol/L Carbon Dioxide 16 L (22-29) mmol/L Anion Gap 24 H (12-20) BUN 20 H (9-16) mg/dL Creatinine 1.23 (0.5-1.4) mg/dL Estim Creat Clear Calc 56.6 Estimated GFR 49 POC Glucose 573 H* (60-115) mg/dL Random Glucose 778 H* (60-115) mg/dL Calcium 9.7 (8.4-10.2) mg/dL Magnesium 2.1 (1.6-2.6) mg/dL Total Bilirubin 1.5 H (0.0-1.0) mg/dL AST 15 (5-31) U/L ALT 18 (0-31) U/L Alkaline Phosphatase 81 (39-117) U/L Troponin I High Sens < 2.7 (<3.5-17.0) ng/L Total Protein 8.0 (6.5-8.0) g/dL Albumin 4.0 (3.5-5.0) g/dL Lipase 11 (8-78) U/L Beta-Hydroxybutyrate 6.53 H (0.02-0.27) mmol/L Urine Color Yellow Urine Appearance Clear Urine pH 5.5 (5.0-9.0) Ur Specific [place] 1.025 (1.005-1.025) Urine Protein Negative (Neg-Trace) mg/dL Urine Glucose (UA) >=1000 H (Negative) mg/dL Urine Ketones >=160 (Negative) mg/dL Urine Blood Moderate (2+) H (Negative) Urine Nitrite Negative (Negative) Ur Leukocyte Esterase Negative (Negative) Urine RBC 3-5 H (0-2) /HPF Urine WBC 0-5 (0-5) /HPF Ur Squamous Epith Cells 3-5 (0-2) /HPF Urine Bacteria 1+ (None Seen) Hyaline Casts 0-2 (0-2) /LPF Influenza Type A (PCR) NEGATIVE (Negative) Influenza Type B (PCR) NEGATIVE (Negative) RSV RNA Qual (PCR) NEGATIVE (Negative) SARS-CoV-2 RNA (RT-PCR) NEGATIVE (Negative) 11/25/23 Range/Units 17:39 WBC (4.8-10.8) X10*3/uL RBC (4.20-5.50) X10*6/uL Hgb (12.0-16.0) g/dl Hct (37.0-47.0) % MCV (80.0-98.0) fL MCH (27.0-33.0) pg MCHC (31.0-35.0) g/dl RDW (11.0-16.0) % Plt Count (160-400) X10*3/uL MPV (9.4-12.3) fL Immature Gran % (Auto) (0.0-0.4) % Neut % (Auto) (45-73) % Lymph % (Auto) (20-40) % Loving % (Auto) (2-11) % Eos % (Auto) (0-4) % Baso % (Auto) (0-2) % Lymph # (Auto) (1.2-4.9) X10*3/uL Loving # (Auto) (0.1-1.2) X10*3/uL Eos # (Auto) (0.0-0.4) X10*3/uL Baso # (Auto) (0.0-0.2) X10*3/uL Abs Immat Gran (auto) (0.00-0.03) X10*3/uL Absolute Neuts (auto) (2.0-8.3) x10*3/uL Absolute Nucleated RBC (0.0-0.012) X10*3/uL Nucleated RBC % (auto) (0.0-0.2) /100WBC VBG pH 7.17 L* (7.32-7.43) VBG pCO2 29 mmHg VBG pO2 53 mmHg VBG HCO3 11 L (22-26) mmol/L VBG O2 Saturation 72.0 % VBG Base Excess -16.0 mmol/L Sodium (135-145) mmol/L Potassium (3.3-5.1) mmol/L Chloride (96-108) mmol/L Carbon Dioxide (22-29) mmol/L Anion Gap (12-20) BUN (9-16) mg/dL Creatinine (0.5-1.4) mg/dL Estim Creat Clear Calc Estimated GFR POC Glucose (60-115) mg/dL Random Glucose (60-115) mg/dL Calcium (8.4-10.2) mg/dL Magnesium (1.6-2.6) mg/dL Total Bilirubin (0.0-1.0) mg/dL AST (5-31) U/L ALT (0-31) U/L Alkaline Phosphatase (39-117) U/L Troponin I High Sens (<3.5-17.0) ng/L Total Protein (6.5-8.0) g/dL Albumin (3.5-5.0) g/dL Lipase (8-78) U/L Beta-Hydroxybutyrate (0.02-0.27) mmol/L Urine Color Urine Appearance Urine pH (5.0-9.0) Ur Specific [place] (1.005-1.025) Urine Protein (Neg-Trace) mg/dL Urine Glucose (UA) (Negative) mg/dL Urine Ketones (Negative) mg/dL Urine Blood (Negative) Urine Nitrite (Negative) Ur Leukocyte Esterase (Negative) Urine RBC (0-2) /HPF Urine WBC (0-5) /HPF Ur Squamous Epith Cells (0-2) /HPF Urine Bacteria (None Seen) Hyaline Casts (0-2) /LPF Influenza Type A (PCR) (Negative) Influenza Type B (PCR) (Negative) RSV RNA Qual (PCR) (Negative) SARS-CoV-2 RNA (RT-PCR) (Negative) Independent Interpretation I performed an independent interpretation of an: EKG Discharge Plan Discharge Clinical Impression: Diabetic ketoacidosis, Abscess of scalp Patient Disposition: Admitted As Inpatient
--- NOTE | 2023-11-25 14:41 | ECG_ITS ---
Test Reason : CP Blood Pressure : / mmHG Vent. Rate : 105 BPM Atrial Rate : 105 BPM P-R Int : 138 ms QRS Dur : 070 ms QT Int : 340 ms P-R-T Axes : 061 016 006 degrees QTc Int : 449 ms Sinus tachycardia Otherwise normal ECG When compared with ECG of 27-SEP-2023 17:35, No significant change was found Referred By: Apolonia Ruth Electronically Signed By:MILTON MCKEE
[2023-11-25 15:18] LABS: MANUAL DIFF FLAG NO
[2023-11-25 15:19] LABS: Basophils Percent Auto 0.2 % (0-2); Eosinophils Absolute Auto 0.1 X10*3/uL (0.0-0.4); Eosinophils Percent Auto 0.6 % (0-4); Hematocrit 37.3 % (37.0-47.0); Hemoglobin 12.1 g/dl (12.0-16.0); Imm Gran Abs Auto 0.01 X10*3/uL (0.00-0.03); Imm Gran Pct Auto 0.1 % (0.0-0.4); Lymphocytes Absolute Auto 1.1 X10*3/uL (1.2-4.9); Lymphocytes Percent Auto 12.7 % (20-40); Mean Corpuscular HGB Conc 32.4 g/dl (31.0-35.0); Mean Corpuscular Hemoglobin 27.5 pg (27.0-33.0); Mean Corpuscular Volume 84.8 fL (80.0-98.0); Mean Platelet Volume 11.7 fL (9.4-12.3); Monocytes Absolute Auto 0.2 X10*3/uL (0.1-1.2); Monocytes Percent Auto 2.3 % (2-11); Neutrophils Percent Auto 84.1 % (45-73); Platelet Count 205 X10*3/uL (160-400); Red Cell Distribution Width 12.5 % (11.0-16.0); White Blood Count 8.3 X10*3/uL (4.8-10.8)
[2023-11-25 15:39] LABS: Alanine Aminotransferase 18 U/L (0-31); Alkaline Phosphatase 81 U/L (39-117); Anion Gap 24 (12-20); Aspartate Amino Transferase 15 U/L (5-31); Bilirubin Total 1.5 mg/dL (0.0-1.0); Blood Urea Nitrogen 20 mg/dL (9-16); Calcium 9.7 mg/dL (8.4-10.2); Carbon Dioxide 16 mmol/L (22-29); Chloride 95 mmol/L (96-108); Creatinine Clr Calc Pharmacy 56.6; Estimated Glomerular Filt Rate 49; Glucose Random 778 mg/dL (60-115); Magnesium 2.1 mg/dL (1.6-2.6); Potassium 5.3 mmol/L (3.3-5.1); Sodium 130 mmol/L (135-145)
[2023-11-25 15:43] LABS: Troponin-I High Sensitivity < 2.7 ng/L (<3.5-17.0)
[2023-11-25 16:02] LABS: Influenza A PCR NEGATIVE (Negative); Influenza B PCR NEGATIVE (Negative); Resp Syncy Virus RNA Qual PCR NEGATIVE (Negative); SARS COV2 PCR INHOUSE NEGATIVE (Negative)
[2023-11-25 16:22] LABS: Beta-Hydroxybutyrate 6.53 mmol/L (0.02-0.27)
--- NOTE | 2023-11-25 17:07 | PC.NURSE ---
Pt. on court monitor at this time.
[2023-11-25 17:19] LABS: Appearance Urine Clear; Color Urine Yellow; Glucose Urine UA >=1000 mg/dL (Negative); Leukocyte Esterase Urine Negative (Negative); Nitrite Urine Negative (Negative); PH 5.5 (5.0-9.0); Specific Gravity - Urine 1.025 (1.005-1.025); UMIC TRIGGER UACC YES; Urine Blood Moderate (2+) (Negative); Urine Ketones >=160 mg/dL (Negative); Urine Protein Negative (Neg-Trace)
[2023-11-25 17:21] LABS: Glucose, Whole Blood 573 mg/dL (60-115)
[2023-11-25] MEDS: Lactated Ringers 1,000 ML 999 ML IV (17:21)
[2023-11-25 17:32] LABS: Bacteria Urine 1+ (None Seen); Hyaline Casts Urine 0-2 /LPF (0-2); WBC Urine 0-5 /HPF (0-5)
--- NOTE | 2023-11-25 17:38 | PC.NURSE ---
IVP Insulin delayed b/c none available in ED. Waiting on Pharmacy to stock
[2023-11-25] MEDS: ondansetron HCL 4 MG/2 ML VIAL IVPUSH (17:40)
[2023-11-25 17:48] LABS: VBG HCO3 11 mmol/L (22-26); VBG pCO2 29 mmHg; VBG pH 7.17 (7.32-7.43); VBG pO2 53 mmHg
[2023-11-25 17:48] LABS: Venous Blood Gas Refer to POC result
[2023-11-25 17:54] LABS: Lipase 11 U/L (8-78)
[2023-11-25] MEDS: Insulin Regular, Human 100 UNIT/ML 10 ML VIAL 7 UNIT IVPUSH (17:54)
--- NOTE | 2023-11-25 18:08 | PC.NURSE ---
Spoke with Desmond Bermudez MD to clarify insulin gtt order. verbally states that he wants insulin gtt started at 6U/hr.
[2023-11-25] MEDS: Insulin Regular/NS 100 UNIT/100 ML PLAST..BAG 6 UNIT IVCONT (18:10)
[2023-11-25 18:47] LABS: Glucose, Whole Blood 488 mg/dL (60-115)
[2023-11-25] MEDS: Heparin Sodium,Porcine 5,000 UNIT/ML VIAL 5000 UNIT SUBCUT (19:04)
[2023-11-25] MEDS: vancomycin HCL 1,000 MG, vancomycin HCL 750 MG in 0.9 % Sodium Chloride 500 ML 267.5 MG IV (19:09)
[2023-11-25 19:24] LABS: Glucose, Whole Blood 361 mg/dL (60-115)
[2023-11-25 19:25] LABS: Osmolality, Serum 323 mosm/kg (281-305)
[2023-11-25] MEDS: Lidocaine HCl 1 % 20 ML VIAL SUBCUT (19:26)
--- NOTE | 2023-11-25 19:47 | PHA.MEDREC ---
Pharmacy Consult ? Medication Reconciliation Pharmacy has completed the medication reconciliation.Spoke with patient in the ED. Patient takes Lantus 25 units in the morning and 25 units at bedtime. She will take an additional Lantus dose of 10-25 units with lunch depending on her BS. Patient is not on short acting insulin because insurance does not cover.
[2023-11-25] MEDS: Lactated Ringers 1,000 ML 150 ML IVCONT (19:51)
[2023-11-25 20:19] LABS: Glucose, Whole Blood 378 mg/dL (60-115)
[2023-11-25 20:29] LABS: VBG Base Excess -12.4 mmol/L; VBG HCO3 12 mmol/L (22-26); VBG pCO2 25 mmHg; VBG pH 7.29 (7.32-7.43); VBG pO2 60 mmHg
[2023-11-25 20:30] LABS: Venous Blood Gas Refer to POC result
--- NOTE | 2023-11-25 20:39 | PC.NURSE ---
RN to RN phone report given to Esau MARKET RESEARCH ASSISTANT, all questions answered, patient transferred to ICU with [facility] without incident.
--- NOTE | 2023-11-25 20:41 | PM.CCHP ---
History of Present Illness Date of Service: 11/25/23 Attending physician on admission: Joshua Bernal Chief Complaint: DKA Ms. Anderson is a 38-year-old female with a past medical history of diabetes mellitus type I, DKA, gastroparesis? who? presented to the emergency room with nausea and vomiting, and heartburn. Additionally, she reports a tender bump on the top left side of her head that she first noticed about 3 days ago. The pt reported that she forgot to take her insulin before going to work and began to experience increased urination and thirst throughout the day. Laboratory data was significant for? VBG 7.17//53/11.? Serum sodium 130, potassium 5.3, chloride 95, serum bicarb 16, and anion gap 24, BUN 20, random glucose 778, beta hydroxybutyrate 6.53, Serum osmo 323. UA negative for UTI. ED course: The patient received 1 L of crystalloids, 7 units IV push insulin, Zofran 4mg, Vancomycin 750mg? and was started on an insulin drip. I&D of scalp abscess performed in ED.? The patient was admitted to ICU for further management of DKA requiring insulin drip. 36-year-old female with history of diabetes mellitus type I presented with diabetic ketoacidosis requiring admission to the ICU for management of DKA. Review of Systems Review of Systems: Yes all other systems are reviewed and are negative Constitutional: Constitutional: Reports no additional constitutional complaints and Denies weakness Eyes: Eyes: Denies loss of vision ENT: Reports Normal hearing present and Denies dizziness Cardiovascular: Cardiovascular: Reports as per HPI Gastrointestinal: Gastrointestinal: Reports heartburn Genitourinary: Genitourinary: Reports as per HPI Musculoskeletal: Musculoskeletal: Denies muscle cramps, Denies muscle weakness, Denies numbness and Denies tingling Integumentary/Breasts: Skin/Breast: Reports other (abscess left scalp) Neurologic: Reports Normal hearing present, Denies dizziness, Denies loss of vision, Denies numbness, Denies tingling and Denies weakness Endocrine: Endocrine: Reports no additional endocrine complaints [facility] Past Medical History Medical History (Updated 11/25/23 @ 21:00 by Tali Heath NP) Encounter to establish care Diabetic ketoacidosis Gastroparesis MATTHEW (acute kidney injury) Diabetes Family History Family History Mother No known problems Father Diabetes Surgical History Surgical History Hx of cataract surgery No pertinent past surgical history Social History Social History Household Members: Family Housing: House Do you presently have visiting nurse or other home services: No Patient Tobacco Use Status: Never used Tobacco Smoked in Last 30 Days: No e-Cigarette/Vaping Use: Never Used Second Hand Smoke Exposure: No Use of substances other than those prescribed or required for medical reasons: No Currently Displaying Signs/Symptoms of Drug Intoxication Withdrawal: No Any prior treatment program specific to substance use: No Have you been hit, kicked, punched, or otherwise hurt by someone within the past year? If so, by whom?: No Do you feel safe in your current relationship?: No Current Relationship Is there a partner from a previous relationship who is making you feel unsafe now?: No Are you made to feel afraid or neglected: No Advance Directives: No Do you have a plan to hurt others: No Plan Recently lost weight without trying: No Nutrition Risks: No Nutritional Risk Patient : No : No Poor oral hygiene: No service: No Current occupational status: employed Cognitive needs: No Hearing needs: No Vision needs: No Meds Allergies Allergy/AdvReac Type Severity Reaction Status Date / Time No Known Allergies Allergy Verified 11/25/23 14:41 [No Known Allergies*] Active Medications: Current Medications Heparin Sodium (Porcine) (Heparin Sodium,Porcine 5,000 Unit/Ml Vial) 5,000 unit SUBCUT Q8H COUNT INCLUDES THE [facility] Last Admin: 11/25/23 19:04 Dose: 5,000 unit Insulin Human Regular (Myxredlin) 100 unit in 100 mls @ 6 mls/hr IVCONT .[id number] SHANNAN; Protocol Last Titration: 11/25/23 19:49 Dose: 2 unit/hr, 2 mls/hr Dextrose (D10) 250 mls @ 750 mls/hr IV Q30M PRN PRN Reason: BG <70 Lactated Ringer's (Lr) 1,000 mls @ 150 mls/hr IVCONT .Q6H40M COUNT INCLUDES THE [facility] Last Admin: 11/25/23 19:51 Dose: 150 mls/hr Home Medications ?Medication ?Instructions ?Recorded ?Confirmed ?Last Taken ?Type insulin glargine 100 unit/mL (3 10 - 25 unit subcut DAILY@1200 PRN 11/25/23 11/25/23 Unknown History mL) subcutaneous pen (Lantus elevated blood sugar Solostar U-100 Insulin) insulin glargine 100 unit/mL (3 25 unit subcut BID 11/25/23 11/25/23 Unknown History mL) subcutaneous pen (Lantus Solostar U-100 Insulin) Physical Exam Vital Signs: Vital Signs: Last Vital Signs Temp 98.1 F 11/25/23 17:24 Pulse 114 H 11/25/23 19:37 Resp 16 11/25/23 19:37 BP 117/68 11/25/23 19:37 Pulse Ox 99 11/25/23 19:37 O2 Del Method Room Air 11/25/23 19:37 BMI result Body Mass Index 27.4 Const: General: no acute distress and alert Orientation/consciousness: patient oriented x3 (answering appropriately.) HEENT: Head: Yes normocephalic and Yes scalp tenderness (at abscess site) General nose exam: Normal external nose present (Nares patent, septum midline, sinuses nontender bilaterally.) Mouth: Normal oral and palatal mucosa present (No thrush, tongue in midline, mucosa moist.) Throat: Yes other (No erythema, no exudate.) Eyes: General: appearance normal, both eyes and all related structures Neck: Neck: Yes supple (no thyromegaly, trachea midline.) Carotids: normal carotid upstroke Resp: Auscultation: clear to auscultation bilaterally (normal work of breathing, no accessory muscle use) Cardio: Jugular venous distension: no JVD Rate: tachycardic Rhythm: regular rhythm Heart sounds: no gallops, no murmurs and no rubs Peripheral pulses: Peripheral pulses 2+ throughout GI: Inspection: Yes normal to inspection and No distended Palpation (GI): Soft to palpation (nondistended.) and nontender Skin: General skin exam: no rashes or lesions noted Wounds: wounds noted (abscess left occipital parietal scalp with small scab at site of I&D) Neuro: General: patient oriented x3 (answering appropriately.) Cranial nerves: Yes Normal hearing present Cognition (Neuro): normal cognition Extrem: General: Yes full ROM, Yes capillary refill normal and Yes no clubbing, cyanosis or edema Psych: Appearance: grossly normal Mental Status: mental status grossly normal Speech and movement: Normal speech and movement present Affect: normal affect Attitude: cooperative Results Labs 11/26/23 05:02 11/26/23 05:02 Labs: Laboratory Results - last 24 hr 11/25/23 11/25/23 11/25/23 15:12 17:06 17:17 MCV 84.8 MCH 27.5 MCHC 32.4 RDW 12.5 Plt Count 205 MPV 11.7 Immature Gran % (Auto) 0.1 Neut % (Auto) 84.1 H Lymph % (Auto) 12.7 L [place] % (Auto) 2.3 Eos % (Auto) 0.6 Baso % (Auto) 0.2 Lymph # (Auto) 1.1 L [place] # (Auto) 0.2 Eos # (Auto) 0.1 Baso # (Auto) 0.0 Abs Immat Gran (auto) 0.01 Absolute Neuts (auto) 7.0 Absolute Nucleated RBC 0.000 Nucleated RBC % (auto) 0.0 VBG pH VBG pCO2 VBG pO2 VBG HCO3 VBG O2 Saturation VBG Base Excess Anion Gap 24 H Estim Creat Clear Calc 56.6 Estimated GFR 49 POC Glucose 573 H* Random Glucose 778 H* Osmolality Calcium 9.7 Magnesium 2.1 Total Bilirubin 1.5 H AST 15 ALT 18 Alkaline Phosphatase 81 Troponin I High Sens < 2.7 Total Protein 8.0 Albumin 4.0 Lipase 11 Beta-Hydroxybutyrate 6.53 H Urine Color Yellow Urine Appearance Clear Urine pH 5.5 Ur Specific [place] 1.025 Urine Protein Negative Urine Glucose (UA) >=1000 H Urine Ketones >=160 Urine Blood Moderate (2+) H Urine Nitrite Negative Ur Leukocyte Esterase Negative Urine RBC 3-5 H Urine WBC 0-5 Ur Squamous Epith Cells 3-5 Urine Bacteria 1+ Hyaline Casts 0-2 Influenza Type A (PCR) NEGATIVE Influenza Type B (PCR) NEGATIVE RSV RNA Qual (PCR) NEGATIVE SARS-CoV-2 RNA (RT-PCR) NEGATIVE 11/25/23 11/25/23 11/25/23 17:39 18:41 19:03 MCV MCH MCHC RDW Plt Count MPV Immature Gran % (Auto) Neut % (Auto) Lymph % (Auto) [place] % (Auto) Eos % (Auto) Baso % (Auto) Lymph # (Auto) [place] # (Auto) Eos # (Auto) Baso # (Auto) Abs Immat Gran (auto) Absolute Neuts (auto) Absolute Nucleated RBC Nucleated RBC % (auto) VBG pH 7.17 L* VBG pCO2 29 VBG pO2 53 VBG HCO3 11 L VBG O2 Saturation 72.0 VBG Base Excess -16.0 Anion Gap Estim Creat Clear Calc Estimated GFR POC Glucose 488 H* Random Glucose Osmolality 323 H Calcium Magnesium Total Bilirubin AST ALT Alkaline Phosphatase Troponin I High Sens Total Protein Albumin Lipase Beta-Hydroxybutyrate Urine Color Urine Appearance Urine pH Ur Specific [place] Urine Protein Urine Glucose (UA) Urine Ketones Urine Blood Urine Nitrite Ur Leukocyte Esterase Urine RBC Urine WBC Ur Squamous Epith Cells Urine Bacteria Hyaline Casts Influenza Type A (PCR) Influenza Type B (PCR) RSV RNA Qual (PCR) SARS-CoV-2 RNA (RT-PCR) 11/25/23 11/25/23 11/25/23 19:19 19:47 20:22 MCV MCH MCHC RDW Plt Count MPV Immature Gran % (Auto) Neut % (Auto) Lymph % (Auto) [place] % (Auto) Eos % (Auto) Baso % (Auto) Lymph # (Auto) [place] # (Auto) Eos # (Auto) Baso # (Auto) Abs Immat Gran (auto) Absolute Neuts (auto) Absolute Nucleated RBC Nucleated RBC % (auto) VBG pH 7.29 L VBG pCO2 25 VBG pO2 60 VBG HCO3 12 L VBG O2 Saturation 86.0 VBG Base Excess -12.4 Anion Gap Estim Creat Clear Calc Estimated GFR POC Glucose 361 H* 378 H* Random Glucose Osmolality Calcium Magnesium Total Bilirubin AST ALT Alkaline Phosphatase Troponin I High Sens Total Protein Albumin Lipase Beta-Hydroxybutyrate Urine Color Urine Appearance Urine pH Ur Specific [place] Urine Protein Urine Glucose (UA) Urine Ketones Urine Blood Urine Nitrite Ur Leukocyte Esterase Urine RBC Urine WBC Ur Squamous Epith Cells Urine Bacteria Hyaline Casts Influenza Type A (PCR) Influenza Type B (PCR) RSV RNA Qual (PCR) SARS-CoV-2 RNA (RT-PCR) Assessment and Plan (1) Abscess of scalp: Status: Acute (2) Diabetic ketoacidosis: Qualifiers: Diabetes mellitus complication detail: without coma Diabetes mellitus type: type 1 Qualified Code(s): E10.10 - Type 1 diabetes mellitus with ketoacidosis without coma Status: Acute (3) Type 1 diabetes mellitus: Qualifiers: Diabetes mellitus complication detail: without coma Diabetes mellitus complication status: with ketoacidosis Qualified Code(s): E10.10 - Type 1 diabetes mellitus with ketoacidosis without coma Status: Acute Plan 38-year-old female with history of diabetes mellitus type I presented with diabetic ketoacidosis requiring admission to the ICU for management of DKA. Plan: Neuro:? no acute issues?? Cardiac: No acute issues. Pulmonary:? no acute issues?? Renal: ? MATTHEW- most likely related to hypoperfusion, nonoliguric.? Continue IV fluid.? Continue to check renal induces and urine output. Closely monitor electrolytes. GI:? Vomiting from? gastroparesis. Zofran p.r.n.? Endo:? Diabetic ketoacidosis-? continue IVF. Follow DKA protocol? ID:? Scalp abscess. Continue Vancomycin. Heme/Onc:? No acute issues. Psych:? No acute issues. Miscellaneous:? No acute issues. Prophylaxis:? ? Heparin / bilateral pneumatic pumps Diet: NPO with sips of water, ice chips Critical care time: does not qualify for critical care? Total time managing care of this patient today: 60 minutes.
[2023-11-25 20:46] LABS: Glucose, Whole Blood 257 mg/dL (60-115)
[2023-11-25 20:48] LABS: Anion Gap 25 (12-20); Blood Urea Nitrogen 16 mg/dL (9-16); Carbon Dioxide 13 mmol/L (22-29); Chloride 107 mmol/L (96-108); Creatinine Clr Calc Pharmacy 69.6; Estimated Glomerular Filt Rate > 60; Glucose Random 382 mg/dL (60-115); Potassium 4.7 mmol/L (3.3-5.1); Sodium 140 mmol/L (135-145)
--- NOTE | 2023-11-25 20:59 | PHA.PROG ---
Admission Date/Time: November 25, 2023 18:09 Indication: Skin Weight in k.039 kg Adjusted body weight in K.276 Serum Creatinine - Last 168 Hours 11/25/23 11/25/23 15:12 20:21 Creatinine 1.23 1.00 Estimated CrCl and GFR - Last 168 Hours 11/25/23 11/25/23 15:12 20:21 Estim Creat Clear Calc 56.6 69.6 Estimated GFR 49 > 60 Vancomycin Loading Dose: 1,750 mg Current Vancomycin Dosing Regimen: 750 mg Q12H Vancomycin Monitoring using AUC goal of 400 - 600 range with trough as surrogate marker: 453 mg/L hr, predicted trough 14.5 Date and Time for next Vancomycin Level to be drawn: 11/26 @ 0600 Pharmacist Comments on Vancomycin Plan: Vancomycin dosing will take advantage of [employer] as a clinical decision support tool that uses Bayesian modeling to calculate individual patient's pharmacokinetic parameters and forecast the patient's drug concentration time course with the target goal AUC 24 range of 400 - 600 mg/L/hr.
[2023-11-25 21:15] LABS: Glucose, Whole Blood 260 mg/dL (60-115)
[2023-11-25] MEDS: Dextrose 5 % and Lactated Ring 1,000 ML 150 ML IVCONT (21:19)
[2023-11-25 22:04] LABS: Glucose, Whole Blood 225 mg/dL (60-115)
[2023-11-25 23:18] LABS: Glucose, Whole Blood 234 mg/dL (60-115)
[2023-11-26] VITALS (16 sets, daily range): BP systolic 93–127; BP diastolic 54–83; PULSE 71–94; RESP 18–22; TEMP 36.2–37.1; O2SAT 98–100; BMI 29.6
[2023-11-26 00:19] LABS: Glucose, Whole Blood 201 mg/dL (60-115)
[2023-11-26 01:03] LABS: Glucose, Whole Blood 193 mg/dL (60-115)
[2023-11-26 01:07] LABS: VBG Base Excess -1.8 mmol/L; VBG HCO3 21 mmol/L (22-26); VBG pCO2 32 mmHg; VBG pH 7.42 (7.32-7.43); VBG pO2 64 mmHg; Venous Blood Gas Refer to POC result
[2023-11-26 01:29] LABS: Anion Gap 11 (12-20); Blood Urea Nitrogen 13 mg/dL (9-16); Calcium 8.8 mg/dL (8.4-10.2); Carbon Dioxide 20 mmol/L (22-29); Chloride 112 mmol/L (96-108); Creatinine Clr Calc Pharmacy 87.6; Estimated Glomerular Filt Rate > 60; Glucose Random 212 mg/dL (60-115); Sodium 139 mmol/L (135-145)
[2023-11-26 02:01] LABS: Glucose, Whole Blood 172 mg/dL (60-115)
[2023-11-26] MEDS: Dextrose 5 % and Lactated Ring 1,000 ML 150 ML IVCONT (02:31)
[2023-11-26] MEDS: Heparin Sodium,Porcine 5,000 UNIT/ML VIAL 5000 UNIT SUBCUT ×3 (02:33→18:36)
[2023-11-26 03:19] LABS: Glucose, Whole Blood 137 mg/dL (60-115)
[2023-11-26 04:10] LABS: Glucose, Whole Blood 122 mg/dL (60-115)
[2023-11-26 05:15] LABS: Glucose, Whole Blood 153 mg/dL (60-115)
[2023-11-26 05:22] LABS: VBG Base Excess -0.9 mmol/L; VBG HCO3 23 mmol/L (22-26); VBG pCO2 36 mmHg; VBG pH 7.41 (7.32-7.43); VBG pO2 45 mmHg
[2023-11-26 05:31] LABS: MANUAL DIFF FLAG NO
[2023-11-26 05:33] LABS: Basophils Percent Auto 0.4 % (0-2); Eosinophils Absolute Auto 0.1 X10*3/uL (0.0-0.4); Eosinophils Percent Auto 0.8 % (0-4); Hematocrit 31.1 % (37.0-47.0); Hemoglobin 10.4 g/dl (12.0-16.0); Imm Gran Abs Auto 0.02 X10*3/uL (0.00-0.03); Imm Gran Pct Auto 0.3 % (0.0-0.4); Lymphocytes Absolute Auto 2.4 X10*3/uL (1.2-4.9); Lymphocytes Percent Auto 31.5 % (20-40); Mean Corpuscular HGB Conc 33.4 g/dl (31.0-35.0); Mean Corpuscular Hemoglobin 27.8 pg (27.0-33.0); Mean Corpuscular Volume 83.2 fL (80.0-98.0); Mean Platelet Volume 11.1 fL (9.4-12.3); Monocytes Absolute Auto 0.7 X10*3/uL (0.1-1.2); Monocytes Percent Auto 9.1 % (2-11); Neutrophils Absolute Auto 4.4 x10*3/uL (2.0-8.3); Neutrophils Percent Auto 57.9 % (45-73); Platelet Count 214 X10*3/uL (160-400); Red Blood Count 3.74 X10*6/uL (4.20-5.50); Red Cell Distribution Width 12.7 % (11.0-16.0); White Blood Count 7.6 X10*3/uL (4.8-10.8)
[2023-11-26 05:57] LABS: Anion Gap 12 (12-20); Blood Urea Nitrogen 13 mg/dL (9-16); Calcium 8.6 mg/dL (8.4-10.2); Carbon Dioxide 22 mmol/L (22-29); Chloride 111 mmol/L (96-108); Creatinine Clr Calc Pharmacy 93.8; Estimated Glomerular Filt Rate > 60; Glucose Random 151 mg/dL (60-115); Phosphorus 2.8 mg/dL (2.7-4.5); Potassium 3.8 mmol/L (3.3-5.1); Sodium 141 mmol/L (135-145)
[2023-11-26 06:19] LABS: Glucose, Whole Blood 182 mg/dL (60-115)
[2023-11-26 06:34] LABS: Venous Blood Gas Refer to POC result
[2023-11-26 07:07] LABS: Glucose, Whole Blood 174 mg/dL (60-115)
[2023-11-26] MEDS: vancomycin HCL 750 MG in 0.9 % Sodium Chloride 250 ML 265 MG IV (07:39)
[2023-11-26 08:06] LABS: Glucose, Whole Blood 172 mg/dL (60-115)
[2023-11-26] MEDS: Insulin Glargine,Hum.rec.anlog 100 UNIT/ML 10 ML VIAL 35 UNIT SUBCUT (08:29)
--- NOTE | 2023-11-26 08:50 | P.PNCC_ITS ---
Subjective Subjective Date of Service: 11/26/23 Interval History: Old lady with underlying type 1 diabetes mellitus, gastroparesis, prior episodes of DKA admitted on 11/25/2023 with nausea and vomiting, and also complain of scalp abscess. On ER evaluation patient in diabetic ketoacidosis requiring insulin drip. Scalp abscess drained and patient started on empiric vancomycin. Patient admitted to the intensive care unit. No events overnight. Titrated off insulin drip. Critical Care Time (minutes): 0 Physical Exam 2 Vital Signs: Vital Signs: Last Vital Signs Temp 98.8 F 11/26/23 08:00 Pulse 81 11/26/23 08:00 Resp 18 11/26/23 08:00 BP 97/58 L 11/26/23 08:00 Pulse Ox 100 11/26/23 08:00 O2 Del Method Room Air 11/26/23 08:00 BMI result Body Mass Index 29.6 Const: General: no acute distress, alert and awake Eyes: Sclerae: sclerae normal EOM: EOMs intact bilaterally Neck: Neck: Yes no lymphadenopathy, Yes trachea midline and Yes supple Resp: Effort & Inspection: normal respiratory effort and no respiratory distress Auscultation: clear to auscultation bilaterally Cardio: Rate: regular rate Rhythm: regular rhythm Heart sounds: no gallops, no murmurs and no rubs GI: Palpation (GI): Soft to palpation and Other GI palpation findings present ( Nontender) Auscultation: normal bowel sounds Extrem: General: Yes no pedal edema, No clubbing and No cyanosis Objective Data Labs 11/26/23 05:02 11/26/23 05:02 Labs: Laboratory Results - last 24 hr 11/25/23 11/25/23 11/25/23 15:12 17:06 17:17 WBC 8.3 RBC 4.40 D Hgb 12.1 D Hct 37.3 D MCV 84.8 MCH 27.5 MCHC 32.4 RDW 12.5 Plt Count 205 MPV 11.7 Immature Gran % (Auto) 0.1 Neut % (Auto) 84.1 H Lymph % (Auto) 12.7 L [place] % (Auto) 2.3 Eos % (Auto) 0.6 Baso % (Auto) 0.2 Lymph # (Auto) 1.1 L [place] # (Auto) 0.2 Eos # (Auto) 0.1 Baso # (Auto) 0.0 Abs Immat Gran (auto) 0.01 Absolute Neuts (auto) 7.0 Absolute Nucleated RBC 0.000 Nucleated RBC % (auto) 0.0 VBG pH VBG pCO2 VBG pO2 VBG HCO3 VBG O2 Saturation VBG Base Excess Sodium 130 L Potassium 5.3 H D Chloride 95 L Carbon Dioxide 16 L Anion Gap 24 H BUN 20 H Creatinine 1.23 Estim Creat Clear Calc 56.6 Estimated GFR 49 POC Glucose 573 H* Random Glucose 778 H* Osmolality Calcium 9.7 Phosphorus Magnesium 2.1 Total Bilirubin 1.5 H AST 15 ALT 18 Alkaline Phosphatase 81 Troponin I High Sens < 2.7 Total Protein 8.0 Albumin 4.0 Lipase 11 Beta-Hydroxybutyrate 6.53 H Urine Color Yellow Urine Appearance Clear Urine pH 5.5 Ur Specific [place] 1.025 Urine Protein Negative Urine Glucose (UA) >=1000 H Urine Ketones >=160 Urine Blood Moderate (2+) H Urine Nitrite Negative Ur Leukocyte Esterase Negative Urine RBC 3-5 H Urine WBC 0-5 Ur Squamous Epith Cells 3-5 Urine Bacteria 1+ Hyaline Casts 0-2 Influenza Type A (PCR) NEGATIVE Influenza Type B (PCR) NEGATIVE RSV RNA Qual (PCR) NEGATIVE SARS-CoV-2 RNA (RT-PCR) NEGATIVE 11/25/23 11/25/23 11/25/23 17:39 18:41 19:03 WBC RBC Hgb Hct MCV MCH MCHC RDW Plt Count MPV Immature Gran % (Auto) Neut % (Auto) Lymph % (Auto) [place] % (Auto) Eos % (Auto) Baso % (Auto) Lymph # (Auto) [place] # (Auto) Eos # (Auto) Baso # (Auto) Abs Immat Gran (auto) Absolute Neuts (auto) Absolute Nucleated RBC Nucleated RBC % (auto) VBG pH 7.17 L* VBG pCO2 29 VBG pO2 53 VBG HCO3 11 L VBG O2 Saturation 72.0 VBG Base Excess -16.0 Sodium Potassium Chloride Carbon Dioxide Anion Gap BUN Creatinine Estim Creat Clear Calc Estimated GFR POC Glucose 488 H* Random Glucose Osmolality 323 H Calcium Phosphorus Magnesium Total Bilirubin AST ALT Alkaline Phosphatase Troponin I High Sens Total Protein Albumin Lipase Beta-Hydroxybutyrate Urine Color Urine Appearance Urine pH Ur Specific [place] Urine Protein Urine Glucose (UA) Urine Ketones Urine Blood Urine Nitrite Ur Leukocyte Esterase Urine RBC Urine WBC Ur Squamous Epith Cells Urine Bacteria Hyaline Casts Influenza Type A (PCR) Influenza Type B (PCR) RSV RNA Qual (PCR) SARS-CoV-2 RNA (RT-PCR) 11/25/23 11/25/23 11/25/23 19:19 19:47 20:21 WBC RBC Hgb Hct MCV MCH MCHC RDW Plt Count MPV Immature Gran % (Auto) Neut % (Auto) Lymph % (Auto) [place] % (Auto) Eos % (Auto) Baso % (Auto) Lymph # (Auto) [place] # (Auto) Eos # (Auto) Baso # (Auto) Abs Immat Gran (auto) Absolute Neuts (auto) Absolute Nucleated RBC Nucleated RBC % (auto) VBG pH VBG pCO2 VBG pO2 VBG HCO3 VBG O2 Saturation VBG Base Excess Sodium 140 Potassium 4.7 Chloride 107 Carbon Dioxide 13 L Anion Gap 25 H BUN 16 Creatinine 1.00 Estim Creat Clear Calc 69.6 Estimated GFR > 60 POC Glucose 361 H* 378 H* Random Glucose 382 H* Osmolality Calcium 10.0 Phosphorus Magnesium Total Bilirubin AST ALT Alkaline Phosphatase Troponin I High Sens Total Protein Albumin Lipase Beta-Hydroxybutyrate Urine Color Urine Appearance Urine pH Ur Specific [place] Urine Protein Urine Glucose (UA) Urine Ketones Urine Blood Urine Nitrite Ur Leukocyte Esterase Urine RBC Urine WBC Ur Squamous Epith Cells Urine Bacteria Hyaline Casts Influenza Type A (PCR) Influenza Type B (PCR) RSV RNA Qual (PCR) SARS-CoV-2 RNA (RT-PCR) 11/25/23 11/25/23 11/25/23 20:22 20:43 21:12 WBC RBC Hgb Hct MCV MCH MCHC RDW Plt Count MPV Immature Gran % (Auto) Neut % (Auto) Lymph % (Auto) [place] % (Auto) Eos % (Auto) Baso % (Auto) Lymph # (Auto) [place] # (Auto) Eos # (Auto) Baso # (Auto) Abs Immat Gran (auto) Absolute Neuts (auto) Absolute Nucleated RBC Nucleated RBC % (auto) VBG pH 7.29 L VBG pCO2 25 VBG pO2 60 VBG HCO3 12 L VBG O2 Saturation 86.0 VBG Base Excess -12.4 Sodium Potassium Chloride Carbon Dioxide Anion Gap BUN Creatinine Estim Creat Clear Calc Estimated GFR POC Glucose 257 H 260 H Random Glucose Osmolality Calcium Phosphorus Magnesium Total Bilirubin AST ALT Alkaline Phosphatase Troponin I High Sens Total Protein Albumin Lipase Beta-Hydroxybutyrate Urine Color Urine Appearance Urine pH Ur Specific [place] Urine Protein Urine Glucose (UA) Urine Ketones Urine Blood Urine Nitrite Ur Leukocyte Esterase Urine RBC Urine WBC Ur Squamous Epith Cells Urine Bacteria Hyaline Casts Influenza Type A (PCR) Influenza Type B (PCR) RSV RNA Qual (PCR) SARS-CoV-2 RNA (RT-PCR) 11/25/23 11/25/23 11/26/23 22:01 23:14 00:14 WBC RBC Hgb Hct MCV MCH MCHC RDW Plt Count MPV Immature Gran % (Auto) Neut % (Auto) Lymph % (Auto) [place] % (Auto) Eos % (Auto) Baso % (Auto) Lymph # (Auto) [place] # (Auto) Eos # (Auto) Baso # (Auto) Abs Immat Gran (auto) Absolute Neuts (auto) Absolute Nucleated RBC Nucleated RBC % (auto) VBG pH VBG pCO2 VBG pO2 VBG HCO3 VBG O2 Saturation VBG Base Excess Sodium Potassium Chloride Carbon Dioxide Anion Gap BUN Creatinine Estim Creat Clear Calc Estimated GFR POC Glucose 225 H 234 H 201 H Random Glucose Osmolality Calcium Phosphorus Magnesium Total Bilirubin AST ALT Alkaline Phosphatase Troponin I High Sens Total Protein Albumin Lipase Beta-Hydroxybutyrate Urine Color Urine Appearance Urine pH Ur Specific [place] Urine Protein Urine Glucose (UA) Urine Ketones Urine Blood Urine Nitrite Ur Leukocyte Esterase Urine RBC Urine WBC Ur Squamous Epith Cells Urine Bacteria Hyaline Casts Influenza Type A (PCR) Influenza Type B (PCR) RSV RNA Qual (PCR) SARS-CoV-2 RNA (RT-PCR) 11/26/23 11/26/23 11/26/23 00:59 01:57 03:14 WBC RBC Hgb Hct MCV MCH MCHC RDW Plt Count MPV Immature Gran % (Auto) Neut % (Auto) Lymph % (Auto) [place] % (Auto) Eos % (Auto) Baso % (Auto) Lymph # (Auto) [place] # (Auto) Eos # (Auto) Baso # (Auto) Abs Immat Gran (auto) Absolute Neuts (auto) Absolute Nucleated RBC Nucleated RBC % (auto) VBG pH 7.42 VBG pCO2 32 VBG pO2 64 VBG HCO3 21 L VBG O2 Saturation 94.0 VBG Base Excess -1.8 Sodium 139 Potassium 4.0 Chloride 112 H Carbon Dioxide 20 L Anion Gap 11 L BUN 13 Creatinine 0.82 Estim Creat Clear Calc 87.6 Estimated GFR > 60 POC Glucose 193 H 172 H 137 H Random Glucose 212 H Osmolality Calcium 8.8 D Phosphorus Magnesium Total Bilirubin AST ALT Alkaline Phosphatase Troponin I High Sens Total Protein Albumin Lipase Beta-Hydroxybutyrate Urine Color Urine Appearance Urine pH Ur Specific [place] Urine Protein Urine Glucose (UA) Urine Ketones Urine Blood Urine Nitrite Ur Leukocyte Esterase Urine RBC Urine WBC Ur Squamous Epith Cells Urine Bacteria Hyaline Casts Influenza Type A (PCR) Influenza Type B (PCR) RSV RNA Qual (PCR) SARS-CoV-2 RNA (RT-PCR) 11/26/23 11/26/23 11/26/23 04:05 05:02 05:12 WBC 7.6 RBC 3.74 L Hgb 10.4 L Hct 31.1 L MCV 83.2 MCH 27.8 MCHC 33.4 RDW 12.7 Plt Count 214 MPV 11.1 Immature Gran % (Auto) 0.3 Neut % (Auto) 57.9 Lymph % (Auto) 31.5 [place] % (Auto) 9.1 Eos % (Auto) 0.8 Baso % (Auto) 0.4 Lymph # (Auto) 2.4 [place] # (Auto) 0.7 Eos # (Auto) 0.1 Baso # (Auto) 0.0 Abs Immat Gran (auto) 0.02 Absolute Neuts (auto) 4.4 Absolute Nucleated RBC 0.000 Nucleated RBC % (auto) 0.0 VBG pH 7.41 VBG pCO2 36 VBG pO2 45 VBG HCO3 23 VBG O2 Saturation 74.0 VBG Base Excess -0.9 Sodium 141 Potassium 3.8 Chloride 111 H Carbon Dioxide 22 Anion Gap 12 BUN 13 Creatinine 0.77 Estim Creat Clear Calc 93.8 Estimated GFR > 60 POC Glucose 122 H 153 H Random Glucose 151 H Osmolality Calcium 8.6 Phosphorus 2.8 Magnesium 2.0 Total Bilirubin AST ALT Alkaline Phosphatase Troponin I High Sens Total Protein Albumin 3.0 L Lipase Beta-Hydroxybutyrate Urine Color Urine Appearance Urine pH Ur Specific [place] Urine Protein Urine Glucose (UA) Urine Ketones Urine Blood Urine Nitrite Ur Leukocyte Esterase Urine RBC Urine WBC Ur Squamous Epith Cells Urine Bacteria Hyaline Casts Influenza Type A (PCR) Influenza Type B (PCR) RSV RNA Qual (PCR) SARS-CoV-2 RNA (RT-PCR) 07/02/24 07/02/24 07/02/24 06:16 07:03 08:03 WBC RBC Hgb Hct MCV MCH MCHC RDW Plt Count MPV Immature Gran % (Auto) Neut % (Auto) Lymph % (Auto) [place] % (Auto) Eos % (Auto) Baso % (Auto) Lymph # (Auto) [place] # (Auto) Eos # (Auto) Baso # (Auto) Abs Immat Gran (auto) Absolute Neuts (auto) Absolute Nucleated RBC Nucleated RBC % (auto) VBG pH VBG pCO2 VBG pO2 VBG HCO3 VBG O2 Saturation VBG Base Excess Sodium Potassium Chloride Carbon Dioxide Anion Gap BUN Creatinine Estim Creat Clear Calc Estimated GFR POC Glucose 182 H 174 H 172 H Random Glucose Osmolality Calcium Phosphorus Magnesium Total Bilirubin AST ALT Alkaline Phosphatase Troponin I High Sens Total Protein Albumin Lipase Beta-Hydroxybutyrate Urine Color Urine Appearance Urine pH Ur Specific [place] Urine Protein Urine Glucose (UA) Urine Ketones Urine Blood Urine Nitrite Ur Leukocyte Esterase Urine RBC Urine WBC Ur Squamous Epith Cells Urine Bacteria Hyaline Casts Influenza Type A (PCR) Influenza Type B (PCR) RSV RNA Qual (PCR) SARS-CoV-2 RNA (RT-PCR) Progress Note: A&P Assessment and plan (1) Diabetic ketoacidosis: Status: Acute (2) Type 1 diabetes mellitus: Status: Acute (3) Abscess of scalp: Status: Acute Plan Assessment: 38-year-old lady admitted with diabetic ketoacidosis requiring insulin drip. Plan: Neuro: No acute issues. Cardiac: No acute issues. Pulmonary: No acute issues. Renal: No acute issues. Endo: Diabetic ketoacidosis, resolved. Titrated off insulin drip to subcutaneous insulin. GI: No acute issues. ID: No acute issues Heme/Onc: No acute issues. Psych: No acute issues. Miscellaneous: Scalp abscess, status post drainage in emergency room. No underlying history of MRSA, will switch vancomycin to Keflex. Prophylaxis: Heparin Diet: Diabetic Quality Stroke Does the patient have a stroke diagnosis?: No VTE Prior VTE?: No VTE Risk Level:: Medical - moderate - high VTE Device Contraindication: Treatment Not Indicated VTE Drug Contraindication: N/A - Med Ordered
--- NOTE | 2023-11-26 09:29 | P.CDIM_ITS ---
PROVIDER RESPONSE TEXT: To clarify, the appropriate diagnosis supported by the clinical indicators: Hyponatremia: Resolved QUERY TEXT: PHYSICIAN'S DOCUMENTATION REQUEST Date of Query: 11/26/2023 09:08 AM EDT Patient Name: Jennifer Anderson Admit Date: 11/25/2023 Dear Joshua Bernal MD, A review of the medical record indicates additional documentation may be needed. Please review below and update the documentation accordingly. Clinical Indicators: LABS: sodium 130 L 140 Fluids Based on the above, is there a diagnosis that correlates with these lab findings: Hyponatremia resolved, possible, probable Labs indicate a diagnosis of (please specify) Other (explain) Clinically unable to determine (explain) Thank you, Breanne Hooker, CCS, CDIS Use of terms such as suspected, likely, concern for, or probable (associated with a specific diagnosi s that is being evaluated, monitored, or treated as if it exists) are acceptable and can be coded in the inpatient se tting, when documented at the time of discharge. Please use your independent medical judgment in providing your response. THIS QUERY IS PART OF THE PERMANENT MEDICAL RECORD
--- NOTE | 2023-11-26 09:51 | MHC.CM.PN ---
Addendum entered by Jaclyn Perez 11/26/23 09:53: +HCP ON FILE AND CONFIRMED Original Note: CM MET WITH PT AT BEDSIDE IN ICU. PT LIVES WITH MOTHER. INDEPENDENT AND EMPLOYED F/T. PT USES [facility] FOR HER DIABETIC SUPPLIES. + HCP PER PT .[place] [facility] [place]ER APPOINT[place]/26. DP: HOME, NO SERVICES IS THE GOAL. PT HAS OWN RIDE HOME. CM WILL CONTINUE TO FOLLOW FOR ANY CHANGE TO DC PLAN/NEEDS.
[2023-11-26] MEDS: cephALEXin 500 MG CAPSULE PO ×4 (10:00→20:19)
[2023-11-26 11:19] LABS: Glucose, Whole Blood 345 mg/dL (60-115)
[2023-11-26] MEDS: Insulin Lispro 100 UNIT/ML 3 ML VIAL SUBCUT ×5 (12:02→20:19)
[2023-11-26] MEDS: Insulin Glargine,Hum.rec.anlog 100 UNIT/ML 10 ML VIAL 10 UNIT SUBCUT (12:02)
[2023-11-26 13:00] LABS: Anion Gap 11 (12-20); Blood Urea Nitrogen 15 mg/dL (9-16); Calcium 8.5 mg/dL (8.4-10.2); Carbon Dioxide 23 mmol/L (22-29); Chloride 106 mmol/L (96-108); Creatinine Clr Calc Pharmacy 84.9; Estimated Glomerular Filt Rate > 60; Glucose Random 392 mg/dL (60-115); Potassium 4.4 mmol/L (3.3-5.1); Sodium 136 mmol/L (135-145)
[2023-11-26 13:04] LABS: Glucose, Whole Blood 354 mg/dL (60-115)
[2023-11-26] MEDS: Insulin Lispro 100 UNIT/ML 3 ML VIAL 10 UNIT SUBCUT (13:10)
--- NOTE | 2023-11-26 16:38 | PM.EVENT ---
Event Note Date of Service: 11/26/23 Event Note: pt seen, med reviewed. DKA resolved, insulin adjusted with addition of pre meal insulin for better control. Time Spent With Patient Time: Total time managing care of this patient today ____ minutes.
[2023-11-26 16:58] LABS: Glucose, Whole Blood 321 mg/dL (60-115)
[2023-11-26 19:59] LABS: Glucose, Whole Blood 271 mg/dL (60-115)
[2023-11-27] VITALS: BP 101/59; PULSE 88; RESP 20; TEMP 36.5; O2SAT 98
[2023-11-27 03:31] VITALS: BP 116/56; PULSE 76; RESP 20; TEMP 35.9; O2SAT 99
[2023-11-27] MEDS: Heparin Sodium,Porcine 5,000 UNIT/ML VIAL 5000 UNIT SUBCUT ×2 (03:32→11:44)
[2023-11-27 06:48] LABS: MANUAL DIFF FLAG NO
[2023-11-27 07:00] LABS: Basophils Percent Auto 0.4 % (0-2); Eosinophils Absolute Auto 0.1 X10*3/uL (0.0-0.4); Eosinophils Percent Auto 2.5 % (0-4); Hematocrit 32.7 % (37.0-47.0); Hemoglobin 10.7 g/dl (12.0-16.0); Imm Gran Abs Auto 0.02 X10*3/uL (0.00-0.03); Imm Gran Pct Auto 0.4 % (0.0-0.4); Lymphocytes Absolute Auto 2.1 X10*3/uL (1.2-4.9); Lymphocytes Percent Auto 43.5 % (20-40); Mean Corpuscular HGB Conc 32.7 g/dl (31.0-35.0); Mean Corpuscular Hemoglobin 27.4 pg (27.0-33.0); Mean Corpuscular Volume 83.8 fL (80.0-98.0); Mean Platelet Volume 11.2 fL (9.4-12.3); Monocytes Absolute Auto 0.2 X10*3/uL (0.1-1.2); Monocytes Percent Auto 4.2 % (2-11); Neutrophils Absolute Auto 2.3 x10*3/uL (2.0-8.3); Platelet Count 201 X10*3/uL (160-400); Red Cell Distribution Width 12.8 % (11.0-16.0); White Blood Count 4.7 X10*3/uL (4.8-10.8)
[2023-11-27 07:19] LABS: Anion Gap 10 (12-20); Blood Urea Nitrogen 10 mg/dL (9-16); Calcium 8.7 mg/dL (8.4-10.2); Carbon Dioxide 23 mmol/L (22-29); Chloride 107 mmol/L (96-108); Creatinine Clr Calc Pharmacy 104.6; Estimated Glomerular Filt Rate > 60; Glucose Random 248 mg/dL (60-115); Magnesium 1.8 mg/dL (1.6-2.6); Phosphorus 3.2 mg/dL (2.7-4.5); Potassium 3.8 mmol/L (3.3-5.1); Sodium 136 mmol/L (135-145)
[2023-11-27 07:49] LABS: Glucose, Whole Blood 229 mg/dL (60-115)
[2023-11-27 07:58] VITALS: BP 122/80; PULSE 69; RESP 18; TEMP 36.3; O2SAT 99
[2023-11-27] MEDS: Insulin Lispro 100 UNIT/ML 3 ML VIAL SUBCUT ×3 (07:58→11:44)
[2023-11-27] MEDS: Insulin Glargine,Hum.rec.anlog 100 UNIT/ML 10 ML VIAL 45 UNIT SUBCUT (07:58)
[2023-11-27] MEDS: cephALEXin 500 MG CAPSULE PO ×2 (07:58→11:44)
--- NOTE | 2023-11-27 10:15 | MHC.CM.PN ---
PT TO BE MEDICALLY CLEARED HOME SELF-CARE, PT TO ARRANGE TRANSPORT
--- NOTE | 2023-11-27 10:41 | P.DS_ITS ---
DS: Providers Provider Date of Service: 11/27/23 Date of admission: 11/25/23 18:09 Primary care physician: ANGIE Acosta DS: Diagnosis Discharge Diagnosis (1) Diabetic ketoacidosis: Status: Acute (2) Type 1 diabetes mellitus: Status: Acute (3) Abscess of scalp: Status: Acute DS: Summary Hospital Course Hospital Course: Admion Chief Complaint: DKA Ms. Anderson is a 38-year-old female with a past medical history of diabetes mellitus type I, DKA, gastroparesis? who? presented to the emergency room with nausea and vomiting, and heartburn. Additionally, she reports a tender bump on the top left side of her head that she first noticed about 3 days ago. The pt reported that she forgot to take her insulin before going to work and began to experience increased urination and thirst throughout the day. Laboratory data was significant for? VBG 7.17//53/11.? Serum sodium 130, potassium 5.3, chloride 95, serum bicarb 16, and anion gap 24, BUN 20, random glucose 778, beta hydroxybutyrate 6.53, Serum osmo 323. UA negative for UTI. ED course: The patient received 1 L of crystalloids, 7 units IV push insulin, Zofran 4mg, Vancomycin 750mg? and was started on an insulin drip. I&D of scalp abscess performed in ED.? The patient was admitted to ICU for further management of DKA requiring insulin drip. 36-year-old female with history of diabetes mellitus type I presented with diabetic ketoacidosis requiring admission to the ICU for management of DKA Hospital course:Patient presented to the ED not feeling well, unspecified chest pain and believing her sugar was high, in fact she stated she had not checked her blood sugar and furher complaint of an scalp abscess for which she is supposed to see a heavy machinery assembler at a later time. She further tells me today that she forgot to take her insulin the night prior. She was found to be in DKA and was admitted through the ICU for IV, IV insulin per DKA protocol and frequent lab check. Her DKA resolved by the next day and she was restarted on Lantus at adjusted dose of 45 in the morning, pre meal insulin f 5 untis and correctional sliding scale insulin. Her fasting blood sugar this morning is 248. She took lantus 45 unit today, and advised to take 10 units tonight and ultimately returning to hr usual regimen. Additionally, adding Humalog sliding. She will benefit from an back hoe operator follow-up for continuous glucose monitoring and insulin pump.. As for sclap abscess, likely originating from a hair folicle this was I and D in the ED and given Vanco, and continued Keflex 500 QID, the area is nearly healed, changing to oral doxycyline 100 mg twice daily to improve compliance. To follow up with heavy machinery assembler as previously scheduled. She is comfortable with discharge plan Time Attestation Discharge Coordination Time (in mins): 40 Quality: Safe Use of Opioids Does Pt have an Active Cancer Diagnosis on the Problem List?: No Quality: Stroke Does the patient have a stroke diagnosis?: No Physical Exam Vital Signs: Vital Signs: Last Vital Signs Temp 97.4 F 11/27/23 07:58 Pulse 69 11/27/23 07:58 Resp 18 11/27/23 07:58 BP 122/80 11/27/23 07:58 Pulse Ox 99 11/27/23 07:58 O2 Del Method Room Air 11/27/23 07:58 BMI result Body Mass Index 29.6 General: AO X 3, no acute distress Resp: CTA bilateral CVS: S1,S2,RRR GI: +BS, NT, no distention Skin: No rash Neuro: motor grossly intact Psych: appropriate affect DS: Data Data Completed and Pending Labs on day of discharge: Laboratory Results - last 24 hr 11/26/23 11/26/23 11/26/23 11:16 11:57 13:01 WBC RBC Hgb Hct MCV MCH MCHC RDW Plt Count MPV Immature Gran % (Auto) Neut % (Auto) Lymph % (Auto) [place] % (Auto) Eos % (Auto) Baso % (Auto) Lymph # (Auto) [place] # (Auto) Eos # (Auto) Baso # (Auto) Abs Immat Gran (auto) Absolute Neuts (auto) Absolute Nucleated RBC Nucleated RBC % (auto) Hold Purple Top SEE NOTE Sodium 136 Potassium 4.4 Chloride 106 Carbon Dioxide 23 Anion Gap 11 L BUN 15 Creatinine 0.85 Estim Creat Clear Calc 84.9 Estimated GFR > 60 POC Glucose 345 H 354 H* Random Glucose 392 H* Calcium 8.5 Phosphorus Magnesium 11/26/23 11/26/23 11/27/23 16:55 19:55 06:29 WBC 4.7 L RBC 3.90 L Hgb 10.7 L Hct 32.7 L MCV 83.8 MCH 27.4 MCHC 32.7 RDW 12.8 Plt Count 201 MPV 11.2 Immature Gran % (Auto) 0.4 Neut % (Auto) 49.0 Lymph % (Auto) 43.5 H [place] % (Auto) 4.2 Eos % (Auto) 2.5 Baso % (Auto) 0.4 Lymph # (Auto) 2.1 [place] # (Auto) 0.2 Eos # (Auto) 0.1 Baso # (Auto) 0.0 Abs Immat Gran (auto) 0.02 Absolute Neuts (auto) 2.3 Absolute Nucleated RBC 0.000 Nucleated RBC % (auto) 0.0 Hold Purple Top Sodium 136 Potassium 3.8 Chloride 107 Carbon Dioxide 23 Anion Gap 10 L BUN 10 Creatinine 0.69 Estim Creat Clear Calc 104.6 Estimated GFR > 60 POC Glucose 321 H 271 H Random Glucose 248 H Calcium 8.7 Phosphorus 3.2 Magnesium 1.8 11/27/23 07:24 WBC RBC Hgb Hct MCV MCH MCHC RDW Plt Count MPV Immature Gran % (Auto) Neut % (Auto) Lymph % (Auto) [place] % (Auto) Eos % (Auto) Baso % (Auto) Lymph # (Auto) [place] # (Auto) Eos # (Auto) Baso # (Auto) Abs Immat Gran (auto) Absolute Neuts (auto) Absolute Nucleated RBC Nucleated RBC % (auto) Hold Purple Top Sodium Potassium Chloride Carbon Dioxide Anion Gap BUN Creatinine Estim Creat Clear Calc Estimated GFR POC Glucose 229 H Random Glucose Calcium Phosphorus Magnesium Discharge Plan Discharge Anticipated Discharge Date/Time: 11/27/23 10:42 Patient Disposition: Home, Self-Care Discharge Diagnosis: DKA, Scalp abscess Referrals: Val Roberto FNP [Primary Care Provider] - 1 Week Discharge Medications: New doxycycline monohydrate 100 mg capsule 100 mg PO BID Qty: 9 0RF insulin lispro [Humalog KwikPen Insulin] 100 unit/mL insulin pen 1 sliding scale dose subcut USEASDIRECTD Qty: 15 0RF Rx Instructions: BG <111 0 units, 111-150 - 0 units, 151-200 2 units, 201-250 4 units, 251-300 6 units, 301-350 8 units, >350 10 units Before meals and at bedtime Continued insulin glargine [Lantus Solostar U-100 Insulin] 100 unit/mL (3 mL) insulin pen 10 - 25 unit subcut DAILY@1200 PRN (Reason: elevated blood sugar) Rx Instructions: takes with lunch depending on blood sugar insulin glargine [Lantus Solostar U-100 Insulin] 100 unit/mL (3 mL) insulin pen 25 unit subcut BID No Action (DME) FreeStyle Mari 3 Sensor Device See Rx Instructions .Route Qty: 2 5RF Rx Instructions: As directed change every 14 days Discharge Orders: Discharge Order (Routine); Ordered 11/27/23 Ordered By: Russell Pierce Diet: Diabetic diet Activity on Discharge: As tolerated Stand Alone Forms: Patient Portal Discharge page Print Language: Greek Care Plan Goals: Better diabetes management and to prevent DKA and hospitalization Health Concerns: DKA Scalp abscess Plan of Treatment: Take Insulin as directed You took Lantus 45 units this morning Advise to take Lantus 10 tonight rather usual 25 and ultimately returning to your usual regimen of 25 twice daily starting tomorrow additionally a correctional (sliding scale of humaglo insulin) before meals and at bedtime Follow up with your Doctor in a week Follow up with your back hoe operator in 1 to 2 week, discuss with them continuous glucose monitoring and the possibility of insulin pump Take Doxycline 100 mg twice daily complete treatment for scalp abscess and follo up with heavy machinery assembler as previously scheduled Assessment: see above
[2023-11-27 11:32] LABS: Glucose, Whole Blood 297 mg/dL (60-115)
[2023-11-27 11:51] VITALS: BP 115/72; PULSE 70; RESP 18; TEMP 36.6; O2SAT 99
[2023-11-27 16:00] VITALS: BP 118/77; PULSE 71; RESP 18; TEMP 36.3; O2SAT 99
== END 2023-11-27 16:23 | disposition home or self-care (01) | DRG 602 ==
LOC: HO.ED 16:59 → HO.EDOVER 18:14 → HO.ICU 18:30 → HO.IMC 11-26 13:13
PROVIDERS: Nurse Practitioner Family; Physician Assistant Medical; Admitting Provider Internal Medicine Pulmonary Disease; Emergency Provider Emergency Medicine; PCP Nurse Practitioner Family; Visit Provider Internal Medicine
DX: L02.811 Cutaneous abscess of head [any part, except face] (principal); E10.10 Type 1 diabetes mellitus with ketoacidosis without coma; E87.1 Hypo-osmolality and hyponatremia; E10.43 Type 1 diabetes mellitus with diabetic autonomic (poly)neuropathy; K31.84 Gastroparesis; Z20.822 Contact with and (suspected) exposure to COVID-19; T38.3X6A Underdosing of insulin and oral hypoglycemic [antidiabetic] drugs, initial encounter; Z91.138 Patient's unintentional underdosing of medication regimen for other reason
CPT/HCPCS: 0241U; 36415; 80048; 80053; 81001; 82010; 82040; 82803; 82947; 83690; 83735; 83930; 84100; 84484; 85025; 93005; 99285; J1644; J2405; J3370; J7120

== ENCOUNTER → 2023-11-25 14:41 | Outpatient (BNV) | payer SELFPAY | PROVIDERS: Admitting Provider Internal Medicine Pulmonary Disease; Emergency Provider Emergency Medicine; PCP Nurse Practitioner Family; Visit Provider Internal Medicine | DX: R00.0 Tachycardia, unspecified (principal) | CPT/HCPCS: 93010 ==

== ENCOUNTER → 2023-11-25 18:09 | Outpatient (BNV) | payer SELFPAY | PROVIDERS: Admitting Provider Internal Medicine Pulmonary Disease; Emergency Provider Emergency Medicine; PCP Nurse Practitioner Family; Visit Provider Internal Medicine | DX: E10.10 Type 1 diabetes mellitus with ketoacidosis without coma (principal); L02.811 Cutaneous abscess of head [any part, except face] | CPT/HCPCS: 99239; 99499 ==

== ENCOUNTER → 2023-11-25 18:09 | Outpatient (BNV) | payer SELFPAY | PROVIDERS: Admitting Provider Internal Medicine Pulmonary Disease; Emergency Provider Emergency Medicine; PCP Nurse Practitioner Family; Visit Provider Internal Medicine Pulmonary Disease | DX: E10.10 Type 1 diabetes mellitus with ketoacidosis without coma (principal); L02.811 Cutaneous abscess of head [any part, except face] | CPT/HCPCS: 99233 ==

== ENCOUNTER → 2023-11-25 18:09 | Outpatient (BNV) | payer SELFPAY | PROVIDERS: Admitting Provider Internal Medicine Pulmonary Disease; Emergency Provider Emergency Medicine; PCP Nurse Practitioner Family; Visit Provider Nurse Practitioner Family | DX: E10.10 Type 1 diabetes mellitus with ketoacidosis without coma (principal); L02.811 Cutaneous abscess of head [any part, except face] | CPT/HCPCS: 99223 ==

== ENCOUNTER 2024-05-31 13:16 | Emergency (ER) | payer MEDICAID, SELFPAY ==
--- NOTE | ~2024-05-31 | XR_ITS ---
CLINICAL HISTORY: couhging. pneumonia? 1 view chest x-ray Comparison: CR/NV/SR - XR CHEST 1V - 07/17/22 20:21 EST Findings: No consolidation, pleural effusion or pneumothorax. Heart size is normal. No acute fracture. IMPRESSION: No segmental or lobar pneumonia. This document has been electronically signed by: Tina Perkins DO on 05/31/2024 16:02:17
[2024-05-31 14:15] VITALS: BP 146/80; PULSE 81; RESP 18; TEMP 36.7; O2SAT 100; BMI 31.5
--- NOTE | 2024-05-31 14:18 | ED_ITS ---
HPI - General Adult General Chief complaint: Upper Respiratory Symptoms Stated complaint: flu symptoms Time Seen by Provider: 05/31/24 14:32 Source: patient Mode of arrival: ambulatory Limitations: no limitations History of Present Illness ED Provider: Prince Singer HPI narrative: 38-year-old female presents to ED for dry cough, body aches, chest congestion since Saturday. Patient denies any chest pain or shortness of breath. Patient states no other symptoms. Related Data Home Medications ?Medication ?Instructions ?Recorded ?Confirmed insulin glargine 100 unit/mL (3 10 - 25 unit subcut DAILY@1200 PRN 11/25/23 11/25/23 mL) subcutaneous pen (Lantus elevated blood sugar Solostar U-100 Insulin) insulin glargine 100 unit/mL (3 25 unit subcut BID 11/25/23 11/25/23 mL) subcutaneous pen (Lantus Solostar U-100 Insulin) Previous Rx's ?Medication ?Instructions ?Recorded blood-glucose sensor (FreeStyle #2 ea 02/12/23 Mari 3 Sensor device) doxycycline monohydrate 100 mg 100 mg PO BID #9 caps 11/27/23 capsule insulin lispro 100 unit/mL 1 sliding scale dose subcut 11/27/23 subcutaneous pen (Humalog KwikPen USEASDIRECTD #15 mL (U-100) Insulin) amoxicillin 875 mg-potassium 1 tab PO Q12H 10 days #20 tabs 05/31/24 clavulanate 125 mg tablet naproxen 500 mg tablet 500 mg PO BID PRN pain 7 days #14 05/31/24 tabs Allergies Allergy/AdvReac Type Severity Reaction Status Date / Time No Known Allergies Allergy Verified 05/31/24 14:18 [No Known Allergies*] Review of Systems Review of Systems: Sore throat, coughing, chest congestion Yes all other systems are reviewed and are negative [facility] Past Medical History Medical History (Updated 05/31/24 @ 16:17 by FAZAL Barton) Type 1 diabetes mellitus Encounter to establish care Diabetic ketoacidosis Gastroparesis MATTHEW (acute kidney injury) Diabetes Surgical History Hx of cataract surgery No pertinent past surgical history Family History Family History Mother No known problems Father Diabetes Social History Social History Household Members: Family Housing: House Do you presently have visiting nurse or other home services: No Patient Tobacco Use Status: Never used Tobacco e-Cigarette/Vaping Use: Never Used Second Hand Smoke Exposure: No Advance Directives: No Advance Directives Information Provided: No service: No Current occupational status: employed Cognitive needs: No Hearing needs: No Vision needs: No Physical Exam ED Vital Signs: Vital Signs - 24 hr 05/31/24 14:15 05/31/24 16:36 Temperature 98.0 F 98.0 F Pulse Rate 81 81 Respiratory Rate 18 18 Blood Pressure 146/80 H 146/80 H Pulse Oximetry 100 100 Oxygen Delivery Method Room Air Room Air BMI result Body Mass Index 31.5 Const General: cooperative, healthy appearing, comfortable, no acute distress, well developed, alert, awake and Physically active Orientation/consciousness: patient oriented x3 HENMT Head: Yes normal to inspection, Yes No palpable skull fracture present, Yes normocephalic and Yes atraumatic Ears: hearing grossly normal bilaterally, external ears normal, TM's normal bilaterally, TM normal on the right, TM normal on the left, EAC's normal, mastoids normal and no periauricular adenopathy Throat: Yes posterior oropharynx normal, Yes tonsils normal and Yes uvula midline Eyes General: appearance normal, both eyes and all related structures Neck Neck: Yes normal visual inspection, Yes full ROM, Yes no lymphadenopathy, Yes no meningeal signs, Yes trachea midline, Yes supple, No anterior neck swelling and No tender Chest Chest palpation & inspection: normal inspection of the chest and normal palpation of entire chest wall Resp Effort & Inspection: normal respiratory effort and able to speak in complete sentences Auscultation: clear to auscultation bilaterally Cardio Jugular venous distension: no JVD Heart sounds: S1 normal heart sound present and S2 normal heart sound present GI Inspection: Yes normal to inspection Palpation (GI): Soft to palpation, not firm, nontender, no guarding and not rigid General: Yes no CVA tenderness Back/Spine/Pelvis Back: no CVA tenderness and No back tenderness Skin General skin exam: no rashes or lesions noted, elasticity normal and turgor normal Neuro General: patient oriented x3, gait normal, tone normal, moves all extremities, Normal light touch and pain sensation, no meningeal signs, no focal motor deficits, CN's II-XI intact bilaterally and normal sensation to monofilament Extrem General: Yes normal to inspection, Yes full ROM and Yes capillary refill normal Psych Appearance: grossly normal, well kempt and not disheveled Course Course Course Narrative: RME: 38-year-old female presents to ED for dry cough body aches and chest congestion since Saturday. Patient has tested herself from a COVID was negative. Patient well-appearing. SARs Medications Administered Discontinued Medications Generic Name Dose Route Start Last Admin Trade Name Yandelq PRN Reason Stop Dose Admin Acetaminophen 975 mg 05/31/24 16:31 05/31/24 16:35 Acetaminophen 325 Mg Tablet PO 05/31/24 16:32 975 mg ONCE ONE Administration Ondansetron HCl 4 mg 05/31/24 16:31 05/31/24 16:36 Ondansetron Odt 4 Mg Tab.Rapdis TRANSLINGU 05/31/24 16:32 4 mg ONCE ONE Administration Medical Decision Making Medical Decision Making [facility] Narrative: 38-year-old female presents to ED for URI symptoms since Saturday. Patient is positive for RSV and strep. Chest x-ray pending. 4:12pm: Patient positive for RSV and strep. Patient is not in distress. Negative for signs of peritonsillar abscess. Negative for signs of retropharyngeal abscess or epiglottitis. Not suspecting respiratory failure. Not suspecting PE, myocarditis, pericarditis, or CHF. Differential Diagnosis Differential Diagnoses: The differential diagnosis associated with the presentation includes (Pneumonia, SARs, ) Admission/Observation Consideration of admission/observation: Escalation of care including admission/observation considered Lab Data [facility] Lab Attestation statement: I reviewed the patient's lab results. Labs: Lab Results 05/31/24 Range/Units 14:35 Influenza Type A (PCR) NEGATIVE (Negative) Influenza Type B (PCR) NEGATIVE (Negative) RSV RNA Qual (PCR) POSITIVE A (Negative) SARS-CoV-2 RNA (RT-PCR) NEGATIVE (Negative) S. pyogenes GrpA ARCHIE Positive A (Negative) Independent Interpretation I performed an independent interpretation of an: Plain X-Ray Radiology Impression Discussion of test interpretation with radiology: I have reviewed the radiologist's reading. Discharge Plan Discharge Clinical Impression: Respiratory syncytial virus (RSV), Strep throat Patient Disposition: Home, Self-Care Instructions: Respiratory Syncytial Virus (ED), Strep Throat (ED) Additional Instructions: Recommend follow-up with primary care provider. Tested positive for strep and RSV. Return to the ED immediately for any chest pain, shortness of breath, drooling, change in voice, inability to tolerate liquids, or any other concerning symptoms. Prescriptions: New amoxicillin-pot clavulanate 875-125 mg tablet 1 tab PO Q12H 10 Days Qty: 20 0RF naproxen 500 mg tablet 500 mg PO BID PRN (Reason: pain) 7 Days Qty: 14 0RF No Action insulin glargine [Lantus Solostar U-100 Insulin] 100 unit/mL (3 mL) insulin pen 10 - 25 unit subcut DAILY@1200 PRN (Reason: elevated blood sugar) Rx Instructions: takes with lunch depending on blood sugar insulin glargine [Lantus Solostar U-100 Insulin] 100 unit/mL (3 mL) insulin pen 25 unit subcut BID doxycycline monohydrate 100 mg capsule 100 mg PO BID Qty: 9 0RF insulin lispro [Humalog KwikPen Insulin] 100 unit/mL insulin pen 1 sliding scale dose subcut USEASDIRECTD Qty: 15 0RF Rx Instructions: BG <111 0 units, 111-150 - 0 units, 151-200 2 units, 201-250 4 units, 251-300 6 units, 301-350 8 units, >350 10 units Before meals and at bedtime (DME) FreeStyle Mari 3 Sensor Device See Rx Instructions .Route Qty: 2 5RF Rx Instructions: As directed change every 14 days Stand Alone Forms: Work/School Release Interventions: ED Discharge Assessment Last Done: 05/31/24 16:36 Discharge Date/Time: 05/31/24 16:37 Print Language: [place]ib[place]ian
[2024-05-31 15:00] LABS: IDNOW Serial# 08D9AD1C; Strep A Nucleic Acid Positive (Negative)
[2024-05-31 15:30] LABS: Influenza A PCR NEGATIVE (Negative); Influenza B PCR NEGATIVE (Negative); Resp Syncy Virus RNA Qual PCR POSITIVE (Negative); SARS COV2 PCR INHOUSE NEGATIVE (Negative)
[2024-05-31] MEDS: Acetaminophen 325 MG TABLET 975 MG PO (16:35)
[2024-05-31 16:36] VITALS: BP 146/80; PULSE 81; RESP 18; TEMP 36.7; O2SAT 100
[2024-05-31] MEDS: Ondansetron ODT 4 MG TAB.RAPDIS TRANSLINGU (16:36)
== END 2024-05-31 16:37 | disposition home or self-care (01) ==
PROVIDERS: Physician Assistant; Emergency Provider Emergency Medicine
DX: R09.89 Other specified symptoms and signs involving the circulatory and respiratory systems (principal); J22 Unspecified acute lower respiratory infection; M79.10 Myalgia, unspecified site; R05.9 Cough, unspecified; J02.0 Streptococcal pharyngitis; Z79.899 Other long term (current) drug therapy; Z03.818 Encounter for observation for suspected exposure to other biological agents ruled out
CPT/HCPCS: 0241U; 71045; 87651; 99283

== ENCOUNTER → 2024-05-31 14:17 | Outpatient (BNV) | payer OTHER, SELFPAY | PROVIDERS: Emergency Provider Emergency Medicine; Visit Provider Radiology Diagnostic Radiology | DX: R05.9 Cough, unspecified (principal) | CPT/HCPCS: 71045 ==

== ENCOUNTER 2024-06-04 12:32 | Emergency (ER) | payer MEDICAID, SELFPAY ==
--- NOTE | ~2024-06-04 | XR_ITS ---
EXAMINATION: XR CHEST CLINICAL INFORMATION: RSV+, feeling worse COMPARISON: None available. TECHNIQUE: 2 views of the chest were obtained. FINDINGS: No significant abnormality is noted involving the heart, lungs, mediastinum, bony thorax or soft tissues. XR/XR chest 2V IMPRESSION: Unremarkable chest examination. Electronically signed by: Karthik Armendariz MD 06/04/2024 01:52 PM [facility] [place]
--- NOTE | 2024-06-04 12:34 | ECG_ITS ---
Test Reason : CHEST PAIN Blood Pressure : */* mmHG Vent. Rate : 94 BPM Atrial Rate : 94 BPM P-R Int : 130 ms QRS Dur : 76 ms QT Int : 352 ms P-R-T Axes : 55 18 17 degrees QTcB Int : 440 ms Normal sinus rhythm Normal ECG When compared with ECG of 25-Nov-2023 14:58, No significant change was found Referred By: Generic ED Physician Electronically Signed By: MILTON MCKEE
[2024-06-04 13:18] VITALS: BP 126/87; PULSE 101; RESP 18; TEMP 36.7; O2SAT 95; BMI 31.8
--- NOTE | 2024-06-04 13:19 | ED_ITS ---
HPI - General Adult General Chief complaint: Upper Respiratory Symptoms Stated complaint: chest pain Time Seen by Provider: 06/04/24 16:46 Source: patient Mode of arrival: ambulatory Limitations: no limitations History of Present Illness ED Provider: Dr. Pamella Ascencio HPI narrative: Patient comes to the emergency room complaining of high blood sugar. Patient is known to be type 1 diabetic, uses her insulin. Patient states that over last few days, she has been feeling very tired, coughing. Few days ago she was diagnosed with both RSV and strep pharyngitis. Patient states that she is not on prednisone. Patient denies any abdominal pain. Patient states that she is just annoyed by the coughing Related Data Home Medications ?Medication ?Instructions ?Recorded ?Confirmed insulin glargine 100 unit/mL (3 10 - 25 unit subcut DAILY@1200 PRN 11/25/23 11/25/23 mL) subcutaneous pen (Lantus elevated blood sugar Solostar U-100 Insulin) insulin glargine 100 unit/mL (3 25 unit subcut BID 11/25/23 11/25/23 mL) subcutaneous pen (Lantus Solostar U-100 Insulin) Previous Rx's ?Medication ?Instructions ?Recorded blood-glucose sensor (FreeStyle #2 ea 02/12/23 Mari 3 Sensor device) doxycycline monohydrate 100 mg 100 mg PO BID #9 caps 11/27/23 capsule insulin lispro 100 unit/mL 1 sliding scale dose subcut 11/27/23 subcutaneous pen (Humalog KwikPen USEASDIRECTD #15 mL (U-100) Insulin) amoxicillin 875 mg-potassium 1 tab PO Q12H 10 days #20 tabs 05/31/24 clavulanate 125 mg tablet naproxen 500 mg tablet 500 mg PO BID PRN pain 7 days #14 05/31/24 tabs benzonatate 100 mg capsule 100 mg PO TID PRN cough #12 caps 06/04/24 ondansetron 4 mg disintegrating 4 mg PO Q6H PRN nausea and 06/04/24 tablet vomiting #14 tabs Allergies Allergy/AdvReac Type Severity Reaction Status Date / Time No Known Allergies Allergy Verified 06/04/24 13:20 [No Known Allergies*] Review of Systems 2 Review of Systems: Constitutional : No Weight loss, No Fever, No Chills, No Night Sweats, No Fatigue, No Malaise ENT/Mouth : No Hearing loss, No Ear Pain, No Nasal Congestion, No Sinus Pain, No Hoarseness, No sore throat, No Rhinorrhea, No Swallowing Difficulty Eyes: No Eye Pain, No Swelling, No Redness, No Foreign Body, No Discharge, No Vision Changes Cardiovascular : No Chest Pain, No SOB, No Dyspnea on Exertion, No Orthopnea, No Edema, No Palpitations Respiratory : complaining of cough,No Wheezing, No Smoke Exposure, No Dyspnea Gastrointestinal : No Nausea, No Vomiting, No Diarrhea, No Constipation, No abdominal Pain, No Hematochezia, No Melena Genitourinary : no irregular bleeding, No Dysuria, No Urinary Frequency, No Hematuria, No Urinary Incontinence, No Urgency, No Flank Pain, No Urinary Flow Changes, No Hesitancy Musculoskeletal : No joint pain, No Myalgias, No Joint Swelling Skin : No Skin Lesions, No rash Neuro : No Weakness, No Numbness, No Paresthesias, No Loss of Consciousness, No Dizziness, No Headache Psych : No Anxiety/Panic, No Depression, No SI/HI/AH/VH, No Social Issues, Heme/Lymph: No Bruising, No Bleeding,No Lymphadenopathy Endocrine : No Polyuria, No Polydipsia, No Temperature Intolerance complaining of high blood sugars, PMFSH Past Medical History Medical History (Updated 06/04/24 @ 19:28 by Pamella Ascencio MD) Type 1 diabetes mellitus Encounter to establish care Diabetic ketoacidosis Gastroparesis MATTHEW (acute kidney injury) Diabetes Surgical History Hx of cataract surgery No pertinent past surgical history Family History Family History Mother No known problems Father Diabetes Social History Social History Household Members: Family Housing: House Do you presently have visiting nurse or other home services: No Patient Tobacco Use Status: Never used Tobacco Smoked in Last 30 Days: No e-Cigarette/Vaping Use: Never Used Second Hand Smoke Exposure: No Use of substances other than those prescribed or required for medical reasons: No Advance Directives: Yes Advance Directives on File: Yes Advance Directives Date on File: 07/23/22 Do you have a plan to hurt others: No Plan Patient : No service: No Current occupational status: employed Cognitive needs: No Hearing needs: No Vision needs: No Physical Exam ED Vital Signs: Vital Signs - 24 hr 06/04/24 13:18 06/04/24 18:00 06/04/24 18:06 Temperature 98.1 F 97.9 F Pulse Rate 101 H 89 Respiratory Rate 18 18 Blood Pressure 126/87 123/65 Pulse Oximetry 95 96 95 Oxygen Delivery Method Room Air Room Air Room Air BMI result Body Mass Index 31.8 Const Other: Appearance: Alert. Oriented X3. No acute distress. Eyes: Pupils equal, round and reactive to light. ENT: Pharynx normal. Neck: Normal inspection. Neck supple. No lymph nodes noted. No crepitus CVS: Normal heart rate and rhythm. Pulses normal. Normal S1 and S2 Respiratory: No respiratory distress. Breath sounds normal. No Wheezing. No rales Abdomen: Soft and nontender. No rigidity. No distention. Skin: Skin warm and dry. Normal skin color. Normal skin turgor. Extremities: No lower extremity edema. No Lacerations. No Rash Neuro: Oriented X 3. No motor deficit. No sensory deficit. Moving all extremities. No slurred speech. CN 2 through 12 grossly intact Psych: calm, cooperative, normal affect Course Course Course Narrative: This is a rapid medical exam performed by Rohan Pearce NP: Additional HPI, ROS, PE not included below will be deferred to primary provider. Patient is a 38-year-old female with history of DM presenting with complaint of cough, chest pain, nausea, headache. Seen here on 05/31, tested positive for RSV and strep. Has been taking medications as prescribed, not feeling better. Checked glucose today and it read high, took 25u of insulin. Plan: labs, CXR Medications Administered Discontinued Medications Generic Name Dose Route Start Last Admin Trade Name Freq PRN Reason Stop Dose Admin Al Hydroxide/Mg Hydroxide 30 ml 06/04/24 17:02 06/04/24 17:58 Magnesium Hydrox/Alum Hydrox 30 Ml Oral.Susp PO 06/04/24 17:03 30 ml ONCE ONE Administration Benzonatate 100 mg 06/04/24 17:09 06/04/24 17:58 Benzonatate 100 Mg Capsule PO 06/04/24 17:10 100 mg ONCE ONE Administration Sodium Chloride 2,000 mls @ 999 mls/hr 06/04/24 17:09 06/04/24 17:30 Ns IVCONT 06/04/24 19:09 999 mls/hr .Q2H1M ONE Administration Insulin Human Regular 10 unit 06/04/24 17:09 06/04/24 17:59 Insulin Regular, Human 100 Unit/Ml 10 Ml Vial IVPUSH 06/04/24 17:10 10 unit ONCE ONE Administration Medical Decision Making Medical Decision Making [facility] Narrative: my interpretation of labs: Normal white blood cell count, hematology at baseline, chemistry does not show any acute abnormalities other than the hyperglycemia, glucose 496. Beta hydroxybutyrate slightly elevated 1.54. Anion gap closed, hCG negative, LFTs normal - patient receiving IV fluids, 10 units of insulin. Also received a dose of Tessalon Perles. after IV fluids, patient's glucose 292. At this time, we will not change patient's dose insulin. Once patient feels better and is no longer having strep and RSV, if her glucose remains high, patient's box gluer/PCP can change her current dose. Differential Diagnosis Differential Diagnoses: The differential diagnosis associated with the presentation includes ( Hyperglycemia, DKA, RSV, strep, bronchitis) Admission/Observation Consideration of admission/observation: Escalation of care including admission/observation considered ( given patient's symptoms and high glucose observation was considered) Lab Data [facility] Lab Attestation statement: I reviewed the patient's lab results. 06/04/24 14:55 06/04/24 14:55 Labs: Lab Results 06/04/24 06/04/24 06/04/24 Range/Units 13:23 14:55 15:05 WBC 4.9 (4.8-10.8) X10*3/uL RBC 4.20 (4.20-5.50) X10*6/uL Hgb 11.4 L (12.0-16.0) g/dl Hct 35.3 L (37.0-47.0) % MCV 84.0 (80.0-98.0) fL MCH 27.1 (27.0-33.0) pg MCHC 32.3 (31.0-35.0) g/dl RDW 13.0 (11.0-16.0) % Plt Count 244 (160-400) X10*3/uL MPV 10.5 (9.4-12.3) fL Immature Gran % (Auto) 0.2 (0.0-0.4) % Neut % (Auto) 64.4 (45-73) % Lymph % (Auto) 30.7 (20-40) % [place] % (Auto) 3.3 (2-11) % Eos % (Auto) 1.0 (0-4) % Baso % (Auto) 0.4 (0-2) % Lymph # (Auto) 1.5 (1.2-4.9) X10*3/uL [place] # (Auto) 0.2 (0.1-1.2) X10*3/uL Eos # (Auto) 0.1 (0.0-0.4) X10*3/uL Baso # (Auto) 0.0 (0.0-0.2) X10*3/uL Abs Immat Gran (auto) 0.01 (0.00-0.03) X10*3/uL Absolute Neuts (auto) 3.1 (2.0-8.3) x10*3/uL Absolute Nucleated RBC 0.000 (0.0-0.012) X10*3/uL Nucleated RBC % (auto) 0.0 (0.0-0.2) /100WBC VBG pH 7.34 (7.32-7.43) VBG pCO2 48 mmHg VBG pO2 36 mmHg VBG HCO3 26 (22-26) mmol/L VBG O2 Saturation 46.0 % VBG Base Excess 0.3 mmol/L Sodium 137 (135-145) mmol/L Potassium 4.5 (3.3-5.1) mmol/L Chloride 102 (96-108) mmol/L Carbon Dioxide 25 (22-29) mmol/L Anion Gap 15 (12-20) BUN 12 (9-16) mg/dL Creatinine 0.74 (0.5-1.4) mg/dL Estim Creat Clear Calc 101.2 Estimated GFR > 60 POC Glucose 384 H* (60-115) mg/dL Random Glucose 496 H* (60-115) mg/dL Calcium 9.1 (8.4-10.2) mg/dL Total Bilirubin 0.5 (0.0-1.0) mg/dL AST 22 (5-31) U/L ALT 22 (0-31) U/L Alkaline Phosphatase 115 (39-117) U/L Total Protein 7.8 (6.5-8.0) g/dL Albumin 3.6 (3.5-5.0) g/dL Beta-Hydroxybutyrate 1.54 H (0.02-0.27) mmol/L Beta HCG, Quant < 2 mIU/mL 06/04/24 06/04/24 Range/Units 17:57 19:04 WBC (4.8-10.8) X10*3/uL RBC (4.20-5.50) X10*6/uL Hgb (12.0-16.0) g/dl Hct (37.0-47.0) % MCV (80.0-98.0) fL MCH (27.0-33.0) pg MCHC (31.0-35.0) g/dl RDW (11.0-16.0) % Plt Count (160-400) X10*3/uL MPV (9.4-12.3) fL Immature Gran % (Auto) (0.0-0.4) % Neut % (Auto) (45-73) % Lymph % (Auto) (20-40) % [place] % (Auto) (2-11) % Eos % (Auto) (0-4) % Baso % (Auto) (0-2) % Lymph # (Auto) (1.2-4.9) X10*3/uL [place] # (Auto) (0.1-1.2) X10*3/uL Eos # (Auto) (0.0-0.4) X10*3/uL Baso # (Auto) (0.0-0.2) X10*3/uL Abs Immat Gran (auto) (0.00-0.03) X10*3/uL Absolute Neuts (auto) (2.0-8.3) x10*3/uL Absolute Nucleated RBC (0.0-0.012) X10*3/uL Nucleated RBC % (auto) (0.0-0.2) /100WBC VBG pH (7.32-7.43) VBG pCO2 mmHg VBG pO2 mmHg VBG HCO3 (22-26) mmol/L VBG O2 Saturation % VBG Base Excess mmol/L Sodium (135-145) mmol/L Potassium (3.3-5.1) mmol/L Chloride (96-108) mmol/L Carbon Dioxide (22-29) mmol/L Anion Gap (12-20) BUN (9-16) mg/dL Creatinine (0.5-1.4) mg/dL Estim Creat Clear Calc Estimated GFR POC Glucose 492 H* 292 H (60-115) mg/dL Random Glucose (60-115) mg/dL Calcium (8.4-10.2) mg/dL Total Bilirubin (0.0-1.0) mg/dL AST (5-31) U/L ALT (0-31) U/L Alkaline Phosphatase (39-117) U/L Total Protein (6.5-8.0) g/dL Albumin (3.5-5.0) g/dL Beta-Hydroxybutyrate (0.02-0.27) mmol/L Beta HCG, Quant mIU/mL Independent Interpretation I performed an independent interpretation of an: Plain X-Ray Radiology Impression Discussion of test interpretation with radiology: I have reviewed the radiologist's reading. Radiologist Impression: No significant abnormality is noted involving the heart, lungs, mediastinum, bony thorax or soft tissues. Critical Care Time Critical Care Time Critical Care Time: Yes Total Critical Care Time: 45 Attestation: I have personally provided critical care time. Time includes review of lab data, radiology results, discussion with consultants, and monitoring for potential decompensation. Intervention performed as documented. Discharge Plan Discharge Clinical Impression: Acute hyperglycemia, RSV bronchitis Patient Disposition: Home, Self-Care Instructions: Acute Bronchitis (ED) Additional Instructions: Please follow-up with your primary care physician tomorrow. If you have any worsening or new symptoms, please return to the emergency room or call 911 Prescriptions: New benzonatate 100 mg capsule 100 mg PO TID PRN (Reason: cough) Qty: 12 0RF ondansetron 4 mg tablet,disintegrating 4 mg PO Q6H PRN (Reason: nausea and vomiting) Qty: 14 0RF No Action insulin glargine [Lantus Solostar U-100 Insulin] 100 unit/mL (3 mL) insulin pen 10 - 25 unit subcut DAILY@1200 PRN (Reason: elevated blood sugar) Rx Instructions: takes with lunch depending on blood sugar insulin glargine [Lantus Solostar U-100 Insulin] 100 unit/mL (3 mL) insulin pen 25 unit subcut BID doxycycline monohydrate 100 mg capsule 100 mg PO BID Qty: 9 0RF insulin lispro [Humalog KwikPen Insulin] 100 unit/mL insulin pen 1 sliding scale dose subcut USEASDIRECTD Qty: 15 0RF Rx Instructions: BG <111 0 units, 111-150 - 0 units, 151-200 2 units, 201-250 4 units, 251-300 6 units, 301-350 8 units, >350 10 units Before meals and at bedtime amoxicillin-pot clavulanate 875-125 mg tablet 1 tab PO Q12H 10 Days Qty: 20 0RF naproxen 500 mg tablet 500 mg PO BID PRN (Reason: pain) 7 Days Qty: 14 0RF (DME) FreeStyle Mari 3 Sensor Device See Rx Instructions .Route Qty: 2 5RF Rx Instructions: As directed change every 14 days Print Language: Chinese
[2024-06-04 13:28] LABS: Glucose, Whole Blood 384 mg/dL (60-115)
[2024-06-04 15:06] LABS: MANUAL DIFF FLAG NO
[2024-06-04 15:13] LABS: Basophils Percent Auto 0.4 % (0-2); Eosinophils Absolute Auto 0.1 X10*3/uL (0.0-0.4); Hematocrit 35.3 % (37.0-47.0); Hemoglobin 11.4 g/dl (12.0-16.0); Imm Gran Abs Auto 0.01 X10*3/uL (0.00-0.03); Imm Gran Pct Auto 0.2 % (0.0-0.4); Lymphocytes Absolute Auto 1.5 X10*3/uL (1.2-4.9); Lymphocytes Percent Auto 30.7 % (20-40); Mean Corpuscular HGB Conc 32.3 g/dl (31.0-35.0); Mean Corpuscular Hemoglobin 27.1 pg (27.0-33.0); Mean Platelet Volume 10.5 fL (9.4-12.3); Monocytes Absolute Auto 0.2 X10*3/uL (0.1-1.2); Monocytes Percent Auto 3.3 % (2-11); Neutrophils Absolute Auto 3.1 x10*3/uL (2.0-8.3); Neutrophils Percent Auto 64.4 % (45-73); Platelet Count 244 X10*3/uL (160-400); White Blood Count 4.9 X10*3/uL (4.8-10.8)
[2024-06-04 15:13] LABS: VBG Base Excess 0.3 mmol/L; VBG HCO3 26 mmol/L (22-26); VBG pCO2 48 mmHg; VBG pH 7.34 (7.32-7.43); VBG pO2 36 mmHg
[2024-06-04 15:22] LABS: Beta-Hydroxybutyrate 1.54 mmol/L (0.02-0.27)
[2024-06-04 15:34] LABS: Alanine Aminotransferase 22 U/L (0-31); Albumin Level 3.6 g/dL (3.5-5.0); Anion Gap 15 (12-20); Aspartate Amino Transferase 22 U/L (5-31); Bilirubin Total 0.5 mg/dL (0.0-1.0); Blood Urea Nitrogen 12 mg/dL (9-16); Calcium 9.1 mg/dL (8.4-10.2); Carbon Dioxide 25 mmol/L (22-29); Chloride 102 mmol/L (96-108); Creatinine Clr Calc Pharmacy 101.2; Estimated Glomerular Filt Rate > 60; Glucose Random 496 mg/dL (60-115); HCG Quantitative < 2 mIU/mL; Potassium 4.5 mmol/L (3.3-5.1); Sodium 137 mmol/L (135-145); Total Protein 7.8 g/dL (6.5-8.0)
[2024-06-04 15:42] LABS: Venous Blood Gas Refer to POC result
[2024-06-04 15:52] LABS: Alkaline Phosphatase 115 U/L (39-117)
[2024-06-04] MEDS: 0.9 % Sodium Chloride 2,000 ML 999 ML IVCONT (17:30)
[2024-06-04] MEDS: Magnesium Hydrox/Alum Hydrox 30 ML ORAL.SUSP PO (17:58)
[2024-06-04] MEDS: Benzonatate 100 MG CAPSULE PO (17:58)
[2024-06-04] MEDS: Insulin Regular, Human 100 UNIT/ML 10 ML VIAL 10 UNIT IVPUSH (17:59)
[2024-06-04 18:00] VITALS: BP 123/65; PULSE 89; RESP 18; TEMP 36.6; O2SAT 96
[2024-06-04 18:06] VITALS: O2SAT 95
[2024-06-04 18:12] LABS: Glucose, Whole Blood 492 mg/dL (60-115)
--- NOTE | 2024-06-04 18:12 | PC.NURSE ---
pt moved to main ED room 6. line already established and fluids infusing. medicated pt with VIP insulin - POC before admin 492. athletic monitor on - NSR on tele.
[2024-06-04 19:09] LABS: Glucose, Whole Blood 292 mg/dL (60-115)
[2024-06-04 20:02] VITALS: BP 114/73; PULSE 99; RESP 21; TEMP 37; O2SAT 93
== END 2024-06-04 20:04 | disposition home or self-care (01) ==
PROVIDERS: Registered Nurse Emergency; Emergency Provider Emergency Medicine
DX: J20.5 Acute bronchitis due to respiratory syncytial virus (principal); R05.9 Cough, unspecified; E10.65 Type 1 diabetes mellitus with hyperglycemia; Z79.4 Long term (current) use of insulin
CPT/HCPCS: 36415; 71046; 80053; 82010; 82803; 82947; 84702; 85025; 93005; 96374; 99284; 99285

== ENCOUNTER → 2024-06-04 12:34 | Outpatient (BNV) | payer MEDICAID, SELFPAY | PROVIDERS: Emergency Provider Emergency Medicine; Visit Provider Internal Medicine | DX: R07.9 Chest pain, unspecified (principal) | CPT/HCPCS: 93010 ==

== ENCOUNTER → 2024-06-04 13:21 | Outpatient (BNV) | payer MEDICAID, SELFPAY | PROVIDERS: Visit Provider Radiology Diagnostic Radiology | DX: R06.89 Other abnormalities of breathing (principal); B97.4 Respiratory syncytial virus as the cause of diseases classified elsewhere | CPT/HCPCS: 71046 ==

== ENCOUNTER 2024-06-17 08:46 | Emergency (ER) | payer OTHER, SELFPAY ==
--- NOTE | ~2024-06-17 | XR_ITS ---
EXAMINATION: XR CHEST CLINICAL INFORMATION: cough COMPARISON: 06/04/2024, 05/31/2024. TECHNIQUE: Frontal view of the chest was obtained. FINDINGS: No significant abnormality is noted involving the heart, lungs, mediastinum, bony thorax or soft tissues. XR/XR chest 1V IMPRESSION: Normal chest. Electronically signed by: Kenny Foley MD 06/17/2024 09:23 AM [facility] - [place], [place]
[2024-06-17 08:55] VITALS: BP 155/87; PULSE 94; RESP 16; TEMP 36; O2SAT 100; BMI 28.9
[2024-06-17 10:01] LABS: IDNOW Serial# 58CA691E; Strep A Nucleic Acid Negative (Negative)
[2024-06-17 10:29] LABS: Influenza A PCR NEGATIVE (Negative); Influenza B PCR NEGATIVE (Negative); Resp Syncy Virus RNA Qual PCR NEGATIVE (Negative); SARS COV2 PCR INHOUSE NEGATIVE (Negative)
[2024-06-17 11:09] VITALS: BP 155/87; PULSE 94; RESP 16; TEMP 36; O2SAT 100
--- NOTE | 2024-06-17 11:45 | ED.GENADULT ---
HPI - General Adult General Chief complaint: Upper Respiratory Symptoms Stated complaint: Sore Throat Headache Etc Seen on 06/14/24 Time Seen by Provider: 06/17/24 10:07 Source: patient, RN notes reviewed and old records reviewed Mode of arrival: ambulatory Limitations: no limitations History of Present Illness ED Provider: Ramses HPI narrative: Patient is a 38-year-old female who recently tested positive for RSV and strep presenting with complaint of sore throat, headache, fatigue. Nonproductive cough. Denies fevers. Complains of nausea without vomiting or diarrhea. MD complaint: cough, sore throat Onset (ago): week(s) Related Data Home Medications ?Medication ?Instructions ?Recorded ?Confirmed insulin glargine 100 unit/mL (3 10 - 25 unit subcut DAILY@1200 PRN 11/25/23 11/25/23 mL) subcutaneous pen (Lantus elevated blood sugar Solostar U-100 Insulin) insulin glargine 100 unit/mL (3 25 unit subcut BID 11/25/23 11/25/23 mL) subcutaneous pen (Lantus Solostar U-100 Insulin) Previous Rx's ?Medication ?Instructions ?Recorded blood-glucose sensor (FreeStyle #2 ea 02/12/23 Mari 3 Sensor device) doxycycline monohydrate 100 mg 100 mg PO BID #9 caps 11/27/23 capsule insulin lispro 100 unit/mL 1 sliding scale dose subcut 11/27/23 subcutaneous pen (Humalog KwikPen USEASDIRECTD #15 mL (U-100) Insulin) amoxicillin 875 mg-potassium 1 tab PO Q12H 10 days #20 tabs 05/31/24 clavulanate 125 mg tablet naproxen 500 mg tablet 500 mg PO BID PRN pain 7 days #14 05/31/24 tabs benzonatate 100 mg capsule 100 mg PO TID PRN cough #12 caps 06/04/24 ondansetron 4 mg disintegrating 4 mg PO Q6H PRN nausea and 06/04/24 tablet vomiting #14 tabs benzonatate 100 mg capsule 100 mg PO TID PRN cough #20 caps 06/17/24 Allergies Allergy/AdvReac Type Severity Reaction Status Date / Time No Known Allergies Allergy Verified 06/17/24 08:58 [No Known Allergies*] Review of Systems Review of Systems: As per HPI Yes all other systems are reviewed and are negative Constitutional: Constitutional: Reports as per HPI [facility] Past Medical History Medical History (Updated 06/17/24 @ 11:47 by Andree Pearce NP) Type 1 diabetes mellitus Encounter to establish care Diabetic ketoacidosis Gastroparesis MATTHEW (acute kidney injury) Diabetes Surgical History Hx of cataract surgery No pertinent past surgical history Family History Family History Mother No known problems Father Diabetes Social History Social History Household Members: Family Housing: House Do you presently have visiting nurse or other home services: No Patient Tobacco Use Status: Never used Tobacco e-Cigarette/Vaping Use: Never Used Second Hand Smoke Exposure: No Advance Directives: Yes Advance Directives on File: Yes Advance Directives Date on File: 07/23/22 service: No Current occupational status: employed Cognitive needs: No Hearing needs: No Vision needs: No Physical Exam ED Vital Signs: Vital Signs - 24 hr 06/17/24 08:55 06/17/24 11:09 Temperature 96.8 F 96.8 F Pulse Rate 94 94 Respiratory Rate 16 16 Blood Pressure 155/87 H 155/87 H Pulse Oximetry 100 100 BMI result Body Mass Index 28.9 Vital signs have been reviewed and appear to be correct. Blood pressure normal. Heart rate normal. Respiratory rate normal. Temperature normal. Oxygen saturation normal. Const General: cooperative, healthy appearing and no acute distress Orientation/consciousness: oriented to person, oriented to place, oriented to time and patient oriented x3 Limitations: no limitations [facility] Head: Yes normocephalic and Yes atraumatic Ears: external ears normal, TM's normal bilaterally and EAC's normal General nose exam: Normal external nose present and Normal nasal mucous membranes and turbinates present Face and sinus: Yes face symmetric Mouth: Normal oral and palatal mucosa present, lip normal, tongue normal, oropharynx normal and moist mucous membranes Throat: Yes posterior oropharynx normal, Yes tonsils normal, Yes uvula midline, No peritonsillar mass and No uvular edema Eyes Pupils: Equal, round and reactive pupils present Neck Neck: Yes normal visual inspection, Yes no lymphadenopathy and Yes supple Resp Effort & Inspection: normal respiratory effort and able to speak in complete sentences Auscultation: clear to auscultation bilaterally Cardio Rate: regular rate Rhythm: regular rhythm Heart sounds: S1 normal heart sound present and S2 normal heart sound present GI Palpation (GI): Soft to palpation and nontender Auscultation: normoactive bowel sounds General: Yes no CVA tenderness Back/Spine/Pelvis Back: no CVA tenderness Skin General skin exam: elasticity normal and turgor normal Neuro General: oriented to person, oriented to place, oriented to time, patient oriented x3, moves all extremities, no focal motor deficits and CN's II-XI intact bilaterally Cranial nerves: Yes Equal, round and reactive pupils present Cognition (Neuro): normal cognition Extrem General: Yes full ROM, Yes no pedal edema and Yes no calf tenderness Psych Mental Status: mental status grossly normal Affect: normal affect Thought process: Normal thought process present Medical Decision Making Medical Decision Making [facility] Narrative: Patient is a 38-year-old female who recently tested positive for RSV and strep presenting with complaint of sore throat, headache, fatigue. On exam patient is awake, A+Ox3, VS WNL, afebrile, normal neurological exam without focal deficits, physical exam findings as above. Given reported symptoms and physical exam findings, initial differential includes but is not limited to viral illness, COVID, flu, RSV, bronchitis, pneumonia. Viral serology negative. X-ray chest notable for no evidence of pneumonia. My interpretation is in agreement with the radiologist's interpretation. Patient updated on results and all questions answered. Will send prescription for benzonatate for cough, advised nasal saline spray as well. Follow up with PCP as needed. Return precautions discussed at bedside. Patient verbalized understanding of and agreement with plan. Differential Diagnosis Differential Diagnoses: The differential diagnosis associated with the presentation includes As per [facility] Lab Data [facility] Lab Attestation statement: I reviewed the patient's lab results. As per [facility] Labs: Lab Results 06/17/24 Range/Units 09:39 Influenza Type A (PCR) NEGATIVE (Negative) Influenza Type B (PCR) NEGATIVE (Negative) RSV RNA Qual (PCR) NEGATIVE (Negative) SARS-CoV-2 RNA (RT-PCR) NEGATIVE (Negative) S. pyogenes GrpA ARCHIE Negative (Negative) Independent Interpretation I performed an independent interpretation of an: Plain X-Ray Interpretation: No evidence of pneumonia on chest x-ray Radiology Impression Discussion of test interpretation with radiology: I have reviewed the radiologist's reading. Radiologist Impression: XR/XR chest 1V IMPRESSION: Normal chest. External Record Review External record reviewed: Inpatient record, Office record and Outpatient record Prescription Management I considered prescription management with: Other Discharge Plan Discharge Clinical Impression: Viral illness Patient Disposition: Home, Self-Care Instructions: Viral Syndrome (ED) Additional Instructions: You were evaluated in the emergency department today for sore throat and headaches. Your Covid, flu, RSV, and strep tests were all negative. Your chest xray did not show evidence of pneumonia. Your symptoms are likely related to a viral illness which will resolve on its own with time and rest. You are being prescribed benzonatate for cough, KEEP THIS MEDICATION OUT OF THE REACH OF CHILDREN. You should ensure adequate fluid intake, and can use Tylenol 650 mg or ibuprofen 600 mg every 6 hours as needed for fever or discomfort. We also recommend using over the counter nasal saline spray to thin your mucous. Please follow-up with your primary care provider this week. Return to the emergency department if you develop chest pain, worsening shortness of breath, difficulty swallowing, fever 100.4? F or greater or any other concerning symptoms. Prescriptions: New benzonatate 100 mg capsule 100 mg PO TID PRN (Reason: cough) Qty: 20 0RF No Action insulin glargine [Lantus Solostar U-100 Insulin] 100 unit/mL (3 mL) insulin pen 10 - 25 unit subcut DAILY@1200 PRN (Reason: elevated blood sugar) Rx Instructions: takes with lunch depending on blood sugar insulin glargine [Lantus Solostar U-100 Insulin] 100 unit/mL (3 mL) insulin pen 25 unit subcut BID doxycycline monohydrate 100 mg capsule 100 mg PO BID Qty: 9 0RF insulin lispro [Humalog KwikPen Insulin] 100 unit/mL insulin pen 1 sliding scale dose subcut USEASDIRECTD Qty: 15 0RF Rx Instructions: BG <111 0 units, 111-150 - 0 units, 151-200 2 units, 201-250 4 units, 251-300 6 units, 301-350 8 units, >350 10 units Before meals and at bedtime amoxicillin-pot clavulanate 875-125 mg tablet 1 tab PO Q12H 10 Days Qty: 20 0RF naproxen 500 mg tablet 500 mg PO BID PRN (Reason: pain) 7 Days Qty: 14 0RF benzonatate 100 mg capsule 100 mg PO TID PRN (Reason: cough) Qty: 12 0RF ondansetron 4 mg tablet,disintegrating 4 mg PO Q6H PRN (Reason: nausea and vomiting) Qty: 14 0RF (DME) FreeStyle Mari 3 Sensor Device See Rx Instructions .Route Qty: 2 5RF Rx Instructions: As directed change every 14 days Stand Alone Forms: Work/School Release Interventions: ED Discharge Assessment Last Done: 06/17/24 11:09 Discharge Date/Time: 06/17/24 12:15 Print Language: Wallisian
== END 2024-06-17 12:15 | disposition home or self-care (01) ==
LOC: HO.ED 12:05
PROVIDERS: Emergency Provider Emergency Medicine
DX: B34.9 Viral infection, unspecified (principal); J02.9 Acute pharyngitis, unspecified; R51.9 Headache, unspecified; R05.9 Cough, unspecified; Z03.818 Encounter for observation for suspected exposure to other biological agents ruled out
CPT/HCPCS: 0241U; 71045; 87651; 99282; 99283

== ENCOUNTER → 2024-06-17 09:10 | Outpatient (BNV) | payer MEDICAID, SELFPAY | PROVIDERS: Visit Provider Radiology Diagnostic Radiology | DX: R05.9 Cough, unspecified (principal) | CPT/HCPCS: 71045 ==

== ENCOUNTER 2024-11-28 11:42 | Inpatient (IN) | payer MEDICAID, SELFPAY ==
--- NOTE | ~2024-11-28 | CT_ITS ---
CLINICAL HISTORY: AMS CT HEAD WITHOUT CONTRAST Comparison: None provided Findings: No acute intracranial hemorrhage, extra-axial fluid collection, hydrocephalus or midline shift. No significant atrophy-like change. No significant white matter disease. There is no sinus or mastoid fluid. Visualized orbits: No acute abnormalities. There is no acute fracture. IMPRESSION: 1. No acute intracranial process. This document has been electronically signed by: Tina Perkins DO on 11/28/2024 14:04:37
[2024-11-28 12:02] VITALS: BP 122/85; PULSE 75; RESP 13; TEMP 33.8; O2SAT 100
[2024-11-28 12:06] VITALS: BMI 34.9
--- NOTE | 2024-11-28 12:11 | ED_ITS ---
HPI - General Adult General Chief complaint: Weakness Stated complaint: Hypoglycemia Time Seen by Provider: 11/28/24 12:11 Source: patient, family, EMS, RN notes reviewed and old records reviewed Mode of arrival: EMS Limitations: no limitations History of Present Illness ED Provider: Ramses DEAN narrative: Patient is a 39-year-old female with history of T1 dm, hyperlipidemia presenting to the emergency department with altered mental status after being found to be hypoglycemic at home prior to arrival. Patient reports that she takes 25 units of Lantus at night and has recently been having low blood glucose levels in the morning. 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 She denies any pain. Does complain of some difficulty with urinating. Denies recent URI or other sick symptoms. Patient answering questions appropriately but speech is slow and deliberate. MD complaint: hypoglycemia Related Data Home Medications ?Medication ?Instructions ?Recorded ?Confirmed insulin glargine 100 unit/mL (3 10 - 25 unit subcut DA SUZANNE@1200 PRN 11/25/23 11/25/23 mL) subcutaneous pen (Lantus elevated blood sugar Solostar U-100 Insulin) insulin glargine 100 unit/mL (3 25 unit subcut BID 06/1911/25/23 mL) subcutaneous pen (Lantus Solostar U-100 Insulin) Previous Rx's ?Medication ?Instructions ?Recorded blood-glucose sensor (FreeStyle #2 ea 02/12/23 Mari 3 Sensor device) doxycycline monohydrate 100 mg 100 mg PO BID #9 caps 0 11/27/23 capsule insulin lispro 100 unit/mL 1 sliding scale dose subcut 11/27/23 subcutaneous pen (Humalog KwikPen USEASDIRECTD #15 mL (U-100) Insulin) amoxicillin 875 mg-potassium 1 tab PO Q12H 10 days #20 tabs 05/31/24 clavulanate 125 mg tablet naproxen 500 mg tablet 500 mg PO BID PRN pain 7 day s #14 05/31/24 tabs benzonatate 100 mg capsule 100 mg PO TID PRN cough #12 caps 06/04/24 ondansetron 4 mg disintegrating 4 mg PO Q6H PRN nausea and 06/04/24 tablet vomiting #14 tabs benzonatate 100 mg capsule 100 mg PO TID PRN cough #20 caps 06/17/24 Allergies Allergy/AdvReac Type Severity Reaction Status Date / Time No Known Allergies (No Known Allergy Verified 11/28/24 12:26 Allergies*) Review of Systems 2 Review of Systems: As per HPI Yes all other systems are reviewed and are negative Constitutional: Constitutional: Reports as per HPI Neurologic: Reports Abnormal speech present [facility]LY [facility] Past Medical History Medical History (Updated 11/28/24 @ 16:41 by Andree Pearce NP) Type 1 diabetes mellitus Encounter to establish care Diabetic ketoacidosis Gastroparesis MATTHEW (acute kidney injury) Diabetes Surgical History Hx of cataract surgery No pertinent past surgical history Family History Family History Mother No known problems Father Diabetes Social History Social History Household Members: Family Housing: House Do you presently have visiting nurse or other home services: No Unable to assess alcohol history related to: Unknown Patient Tobacco Use Status: Never used Tobacco e-Cigarette/Vaping Use: Never Used Second Hand Smoke Exposure: No Use of substances other than those prescribed or required for medical reasons: Unknown Advance Directives: No Advance Directives Information Provided: No Advance Directives Date on File: 07/23/22 service: No Current occupational status: employed Cognitive needs: No Hearing needs: No Vision needs: No Physical Exam ED Vital Signs: Vital Signs - 24 hr 11/28/24 12:02 11/28/24 12:18 Temperature 92.9 F L 92 F L Pulse Rate 75 73 Respiratory Rate 13 16 Blood Pressure 122/85 122/85 Pulse Oximetry 100 100 Oxygen Delivery Method Room Air BMI result Body Mass Index 34.8 Vital signs have been reviewed and appear to be correct. Blood pressure normal. Heart rate normal. Respiratory rate normal. Temperature low, Wes hugger applied. Oxygen saturation normal. Const General: cooperative, healthy appearing and no acute distress Orientation/consciousness: oriented to person, oriented to place, oriented to time and patient oriented x3 Limitations: no limitations HENMT Head: Yes normocephalic and Yes atraumatic Ears: external ears normal General nose exam: Normal external nose present Face and sinus: Yes face symmetric Mouth: oropharynx normal and moist mucous membranes Throat: Yes uvula midline Eyes Pupils: Equal, round and reactive pupils present Neck Neck: Yes normal visual inspection and Yes supple Resp Effort & Inspection: normal respiratory effort and able to speak in complete sentences Auscultation: clear to auscultation bilaterally Cardio Rate: regular rate Rhythm: regular rhythm Heart sounds: S1 normal heart sound present and S2 normal heart sound present GI Palpation (GI): Soft to palpation and nontender Auscultation: normoactive bowel sounds General: Yes no CVA tenderness Back/Spine/Pelvis Back: no CVA tenderness Skin General skin exam: elasticity normal and turgor normal Neuro General: oriented to person, oriented to place, oriented to time, patient oriented x3, moves all extremities, no focal motor deficits and CN's II-XI intact bilaterally Cranial nerves: Yes Equal, round and reactive pupils present Cognition (Neuro): normal cognition Speech: Abnormal speech present other (slow and deliberate) Extrem General: Yes full ROM, Yes no pedal edema and Yes no calf tenderness Psych Mental Status: mental status grossly normal Affect: normal affect Thought process: Normal thought process present Medications Administered Discontinued Medications Generic Name Dose Route Start Last Admin Trade Name Freq PRN Reason Stop Dose Admin Dextrose/Sodium Chloride 1,000 mls @ 999 mls/hr 11/28/24 13:28 11/28/24 13:39 D51/2ns IVCONT 11/28/24 14:28 999 mls/hr .Q1H1M ONE Administration Medical Decision Making Medical Decision Making [facility] Narrative: Patient is a 39-year-old female with history of T1 dm, hyperlipidemia presenting to the emergency department with altered mental status after being found to be hypoglycemic at home prior to arrival. On exam patient is awake, A+Ox3, VS WNL, afebrile, normal neurological exam without focal deficits, physical exam findings as above. Given reported symptoms and physical exam findings, initial differential includes but is not limited to hypoglycemia, other electrolyte abnormality, drug or alcohol intoxication or withdrawal, sepsis. Labs notable for no leukocytosis, no anemia, normal glucose and beta hydroxybutyrate, initial lactic 2.1. D5 1/2 NS ordered. UA without evidence of infection. Urine drug screen and ethanol negative. CT head unremarkable. My interpretation is in agreement with the radiologist's interpretation. Lactic improved after IV fluids, temp has also improved but still slightly hypothermic. Case discussed with Dr. Celeste who accepts admission to medicine. Differential Diagnosis Differential Diagnoses: The differential diagnosis associated with the presentation includes as per [facility] Admission/Observation Consideration of admission/observation: Escalation of care including admission/observation considered Consult Healthcare Provider Management of the patient was discussed with: Hospitalist Lab Data [facility] Lab Attestation statement: I reviewed the patient's lab results. as per [facility] 11/28/24 12:49 11/28/24 12:49 Labs: Lab Results 11/28/24 11/28/24 11/28/24 Range/Units 12:49 13:00 13:16 WBC 5.6 (4.8-10.8) X10*3/uL RBC 4.31 (4.20-5.50) X10*6/uL Hgb 11.9 L (12.0-16.0) g/dl Hct 36.8 L (37.0-47.0) % MCV 85.4 (80.0-98.0) fL MCH 27.6 (27.0-33.0) pg MCHC 32.3 (31.0-35.0) g/dl RDW 13.3 (11.0-16.0) % Plt Count 219 (160-400) X10*3/uL MPV 11.0 (9.4-12.3) fL Immature Gran % (Auto) 0.2 (0.0-0.4) % Neut % (Auto) 77.4 H (45-73) % Lymph % (Auto) 17.6 L (20-40) % [place] % (Auto) 3.8 (2-11) % Eos % (Auto) 0.5 (0-4) % Baso % (Auto) 0.5 (0-2) % Lymph # (Auto) 1.0 L (1.2-4.9) X10*3/uL [place] # (Auto) 0.2 (0.1-1.2) X10*3/uL Eos # (Auto) 0.0 (0.0-0.4) X10*3/uL Baso # (Auto) 0.0 (0.0-0.2) X10*3/uL Abs Immat Gran (auto) 0.01 (0.00-0.03) X10*3/uL Absolute Neuts (auto) 4.3 (2.0-8.3) x10*3/uL Absolute Nucleated RBC 0.000 (0.0-0.012) X10*3/uL Nucleated RBC % (auto) 0.0 (0.0-0.2) /100WBC PT 10.7 L (10.9-12.4) SEC INR 0.9 (0.9-1.1) Sodium 141 (135-145) mmol/L Potassium 4.0 (3.3-5.1) mmol/L Chloride 108 (96-108) mmol/L Carbon Dioxide 21 L (22-29) mmol/L Anion Gap 16 (12-20) BUN 11 (9-16) mg/dL Creatinine 0.59 (0.5-1.4) mg/dL Estim Creat Clear Calc 131.7 Estimated GFR > 60 Random Glucose 134 H (60-115) mg/dL Lactic Acid 2.1 H* (0.5-2.0) mmol/L Lactic Acid F/U @ 2Hr (0.5-2.0) mmol/L Calcium 8.9 (8.4-10.2) mg/dL Magnesium 2.0 (1.6-2.6) mg/dL Total Bilirubin 0.7 (0.0-1.0) mg/dL AST 29 (5-31) U/L ALT 20 (0-31) U/L Alkaline Phosphatase 112 (39-117) U/L Ammonia 20 (13-55) umol/L Total Protein 7.6 (6.5-8.0) g/dL Albumin 3.8 (3.5-5.0) g/dL Beta-Hydroxybutyrate 0.23 (0.02-0.27) mmol/L Beta HCG, Quant < 2 mIU/mL Urine Color Yellow Urine Appearance Clear Urine pH 7.0 (5.0-9.0) Ur Specific [place] 1.015 (1.005-1.025) Urine Protein Negative (Neg-Trace) mg/dL Urine Glucose (UA) >=1000 H (Negative) mg/dL Urine Ketones Negative (Negative) mg/dL Urine Blood Negative (Negative) Urine Nitrite Negative (Negative) Ur Leukocyte Esterase Small (1+) H (Negative) Urine RBC 0-2 (0-2) /HPF Urine WBC 0-5 (0-5) /HPF Ur Squamous Epith Cells 6-10 (0-2) /HPF Urine Bacteria None Seen (None Seen) Hyaline Casts 0-2 (0-2) /LPF Urine Opiates Screen Not Detected (Not Detect) Ur Buprenorphine Scrn Not Detected (Not Detect) ng/mL Ur Oxycodone Screen Not Detected (Not Detect) ng/mL Urine Methadone Screen Not Detected (Not Detect) ng/mL Urine Fentanyl Screen Not Detected (Not Detect) Ur Barbiturates Screen Not Detected (Not Detect) Ur Phencyclidine Scrn Not Detected (Not Detect) Ur Amphetamines Screen Not Detected (Not Detect) U Benzodiazepines Scrn Not Detected (Not Detect) Urine Cocaine Screen Not Detected (Not Detect) U Marijuana (THC) Screen Not Detected (Not Detect) Ethyl Alcohol < 10 mg/dL Influenza Type A (PCR) NEGATIVE (Negative) Influenza Type B (PCR) NEGATIVE (Negative) RSV RNA Qual (PCR) NEGATIVE (Negative) SARS-CoV-2 RNA (RT-PCR) NEGATIVE (Negative) 11/28/24 Range/Units 15:53 WBC (4.8-10.8) X10*3/uL RBC (4.20-5.50) X10*6/uL Hgb (12.0-16.0) g/dl Hct (37.0-47.0) % MCV (80.0-98.0) fL MCH (27.0-33.0) pg MCHC (31.0-35.0) g/dl RDW (11.0-16.0) % Plt Count (160-400) X10*3/uL MPV (9.4-12.3) fL Immature Gran % (Auto) (0.0-0.4) % Neut % (Auto) (45-73) % Lymph % (Auto) (20-40) % [place] % (Auto) (2-11) % Eos % (Auto) (0-4) % Baso % (Auto) (0-2) % Lymph # (Auto) (1.2-4.9) X10*3/uL [place] # (Auto) (0.1-1.2) X10*3/uL Eos # (Auto) (0.0-0.4) X10*3/uL Baso # (Auto) (0.0-0.2) X10*3/uL Abs Immat Gran (auto) (0.00-0.03) X10*3/uL Absolute Neuts (auto) (2.0-8.3) x10*3/uL Absolute Nucleated RBC (0.0-0.012) X10*3/uL Nucleated RBC % (auto) (0.0-0.2) /100WBC PT (10.9-12.4) SEC INR (0.9-1.1) Sodium (135-145) mmol/L Potassium (3.3-5.1) mmol/L Chloride (96-108) mmol/L Carbon Dioxide (22-29) mmol/L Anion Gap (12-20) BUN (9-16) mg/dL Creatinine (0.5-1.4) mg/dL Estim Creat Clear Calc Estimated GFR Random Glucose (60-115) mg/dL Lactic Acid (0.5-2.0) mmol/L Lactic Acid F/U @ 2Hr 1.2 (0.5-2.0) mmol/L Calcium (8.4-10.2) mg/dL Magnesium (1.6-2.6) mg/dL Total Bilirubin (0.0-1.0) mg/dL AST (5-31) U/L ALT (0-31) U/L Alkaline Phosphatase (39-117) U/L Ammonia (13-55) umol/L Total Protein (6.5-8.0) g/dL Albumin (3.5-5.0) g/dL Beta-Hydroxybutyrate (0.02-0.27) mmol/L Beta HCG, Quant mIU/mL Urine Color Urine Appearance Urine pH (5.0-9.0) Ur Specific [place] (1.005-1.025) Urine Protein (Neg-Trace) mg/dL Urine Glucose (UA) (Negative) mg/dL Urine Ketones (Negative) mg/dL Urine Blood (Negative) Urine Nitrite (Negative) Ur Leukocyte Esterase (Negative) Urine RBC (0-2) /HPF Urine WBC (0-5) /HPF Ur Squamous Epith Cells (0-2) /HPF Urine Bacteria (None Seen) Hyaline Casts (0-2) /LPF Urine Opiates Screen (Not Detect) Ur Buprenorphine Scrn (Not Detect) ng/mL Ur Oxycodone Screen (Not Detect) ng/mL Urine Methadone Screen (Not Detect) ng/mL Urine Fentanyl Screen (Not Detect) Ur Barbiturates Screen (Not Detect) Ur Phencyclidine Scrn (Not Detect) Ur Amphetamines Screen (Not Detect) U Benzodiazepines Scrn (Not Detect) Urine Cocaine Screen (Not Detect) U Marijuana (THC) Screen (Not Detect) Ethyl Alcohol mg/dL Influenza Type A (PCR) (Negative) Influenza Type B (PCR) (Negative) RSV RNA Qual (PCR) (Negative) SARS-CoV-2 RNA (RT-PCR) (Negative) Independent Interpretation I performed an independent interpretation of an: CT Scan Interpretation: No acute abnormalities on CT head Radiology Impression Discussion of test interpretation with radiology: I have reviewed the radiologist's reading. Radiologist Impression: CT HEAD WITHOUT CONTRAST Comparison: None provided Findings: No acute intracranial hemorrhage, extra-axial fluid collection, hydrocephalus or midline shift. No significant atrophy-like change. No significant white matter disease. There is no sinus or mastoid fluid. Visualized orbits: No acute abnormalities. There is no acute fracture. IMPRESSION: 1. No acute intracranial process. External Record Review External record reviewed: Inpatient record, Office record and Outpatient record Critical Care Time Critical Care Time Critical Care Time: Yes Total Critical Care Time: 49 Attestation: I have personally provided critical care time exclusive of time spent on separately billable procedures. Time includes review of lab data, radiology results, discussion with consultants, and monitoring for potential decompensation. Intervention performed as documented. Discharge Plan Discharge Patient Disposition: Admitted As Inpatient Print Language: Pashto
[2024-11-28 12:12] VITALS: BP 90/67; PULSE 67; O2SAT 100
[2024-11-28 12:18] VITALS: BP 122/85; PULSE 73; RESP 16; TEMP 33.3; O2SAT 100; BMI 34.8
[2024-11-28 12:53] LABS: MANUAL DIFF FLAG NO
[2024-11-28 12:54] LABS: Hematocrit 36.8 % (37.0-47.0); Hemoglobin 11.9 g/dl (12.0-16.0); Imm Gran Abs Auto 0.01 X10*3/uL (0.00-0.03); Imm Gran Pct Auto 0.2 % (0.0-0.4); Lymphocytes Absolute Auto 1.0 X10*3/uL (1.2-4.9); Mean Corpuscular HGB Conc 32.3 g/dl (31.0-35.0); Mean Corpuscular Hemoglobin 27.6 pg (27.0-33.0); Mean Corpuscular Volume 85.4 fL (80.0-98.0); NRBC Abs Auto 0.000 X10*3/uL (0.0-0.012); NRBC Pct Auto 0.0 /100WBC (0.0-0.2); Platelet Count 219 X10*3/uL (160-400); Red Blood Count 4.31 X10*6/uL (4.20-5.50); White Blood Count 5.6 X10*3/uL (4.8-10.8)
[2024-11-28 13:06] LABS: Ammonia 20 umol/L (13-55)
[2024-11-28 13:11] LABS: Appearance Urine Clear; Glucose Urine UA >=1000 mg/dL (Negative); PH 7.0 (5.0-9.0); Specific Gravity - Urine 1.015 (1.005-1.025); UMIC TRIGGER UACC YES
[2024-11-28 13:19] LABS: Cannabinoid Screen Urine Not Detected (Not Detect)
[2024-11-28 13:20] LABS: Alanine Aminotransferase 20 U/L (0-31); Albumin Level 3.8 g/dL (3.5-5.0); Alkaline Phosphatase 112 U/L (39-117); Anion Gap 16 (12-20); Aspartate Amino Transferase 29 U/L (5-31); Blood Urea Nitrogen 11 mg/dL (9-16); Calcium 8.9 mg/dL (8.4-10.2); Carbon Dioxide 21 mmol/L (22-29); Chloride 108 mmol/L (96-108); Creatinine Clr Calc Pharmacy 131.7; Estimated Glomerular Filt Rate > 60; Magnesium 2.0 mg/dL (1.6-2.6); Potassium 4.0 mmol/L (3.3-5.1); Sodium 141 mmol/L (135-145); Total Protein 7.6 g/dL (6.5-8.0)
[2024-11-28 13:27] LABS: INTERNATIONAL NORM RATIO 0.9 (0.9-1.1); Prothrombin Time 10.7 SEC (10.9-12.4)
[2024-11-28 13:34] LABS: UACC Culture Trigger YES
[2024-11-28] MEDS: Dextrose 5 % and 0.45 % NaCl 1,000 ML 999 ML IVCONT (13:39)
[2024-11-28 14:06] LABS: Resp Syncy Virus RNA Qual PCR NEGATIVE (Negative); SARS COV2 PCR INHOUSE NEGATIVE (Negative)
[2024-11-28 14:52] LABS: Reflex Lactate? Lactic Acid Added
[2024-11-28 16:21] LABS: ~Lactic Acid-LAB USE ONLY 1.2 mmol/L (0.5-2.0)
[2024-11-28 16:31] VITALS: RESP 18; TEMP 36.1; O2SAT 99
--- NOTE | 2024-11-28 16:44 | PM.IMHP ---
History of Present Illness Date of Service: 11/28/24 Attending physician on admission: Eros Celeste Chief Complaint: Lethargy, confusion Pt is a 39-year-old female with a PMH significant for?type 1 diabetes, hx of DKA, and gastroparesis who presents to the ED with?lethargy and hypoglycemia. Pt was found this morning by her son somnolent and confused. Would open her eyes briefly to shaking, but not respond and immediately fall asleep. EMS was called and found her hypoglycemic at 41. They gave her D50 with repeat POC 141. Pt herself does not remember the episode, but reports her sugars are often low in the morning in the 40s-50s. She does not have a PCP or qualitative researcher, and was recently denied [employer] insurance earlier in the month. No longer has any prescriptions for insulin, and purchases Novolin R from [facility] and apparently doses it as both a long-acting Lantus (25 units at night) and a short-acting Lispro dependant on POC (sliding scale coverage before meals). Currently pt complains of slight weakness and tiredness, but otherwise feeling better. Denies nausea, vomiting, abdominal pain. No chest pain/pressure, palpitations. Denies fever, chills. No SOB or difficulty breathing. Of note, patient has previously been admitted to the hospital to the ICU for DKA due insulin noncompliance. In the ED pt was hypothermic at 92, vitals otherwise stable and WNL. Labs were significant for initial lactic acid 2.1 with repeat 1.2, random glucose 134. No leukocytosis. Stable H&H. No significant electrolyte abnormalities. Renal and hepatic function WNL. Ammonia WNL. Beta hydroxybutyrate WNL. UA negative for UTI. Tox screen negative. Negative for flu, RSV, COVID. CT?of head negative for acute intracranial process. Pt was treated in the ED with D5 half NS. Pt is admitted to the hospital for treatment and further evaluation of acute metabolic encephalopathy and hypothermia in the setting of hypoglycemia secondary to unintentional insulin overdosing. Review of Systems Review of Systems: Negative except for that which is stated in the HPI. [facility] Medical History Type 1 diabetes mellitus Encounter to establish care Diabetic ketoacidosis Gastroparesis MATTHEW (acute kidney injury) Diabetes Family History Mother No known problems Father Diabetes Surgical History Hx of cataract surgery No pertinent past surgical history Social History Household Members: Family Housing: House Do you presently have visiting nurse or other home services: No Unable to assess alcohol history related to: Unknown Patient Tobacco Use Status: Never used Tobacco e-Cigarette/Vaping Use: Never Used Second Hand Smoke Exposure: No Use of substances other than those prescribed or required for medical reasons: Unknown Advance Directives: No Advance Directives Information Provided: No Advance Directives Date on File: 07/23/22 service: No Current occupational status: employed Cognitive needs: No Hearing needs: No Vision needs: No Meds Allergies Allergy/AdvReac Type Severity Reaction Status Date / Time No Known Allergies (No Known Allergy Verified 11/28/24 12:26 Allergies*) Home Medications ?Medication ?Instructions ?Recorded ?Confirmed ?Last Taken ?Type insulin regular human 100 unit/mL 15 unit subcut DAILY PRN high 11/28/24 11/28/24 Unknown History (3 mL) subcutaneous pen (Novolin R blood sugar FlexPen) insulin regular human 100 unit/mL 25 unit subcut BEDTIME 11/28/24 11/28/24 11/27/24 History (3 mL) subcutaneous pen (Novolin R FlexPen) Physical Exam Vital Signs and Narrative: Vital Signs: Last Vital Signs Temp 96.9 F 11/28/24 16:31 Pulse 73 11/28/24 12:18 Resp 18 11/28/24 16:31 BP 122/85 11/28/24 12:18 Pulse Ox 99 11/28/24 16:31 O2 Del Method Room Air 11/28/24 16:31 BMI result Body Mass Index 34.8 General: AOx3, no acute distress. Resting comfortably in bed, mentating well Resp: CTA bilaterally CVS: S1, S2, RRR GI: +BS, NT, no distention Skin: Warm, dry Neuro: Cranial nerves II-XII grossly intact bilaterally. Motor grossly intact bilaterally Extremities: No edema Psych: Appropriate affect Results Labs 11/28/24 12:49 11/28/24 12:49 Labs: Laboratory Results - last 24 hr 11/28/24 11/28/24 11/28/24 12:49 13:00 13:16 MCV 85.4 MCH 27.6 MCHC 32.3 RDW 13.3 Plt Count 219 MPV 11.0 Immature Gran % (Auto) 0.2 Neut % (Auto) 77.4 H Lymph % (Auto) 17.6 L [place] % (Auto) 3.8 Eos % (Auto) 0.5 Baso % (Auto) 0.5 Lymph # (Auto) 1.0 L [place] # (Auto) 0.2 Eos # (Auto) 0.0 Baso # (Auto) 0.0 Abs Immat Gran (auto) 0.01 Absolute Neuts (auto) 4.3 Absolute Nucleated RBC 0.000 Nucleated RBC % (auto) 0.0 PT 10.7 L INR 0.9 Anion Gap 16 Estim Creat Clear Calc 131.7 Estimated GFR > 60 Random Glucose 134 H Lactic Acid 2.1 H* Lactic Acid F/U @ 2Hr Calcium 8.9 Magnesium 2.0 Total Bilirubin 0.7 AST 29 ALT 20 Alkaline Phosphatase 112 Ammonia 20 Total Protein 7.6 Albumin 3.8 Beta-Hydroxybutyrate 0.23 Beta HCG, Quant < 2 Urine Color Yellow Urine Appearance Clear Urine pH 7.0 Ur Specific [place] 1.015 Urine Protein Negative Urine Glucose (UA) >=1000 H Urine Ketones Negative Urine Blood Negative Urine Nitrite Negative Ur Leukocyte Esterase Small (1+) H Urine RBC 0-2 Urine WBC 0-5 Ur Squamous Epith Cells 6-10 Urine Bacteria None Seen Hyaline Casts 0-2 Urine Opiates Screen Not Detected Ur Buprenorphine Scrn Not Detected Ur Oxycodone Screen Not Detected Urine Methadone Screen Not Detected Urine Fentanyl Screen Not Detected Ur Barbiturates Screen Not Detected Ur Phencyclidine Scrn Not Detected Ur Amphetamines Screen Not Detected U Benzodiazepines Scrn Not Detected Urine Cocaine Screen Not Detected U Marijuana (THC) Screen Not Detected Ethyl Alcohol < 10 Influenza Type A (PCR) NEGATIVE Influenza Type B (PCR) NEGATIVE RSV RNA Qual (PCR) NEGATIVE SARS-CoV-2 RNA (RT-PCR) NEGATIVE 11/28/24 15:53 MCV MCH MCHC RDW Plt Count MPV Immature Gran % (Auto) Neut % (Auto) Lymph % (Auto) [place] % (Auto) Eos % (Auto) Baso % (Auto) Lymph # (Auto) [place] # (Auto) Eos # (Auto) Baso # (Auto) Abs Immat Gran (auto) Absolute Neuts (auto) Absolute Nucleated RBC Nucleated RBC % (auto) PT INR Anion Gap Estim Creat Clear Calc Estimated GFR Random Glucose Lactic Acid Lactic Acid F/U @ 2Hr 1.2 Calcium Magnesium Total Bilirubin AST ALT Alkaline Phosphatase Ammonia Total Protein Albumin Beta-Hydroxybutyrate Beta HCG, Quant Urine Color Urine Appearance Urine pH Ur Specific [place] Urine Protein Urine Glucose (UA) Urine Ketones Urine Blood Urine Nitrite Ur Leukocyte Esterase Urine RBC Urine WBC Ur Squamous Epith Cells Urine Bacteria Hyaline Casts Urine Opiates Screen Ur Buprenorphine Scrn Ur Oxycodone Screen Urine Methadone Screen Urine Fentanyl Screen Ur Barbiturates Screen Ur Phencyclidine Scrn Ur Amphetamines Screen U Benzodiazepines Scrn Urine Cocaine Screen U Marijuana (THC) Screen Ethyl Alcohol Influenza Type A (PCR) Influenza Type B (PCR) RSV RNA Qual (PCR) SARS-CoV-2 RNA (RT-PCR) Assessment and Plan (1) Hypoglycemia: Status: Acute (2) Hypothermia: Qualifiers: Encounter type: initial encounter Qualified Code(s): T68.XXXA - Hypothermia, initial encounter Status: Acute Plan Pt is a 39-year-old female with a PMH significant for?type 1 diabetes, hx of DKA, and gastroparesis who presents to the ED with?lethargy and hypoglycemia. Pt was found this morning by her son somnolent and confused. Pt is admitted to the hospital for treatment and further evaluation of acute metabolic encephalopathy and hypothermia in the setting of hypoglycemia secondary to unintentional insulin overdosing. Type 1 diabetes with hypoglycemia in the setting of unintentional insulin overdose Pt lethargic and confused this morning, EMS found POC 41 Pt has been incorrectly dosing Novolin R regular insulin she buys at [facility], using as both a long-acting and short-acting insulin Pt given D50 and D5 half NS Will dose with Lantus 10 units at bedtime and in the morning Place on sliding scale insulin Diabetic diet Pt will require diabetic counseling for insulin management Pt also would appreciate social work input for possible help with establishing health insurance, PCP, and qualitative researcher Hypothermia, resolved Patient's temp as low as 92.0 Secondary to hypoglycemia Acute lactic acidosis, resolved Initial lactic acid 2.1, repeat 1.2 after IVF In the setting of hypothermia from insulin overdose, not sepsis Full Code Attending:?Dr. Celeste DVT Prophylaxis: Lovenox Pt will require a hospitalization of at least two nights for treatment of?hypothermia and hypoglycemia in the setting of unintentional insulin overdose. Given that pt has had difficult to control sugars and pt is a type 1 diabetic, she will require hospital level care for close monitoring of vitals and POC is while adjusting insulin coverage. Quality Stroke Does the patient have a stroke diagnosis?: No VTE Prior VTE?: No VTE Risk Level:: Medical - moderate - high VTE Device Contraindication: Treatment Not Indicated VTE Drug Contraindication: N/A - Med Ordered
--- NOTE | 2024-11-28 17:53 | PHA.MEDREC ---
Pharmacy Consult ? Medication Reconciliation Pharmacy has completed the medication reconciliation, spoke to patient who confirmed only Novolin-R 25 units at bedtime and 15 units in the morning when she feels it's high, nothing else and nothing OTC.
[2024-11-28 19:25] VITALS: BP 133/60; PULSE 101; RESP 20; TEMP 36.6; O2SAT 100
[2024-11-28 20:55] LABS: Glucose, Whole Blood > 600 mg/dL (60-115)
--- NOTE | 2024-11-28 21:02 | HE.NUR.EV ---
Status Change: BGL >600 Immediate Actions Taken:none Notifications:Hospitalist Megan notified Further Monitoring and Treatment:stat BMP, scheduled insulin and sliding scale administered
[2024-11-28] MEDS: Insulin Glargine,Hum.rec.anlog 100 UNIT/ML 10 ML VIAL 10 UNIT SUBCUT (21:15)
[2024-11-28 21:38] LABS: Anion Gap 17 (12-20); Blood Urea Nitrogen 13 mg/dL (9-16); Calcium 8.3 mg/dL (8.4-10.2); Carbon Dioxide 20 mmol/L (22-29); Chloride 101 mmol/L (96-108); Creatinine Clr Calc Pharmacy 117.7; Estimated Glomerular Filt Rate > 60; Potassium 5.0 mmol/L (3.3-5.1); Sodium 133 mmol/L (135-145)
[2024-11-28] MEDS: Lactated Ringers 500 ML 999 ML IV (21:53)
[2024-11-28 23:00] VITALS: BP 113/76; PULSE 95; RESP 20; TEMP 36.8; O2SAT 99
--- NOTE | 2024-11-28 23:02 | PC.NURSE ---
this rn assumed care of pt, pt brought from front main to ed bed 11. pt offers no complaints at this time, poc obtained, 297. pt sinus tachy on tele 98-106bpm.
[2024-11-28 23:03] LABS: Glucose, Whole Blood 287 mg/dL (60-115)
[2024-11-29 01:18] LABS: Glucose, Whole Blood 296 mg/dL (60-115)
[2024-11-29 02:22] VITALS: BP 111/55; PULSE 88; RESP 18; TEMP 36.3; O2SAT 97; BMI 33.0
[2024-11-29 03:08] LABS: Glucose, Whole Blood 305 mg/dL (60-115)
--- NOTE | 2024-11-29 04:08 | PC.NURSE ---
Addendum entered by Neema Brasher RN 11/29/24 06:59: 04:18: advised re-check POC during 06:00 hour. Labs including serum glucose drawn by phlebotomy at 05:46. 06:41: Priority message to this technical publications writer and provider Dr. Medrano received from the lab with critical glucose 410. orders to cover with sliding scale. Oncoming RN made aware as this message was received during shift report. Original Note: This patient arrived to s3 from ED for admission at approximately 02:20; this technical publications writer assumed care of this patient at this time. Patient was oriented to room, call so, bed mechanics, and plan of care. A&Ox4, awake and conversing with technical publications writer. Pt continues on q2hr POCs as confirmed with ED/handoff RN just prior to 02:00. Pt denies s/s of hyper/hypoglycemia for this technical publications writer, stated to technical publications writer on assessment I feel much better . Covering Dr. Medrano was made aware of POC trend reviewed in labs at 02:43 with technical publications writer request to advise on POC frequency (orders still in place for achs, despite ED RN handoff report for q2hr). While awaiting response, next POC was 305. was notified of POC at 03:07 with technical publications writer request for advisement of any interventions, and POC frequency clarification again requested. Integration Project Manager awaiting orders at this time. Pt denies acute complaints. Breathing remains even and unlabored without distress on room air. Plan of care initiated.
[2024-11-29 06:48] LABS: Anion Gap 16 (12-20); Blood Urea Nitrogen 11 mg/dL (9-16); Calcium 8.6 mg/dL (8.4-10.2); Carbon Dioxide 19 mmol/L (22-29); Chloride 105 mmol/L (96-108); Creatinine Clr Calc Pharmacy 126.1; Estimated Glomerular Filt Rate > 60; Potassium 4.5 mmol/L (3.3-5.1); Sodium 135 mmol/L (135-145)
[2024-11-29 06:50] LABS: Glucose, Whole Blood 394 mg/dL (60-115)
[2024-11-29 06:50] LABS: Hemoglobin A1C 200.4529 umol/L; Total Hemoglobin (HGBA1C) 2717.8689 umol/L
[2024-11-29] MEDS: Insulin Glargine,Hum.rec.anlog 100 UNIT/ML 10 ML VIAL 10 UNIT SUBCUT (07:15)
[2024-11-29] MEDS: 0.9 % Sodium Chloride Flush 3 ML SYRINGE IVFLUSH (07:15)
[2024-11-29 07:43] VITALS: BP 127/68; PULSE 88; RESP 18; TEMP 36.8; O2SAT 98
--- NOTE | 2024-11-29 09:49 | P.DS_ITS ---
DS: Providers Provider Date of Service: 11/29/24 <Yokasta Forrest NP - Last Filed: 11/29/24 12:52> Date of admission: 11/28/24 16:42 <Yokasta Forrest NP - Last Filed: 11/29/24 12:52> Date of discharge: 11/29/24 <Yokasta Forrest NP - Last Filed: 11/29/24 12:52> Primary care physician: Unknown Physician <Yokasta Forrest NP - Last Filed: 11/29/24 12:52> DS: Diagnosis Discharge Diagnosis (1) Hypoglycemia: Status: Acute <Yokasta Forrest NP - Last Filed: 11/29/24 12:52> (2) Hypothermia: Status: Acute <Yokasta Forrest NP - Last Filed: 11/29/24 12:52> DS: Summary Hospital Course Hospital Course: History and physical as per admitting provider. Pt is a 39-year-old female with a PMH significant for?type 1 diabetes, hx of DKA, and gastroparesis who presents to the ED with?lethargy and hypoglycemia. Pt was found this morning by her son somnolent and confused. Would open her eyes briefly to shaking, but not respond and immediately fall asleep. EMS was called and found her hypoglycemic at 41. They gave her D50 with repeat POC 141. Pt herself does not remember the episode, but reports her sugars are often low in the morning in the 40s-50s. She does not have a PCP or repairer sash and door, and was recently denied [employer] insurance earlier in the month. No longer has any prescriptions for insulin, and purchases Novolin R from [employer] and apparently doses it as both a long-acting Lantus (25 units at night) and a short-acting Lispro dependant on POC (sliding scale coverage before meals). Currently pt complains of slight weakness and tiredness, but otherwise feeling better. Denies nausea, vomiting, abdominal pain. No chest pain/pressure, palpitations. Denies fever, chills. No SOB or difficulty breathing. Of note, patient has previously been admitted to the hospital to the ICU for DKA due insulin noncompliance. In the ED pt was hypothermic at 92, vitals otherwise stable and WNL. Labs were significant for initial lactic acid 2.1 with repeat 1.2, random glucose 134. No leukocytosis. Stable H&H. No significant electrolyte abnormalities. Renal and hepatic function WNL. Ammonia WNL. Beta hydroxybutyrate WNL. UA negative for UTI. Tox screen negative. Negative for flu, RSV, COVID. CT?of head negative for acute intracranial process. Pt was treated in the ED with D5 half NS. Pt is admitted to the hospital for treatment and further evaluation of acute metabolic encephalopathy and hypothermia in the setting of hypoglycemia secondary to unintentional insulin overdosing. 39-year-old woman treated for hypoglycemia. Patient reports that she normally takes her insulin Lantus around 18:00 but she had taken her Lantus after 21:00 the night before presenting to the hospital. She reported that seemed to be late for her and that is probably why her blood sugar was so low in the morning. She reports her blood sugars are normally around 150-200 in the morning time if she takes her Lantus early enough. She was initially treated with IV fluids with D5 4 point of care for bs of 41. At this time her blood sugar has normalized. She will continue on her normal medication schedule. Hypothermia. Secondary to the hypoglycemia. Resolved with resolution of hypoglycemia Acute lactic acidosis. Likely secondary to the hypothermia and hypoglycemia. Patient also was given a list of primary care providers from correctional case manager as patient does not have insurance at this time or a primary care provider. He has been paying aldrich for her insulin at [facility] at this time and she did not request any refills. <Yokasta Forrest NP - Last Filed: 11/29/24 12:52> Time Attestation Discharge Coordination Time (in mins): 40 <Russell Pierce MD - Last Filed: 11/29/24 11:58> Quality: Safe Use of Opioids Does Pt have an Active Cancer Diagnosis on the Problem List?: No <Russell Pierce MD - Last Filed: 11/29/24 11:58> Quality: Stroke Does the patient have a stroke diagnosis?: No <Russell Pierce MD - Last Filed: 11/29/24 11:58> Physical Exam Vital Signs: Vital Signs: Last Vital Signs Temp 98.2 F 11/29/24 07:43 Pulse 88 11/29/24 07:43 Resp 18 11/29/24 07:43 BP 127/68 11/29/24 07:43 Pulse Ox 98 07/06/25 07:43 O2 Del Method Room Air 11/29/24 07:43 BMI result Body Mass Index 33.0 <Yokasta Forrest NP - Last Filed: 11/29/24 12:52> Appearing in no acute distress head is normocephalic atraumatic eyes pupils are PERRLA sclera is anicteric mouth throat mucous membranes are intact and moist neck is supple no lymphadenopathy, no JVD noted lung sounds are clear to auscultation heart regular rate rhythm, clear S1, S2 positive bowel sounds, abdomen is soft, nontender neuro patient is alert x3, no focal deficits <Yokasta Forrest NP - Last Filed: 11/29/24 12:52> DS: Data Data Completed and Pending Completed studies during hospitalization [Text1]: Procedures Drainage of Head, Open Approach (11/25/23) Insertion of Infusion Device into Upper Vein, Percutaneous Approach (11/25/23) <Yokasta Forrest NP - Last Filed: 11/29/24 12:52> Labs on day of discharge: Laboratory Results - last 24 hr 11/28/24 11/28/24 11/28/24 12:49 13:00 13:16 WBC 5.6 RBC 4.31 Hgb 11.9 L Hct 36.8 L MCV 85.4 MCH 27.6 MCHC 32.3 RDW 13.3 Plt Count 219 MPV 11.0 Immature Gran % (Auto) 0.2 Neut % (Auto) 77.4 H Lymph % (Auto) 17.6 L [place] % (Auto) 3.8 Eos % (Auto) 0.5 Baso % (Auto) 0.5 Lymph # (Auto) 1.0 L [place] # (Auto) 0.2 Eos # (Auto) 0.0 Baso # (Auto) 0.0 Abs Immat Gran (auto) 0.01 Absolute Neuts (auto) 4.3 Absolute Nucleated RBC 0.000 Nucleated RBC % (auto) 0.0 Hold Purple Top PT 10.7 L INR 0.9 Sodium 141 Potassium 4.0 Chloride 108 Carbon Dioxide 21 L Anion Gap 16 BUN 11 Creatinine 0.59 Estim Creat Clear Calc 131.7 Estimated GFR > 60 POC Glucose Random Glucose 134 H Estimat Average Glucose Hemoglobin A1c % Lactic Acid 2.1 H* Lactic Acid F/U @ 2Hr Calcium 8.9 Magnesium 2.0 Total Bilirubin 0.7 AST 29 ALT 20 Alkaline Phosphatase 112 Ammonia 20 Total Protein 7.6 Albumin 3.8 Beta-Hydroxybutyrate 0.23 Beta HCG, Quant < 2 Urine Color Yellow Urine Appearance Clear Urine pH 7.0 Ur Specific [place] 1.015 Urine Protein Negative Urine Glucose (UA) >=1000 H Urine Ketones Negative Urine Blood Negative Urine Nitrite Negative Ur Leukocyte Esterase Small (1+) H Urine RBC 0-2 Urine WBC 0-5 Ur Squamous Epith Cells 6-10 Urine Bacteria None Seen Hyaline Casts 0-2 Urine Opiates Screen Not Detected Ur Buprenorphine Scrn Not Detected Ur Oxycodone Screen Not Detected Urine Methadone Screen Not Detected Urine Fentanyl Screen Not Detected Ur Barbiturates Screen Not Detected Ur Phencyclidine Scrn Not Detected Ur Amphetamines Screen Not Detected U Benzodiazepines Scrn Not Detected Urine Cocaine Screen Not Detected U Marijuana (THC) Screen Not Detected Ethyl Alcohol < 10 Influenza Type A (PCR) NEGATIVE Influenza Type B (PCR) NEGATIVE RSV RNA Qual (PCR) NEGATIVE SARS-CoV-2 RNA (RT-PCR) NEGATIVE 11/28/24 11/28/24 11/28/24 15:53 20:47 21:08 WBC RBC Hgb Hct MCV MCH MCHC RDW Plt Count MPV Immature Gran % (Auto) Neut % (Auto) Lymph % (Auto) [place] % (Auto) Eos % (Auto) Baso % (Auto) Lymph # (Auto) [place] # (Auto) Eos # (Auto) Baso # (Auto) Abs Immat Gran (auto) Absolute Neuts (auto) Absolute Nucleated RBC Nucleated RBC % (auto) Hold Purple Top PT INR Sodium 133 L Potassium 5.0 D Chloride 101 Carbon Dioxide 20 L Anion Gap 17 BUN 13 Creatinine 0.66 Estim Creat Clear Calc 117.7 Estimated GFR > 60 POC Glucose > 600 H* Random Glucose 731 H* Estimat Average Glucose Hemoglobin A1c % Lactic Acid Lactic Acid F/U @ 2Hr 1.2 Calcium 8.3 L D Magnesium Total Bilirubin AST ALT Alkaline Phosphatase Ammonia Total Protein Albumin Beta-Hydroxybutyrate Beta HCG, Quant Urine Color Urine Appearance Urine pH Ur Specific [place] Urine Protein Urine Glucose (UA) Urine Ketones Urine Blood Urine Nitrite Ur Leukocyte Esterase Urine RBC Urine WBC Ur Squamous Epith Cells Urine Bacteria Hyaline Casts Urine Opiates Screen Ur Buprenorphine Scrn Ur Oxycodone Screen Urine Methadone Screen Urine Fentanyl Screen Ur Barbiturates Screen Ur Phencyclidine Scrn Ur Amphetamines Screen U Benzodiazepines Scrn Urine Cocaine Screen U Marijuana (THC) Screen Ethyl Alcohol Influenza Type A (PCR) Influenza Type B (PCR) RSV RNA Qual (PCR) SARS-CoV-2 RNA (RT-PCR) 11/28/24 11/29/24 11/29/24 22:59 01:14 03:04 WBC RBC Hgb Hct MCV MCH MCHC RDW Plt Count MPV Immature Gran % (Auto) Neut % (Auto) Lymph % (Auto) [place] % (Auto) Eos % (Auto) Baso % (Auto) Lymph # (Auto) [place] # (Auto) Eos # (Auto) Baso # (Auto) Abs Immat Gran (auto) Absolute Neuts (auto) Absolute Nucleated RBC Nucleated RBC % (auto) Hold Purple Top PT INR Sodium Potassium Chloride Carbon Dioxide Anion Gap BUN Creatinine Estim Creat Clear Calc Estimated GFR POC Glucose 287 H 296 H 305 H Random Glucose Estimat Average Glucose Hemoglobin A1c % Lactic Acid Lactic Acid F/U @ 2Hr Calcium Magnesium Total Bilirubin AST ALT Alkaline Phosphatase Ammonia Total Protein Albumin Beta-Hydroxybutyrate Beta HCG, Quant Urine Color Urine Appearance Urine pH Ur Specific [place] Urine Protein Urine Glucose (UA) Urine Ketones Urine Blood Urine Nitrite Ur Leukocyte Esterase Urine RBC Urine WBC Ur Squamous Epith Cells Urine Bacteria Hyaline Casts Urine Opiates Screen Ur Buprenorphine Scrn Ur Oxycodone Screen Urine Methadone Screen Urine Fentanyl Screen Ur Barbiturates Screen Ur Phencyclidine Scrn Ur Amphetamines Screen U Benzodiazepines Scrn Urine Cocaine Screen U Marijuana (THC) Screen Ethyl Alcohol Influenza Type A (PCR) Influenza Type B (PCR) RSV RNA Qual (PCR) SARS-CoV-2 RNA (RT-PCR) 11/29/24 11/29/24 05:46 06:45 WBC RBC Hgb Hct MCV MCH MCHC RDW Plt Count MPV Immature Gran % (Auto) Neut % (Auto) Lymph % (Auto) [place] % (Auto) Eos % (Auto) Baso % (Auto) Lymph # (Auto) [place] # (Auto) Eos # (Auto) Baso # (Auto) Abs Immat Gran (auto) Absolute Neuts (auto) Absolute Nucleated RBC Nucleated RBC % (auto) Hold Purple Top SEE NOTE PT INR Sodium 135 Potassium 4.5 Chloride 105 Carbon Dioxide 19 L Anion Gap 16 BUN 11 Creatinine 0.60 Estim Creat Clear Calc 126.1 Estimated GFR > 60 POC Glucose 394 H* Random Glucose 410 H* Estimat Average Glucose 209 Hemoglobin A1c % 8.9 H Lactic Acid Lactic Acid F/U @ 2Hr Calcium 8.6 Magnesium Total Bilirubin AST ALT Alkaline Phosphatase Ammonia Total Protein Albumin Beta-Hydroxybutyrate Beta HCG, Quant Urine Color Urine Appearance Urine pH Ur Specific [place] Urine Protein Urine Glucose (UA) Urine Ketones Urine Blood Urine Nitrite Ur Leukocyte Esterase Urine RBC Urine WBC Ur Squamous Epith Cells Urine Bacteria Hyaline Casts Urine Opiates Screen Ur Buprenorphine Scrn Ur Oxycodone Screen Urine Methadone Screen Urine Fentanyl Screen Ur Barbiturates Screen Ur Phencyclidine Scrn Ur Amphetamines Screen U Benzodiazepines Scrn Urine Cocaine Screen U Marijuana (THC) Screen Ethyl Alcohol Influenza Type A (PCR) Influenza Type B (PCR) RSV RNA Qual (PCR) SARS-CoV-2 RNA (RT-PCR) <Yokasta Forrest NP - Last Filed: 11/29/24 12:52> Discharge Plan Discharge Anticipated Discharge Date/Time: 11/29/24 09:47 <Yokasta Forrest NP - Last Filed: 11/29/24 12:52> Patient Disposition: Home, Self-Care <Yokasta Forrest NP - Last Filed: 11/29/24 12:52> Discharge Diagnosis: Hypothermia Hypoglycemia <Yokasta Forrest NP - Last Filed: 11/29/24 12:52> Hypothermia Hypoglycemia <Russell Pierce MD - Last Filed: 11/29/24 11:58> Discharge Medications: Continued Novolin R FlexPen 100 unit/mL (3 mL) Insulin Pen 25 unit SUBCUT BEDTIME Novolin R FlexPen 100 unit/mL (3 mL) Insulin Pen 15 unit SUBCUT DAILY PRN (Reason: high blood sugar) (DME) FreeStyle Mari 3 Sensor Device See Rx Instructions .Route Qty: 2 5RF Rx Instructions: As directed change every 14 days <Yokasta Forrest NP - Last Filed: 11/29/24 12:52> Discharge Orders: Discharge Order (Routine); Ordered 11/29/24 Ordered By: Yokasta Forrest <Yokasta Forrest NP - Last Filed: 11/29/24 12:52> Diet: Advance to usual diet <Yokasta Forrest NP - Last Filed: 11/29/24 12:52> Advance to usual diet <Russell Pierce MD - Last Filed: 11/29/24 11:58> Activity on Discharge: As tolerated <Yokasta Forrest NP - Last Filed: 11/29/24 12:52> As tolerated <Russell Pierce MD - Last Filed: 11/29/24 11:58> Stand Alone Forms: Patient Portal Discharge page <Yokasta Forrest NP - Last Filed: 11/29/24 12:52> Print Language: Indonesian <Yokasta Forrest NP - Last Filed: 11/29/24 12:52> Care Plan Goals: Check blood sugar before administering insulin Make sure to administer Lantus prior to 21:00 <Yokasta Forrest NP - Last Filed: 11/29/24 12:52> Health Concerns: Hypothermia Hypoglycemia <Yokasta Forrest NP - Last Filed: 11/29/24 12:52> Plan of Treatment: Follow-up with primary care provider as needed Take all medications as prescribed <Yokasta Forrest NP - Last Filed: 11/29/24 12:52> Assessment: See discharge summary <Yokasta Forrest NP - Last Filed: 11/29/24 12:52>
[2024-11-29 09:54] LABS: Glucose, Whole Blood 323 mg/dL (60-115)
[2024-11-29 11:10] LABS: Glucose, Whole Blood 291 mg/dL (60-115)
[2024-11-29 12:50] LABS: Glucose, Whole Blood 263 mg/dL (60-115)
--- NOTE | 2024-11-29 13:09 | MHC.CM.PN ---
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 SHE HAS NO INSURANCE AND NO PCP SHE REPORTS SHE HAS APPLIED FOR MH MORE THAN ONCE, SHE QUALIFIED ONCE, BUT THEN IT WAS TAKEN SHORTLY AFTER SHE REPORTS SHE IS UNABLE TO AFFORD CONNECTOR INSURANCE, SHE IS ALSO UNSURE IF SHE CAN GET INSURANCE VIA HER EMPLOYER SHE REPORTS HER SON HAS [place] COVERAGE, BUT SHE IS UNSURE WHY SHE CANNOT QUALIFY HCP ON FILE PT UNDERSTANDS SHE SHOULD USE THE [facility] WHILE UNINSURED SHE AGREES TO A RE[place]ERR[place] [facility] [place] OR CONNECTOR COVERAGE SHE WILL DC HOME TODAY WITH NO SERVICES VIA PRIVATE TRANSPORT
[2024-11-30 10:44] LABS: Glucose, Whole Blood 141 mg/dL (60-115)
== END 2024-11-29 13:54 | disposition home or self-care (01) | DRG 812 ==
LOC: HO.ED 16:41 → HO.EDOVER 16:45 → HO.S3 20:59 → HO.EDOVER 21:50 → HO.S3 11-29 01:43
PROVIDERS: Hospitalist; Registered Nurse Emergency; Admitting Provider Student in an Organized Health Care Education/Training Program; Emergency Provider Emergency Medicine; Visit Provider Nurse Practitioner Acute Care
DX: T38.3X1A Poisoning by insulin and oral hypoglycemic [antidiabetic] drugs, accidental (unintentional), initial encounter (principal); E10.649 Type 1 diabetes mellitus with hypoglycemia without coma; E87.21 Acute metabolic acidosis; E10.43 Type 1 diabetes mellitus with diabetic autonomic (poly)neuropathy; K31.84 Gastroparesis; R68.0 Hypothermia, not associated with low environmental temperature; Z20.822 Contact with and (suspected) exposure to COVID-19
CPT/HCPCS: 36415; 70450; 80048; 80053; 80307; 81001; 82010; 82140; 82947; 83036; 83605; 83735; 84702; 85025; 85610; 87040; 87086; 87147; 87637; 99285; J1650; J7120

== ENCOUNTER → 2024-11-28 12:15 | Outpatient (BNV) | payer MEDICAID, SELFPAY | PROVIDERS: Emergency Provider Emergency Medicine; Visit Provider Radiology Diagnostic Radiology | DX: R41.82 Altered mental status, unspecified (principal) | CPT/HCPCS: 70450 ==

== ENCOUNTER → 2024-11-28 16:42 | Outpatient (BNV) | payer MEDICAID, SELFPAY | PROVIDERS: Admitting Provider Student in an Organized Health Care Education/Training Program; Emergency Provider Emergency Medicine; Visit Provider Student in an Organized Health Care Education/Training Program | DX: E16.2 Hypoglycemia, unspecified (principal); T68.XXXA Hypothermia, initial encounter | CPT/HCPCS: 99223; 99239 ==